=== PATIENT | male | born 1960 | race African-American/Black ===

== ENCOUNTER 2019-03-16 12:44 | Inpatient (IN) | payer MEDICAID ==
[~2019-03-16] VITALS: Ht 185.4 cm; Wt 58.5 kg
[2019-03-16 13:00] VITALS: BP 139/86
--- NOTE | 2019-03-16 13:00 | NUR ---
ED Nurse Note: pt brought in to ER by ambulance from street/homeless due to chest pain. pt aao x2-3 and tends to be aggressive towards nurse along the assessment. pt is ambulatory but staying at bed at this moment. restless and talkative. skin dry and ashen. pt is having SOB. 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
--- NOTE | 2019-03-16 13:10 | NUR ---
ED Nurse Note: pt is asking for hot food and warm blanket. per ERPA, pt needs to wait for the lab and CT results for the food.
[2019-03-16] MEDS ORDERED: Omnipaque 350 100ml vial INJ PRN (13:15)
--- NOTE | 2019-03-16 14:01 | Diagnostic Imaging Report ---
Indication: Dyspnea Comparison: None A single view chest radiograph was obtained. Findings: There is evidence of pulmonary vascular congestion with cardiomegaly. No pleural effusion appreciated. Bones are unremarkable. IMPRESSION: Suspected mild CHF
--- NOTE | 2019-03-16 14:08 | Emergency Room Report ---
History of Present Illness General Chief Complaint: Chest Pain Source: Patient Present Illness HPI 58-year-old male with history of CHF currently controlled here brought in by paramedics for CHF exacerbation. Patient reports that he was hospitalized at [facility] for 7 days and got discharged 1 week ago. Patient reports that he lost the medication that was given to him upon discharge. 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 Patient reports that he was on his way of getting a stent placement at [facility] were found seizures is closed. Denies abdominal pain nausea vomiting head injury. Reports that he had a fall with head injury or loss of consciousness few weeks ago he was already evaluated at [facility]. 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 Needs to wait CT to be done before he can consume solid food. Planes of chest pain, 10. Aspirin 325 and nitro were administered by paramedics as well as Lasix. Patient appears to be a poor historian. Also asking for placement to half-way. Vital signs are within normal limits. Complains of chest pain, denies chest pain radiation, denies headache and dizziness at this time. Complains of bilateral pedal edema however no calf tenderness noted. Allergies: Coded Allergies: No Known Allergies (Unverified , 03/16/19) Patient History Past Medical History: see triage record Past Surgical History: unable to obtain Pertinent Family History: none Immunizations: UTD Reviewed Nursing Documentation: PMH: Agreed; PSxH: Agreed Nursing Documentation-PM Past Medical History: No Stated History Hx Cardiac Problems: Yes - arthritis and seizure Review of Systems All Other Systems: negative except mentioned in HPI Physical Exam Vital Signs Date Time Temp Pulse Resp B/P (MAP) Pulse Ox O2 Delivery O2 Flow Rate FiO2 03/16/19 12:40 97.9 110 20 131/90 (104) 100 Room Air Sp02 EP Interpretation: reviewed, normal General Appearance: alert, non-toxic, mild distress Head: normocephalic, atraumatic Eyes: bilateral eye normal inspection, bilateral eye PERRL ENT: hearing grossly normal, normal pharynx, no angioedema, normal voice Neck: full range of motion, supple, thyroid normal, no meningismus, no bony tend, no carotid bruits, supple/symm/no masses Respiratory: chest non-tender, lungs clear, normal breath sounds, no rhonchi, no retraction, no wheezing, speaking full sentences Cardiovascular #1: regular rate, rhythm, no edema, no murmur, normal capillary refill Cardiovascular #2: 2+ carotid (R), 2+ carotid (L), 2+ radial (R), 2+ radial (L) Gastrointestinal: normal bowel sounds, non tender, soft, non-distended, no guarding, no rebound Genitourinary: no CVA tenderness Musculoskeletal: back normal, normal range of motion, no calf tenderness, gait/ station normal, non-tender, swelling - Bilateral feet Neurologic: alert, motor strength/tone normal, oriented x3, sensory intact, responsive, speech normal Psychiatric: judgement/insight normal, memory normal, mood/affect normal, no suicidal/homicidal ideation Skin: no rash Lymphatic: no adenopathy Medical Decision Making PA Attestation All my diagnosis and treatment plans were reviewed ad discussed with my supervising physician Dr. Martin Diagnostic Impression: Primary Impression: CHF exacerbation Additional Impression: Cocaine abuse ER Course 58-year-old male with history of CHF currently controlled here brought in by paramedics for CHF exacerbation. Patient reports that he was hospitalized at [facility] for 7 days and got discharged 1 week ago. Patient reports that he lost the medication that was given to him upon discharge. 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 Patient reports that he was on his way of getting a stent placement at [facility] were found seizures is closed. Denies abdominal pain nausea vomiting head injury. Reports that he had a fall with head injury or loss of consciousness few weeks ago he was already evaluated at [facility]. 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 Needs to wait CT to be done before he can consume solid food. Planes of chest pain, 10. Aspirin 325 and nitro were administered by paramedics as well as Lasix. Patient appears to be a poor historian. Also asking for placement to half-way. Vital signs are within normal limits. Complains of chest pain, denies chest pain radiation, denies headache and dizziness at this time. Complains of bilateral pedal edema however no calf tenderness noted. Ddx considered but are not limited to: [place], Angina, COPD, GERD, CHF exacerbation , PE Vital signs: are WNL, pt. is afebrile H&PE are most consistent with CHF exacerbation, cocaine abuse ORDERS: EKG, Chest XR, cardiac labs, CTA chest no contrast due to elevated BUN and creatinine ED INTERVENTIONS:tylenol, lasix 40mg IV Patient was admitted with diagnosis of CHF exacerbation cocaine abuse to Dr. Mcarthur under supervision of : Mario pt stable at time of admission EKG Diagnostic Results Rate: tachycardiac Rhythm: other - tachycardia ST Segments: no acute changes Other Impression no acute st changes Chest X-Ray Diagnostic Results Chest X-Ray Diagnostic Results : Chest X-Ray Ordered: Yes # of Views/Limited/Complete: 1 View Indication: Chest Pain EP Interpretation: Yes PA Xray: Interpretation reviewed, by supervising MD, and agrees with findings. Interpretation: other - Cardiomegaly, pulmonary edema Impression: Other - pulmonary edema Electronically Signed by: Errol Grande PA-C CT/MRI/US Diagnostic Results CT/MRI/US Diagnostic Results : Imaging Test Ordered: CTA Impression WNL Last Vital Signs Date Time Temp Pulse Resp B/P (MAP) Pulse Ox O2 Delivery O2 Flow Rate FiO2 03/16/19 12:40 97.9 110 20 131/90 (104) 100 Room Air Status: improved Disposition: ADMITTED INPATIENT Condition: Stable Referrals: NOT CHOSEN IPA/,REFERRING (PCP) Errol Tamayo Mar 16, 2019 14:08
--- NOTE | 2019-03-16 14:10 | NUR ---
ED Nurse Note: pt consistantly asking for hot meal. pt was reminded to wait for lab and CT results. pt is cursing and yelling for hot meal. ERPA made aware. received cardiac diet order for dinner. pt informed.
[2019-03-16 14:26] LABS: BASOPHILS % (AUTO) 1.4 % (0.0-2.0); EOSINOPHILS % (AUTO) 1.1 % (0.0-3.0); HEMATOCRIT 33.8 % (42.0-52.0); HEMOGLOBIN 10.2 G/DL (14.2-18.0); LYMPHOCYTES % (AUTO) 24.6 % (20.0-45.0); MEAN CORPUSCULAR VOLUME 89 FL (80-99); MONOCYTES % (AUTO) 12.8 % (1.0-10.0); NEUTROPHILS % (AUTO) 60.1 % (45.0-75.0); PLATELET COUNT 314 K/UL (150-450); RED BLOOD COUNT 3.82 M/UL (4.70-6.10); RED CELL DISTRIBUTION WIDTH 19.1 % (11.6-14.8); WHITE BLOOD COUNT 7.1 K/UL (4.8-10.8)
[2019-03-16 14:41] LABS: ANION GAP 13 mmol/L (5-15); BLOOD UREA NITROGEN 36 mg/dL (7-18); CALCIUM 9.6 MG/DL (8.5-10.1); CARBON DIOXIDE 21 MMOL/L (21-32); CHLORIDE 105 MMOL/L (98-107); CREATININE 1.7 MG/DL (0.55-1.30); POTASSIUM 4.9 MMOL/L (3.5-5.1); SODIUM 139 MMOL/L (136-145)
[2019-03-16 14:48] LABS: INR 1.4 (0.9-1.1)
[2019-03-16 14:56] LABS: ALANINE AMINOTRANSFERASE 37 U/L (12-78); ALBUMIN 3.4 G/DL (3.4-5.0); ALBUMIN/GLOBULIN RATIO 0.7 (1.0-2.7); ALKALINE PHOSPHATASE 112 U/L (46-116); ASPARTATE AMINO TRANSFERASE 30 U/L (15-37); BILIRUBIN,TOTAL 1.9 MG/DL (0.2-1.0)
[2019-03-16 15:00] VITALS: BP 136/77
[2019-03-16 15:02] LABS: BILIRUBIN,DIRECT 0.7 MG/DL (0.0-0.3)
--- NOTE | 2019-03-16 15:03 | NUR ---
ED Nurse Note: pt taken to CT scan in stable condition.
[2019-03-16 15:14] LABS: APPEARANCE,URINE CLEAR; BILIRUBIN, URINE NEGATIVE (NEGATIVE); GLUCOSE, URINE (UA) NEGATIVE (NEGATIVE); KETONES,URINE NEGATIVE (NEGATIVE); LEUKOCYTE ESTERASE ,URINE NEGATIVE (NEGATIVE); NITRITE,URINE NEGATIVE (NEGATIVE); PH,URINE 5 (4.5-8.0); PROTEIN,URINE 2+ (NEGATIVE); UROBILINOGEN,URINE 1 MG/DL (0.0-1.0)
[2019-03-16 15:16] LABS: COLOR,URINE YELLOW
--- NOTE | 2019-03-16 15:17 | NUR ---
ED Nurse Note: pt came back from CT scan in stable condition.
--- NOTE | 2019-03-16 15:58 | Diagnostic Imaging Report ---
Indication: Chest pain Technique: Continuous helical transaxial imaging of the chest was obtained from the thoracic inlet to the upper abdomen. No intravenous contrast was administered. Coronal 2-D reformats were also obtained. Total Dose length Product (DLP): 811.[address] Dose Index Volume (CTDIvol): 15.9 mGy Comparison: none Findings: The heart is enlarged. There is a small to moderate pericardial effusion. There is a small right and trace left pleural effusion. The pulmonary veins appear prominent bilaterally. Hazy perihilar groundglass opacities also demonstrated. No adenopathy seen. Trace mural calcium noted within the aorta. There is mild ascites within the visualized part of the upper abdomen. The gallbladder is contracted. IMPRESSION: Small to moderate pericardial effusion superimposed on cardiomegaly. Pulmonary venous congestion/CHF. Please correlate clinically. Small right pleural effusion. Trace left pleural effusion. Mild ascites The CT scanner at [facility] is accredited by the [employer] and the scans are performed using dose optimization techniques as appropriate to a performed exam including Automatic Exposure control.
--- NOTE | 2019-03-16 16:24 | NUR ---
ED Nurse Note: per ERPA pt is ok to eat.
--- NOTE | 2019-03-16 17:07 | NUR ---
ED Nurse Note: provided hot food with drink. pt is tolerating well with food.
[2019-03-16] MEDS ORDERED: Enalaprilat 2.5mg/2ml Inj IV PRN (19:00)
[2019-03-16] MEDS ORDERED: Nitroglycerin Subl 0.4mg tab SL PRN (19:00)
[2019-03-16] MEDS ORDERED: Albuterol/Ipratropium 3ml neb HHN PRN (19:00)
[2019-03-16] MEDS ORDERED: Miralax 17gm pkt ORAL PRN (19:00)
[2019-03-16] MEDS ORDERED: dilTIAZem HCl 25mg/5ml Inj IV PRN (19:00)
--- NOTE | 2019-03-16 19:16 | NUR ---
HAND-OFF: Report given to VIBHA Hughes. no orders to carry at this moment. waiting for the room to be assigned.
[2019-03-16] MEDS: Heparin 5000 units/ml inj SUBQ SCH (21:00)
--- NOTE | 2019-03-16 21:13 | NUR ---
ED Nurse Note: Report called into Arline DUNNE.
--- NOTE | 2019-03-16 21:30 | NUR ---
ED Nurse Note: Patient transported to floor without incident by RN.
--- NOTE | 2019-03-16 22:06 | NUR ---
NURSE NOTES: Pt is refusing skin check, vital signs, medication, and assessment. He is also being verbally abusive to staff and c/o TV and current hospital food. Will continue to monitor.
[2019-03-17 06:45] LABS: BASOPHILS % (AUTO) 1.2 % (0.0-2.0); EOSINOPHILS % (AUTO) 1.6 % (0.0-3.0); HEMATOCRIT 31.5 % (42.0-52.0); HEMOGLOBIN 9.9 G/DL (14.2-18.0); INR 1.4 (0.9-1.1); LYMPHOCYTES % (AUTO) 14.2 % (20.0-45.0); MEAN CORPUSCULAR VOLUME 87 FL (80-99); MONOCYTES % (AUTO) 9.7 % (1.0-10.0); NEUTROPHILS % (AUTO) 73.2 % (45.0-75.0); PLATELET COUNT 287 K/UL (150-450); RED BLOOD COUNT 3.64 M/UL (4.70-6.10); WHITE BLOOD COUNT 7.7 K/UL (4.8-10.8)
[2019-03-17 07:46] LABS: CHOLESTEROL 168 MG/DL (< 200); HDL CHOLESTEROL 61 MG/DL (40-60); TRIGLYCERIDES 48 MG/DL (30-150)
--- NOTE | 2019-03-17 07:50 | NUR ---
HAND-OFF: Report given to VIBHA Youssef. Pt stable.
[2019-03-17 08:00] VITALS: BP 104/95
--- NOTE | 2019-03-17 08:00 | NUR ---
NURSE NOTES: Patient stable with complaints of food. Kitchen called. No s/sx of distress. RR even and unlabored on RA. Side rails upx2, call light within reach, bed low and locked. Will continue to monitor.
--- NOTE | 2019-03-17 08:03 | NUR ---
NURSE NOTES: Troponin level reported to Dr. Vee. Orders for EKG and Echo received. EKG refused at this moment. Will atempt again
[2019-03-17] MEDS: Heparin 5000 units/ml inj SUBQ SCH (08:30)
[2019-03-17] MEDS ORDERED: Aspirin Baby 81mg ORAL SCH (09:00)
--- NOTE | 2019-03-17 11:33 | Consultation ---
History of Present Illness General Date patient seen: Mar 17, 2019 Chief Complaint: Chest Pain Present Illness HPI 58-year-old male with history of CHF, homelessness brought in by paramedics for complains of chest pain and shortness of breath, CHF exacerbation. Patient reports that he was hospitalized at [facility] for 7 days and got discharged 1 week ago. Patient reports that he lost the medication that was given to him upon discharge. Aspirin 325 and nitro were administered by paramedics as well as Lasix. Allergies: Uncoded Allergies: sandwhiches (cold) (Allergy, Unknown, 03/17/19) Patient History Healthcare decision maker Resuscitation status Full Code Advanced Directive on File Past Medical/Surgical History Past Medical/Surgical History: (1) Severe anemia (2) Renal insufficiency (3) Homelessness (4) Cardiac LV ejection fraction 10-20% Review of Systems All Other Systems: negative except mentioned in HPI Physical Exam General Appearance: cachetic, thin Lines, tubes and drains: peripheral HEENT: normocephalic, atraumatic Neck: non-tender, normal alignment Respiratory/Chest: chest wall non-tender, lungs clear Breasts: no masses Cardiovascular/Chest: normal peripheral pulses Abdomen: normal bowel sounds, non tender Genitourinary/Rectal: normal genital exam Extremities: normal range of motion Skin Exam: normal pigmentation Last 24 Hour Vital Signs Date Time Temp Pulse Resp B/P (MAP) Pulse Ox O2 Delivery O2 Flow Rate FiO2 03/17/19 09:00 Room Air 03/17/19 08:00 96.7 102 18 104/95 (98) 98 03/17/19 08:00 118 03/17/19 04:00 118 03/17/19 00:00 114 03/16/19 22:12 Room Air 03/16/19 21:25 98.1 90 16 136/77 100 Room Air 03/16/19 15:00 98.1 90 16 136/77 100 Room Air 03/16/19 14:45 97.9 03/16/19 13:00 100 20 Room Air 03/16/19 13:00 97.9 100 20 139/86 100 Room Air 03/16/19 12:40 97.9 110 20 131/90 (104) 100 Room Air Intake and Output 03/16/19 03/17/19 19:00 07:00 Intake Total 0 ml Balance 0 ml Intake Oral 0 ml # Voids 3 Laboratory Tests Test 03/16/19 13:55 03/16/19 15:00 03/16/19 15:30 03/17/19 05:50 White Blood Count 7.1 K/UL (4.8-10.8) 7.7 K/UL (4.8-10.8) Red Blood Count 3.82 M/UL (4.70-6.10) L 3.64 M/UL (4.70-6.10) L Hemoglobin 10.2 G/DL (14.2-18.0) L 9.9 G/DL (14.2-18.0) L Hematocrit 33.8 % (42.0-52.0) L 31.5 % (42.0-52.0) L Mean Corpuscular Volume 89 FL (80-99) 87 FL (80-99) Mean Corpuscular Hemoglobin 26.7 PG (27.0-31.0) L 27.3 PG (27.0-31.0) Mean Corpuscular Hemoglobin Concent 30.1 G/DL (32.0-36.0) L 31.5 G/DL (32.0-36.0) L Red Cell Distribution Width 19.1 % (11.6-14.8) H 19.0 % (11.6-14.8) H Platelet Count 314 K/UL (150-450) 287 K/UL (150-450) Mean Platelet Volume 7.5 FL (6.5-10.1) 7.4 FL (6.5-10.1) Neutrophils (%) (Auto) 60.1 % (45.0-75.0) 73.2 % (45.0-75.0) Lymphocytes (%) (Auto) 24.6 % (20.0-45.0) 14.2 % (20.0-45.0) L Monocytes (%) (Auto) 12.8 % (1.0-10.0) H 9.7 % (1.0-10.0) Eosinophils (%) (Auto) 1.1 % (0.0-3.0) 1.6 % (0.0-3.0) Basophils (%) (Auto) 1.4 % (0.0-2.0) 1.2 % (0.0-2.0) Prothrombin Time 15.0 SEC (9.30-11.50) H 15.0 SEC (9.30-11.50) H Prothromb Time International Ratio 1.4 (0.9-1.1) H 1.4 (0.9-1.1) H Activated Partial Thromboplast Time 34 SEC (23-33) H 36 SEC (23-33) H Sodium Level 139 MMOL/L (136-145) Potassium Level 4.9 MMOL/L (3.5-5.1) Chloride Level 105 MMOL/L (98-107) Carbon Dioxide Level 21 MMOL/L (21-32) Anion Gap 13 mmol/L (5-15) Blood Urea Nitrogen 36 mg/dL (7-18) H Creatinine 1.7 MG/DL (0.55-1.30) H Estimat Glomerular Filtration Rate 50.4 mL/min (>60) Glucose Level 89 MG/DL (74-106) Calcium Level 9.6 MG/DL (8.5-10.1) Total Bilirubin 1.9 MG/DL (0.2-1.0) H Direct Bilirubin 0.7 MG/DL (0.0-0.3) H Aspartate Amino Transf (AST/SGOT) 30 U/L (15-37) Alanine Aminotransferase (ALT/SGPT) 37 U/L (12-78) Alkaline Phosphatase 112 U/L (46-116) Troponin I 0.084 ng/mL (0.000-0.056) 0.087 ng/mL (0.000-0.056) 0.076 ng/mL (0.000-0.056) Pro-B-Type Natriuretic Peptide 7383 pg/mL (0-125) H Total Protein 8.2 G/DL (6.4-8.2) Albumin 3.4 G/DL (3.4-5.0) Globulin 4.8 g/dL Albumin/Globulin Ratio 0.7 (1.0-2.7) L Urine Color Yellow Urine Appearance Clear Urine pH 5 (4.5-8.0) Urine Specific [place] 1.020 (1.005-1.035) Urine Protein 2+ (NEGATIVE) H Urine Glucose (UA) Negative (NEGATIVE) Urine Ketones Negative (NEGATIVE) Urine Blood Negative (NEGATIVE) Urine Nitrite Negative (NEGATIVE) Urine Bilirubin Negative (NEGATIVE) Urine Urobilinogen 1 MG/DL (0.0-1.0) H Urine Leukocyte Esterase Negative (NEGATIVE) Urine RBC 0-2 /HPF (0 - 0) H Urine WBC 0-2 /HPF (0 - 0) Urine Squamous Epithelial Cells Occasional /LPF Urine Bacteria Moderate /HPF (NONE) H Urine Opiates Screen Negative (NEGATIVE) Urine Barbiturates Screen Negative (NEGATIVE) Phencyclidine (PCP) Screen Negative (NEGATIVE) Urine Amphetamines Screen Negative (NEGATIVE) Urine Benzodiazepines Screen Negative (NEGATIVE) Urine Cocaine Screen Positive (NEGATIVE) H Urine Marijuana (THC) Screen Positive (NEGATIVE) H C-Reactive Protein, Quantitative 1.9 mg/dL (0.00-0.90) H Triglycerides Level 48 MG/DL (30-150) Cholesterol Level 168 MG/DL (< 200) LDL Cholesterol 94 mg/dL (<100) HDL Cholesterol 61 MG/DL (40-60) H Cholesterol/HDL Ratio 2.8 (3.3-4.4) L Thyroid Stimulating Hormone (TSH) 3.546 uiU/mL (0.358-3.740) Microbiology Date/Time Source Procedure Growth Status 03/16/19 15:00 Urine,Clean Catch Urine Culture - Preliminary Resulted 03/16/19 21:22 Rectum Received Height (Feet): 6 Height (Inches): 1.00 Weight (Pounds): 129 Medications Current Medications Medications (Trade) Dose Ordered Sig/Ariel Route PRN Reason Start Time Stop Time Status Last Admin Dose Admin Acetaminophen (Tylenol) 650 mg Q4H PRN ORAL FEVER 03/16/19 19:00 04/15/19 18:59 Albuterol/ Ipratropium (Albuterol/ Ipratropium) 3 ml Q4H PRN HHN Shortness of Breath 03/16/19 19:00 03/21/19 18:59 Aspirin (ASA) 162 mg DAILY ORAL 03/17/19 09:00 04/16/19 08:59 03/17/19 08:24 Diltiazem HCl (Cardizem) 10 mg EVERY HOUR PRN IV heart rate more than 120, 03/16/19 19:00 04/15/19 18:59 Enalaprilat (Vasotec) 2.5 mg EVERY 6 HOURS PRN IV sbp more than 160 03/16/19 19:00 04/15/19 18:59 Heparin Sodium (Porcine) (Heparin 5000 units/ml) 5,000 units EVERY 12 HOURS SUBQ 03/16/19 21:00 04/15/19 20:59 03/17/19 08:30 Iohexol (Omnipaque) 100 mg NOW PRN INJ Radiology Procedure 03/16/19 13:15 03/18/19 13:08 Nitroglycerin (Ntg) 0.4 mg Q5M PRN SL Prn Chest Pain 03/16/19 19:00 04/15/19 18:59 Ondansetron HCl (Zofran) 4 mg Q6H PRN IVP Nausea & Vomiting 03/16/19 19:00 04/15/19 18:59 03/17/19 05:09 Polyethylene Glycol (Miralax) 17 gm DAILYPRN PRN ORAL Constipation 03/16/19 19:00 04/15/19 18:59 Temazepam (Restoril) 15 mg HSPRN PRN ORAL Insomnia 03/16/19 19:00 03/23/19 18:59 Assessment/Plan Problem List: (1) CHF exacerbation ICD Codes: I50.9 - Heart failure, unspecified SNOMED: 012743666, 39646511404431 (2) Renal insufficiency ICD Codes: N28.9 - Disorder of kidney and ureter, unspecified SNOMED: 478269454, 258002403 (3) Cardiac LV ejection fraction 10-20% ICD Codes: R09.89 - Other specified symptoms and signs involving the circulatory and respiratory systems SNOMED: 81295934, 879319568 (4) Severe anemia ICD Codes: D64.9 - Anemia, unspecified SNOMED: 820290080 (5) Homelessness ICD Codes: Z59.0 - Homelessness SNOMED: 01110159 (6) Cocaine abuse ICD Codes: F14.10 - Cocaine abuse, uncomplicated SNOMED: 35689325 Assessment/Plan: cardiac evaluation diuretics social service consult Robby Chavarria MD Mar 17, 2019 11:33
[2019-03-17 12:05] LABS: CREATINE KINASE 90 U/L (26-308)
[2019-03-17 14:01] LABS: APPEARANCE,URINE CLEAR; BILIRUBIN, URINE NEGATIVE (NEGATIVE); GLUCOSE, URINE (UA) NEGATIVE (NEGATIVE); KETONES,URINE NEGATIVE (NEGATIVE); LEUKOCYTE ESTERASE ,URINE 1+ (NEGATIVE); NITRITE,URINE NEGATIVE (NEGATIVE); PH,URINE 5 (4.5-8.0); PROTEIN,URINE 2+ (NEGATIVE); UROBILINOGEN,URINE 1 MG/DL (0.0-1.0)
[2019-03-17 14:13] LABS: COLOR,URINE YELLOW
--- NOTE | 2019-03-17 15:13 | NUR ---
CASE MANAGEMENT:REVIEW 58 YR OLD MALE BIBA FROM BUS STOP CC: CHEST PAIN. SOB SI: CHF. COCAINE ABUSE 97.9 110 20 131/90 100% ON RA BUN+36 CR+1.7 BNP+7383 TROPONIN(+) 0.084 URINE(+) COCAINE AND THC IS: NITRO SPRAY X2 RIPPLER ASA 325MG PO RIPPLER 1L NS BOLUS IV LASIX TYLENOL PO CT AND CTA CHEST URINE CX CHEST XRAY : TO TELEMETRY UNIT
--- NOTE | 2019-03-17 15:18 | History & Physical ---
History and Physical History & Physicial Jose Mcarthur MD Mar 17, 2019 15:18
--- NOTE | 2019-03-17 15:21 | NUR ---
HISTOLOGY SPECIALIST NOTE PT is identified as a homeless and scheduled to be discharged today. SW met w/ pt and assessed pt's needs. Pt presents as A&O 4x, labile, irritable and verbally aggressive. Pt has been homeless for 16 years, receives no income, and is currently unemployed. 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 Pt reports he usually stays at [facility]. Pt does not have physical/mailing address. Pt is ambulatory w/o DME. Pt has appropriate clothing. Pt requested a pant as his current pant is soiled. RUDS positive for Cocaine. PT denies current substance abuse. PT declined counseling/tx intervention/resource on substance abuse. PT did not provide emergency contact. SW encouraged pt to apply GR and food stamp but pt reports he does not need such income. SW offered a homeless usp list but pt refused and wanting to go back to his preferred location. SW attempted to discuss negative ramification of homelessness but pt refused to listen. Pt to be discharged his preferred location. Signed: 03/17/19 at 1527 by SHAQUILLE URIBE <Co-Signature Required>
--- NOTE | 2019-03-17 15:28 | NUR ---
COUNTER SUPPLY WORKER NOTE ADD: JOJO provided clean pants. Signed: 03/17/19 at 1529 by SHAQUILLE URIBE <Co-Signature Required>
--- NOTE | 2019-03-17 16:00 | NUR ---
NURSE NOTES: Safe discharge homeless paper work filled out by this nurse and placed in chart. Dr. Mcarthur signed document. Patient signed document. Patient provided tap card and escorted to bus stop. Noted.
--- NOTE | 2019-03-17 16:31 | NUR ---
NURSE NOTES: Patient discharged in stable condition. Tap card for bus given to patient. All belongings with patient. Patient refusing to sign paperwork.
--- NOTE | 2019-03-17 19:15 | History and Physical Report ---
DATE OF ADMISSION: 03/16/2019 ADDENDUM ALLERGIES: Allergic to "sandwich"? FAMILY HISTORY: Noncontributory. REVIEW OF SYSTEMS: Mostly as above. PHYSICAL EXAMINATION: VITAL SIGNS: On admission, temperature 97.9, pulse of 110, respirations 20, blood pressure 131/90. GENERAL: The patient is awake, responsive, no acute distress. Cachectic. HEAD AND NECK: Pupils are equal and reactive to light. Extraocular muscles intact. NECK: Supple. No JVD. LUNGS: Good air entry. No wheezing or rales. HEART: S1, S2. Distant heart sounds. No murmur or gallops. ABDOMEN: Soft, nondistended, nontender. Positive bowel sounds. EXTREMITIES: No cyanosis or clubbing. Trace edema. NEUROLOGIC: Cranial nerves II through XII grossly normal. Motor 5/5 in all extremities. Gait is intact. RECTAL/GENITOURINARY: Refused and deferred. PSYCHIATRIC: Mood and affect is anxious. LABORATORY DATA: On admission WBC of 7.1, hemoglobin 10.2, hematocrit 33, platelets 314. The patient's sodium 139, potassium 4.9, chloride 105, bicarb 21, BUN 36, creatinine 1.7, glucose 89. BNP of 7383. First troponin 0.084. Second troponin 0.087. CRP is 1.9. Uric acid is 1.75. PT of 50, INR 1.4, and PTT of 34. Urinalysis +2 protein, +1 leukocytes. Urine drug screen positive for cocaine and marijuana. The patient's chest x-ray suspected mild congestive heart failure. CT of the chest showed a [id number]-[id number] pericardial effusion superimposed on cardiomegaly. EKG is sinus tachycardia, ventricular rate of 111, and nonspecific T-wave abnormality. No ST-elevation was noted. The patient had a right bundle-branch block. ASSESSMENT: 1. Acute CHF exacerbation. 2. Chest pain. 3. Severe cardiomyopathy. 4. Heart failure with a reduced ejection fraction. 5. Noncompliance with medication. 6. Substance abuse, cocaine and marijuana. PLAN: Admit the patient to telemetry. We will follow up with Dr. Chavarria, Pulmonary Critical Care. Discussed with the patient with regard to be compliant with medication. He became very combative. We will follow up with the records at [facility]. Consider to discharge the patient home soon if the patient has not become compliant with the hospital medications. Jose Mcarthur M.D. DR: POLY JOB#: [id number] CC:
--- NOTE | 2019-03-18 00:30 | History and Physical Report ---
DATE OF ADMISSION: 03/16/2019 NOTE: INCOMPLETE DICTATION CHIEF COMPLAINT: Chest pain. HISTORY OF PRESENT ILLNESS: This is a 58-year-old gentleman with past medical history significant for CHF and homelessness, who presented to the emergency department via paramedics complaining of chest pain associated with shortness of breath. Shortly after initial evaluation, the patient was admitted to the hospital with chest pain, possible acute CHF exacerbation. The patient was recently hospitalized at [facility] for 7 days and got discharged a week ago, and he has lost his medication that was given to him upon discharge. Aspirin and nitro was administrated by paramedics. PAST MEDICAL HISTORY AND PAST SURGICAL HISTORY: CHF, noncompliance, anemia, chronic renal insufficiency, homelessness, severe cardiomyopathy, and history of substance abuse, cocaine. MEDICATIONS: Medications at home, unknown. ALLERGIES: To cold sandwich. Jose Mcarthur M.D. DR: MEKHI JOB#: [id number] CC:
--- NOTE | 2019-03-19 09:37 | Discharge Summary ---
Discharge Summary Discharge Summary _ DATE OF ADMISSION: 03/16/2019 DATE OF DISCHARGE: 03/17/2019 DISCHARGED BY: Dr. Jose Mcarthur CONSULTANTS: Dr. Robby Chavarria BRIEF HOSPITAL COURSE: Patient is a 58-year-old -[place] gentleman with past medical history significant for CHF and homelessness, who presented to the emergency department via paramedics due to chest pain associated with shortness of breath. He was recently hospitalized at [facility] for 7 days and was discharged a week ago. He lost his medications. Paramedics administered aspirin 325 mg and nitro. Upon evaluation at ED, blood work did not show any leukocytosis. Hemoglobin 10 , hematocrit 34. BUN was 36 and creatinine elevated to 1.7. proBNP was elevated to 7383. Troponin elevated to 0.084. Urine drug screen was positive for cocaine and marijuana. EKG showed sinus tachycardia with nonspecific T wave abnormality. No ST elevation noted. Chest x-ray showed evidence of pulmonary vascular congestion with cardiomegaly. CT of the chest showed pulmonary venous congestion. Small to moderate pericardial effusion. Small right and trace left pleural effusion. Perihilar groundglass opacities. He was admitted for CHF. He was admitted to monitored floor. He was continued on aspirin. He was given diuretics. Cardiac enzymes were monitored. Lipid panel was acceptable. Thyroid function normal. Echocardiogram done. He refused to have repeat EKG. He was not compliant with hospital medications. Cardiac enzymes were stable. Patient was cleared for discharge. He was seen by social services designee. Patient was verbally aggressive. He was offered a homeless long term list but patient refused. FINAL DIAGNOSES: Acute CHF exacerbation with reduced ejection fraction Severe cardiomyopathy Noncompliance with medications Substance abuse, cocaine and marijuana DISPOSITION: The treating physician has assessed that the patient is medically stable for discharge to an outstretched disposition. DISCHARGE INSTRUCTIONS: Follow-up with PCP in a week. I have been assigned to complete a discharge summary on this account, I was not involved with the patient's management.--LOGAN Lovett Jacqueline Robles NP Mar 19, 2019 09:37
--- NOTE | 2019-03-21 20:30 | Coder Physician Query ---
Clarification is required for compliance, coding accuracy, and to reflect severity of illness for this patient Dear Dr. Mcarthur Date: 03/21/19 Wireless Construction Manager/CDS Name: MARISOL Irving Acute CHF exacerbation with reduced ejection fraction Severe cardiomyopathy proBNP was elevated to 7383 Ejection fraction estimated to be less than 15% Please Clarify the Type of CHF: Type : [x] Systolic [] Diastolic [] Systolic & Diastolic (Combined) [] Other: HARITHA MCARTHUR M.D. Date Please also document in your Progress Notes and/or Discharge Summary and indicate if the condition was present on admission. THAO
== END 2019-03-17 16:25 | disposition home or self-care (01) | DRG 194 ==
LOC: EDBD 12:44 → EMR 14:00 → 2E 17:00 → EDBEDREQ 20:25 → 2E 23:14
DX: I50.23 Acute on chronic systolic (congestive) heart failure (principal); I31.3 Pericardial effusion (noninflammatory); I42.9 Cardiomyopathy, unspecified; Z59.0 Homelessness; Z91.14 Patient's other noncompliance with medication regimen; F14.10 Cocaine abuse, uncomplicated; F12.10 Cannabis abuse, uncomplicated; D64.9 Anemia, unspecified; N18.9 Chronic kidney disease, unspecified
CPT/HCPCS: 36415; 71045; 71250; 80053; 80061; 80307; 81001; 81003; 82248; 82550; 83880; 84133; 84300; 84443; 84484; 84550; 85025; 85610; 85730; 86140; 87081; 87086; 89050; 93005; 93306; 96374; 99285; J2405

== ENCOUNTER 2019-04-08 11:36 | Inpatient (IN) | payer MEDICAID ==
[~2019-04-08] VITALS: Ht 185.4 cm; Wt 70.8 kg
[2019-04-08 11:40] VITALS: BP 129/108
--- NOTE | 2019-04-08 11:40 | NUR ---
ED Nurse Note: Patient was BIBA from street due to CP x 20 min. Stated was admited for the same reason to [facility] couple days ago. Patient presented AAO x4, VSS at this time, has non-labored breathing, O2 sat 100% on RA.
--- NOTE | 2019-04-08 11:43 | Emergency Room Report ---
History of Present Illness General Chief Complaint: Chest Pain Source: Patient, EMS Present Illness HPI Paramedics were summoned to [facility] as this patient was having crushing substernal chest pain. He rated a 10/10 in the beginning. He has a history of congestive heart failure. Paramedics treated him with aspirin and 0.4 mg of nitroglycerin. The patient still is having chest pain at this time. He denies productive cough. The patient states he was recently admitted to [facility] for 6 days. Was recently discharged. Is complaining about leg edema. Patient has a history of seizures. He has uncertain what medications he takes. No fevers, chills, sore throat, palpitations, nausea, vomiting, diarrhea, dysuria, abdominal pain, rashes, depression, anxiety, visual changes, dizziness , headache. Patient was admitted earlier this month. D/C dx: Acute CHF exacerbation with reduced ejection fraction Severe cardiomyopathy Noncompliance with medications Substance abuse, cocaine and marijuana Allergies: Coded Allergies: NO KNOWN ALLERGIES (Verified Allergy, Unknown, 04/08/19) Patient History Past Medical History: see triage record, old chart reviewed Social History: Reports: smoking, drug use - prior cocaine; Denies: alcohol use Social History Narrative born [facility]. Lives with mother (last d/c from [facility] was "homeless") Reviewed Nursing Documentation: PMH: Agreed; PSxH: Agreed Nursing Documentation-PMH Hx Cardiac Problems: Yes Hx Seizures: Yes Hx Weakness: Yes Review of Systems All Other Systems: negative except mentioned in HPI Physical Exam Vital Signs Date Time Temp Pulse Resp B/P (MAP) Pulse Ox O2 Delivery O2 Flow Rate FiO2 04/08/19 11:25 98.2 93 18 129/108 (115) 95 Room Air Sp02 EP Interpretation: reviewed, abnormal - Interpreted as slightly low by me General Appearance: other - Slightly disheveled Head: normocephalic, atraumatic Eyes: bilateral eye PERRL, bilateral eye EOMI, bilateral eye Scleral Injection ENT: moist mucus membranes - Poor dentition Neck: full range of motion, supple Respiratory: normal breath sounds - Anteriorly, other - Chest wall tenderness Cardiovascular #1: regular rate, rhythm, JVD, edema - Trace bilaterally Cardiovascular #2: 2+ radial (L) Gastrointestinal: soft, other - Slightly distended Genitourinary: no CVA tenderness Musculoskeletal: calf tenderness - Left greater than right Neurologic: motor strength/tone normal, oriented, sensory intact, cerebellar normal, speech normal, grossly normal Psychiatric: mood/affect normal Skin: no rash, warm/dry, other - Venous disease lower extremities Procedures Critical Care Time Critical Care Time Total Critical Care Time: 30 min bedside evaluation and treatment excludes procedures (EKG). Reason for critical care: Congestive heart failure, NSTEMI, discussion with patient need for admission Possible complications: hypotension, hypertension, WI, shock, arrhythmias, metabolic acidosis, end organ damage, respiratory failure. Interventions: Lasix, nitro paste, metoprolol, discussion with patient need for admission Course: Patient presented with chest pain. Clinical evaluation positive for congestive heart failure. Review of records reveal 10 to 20% ejection fraction. Lasix and Nitropaste administered. Called for positive troponin. Aspirin had been administered in the field. Patient given metoprolol and Lovenox. Tolerated well with some diuresis. Patient with multiple discussions on treatment plan and need for admission. Discussion with admitting physicians. Consultations: nursing staff, EMS, admitting physicians, clinical lab Performed by: Dr. Mercer Tolerated well condition = critical Medical Decision Making Diagnostic Impression: Primary Impression: Chest pain Qualified Codes: R07.9 - Chest pain, unspecified Additional Impressions: NSTEMI (non-ST elevated myocardial infarction) CHF (congestive heart failure) Qualified Codes: I50.84 - End stage heart failure Renal insufficiency Cocaine abuse Tenderness of left calf ER Course Patient presents with chest pain. Differential includes acute myocardial infarction, chest wall tenderness, reflux esophagitis, exacerbation of congestive heart failure amongst others. Patient evaluated with EKG, chest x- ray and labs. Patient treated with Lasix. Previously received aspirin in the field and nitroglycerin. Nitropaste applied. EKG NSR, NSSTTW changes. CXR cardiomegally with CHF and bilat effusions (medium ). WBC normal. Anemia. Renal insufficiency. Called with + troponin. Aspirin had been given in field. Nitro paste given. Metoprolol given. Lovenox given. Patient improved and sleeping prior to Lovenox. Patient demanding and argumentative with staff. Patient denies chest pain at this time. Patient admitted stepdown unit. Discussed with patient the need for pacemaker and possibly implanted defibrillator. Urine tox returns positive for cocaine and THC. Laboratory Tests Test 04/08/19 11:48 04/08/19 14:37 White Blood Count 5.4 K/UL (4.8-10.8) Red Blood Count 3.95 M/UL (4.70-6.10) L Hemoglobin 10.6 G/DL (14.2-18.0) L Hematocrit 34.9 % (42.0-52.0) L Mean Corpuscular Volume 88 FL (80-99) Mean Corpuscular Hemoglobin 26.8 PG (27.0-31.0) L Mean Corpuscular Hemoglobin Concent 30.3 G/DL (32.0-36.0) L Red Cell Distribution Width 19.4 % (11.6-14.8) H Platelet Count 205 K/UL (150-450) Mean Platelet Volume 8.1 FL (6.5-10.1) Neutrophils (%) (Auto) 62.1 % (45.0-75.0) Lymphocytes (%) (Auto) 19.8 % (20.0-45.0) L Monocytes (%) (Auto) 14.8 % (1.0-10.0) H Eosinophils (%) (Auto) 2.1 % (0.0-3.0) Basophils (%) (Auto) 1.2 % (0.0-2.0) Prothrombin Time 13.5 SEC (9.30-11.50) H Prothrombin Time INR 1.3 (0.9-1.1) H Activated Partial Thromboplast Time 33 SEC (23-33) Sodium Level 141 MMOL/L (136-145) Potassium Level 4.2 MMOL/L (3.5-5.1) Chloride Level 105 MMOL/L (98-107) Carbon Dioxide Level 21 MMOL/L (21-32) Anion Gap 15 mmol/L (5-15) Blood Urea Nitrogen 44 mg/dL (7-18) H Creatinine 1.7 MG/DL (0.55-1.30) H Estimate Glomerular Filtration Rate 50.4 mL/min (>60) Glucose Level 135 MG/DL (74-106) H Calcium Level 8.8 MG/DL (8.5-10.1) Total Bilirubin 1.3 MG/DL (0.2-1.0) H Direct Bilirubin 0.7 MG/DL (0.0-0.3) H Aspartate Amino Transferase (AST) 46 U/L (15-37) H Alanine Aminotransferase (ALT) 62 U/L (12-78) Alkaline Phosphatase 146 U/L (46-116) H Total Creatine Kinase 80 U/L (26-308) Troponin I 0.134 ng/mL (0.000-0.056) Pro-B-Type Natriuretic Peptide 6194 pg/mL (0-125) H Total Protein 7.5 G/DL (6.4-8.2) Albumin 3.3 G/DL (3.4-5.0) L Globulin 4.2 g/dL Albumin/Globulin Ratio 0.8 (1.0-2.7) L Urine Color Pale yellow Urine Appearance Clear Urine pH 5 (4.5-8.0) Urine Specific [place] 1.015 (1.005-1.035) Urine Protein 1+ (NEGATIVE) H Urine Glucose (UA) Negative (NEGATIVE) Urine Ketones Negative (NEGATIVE) Urine Blood Negative (NEGATIVE) Urine Nitrite Negative (NEGATIVE) Urine Bilirubin Negative (NEGATIVE) Urine Urobilinogen Normal MG/DL (0.0-1.0) Urine Leukocyte Esterase Negative (NEGATIVE) Urine RBC 0-2 /HPF (0 - 0) H Urine WBC 0-2 /HPF (0 - 0) Urine Squamous Epithelial Cells None /LPF (NONE/OCC) Urine Bacteria Few /HPF (NONE) Urine Opiates Screen Negative (NEGATIVE) Urine Barbiturates Screen Negative (NEGATIVE) Phencyclidine (PCP) Screen Negative (NEGATIVE) Urine Amphetamines Screen Negative (NEGATIVE) Urine Benzodiazepines Screen Negative (NEGATIVE) Urine Cocaine Screen Positive (NEGATIVE) H Urine Marijuana (THC) Screen Positive (NEGATIVE) H EKG Diagnostic Results Rate: normal Rhythm: NSR ST Segments: no acute changes - NSSTTW changes ASA given to the pt in ED: No - Previously administered Rhythm Strip Diag. Results EP Interpretation: yes Rhythm: NSR, no PVC's, no ectopy Chest X-Ray Diagnostic Results Chest X-Ray Diagnostic Results : Chest X-Ray Ordered: Yes # of Views/Limited/Complete: 1 View Indication: Other EP Interpretation: Yes Interpretation: no pneumothorax, other - Cardiomegaly, congestive failure and bilateral effusions Impression: Other Electronically Signed by: Electronically signed by Daryl Mercer MD Last Vital Signs Date Time Temp Pulse Resp B/P (MAP) Pulse Ox O2 Delivery O2 Flow Rate FiO2 2/29/20 11:25 98.2 93 18 129/108 (115) 95 Room Air Status: improved Disposition: ADMITTED INPATIENT Condition: Critical Daryl Mercer MD Apr 08, 2019 11:43
[2019-04-08 12:05] LABS: BASOPHILS % (AUTO) 1.2 % (0.0-2.0); EOSINOPHILS % (AUTO) 2.1 % (0.0-3.0); HEMATOCRIT 34.9 % (42.0-52.0); HEMOGLOBIN 10.6 G/DL (14.2-18.0); LYMPHOCYTES % (AUTO) 19.8 % (20.0-45.0); MEAN CORPUSCULAR VOLUME 88 FL (80-99); MONOCYTES % (AUTO) 14.8 % (1.0-10.0); NEUTROPHILS % (AUTO) 62.1 % (45.0-75.0); PLATELET COUNT 205 K/UL (150-450); RED BLOOD COUNT 3.95 M/UL (4.70-6.10); RED CELL DISTRIBUTION WIDTH 19.4 % (11.6-14.8); WHITE BLOOD COUNT 5.4 K/UL (4.8-10.8)
[2019-04-08 12:13] LABS: INR 1.3 (0.9-1.1)
[2019-04-08 12:37] LABS: ANION GAP 15 mmol/L (5-15); BLOOD UREA NITROGEN 44 mg/dL (7-18); CALCIUM 8.8 MG/DL (8.5-10.1); CARBON DIOXIDE 21 MMOL/L (21-32); CHLORIDE 105 MMOL/L (98-107); CREATININE 1.7 MG/DL (0.55-1.30); POTASSIUM 4.2 MMOL/L (3.5-5.1); SODIUM 141 MMOL/L (136-145)
[2019-04-08 12:40] VITALS: BP 125/99
[2019-04-08] MEDS ORDERED: Enoxaparin 60mg Inj SUBQ STA (12:40)
[2019-04-08] MEDS ORDERED: Metoprolol Tartrate 5mg/5ml Inj IVP STA (12:40)
[2019-04-08 12:48] LABS: ALANINE AMINOTRANSFERASE 62 U/L (12-78); ALBUMIN 3.3 G/DL (3.4-5.0); ALBUMIN/GLOBULIN RATIO 0.8 (1.0-2.7); ALKALINE PHOSPHATASE 146 U/L (46-116); ASPARTATE AMINO TRANSFERASE 46 U/L (15-37); BILIRUBIN,DIRECT 0.7 MG/DL (0.0-0.3); BILIRUBIN,TOTAL 1.3 MG/DL (0.2-1.0); CREATINE KINASE 80 U/L (26-308)
--- NOTE | 2019-04-08 13:10 | NUR ---
ED Nurse Note: Patient was provided with lunch tray.
--- NOTE | 2019-04-08 13:45 | NUR ---
ED Nurse Note: Patient refused VRE, CRE swabs.
--- NOTE | 2019-04-08 14:48 | Diagnostic Imaging Report ---
EXAM: XR Chest, 1 View CLINICAL HISTORY: CP TECHNIQUE: Frontal view of the chest. COMPARISON: Chest radiograph on 03/16/2019. FINDINGS: Hardware: None. Lungs/pleura: Probable mild pulmonary vasculature congestion and edema, decreased compared to prior exam. No focal consolidation. No pleural effusion or pneumothorax. Heart/mediastinum: Stable severe enlargement of the cardiac silhouette. Soft tissues: Unremarkable. Bones: No acute fracture. Upper abdomen: Normal. IMPRESSION: 1. Probable mild pulmonary vasculature congestion and edema, decreased compared to prior exam. No focal consolidation. 2. Stable severe enlargement of the cardiac silhouette.
[2019-04-08 15:23] LABS: BILIRUBIN, URINE NEGATIVE (NEGATIVE); COLOR,URINE PALE YELLOW; GLUCOSE, URINE (UA) NEGATIVE (NEGATIVE); KETONES,URINE NEGATIVE (NEGATIVE); LEUKOCYTE ESTERASE ,URINE NEGATIVE (NEGATIVE); NITRITE,URINE NEGATIVE (NEGATIVE); PH,URINE 5 (4.5-8.0); PROTEIN,URINE 1+ (NEGATIVE); UROBILINOGEN,URINE NORMAL MG/DL (0.0-1.0)
[2019-04-08 15:24] LABS: APPEARANCE,URINE CLEAR
[2019-04-08 16:40] VITALS: BP 130/78
[2019-04-08] MEDS ORDERED: Albuterol/Ipratropium 3ml neb HHN PRN (17:00)
[2019-04-08] MEDS ORDERED: Miralax 17gm pkt ORAL PRN (17:00)
[2019-04-08 19:10] VITALS: BP 110/62
--- NOTE | 2019-04-08 19:10 | NUR ---
ED Nurse Note: report received from VIBHA Rodriguez. Pt resting in bed, VSS no s/s of distress noted.
--- NOTE | 2019-04-08 19:38 | NUR ---
NURSE NOTES: [facility]- RN called to give report on PT. awaiting pts arrival.
--- NOTE | 2019-04-08 19:50 | NUR ---
ER DISCHARGE NOTE: Patient is cleared to be discharged to SDU per ERMD, pt is aox4, on room air, with stable vital signs. pt was able to verbalize understanding. pt is able to ambulate with steady gait. pt took all belongings. Report given to VIBHA Robbins on SDU unit.
--- NOTE | 2019-04-08 19:55 | NUR ---
NURSE NOTES: Pt refused to have belongings list checked. threw all his belongings to the floor.
[2019-04-08 20:00] VITALS: BP 106/76
--- NOTE | 2019-04-08 20:00 | NUR ---
NURSE NOTES: Pt received from ER. pt appears alert and oriented times 3, however uncooperative to initial assessment. pt is on room air, able to sat at 99%, no apparent resp distress noted. pt is on teletypesetter monitor showing NSR. pt bed is low, locked, armed, call light within reach, bed rails up times 2. pt refused belongings examined. pt Refused IV LINE MD PONCE AWARE.
[2019-04-08] MEDS: Heparin 5000 units/ml inj SUBQ SCH ×2 (21:00→21:42)
--- NOTE | 2019-04-08 22:13 | NUR ---
NURSE NOTES: Pt refused IV site. pt refused IV LASIXS. pt refused HEPARIN SQ. charge nurse Rosendo garg. meds returned to [facility].
--- NOTE | 2019-04-08 22:28 | NUR ---
NURSE NOTES: Let doctor mily know pt is refusing IV lasix 40 Mg and HEP sub Q and IV access.
--- NOTE | 2019-04-08 22:58 | NUR ---
NURSE NOTES: doctor Chavarria messaged back asking if pt would take Meds by mouth. meds such as Lasix and Heparin. pt refused to take any meds by mouth. doctor Chavarria aware.
--- NOTE | 2019-04-09 00:28 | NUR ---
NURSE NOTES: Pt transfered to Med surg. pt remains stable. report given to TARYN RN. pt transfered with all belongings.
[2019-04-09 00:30] VITALS: BP 108/72
--- NOTE | 2019-04-09 00:30 | NUR ---
NURSE NOTES: Pt transferred from [facility] via hospital bed. Alert and orientation x4. No acute distress noted. VSS at this time. Pt says that it was cold pt's room downstair. Asking for food despite finishing cereal and milk. Did not want have sandwiches but peanut butter sandwiches. Pt made aware of food safety coordinator time. Given room orientation and call light within reach. Will continue to monitor.
--- NOTE | 2019-04-09 00:50 | NUR ---
NURSE NOTES: Pt came out of room and walked out the hallway. Staffs and RNs went to pt and escorted the room. Explain the situations but pt denies of his refusals from [facility]. Called a employment security officer for safety. Provide active listening to mediate the situation. Will continue to monitor.
--- NOTE | 2019-04-09 00:50 | NUR ---
NURSE NOTES: Asked to check belongings but pt says that it has been done and no need to do it. Explain for the policy to recheck but still does not want to.
[2019-04-09] MEDS ORDERED: Albuterol/Ipratropium 3ml neb HHN PRN ×2 (01:00→14:00)
--- NOTE | 2019-04-09 01:15 | NUR ---
NURSE NOTES: Pt requests for medication. Checked IV site but complaining for pain. No swelling or redness noted. Explain for getting new IV access. Pt agrees to remove it. Pt insults RN during removal IV site d/t pain. CN made aware and will try to get new access. Will continue to monitor.
--- NOTE | 2019-04-09 01:31 | NUR ---
NURSE NOTES: Patient refusing IV insertion at this time. Patient wants to be transferred back to previous floor to be monitored. Educated the patient regarding his transfer to the med surg floor, patient became agitated and insisting that he isn't refusing anything. patient disregards and kicked Relief charge nurse at the moment, and patient wants to speak to the Doctor and disputing his transfer to the floor.
--- NOTE | 2019-04-09 01:55 | NUR ---
NURSE NOTES: Cleared with previous RN about what pt remarked any denial of refusal treatment, which pt has refused and notified with Dr. Chavarria. Informed Dr. Chavarria about the situation and will continue to monitor.
--- NOTE | 2019-04-09 02:30 | NUR ---
NURSE NOTES: Pt is asleep without acute distress. Will continue to monitor.
[2019-04-09 04:00] VITALS: BP 112/81
--- NOTE | 2019-04-09 05:10 | NUR ---
NURSE NOTES: Pt states that he has chest pain. Offer to start IV access. Agree to get it. IV route establishes 22g H/L on rt FA.
--- NOTE | 2019-04-09 05:30 | NUR ---
NURSE NOTES: Pt refuses to get Lasix IV d/t too much urination. Provide medication information. A few minutes later Lasix 40mg IVS injected. Provide urinal close to hand but throws it. Will continue to monitor closely.
--- NOTE | 2019-04-09 06:25 | NUR ---
NURSE NOTES: Notify Dr. Chavarria for pt's chest pain, 10/10 on right upper chest area. Waiting for call back. Will continue to monitor.
[2019-04-09 07:24] LABS: BASOPHILS % (AUTO) 1.1 % (0.0-2.0); EOSINOPHILS % (AUTO) 4.5 % (0.0-3.0); HEMATOCRIT 33.7 % (42.0-52.0); HEMOGLOBIN 10.5 G/DL (14.2-18.0); LYMPHOCYTES % (AUTO) 23.9 % (20.0-45.0); MEAN CORPUSCULAR VOLUME 87 FL (80-99); MONOCYTES % (AUTO) 12.1 % (1.0-10.0); NEUTROPHILS % (AUTO) 58.4 % (45.0-75.0); PLATELET COUNT 232 K/UL (150-450); RED BLOOD COUNT 3.86 M/UL (4.70-6.10); RED CELL DISTRIBUTION WIDTH 19.3 % (11.6-14.8); WHITE BLOOD COUNT 5.7 K/UL (4.8-10.8)
--- NOTE | 2019-04-09 07:40 | NUR ---
HAND-OFF: Report given to NGUYỄN Khan. Round is done.
[2019-04-09 08:00] VITALS: BP 118/79
--- NOTE | 2019-04-09 08:00 | NUR ---
NURSE NOTES: PATIENT APPEARED TO BE AGGRESSIVE AND HOSTILE. PATIENT WAS VENTING REGARDING HIS EXPERIENCED DOWN IN SDU. HE KEPT ASKING TO BE ON A MONITOR. EXPLAINED THE INDICATION FOR HIM BEING UP ON MEDSURG. PATIENT C/O CHEST PAIN. PATIENT ALSO INSISTING TO HAVE ANOTHER BREAKFAST TRAY. PATIENT DOES NOT LISTEN TO WHAT NURSES SAY AND INSIST TO BE ON A MONITOR. ATTEMPTED TO CALM PATIENT DOWN AND HE CONTINUE TO VENT ABOUT THE NURSES DOWN IN SDU THAT THEY LIED TO HIM. ACCDG FROM HIM HE WAS COMPLAINING ABOUT THE AC BEING TOO COLD AND ALL OF A SUDDEN HE WAS BEING MOVE TO MEDSURG. PATIENT AMBULATES WITH A STEADY GAIT. NO SIGNS OF RESP DISTRESS NOTED. IV HEPLOCK PATENT AND INTACT. KEPT BED IN THE LOWEST POSITION. SIDERAILS ARE UP X2, CALL LIGHT WITHIN REACH. WILL CONT TO MONITOR.
[2019-04-09 08:07] LABS: ALBUMIN 3.2 G/DL (3.4-5.0); ANION GAP 11 mmol/L (5-15); BLOOD UREA NITROGEN 44 mg/dL (7-18); CALCIUM 8.8 MG/DL (8.5-10.1); CARBON DIOXIDE 24 MMOL/L (21-32); CHLORIDE 104 MMOL/L (98-107); CREATININE 1.4 MG/DL (0.55-1.30); PHOSPHORUS 3.9 MG/DL (2.5-4.9); POTASSIUM 4.4 MMOL/L (3.5-5.1); SODIUM 139 MMOL/L (136-145)
[2019-04-09] MEDS ORDERED: Heparin 5000 units/ml inj SUBQ SCH (09:00)
[2019-04-09] MEDS ORDERED: Nitroglycerin Subl 0.4mg tab SL PRN ×2 (09:30→14:00)
--- NOTE | 2019-04-09 09:50 | NUR ---
NURSE NOTES: CALLED DR TRISTAN FOR MD CONSULT COURTESY CALL. SBAR RENDERED. AWAITING FOR A CALL BACK.
--- NOTE | 2019-04-09 09:56 | NUR ---
NURSE NOTES: NTG 0.4 mg SL given for chest pain 10. patient is A/A/OX4. HOB ELEVATED. ABLE TO VERBALIZE NEEDS. WILL CONT TO MONITOR.
--- NOTE | 2019-04-09 10:07 | NUR ---
NURSE NOTES: PATIENT STATED THAT THE NTG RELIEVED THE CHEST PAIN. PATIENT VERBALLY RESPONSIVE. WILL CONT TO MONITOR.
[2019-04-09 12:00] VITALS: BP 131/76
--- NOTE | 2019-04-09 12:05 | Cardiac Electrophysiology PN ---
Subjective Subjective Cardiology consult dictated Cp/troponinleak likely due to CHF EF 25, Cocaine use and renal failure. Transfer to [facility] Stress test in [id number] Objective Last 24 Hour Vital Signs Date Time Temp Pulse Resp B/P (MAP) Pulse Ox O2 Delivery O2 Flow Rate FiO2 04/09/19 09:55 118/79 04/09/19 09:00 Room Air 04/09/19 08:00 98.0 94 20 118/79 (92) 98 04/09/19 04:00 Room Air 04/09/19 04:00 97.8 96 20 112/81 (91) 98 04/09/19 00:30 97.8 89 19 108/72 (84) 98 04/09/19 00:00 Room Air 04/08/19 20:12 Room Air 04/08/19 20:00 86 04/08/19 20:00 Room Air 04/08/19 20:00 84 19 106/76 (86) 99 04/08/19 19:50 98.2 71 16 110/62 99 Room Air 04/08/19 19:10 98.2 71 16 110/62 99 Room Air 04/08/19 16:40 98.2 78 18 130/78 99 Room Air 04/08/19 12:53 100 114/83 04/08/19 12:40 98.2 80 18 125/99 95 Room Air Intake and Output 04/08/19 04/09/19 19:00 07:00 Intake Total 520 ml Output Total 1350 ml Balance -830 ml Intake Oral 520 ml Output Urine Total 1350 ml # Voids 1 Laboratory Tests Test 04/08/19 14:37 04/09/19 06:45 Urine Color Pale yellow Urine Appearance Clear Urine pH 5 (4.5-8.0) Urine Specific [place] 1.015 (1.005-1.035) Urine Protein 1+ (NEGATIVE) H Urine Glucose (UA) Negative (NEGATIVE) Urine Ketones Negative (NEGATIVE) Urine Blood Negative (NEGATIVE) Urine Nitrite Negative (NEGATIVE) Urine Bilirubin Negative (NEGATIVE) Urine Urobilinogen Normal MG/DL (0.0-1.0) Urine Leukocyte Esterase Negative (NEGATIVE) Urine RBC 0-2 /HPF (0 - 0) H Urine WBC 0-2 /HPF (0 - 0) Urine Squamous Epithelial Cells None /LPF (NONE/OCC) Urine Bacteria Few /HPF (NONE) Urine Opiates Screen Negative (NEGATIVE) Urine Barbiturates Screen Negative (NEGATIVE) Phencyclidine (PCP) Screen Negative (NEGATIVE) Urine Amphetamines Screen Negative (NEGATIVE) Urine Benzodiazepines Screen Negative (NEGATIVE) Urine Cocaine Screen Positive (NEGATIVE) H Urine Marijuana (THC) Screen Positive (NEGATIVE) H White Blood Count 5.7 K/UL (4.8-10.8) Red Blood Count 3.86 M/UL (4.70-6.10) L Hemoglobin 10.5 G/DL (14.2-18.0) L Hematocrit 33.7 % (42.0-52.0) L Mean Corpuscular Volume 87 FL (80-99) Mean Corpuscular Hemoglobin 27.2 PG (27.0-31.0) Mean Corpuscular Hemoglobin Concent 31.2 G/DL (32.0-36.0) L Red Cell Distribution Width 19.3 % (11.6-14.8) H Platelet Count 232 K/UL (150-450) Mean Platelet Volume 7.7 FL (6.5-10.1) Neutrophils (%) (Auto) 58.4 % (45.0-75.0) Lymphocytes (%) (Auto) 23.9 % (20.0-45.0) Monocytes (%) (Auto) 12.1 % (1.0-10.0) H Eosinophils (%) (Auto) 4.5 % (0.0-3.0) H Basophils (%) (Auto) 1.1 % (0.0-2.0) Sodium Level 139 MMOL/L (136-145) Potassium Level 4.4 MMOL/L (3.5-5.1) Chloride Level 104 MMOL/L (98-107) Carbon Dioxide Level 24 MMOL/L (21-32) Anion Gap 11 mmol/L (5-15) Blood Urea Nitrogen 44 mg/dL (7-18) H Creatinine 1.4 MG/DL (0.55-1.30) H Estimat Glomerular Filtration Rate > 60 mL/min (>60) Glucose Level 85 MG/DL (74-106) Calcium Level 8.8 MG/DL (8.5-10.1) Phosphorus Level 3.9 MG/DL (2.5-4.9) Troponin I 0.130 ng/mL (0.000-0.056) Albumin 3.2 G/DL (3.4-5.0) Danie Piña MD Apr 09, 2019 12:05
--- NOTE | 2019-04-09 12:10 | NUR ---
NURSE NOTES: DR TRISTAN PRESENT AND SEEN PATIENT. PROCEED FOR PATIENT TO BE TRANSFERRED TO MONITOR BED. WILL CONT TO MONITOR.
--- NOTE | 2019-04-09 12:29 | NUR ---
NURSE NOTES: RECEIVED ROOM ASSIGNMENT TO 206-2 TELE. AWAITING FOR STAFF CALL BACK IF ROOM IS READY.
--- NOTE | 2019-04-09 13:36 | NUR ---
HAND-OFF: Report given to Dyllan.
--- NOTE | 2019-04-09 13:49 | NUR ---
NURSE NOTES: Received report from VIBHA Khan. Patient sitting in semi-Beltran's position, awake and alert, watching television, on room air, respirations at 16 breaths per minutes, bed in lowest position, call light within reach, no c/o pain, in no apparent distress.
--- NOTE | 2019-04-09 13:55 | History & Physical ---
History and Physical History & Physicial Dictated for Int med-DR Mcarthur no. [id number]. Lexa Taylor MD Apr 09, 2019 13:55
[2019-04-09] MEDS ORDERED: Miralax 17gm pkt ORAL PRN ×2 (14:00→17:00)
--- NOTE | 2019-04-09 14:50 | NUR ---
NURSE NOTES: Patient refused EKG.
[2019-04-09 16:00] VITALS: BP 125/87
--- NOTE | 2019-04-09 17:00 | History and Physical Report ---
DATE OF ADMISSION: 04/08/2019 CHIEF COMPLAINT: The patient is a 58-year-old male, who presents with a chief complaint of chest pain, shortness of breath, and leg swelling. HISTORY OF PRESENT ILLNESS: The patient has a history of congestive heart failure. The patient states he was admitted to [facility] approximately 3 weeks ago. The patient was discharged. The patient apparently is homeless. The patient states history of present illness began 1 day previously. The patient began to experience shortness of breath. The patient also had swelling of the bilateral legs. The patient states he then began to develop chest pain. Chest pain was 10/10 in intensity. Chest pain was substernal. There was no radiation to the jaw or to the shoulder. The patient presented to [facility] emergency room. The patient was found to have elevated troponin and elevated BNP. The patient was admitted with chest pain to rule out acute coronary syndrome versus acute exacerbation of chronic congestive heart failure. REVIEW OF SYSTEMS: CONSTITUTIONAL: The patient denies weight loss or weight gain. The patient denies fevers or chills. HEENT: The patient denies ear or throat pain. The patient denies headache. CARDIOVASCULAR: The patient complains of chest pain as above. The patient denies palpitations. ABDOMEN: The patient denies nausea, vomiting, diarrhea, or constipation. GENITOURINARY: The patient denies dysuria or increased frequency of urination. NEUROMUSCULAR: The patient complains of bilateral leg swelling as above. The patient denies generalized weakness. PAST MEDICAL HISTORY: Significant for: 1. Congestive heart failure. 2. Chronic renal insufficiency. 3. Chronic anemia. 4. Coronary disease. 5. Seizure disorder. 6. Polysubstance abuse. PAST SURGICAL HISTORY: The patient denies. CURRENT MEDICATIONS: The patient denies as he is homeless. ALLERGIES: No known drug allergies. SOCIAL HISTORY: The patient is single and is currently homeless. The patient states he lives on and off with his sister. The patient denies tobacco or alcohol use. The patient admits to marijuana and cocaine use. PHYSICAL EXAMINATION: VITAL SIGNS: Temperature 97.8, respirations 19, pulse 89, and blood pressure 108/72. GENERAL: The patient is a well-developed and well-nourished male, in no apparent distress. HEENT: Eyes, pupils are equal and responsive to light and accommodation. Extraocular movements intact. NECK: Supple without lymphadenopathy. CHEST: Lungs are clear to auscultation bilaterally without wheezes or rales. CARDIOVASCULAR: Regular rhythm and rate. S1, S2 are normal without murmurs, rubs, or gallops. ABDOMEN: Soft, nontender, and nondistended. Positive bowel sounds. No evidence of hepatosplenomegaly. Currently, no rebound or guarding noted. EXTREMITIES: Negative for clubbing, cyanosis, or edema. RECTAL/GENITAL: Not performed. EXTREMITIES: A 2+ pitting edema in bilateral ankles. Otherwise, without clubbing or cyanosis. NEUROMUSCULAR: Cranial nerves II through XII are grossly intact without focal deficits. Motor strength is 5/5 bilaterally. Return reflexes are 2+ plantar. LABORATORY STUDIES: WBC 5.4, hemoglobin 10.6, hematocrit 34.9, and platelets 205,000. Sodium 141, potassium 4.2, chloride 105, CO2 21, BUN 44, creatinine 1.7, and glucose 135. Total bilirubin elevated at 1.3. AST elevated at 46 and alkaline phosphatase elevated at 146. BNP elevated at 6194. Troponin elevated at 0.134. Chest x-ray was reported as pulmonary vascular congestion and edema consistent with congestive heart failure and severe enlargement of the cardiac silhouette. ASSESSMENT: This is a 58-year-old male. 1. Chest pain. 2. Elevated troponin. 3. Acute on chronic congestive heart failure. 4. Chronic renal insufficiency. 5. Substance abuse. 6. Severe cardiomyopathy. 7. History of seizure disorder. TREATMENT: 1. Chest pain/elevated troponin/congestive heart failure. A Cardiology consultation has been obtained with Dr. Danie Florez. We will follow recommendations of Cardiology. The patient may have acute coronary syndrome. We will follow recommendations of Cardiology concerning cardiac catheterization. 2. Chronic renal insufficiency. A Nephrology consultation has been obtained with Dr. Mesa. Chronic renal insufficiency may be secondary to dehydration. We will follow recommendations of Nephrology. 3. Polysubstance abuse. The patient's admission urinalysis was positive for cocaine. 4. Severe cardiomyopathy. An echocardiogram is pending. 5. Seizure disorder. The patient is currently off anti-seizure medications. Lexa Taylor M.D. DR: TRANG JOB#: [id number] CC:
--- NOTE | 2019-04-09 17:12 | NUR ---
NURSE NOTES: Tamra from the lab informed me the patient is refusing his lab draw for troponin.
[2019-04-09] MEDS: HydrALAZINE 10mg Tab ORAL SCH (17:58)
[2019-04-09] MEDS ORDERED: HydrALAZINE 10mg Tab ORAL SCH (18:00)
--- NOTE | 2019-04-09 19:10 | NUR ---
HAND-OFF: Report given to Trace Prasad RN. Patient sleeping in semi-Beltran's position, on room air, respirations at 15 breaths per minute, no c/o pain, in no apparent distress, urinal at bedside, bed in lowest position, call light within reach.
--- NOTE | 2019-04-09 19:30 | NUR ---
NURSE NOTES: Received patient from Dyllan RN. Patient asleep in bed, on room air, no signs of respiratory distress. Bed in low position, locked, call light within reach.
[2019-04-09 20:00] VITALS: BP 95/61
--- NOTE | 2019-04-09 20:00 | NUR ---
NURSE NOTES: Patient asked for peanut butter. Stated "don't bother coming back without it."
--- NOTE | 2019-04-09 20:30 | NUR ---
NURSE NOTES: Informed patient that there is no peanut butter, the kitchen is closed. Patient was upset and asked for peanut butter again, stated again "don't come back without it." Went to the 3rd floor, called supervisor major appliance assembly, notified charge nurse, still no peanut butter.
--- NOTE | 2019-04-09 20:45 | Consultation ---
DATE OF CONSULTATION: 04/09/2019 CARDIOLOGY CONSULTATION CONSULTING PHYSICIAN: Danie Florez M.D. REFERRING PHYSICIAN: Florin Mcarthur M.D. REASON FOR CONSULTATION: Chest pain, the patient with severe cardiomyopathy, EF of 25%. HISTORY OF PRESENT ILLNESS: The patient is a 58-year-old gentleman with history of hypertension and severe cardiomyopathy, EF of 15% based on last admission, 03/16/2019. The patient also is homeless and has history of substance use in the past. The patient was at [place] and developed sudden crushing severe chest pain, 11/17. The paramedics gave him aspirin and 0.4 mg of nitroglycerin. The patient was recently admitted to [facility] for six days and was recently discharged. The patient also has history of seizure disorder, but it is not clear what his medications are, but he takes seizure medication, aspirin. The patient was admitted and a Cardiology consultation was obtained for further evaluation. REVIEW OF SYSTEMS: Negative other than what was mentioned in history of present illness. PAST MEDICAL HISTORY: As mentioned above. FAMILY HISTORY: Noncontributory. SOCIAL HISTORY: He is homeless. He smokes and uses cocaine and marijuana. His urine toxicology screen of 03/16/2019 as well as 04/08/2019 was positive for cocaine. PHYSICAL EXAMINATION: VITAL SIGNS: Show blood pressure 118/79, pulse is 94, respirations 18, and he is afebrile. HEAD AND NECK: Shows no JVD. LUNGS: Clear. CARDIOVASCULAR: Shows regular S1 and S2 with no gallop or murmur. ABDOMEN: Soft. EXTREMITIES: 1+ pitting edema. LABORATORY DATA: Labs shows sodium 139, potassium 4.4, BUN of 44, creatinine 1.4, and glucose of 85. Troponin 0.134 and 0.130. His white count is 5.7, hematocrit 10.5, hematocrit 33.7, and platelet count is 232,000. INR is 1.3. ASSESSMENT AND PLAN: 1. Troponin elevation. The levels are flat. The patient on previous admission on 03/16/2019 also had elevated troponin, this could be due to the patient's renal failure as well. However, the patient has chest pain and lateral T-wave inversions. We will transfer the patient to telemetry floor. I did another set of cardiac enzymes, but this chest pain is because of his congestive heart failure and severe cardiomyopathy as well as cocaine use. The patient may need a nuclear stress test for further evaluation. 2. Severe cardiomyopathy with EF of only 20%. Avoid beta-shahram in view of active cocaine use. Continue Lasix 40 mg IV every 8 hours and add hydralazine and nitrate to his medical regimen. We will add Aldactone as well and BNP is also 6200. 3. Hypertension. Continue current medical regimen. 4. History of seizure disorder. 5. Polysubstance abuse with cocaine and marijuana based on urine toxicology screen. Thank you very much, Dr. Mcarthur, for allowing me to participate in the care of this patient. Please do not hesitate to contact me for any questions regarding my evaluation. Danie Florez M.D. DR: IRMA JOB#: [id number] CC:
[2019-04-09] MEDS: Heparin 5000 units/ml inj SUBQ SCH ×2 (21:00→23:23)
--- NOTE | 2019-04-09 21:48 | NUR ---
NURSE NOTES: Attempted to give patient 2100 medications, patient refused.
--- NOTE | 2019-04-09 23:37 | NUR ---
NURSE NOTES: Insulator Technician finally found some peanut butter. Patient agreed to take the lasix and heparin. BP 121/76.
[2019-04-10] VITALS: BP 121/76
[2019-04-10 04:00] VITALS: BP 100/65
[2019-04-10 06:36] LABS: EOSINOPHILS % (AUTO) 4.9 % (0.0-3.0); HEMATOCRIT 35.3 % (42.0-52.0); HEMOGLOBIN 10.9 G/DL (14.2-18.0); LYMPHOCYTES % (AUTO) 14.4 % (20.0-45.0); MEAN CORPUSCULAR VOLUME 88 FL (80-99); MONOCYTES % (AUTO) 17.2 % (1.0-10.0); NEUTROPHILS % (AUTO) 59.6 % (45.0-75.0); PLATELET COUNT 256 K/UL (150-450); RED BLOOD COUNT 4.03 M/UL (4.70-6.10); RED CELL DISTRIBUTION WIDTH 19.1 % (11.6-14.8); WHITE BLOOD COUNT 6.3 K/UL (4.8-10.8)
[2019-04-10 07:03] LABS: ANION GAP 15 mmol/L (5-15); CALCIUM 8.7 MG/DL (8.5-10.1); CARBON DIOXIDE 22 MMOL/L (21-32); CHLORIDE 102 MMOL/L (98-107); CREATININE 1.4 MG/DL (0.55-1.30); POTASSIUM 3.8 MMOL/L (3.5-5.1); SODIUM 139 MMOL/L (136-145)
[2019-04-10 07:27] LABS: BLOOD UREA NITROGEN 35 mg/dL (7-18)
[2019-04-10] MEDS ORDERED: Spironolactone 25mg tab ORAL SCH (09:00)
[2019-04-10] MEDS: Heparin 5000 units/ml inj SUBQ SCH ×2 (09:00→21:00)
[2019-04-10] MEDS: HydrALAZINE 10mg Tab ORAL SCH ×2 (09:00→18:00)
[2019-04-10] MEDS: Spironolactone 25mg tab ORAL SCH (09:00)
[2019-04-10 09:40] VITALS: BP 108/69
--- NOTE | 2019-04-10 09:56 | NUR ---
NURSE NOTES: Pt refused AM medication, aggressively says he will take medications at noon time.
--- NOTE | 2019-04-10 10:24 | CDS Physician Query ---
Clarification is required for compliance, coding accuracy, and to reflect severity of illness for this patient Dear Dr. Bridges Date: 04.10.19 CDS: Kirk Macias "Heart Failure / CHF" documented in consultation :I did another set of cardiac enzymes, but this chest pain is because of his congestive heart failure and severe cardiomyopathy as well as cocaine use. The patient may need a nuclear stress test for further evaluation Severe cardiomyopathy with EF of only 20%. Avoid beta-shahram in view of active cocaine use. Continue Lasix 40 mg IV every 8 hours and add hydralazine and nitrate to his medical regimen. We will add Aldactone as well and BNP is also 6200. Please Clarify: Acuity [ ] Acute [ ] Chronic [ ] Acute on Chronic Type [ ] Systolic [ ] Diastolic [ ] Systolic & Diastolic (Combined) [ ] Other: Present on Admission: [ ] Yes [ ] No [ ] Clinically Undetermined Physician signature Date Please also document in your Progress Notes and/or Discharge Summary and indicate if the condition was present on admission. MTDD
--- NOTE | 2019-04-10 10:31 | Consultation ---
Consult Note Consult Note I was asked to evaluate the patient for her renal failure failure. Patient was admitted 2 days ago through emergency room. Paramedics were summoned to [facility] as this patient was having crushing substernal chest pain. He rated a 10/10 in the beginning. He has a history of congestive heart failure. Paramedics treated him with aspirin and 0.4 mg of nitroglycerin. The patient still is having chest pain at this time. He denies productive cough. The patient states he was recently admitted to [facility] for 6 days. Was recently discharged. Is complaining about leg edema. Patient has a history of seizures. He has uncertain what medications he takes. No fevers, chills, sore throat, palpitations, nausea, vomiting, diarrhea, dysuria, abdominal pain, rashes, depression, anxiety, visual changes, dizziness , headache. Patient was admitted earlier this month. D/C dx: Acute CHF exacerbation with reduced ejection fraction Severe cardiomyopathy Noncompliance with medications Substance abuse, cocaine and marijuana NO KNOWN ALLERGIES (Verified Allergy, Unknown, 04/08/19) Hx Cardiac Problems: Yes Hx Seizures: Yes Hx Weakness: Yes Patient interviewed. Poor historian. Patient examined. Data reviewed. . Assessment/Plan Chronic renal failure. Serum creatinine previously was 1.7 on this admission it is 1.4. Polysubstance abuse. Urine indicative of cocaine and THC. Anemia. Evaded troponin I. Cardiomyopathy. Previous echocardiogram states an ejection fraction of 15% Acute on chronic congestive heart failure. Seizure disorder. Optimize cardiac status. Afterload reduction. Gentle diuresis. Keep the BP in check. Monitor renal parameters. Per orders. Lester Mesa MD Apr 10, 2019 10:31
[2019-04-10 11:07] LABS: ALANINE AMINOTRANSFERASE 41 U/L (12-78); ALBUMIN 2.7 G/DL (3.4-5.0); ALKALINE PHOSPHATASE 119 U/L (46-116); ASPARTATE AMINO TRANSFERASE 37 U/L (15-37); BILIRUBIN,DIRECT 0.3 MG/DL (0.0-0.3); PHOSPHORUS 3.6 MG/DL (2.5-4.9)
--- NOTE | 2019-04-10 11:41 | NUR ---
Social Work This Sw received a consult due to homelessness, substance abuse. This Sw met with patient who remains alert/oriented x4, making his own decisions, while also remaining independent with all ADLs,ambulation (does not require any DME) in and outside of his room this AM. Patient is known to this hospital (was here in March,). Patient denied any income, has been homeless for the past 16 years, living on [address]. This Sw addressed substance abuse with patient, strongly encouraging sobriety. Patient declined any substance and homeless resources, requesting to return to where he has been living on street. Patient also does not appear to be motivated to quit using substances (cocaine) at this time. Patient requesting clothing (this SW provided the following: pants, shirt, sweatshirt-with hoody and shoes). No other needs/concerns at this time. Patient will require assistance with transportation upon discharge (also explaining he does not have any income).
--- NOTE | 2019-04-10 11:45 | Pulmonology Progress Note ---
Assessment/Plan Problems: (1) NSTEMI (non-ST elevated myocardial infarction) (2) Severe anemia (3) Cardiac LV ejection fraction 10-20% (4) Homelessness (5) Cocaine abuse Assessment/Plan diuretics respiratory treatment anemia w/u in progress dc planning to an assisted living or intermediate. pt is too frail to live on the street. Subjective ROS Limited/Unobtainable: No Constitutional: Reports: no symptoms HEENT: Repors: no symptoms Respiratory: Reports: no symptoms Allergies: Coded Allergies: NO KNOWN ALLERGIES (Verified Allergy, Unknown, 04/08/19) Objective Last 24 Hour Vital Signs Date Time Temp Pulse Resp B/P (MAP) Pulse Ox O2 Delivery O2 Flow Rate FiO2 04/10/19 09:40 98.1 97 18 108/69 (82) 99 04/10/19 09:00 Room Air 04/10/19 07:44 96 04/10/19 04:00 91 04/10/19 04:00 97.2 88 18 100/65 (77) 95 04/10/19 00:00 97.9 101 20 121/76 (91) 99 04/10/19 00:00 101 04/09/19 21:00 Room Air 04/09/19 20:00 95 04/09/19 20:00 98.4 94 18 95/61 (72) 97 04/09/19 17:58 125/87 04/09/19 17:58 125/87 04/09/19 16:00 106 04/09/19 16:00 98.1 97 20 125/87 (100) 99 04/09/19 14:01 99 04/09/19 12:00 96.8 99 20 131/76 (94) 100 Intake and Output 04/09/19 04/10/19 19:00 07:00 Intake Total 820 ml 240 ml Output Total 1000 ml 1800 ml Balance -180 ml -1560 ml Intake Oral 820 ml 240 ml Output Urine Total 1000 ml 1800 ml # Voids 6 General Appearance: cachetic HEENT: normocephalic, atraumatic Respiratory/Chest: chest wall non-tender, normal breath sounds Cardiovascular: normal peripheral pulses, normal rate Abdomen: normal bowel sounds, soft, non tender Laboratory Tests 04/10/19 04:40: White Blood Count 6.3, Red Blood Count 4.03L, Hemoglobin 10.9L, Hematocrit 35.3L , Mean Corpuscular Volume 88, Mean Corpuscular Hemoglobin 27.0, Mean Corpuscular Hemoglobin Concent 30.8L, Red Cell Distribution Width 19.1H, Platelet Count 256, Mean Platelet Volume 7.2, Neutrophils (%) (Auto) 59.6, Lymphocytes (%) (Auto) 14.4L, Monocytes (%) (Auto) 17.2H, Eosinophils (%) (Auto ) 4.9H, Basophils (%) (Auto) 4.0H, Sodium Level 139, Potassium Level 3.8, Chloride Level 102, Carbon Dioxide Level 22, Anion Gap 15, Blood Urea Nitrogen 35H, Creatinine 1.4H, Estimat Glomerular Filtration Rate > 60, Glucose Level 107H, Calcium Level 8.7, Phosphorus Level 3.6, Magnesium Level 1.5L, Total Bilirubin 1.0, Direct Bilirubin 0.3, Aspartate Amino Transf (AST/SGOT) 37, Alanine Aminotransferase (ALT/SGPT) 41, Alkaline Phosphatase 119H, Troponin I 0.132H, Pro-B-Type Natriuretic Peptide 2963H, Total Protein 6.5, Albumin 2.7L Current Medications Medications (Trade) Dose Ordered Sig/Ariel Route PRN Reason Start Time Stop Time Status Last Admin Dose Admin Acetaminophen (Tylenol) 650 mg Q4H PRN ORAL Fever 04/09/19 14:00 05/08/19 13:59 Albuterol/ Ipratropium (Albuterol/ Ipratropium) 3 ml Q4H PRN HHN Shortness of Breath 04/09/19 14:00 04/13/19 13:59 Dextrose (Dextrose 50%) 25 ml Q30M PRN IV Hypoglycemia 04/09/19 14:00 05/08/19 16:59 Dextrose (Dextrose 50%) 50 ml Q30MIN PRN IV Hypoglycemia 04/09/19 14:00 05/08/19 16:59 Docusate Sodium (Colace) 100 mg THREE TIMES A DAY ORAL 04/10/19 13:00 05/10/19 12:59 Furosemide (Lasix) 40 mg EVERY 8 HOURS IV 04/09/19 14:00 05/08/19 21:59 04/09/19 23:16 Heparin Sodium (Porcine) (Heparin 5000 units/ml) 5,000 units EVERY 12 HOURS SUBQ 04/09/19 21:00 05/08/19 20:59 04/09/19 23:23 Hydralazine HCl (Apresoline) 10 mg BID ORAL 04/09/19 18:00 05/09/19 17:59 04/09/19 17:58 Isosorbide Dinitrate (Isordil) 10 mg BID ORAL 04/09/19 18:00 05/09/19 17:59 04/09/19 17:58 Nitroglycerin (Ntg) 0.4 mg Q5M PRN SL Prn Chest Pain 04/09/19 14:00 05/09/19 09:29 Ondansetron HCl (Zofran) 4 mg Q6H PRN IVP Nausea & Vomiting 04/09/19 14:00 05/08/19 13:59 Pantoprazole (Protonix) 40 mg EVERY 12 HOURS ORAL 04/10/19 11:00 05/10/19 10:59 Polyethylene Glycol (Miralax) 17 gm DAILYPRN PRN ORAL Constipation 04/09/19 14:00 05/08/19 13:59 04/09/19 15:02 Spironolactone (Aldactone) 25 mg DAILY ORAL 04/10/19 09:00 05/10/19 08:59 Temazepam (Restoril) 15 mg HSPRN PRN ORAL Insomnia 04/09/19 14:00 04/16/19 13:59 Robby Chavarria MD Apr 10, 2019 11:45
--- NOTE | 2019-04-10 11:58 | NUR ---
*-* INSURANCE *-* ALL CLINICALS HAVE BEEN FAXED TO: [facility]DRY[facility] MONT[facility] P: [phone] F: [phone] Addendum: 04/10/19 at 1627 by KILLIAN CHINCHILLA [facility] TRACKING #[id number] NCM:NONE- IT WILL BE FOLLOWED BY SPECIALIST ON DAILY BASIS. FAX CLINICALS TO
[2019-04-10 12:00] VITALS: BP 126/60
--- NOTE | 2019-04-10 12:34 | Diagnostic Imaging Report ---
Indication: Dyspnea Comparison: 04/08/2019 A single view chest radiograph was obtained. Findings: The lungs are clear. The heart is enlarged moderately. No pleural effusions. Bones are unremarkable. IMPRESSION: Cardiomegaly
[2019-04-10] MEDS: Docusate 100mg cap ORAL SCH ×2 (13:08→18:00)
--- NOTE | 2019-04-10 13:13 | NUR ---
NURSE NOTES: Pt refused half dose of Lasix. 2ml administered. Pt continues to talk aggressively.
--- NOTE | 2019-04-10 13:35 | NUR ---
CASE MANAGEMENT:REVIEW 58YR OLD MALE BIBA FROM STREET CC: CHEST PAIN SI: NSTEMI. CHF. MANOLO. 98.2 93 18 129/108 95% ON RA BUN+44 CR+1.7 TROPONIN(+) 0.134 BNP+6194 IS: PROTONIX PO Q12 ALDACTONE PO QD HEPARIN SQ Q12 HYDRALAZINE PO BID ISORDIL PO BID REFUSED ALL OF THE ABOVE ORAL MEDICATIONS IV LASIX Q8HRS : TELEMETRY STATUS DCP: ?
--- NOTE | 2019-04-10 14:04 | Cardiac Electrophysiology PN ---
Assessment/Plan Assessment/Plan 1. Troponin elevation. The levels are flat. The patient on previous admission on 03/16/2019 also had elevated troponin and likely due to the renal failure . However, the patient has chest pain and lateral T-wave inversions. The patient may need a nuclear stress test 2. Severe cardiomyopathy with EF of only 20%. Avoid beta-shahram in view of active cocaine use. Continue Lasix 40 mg IV every 8 hours, hydralazine and nitrate and Aldactone 3. Hypertension. Continue current medical regimen. 4. History of seizure disorder. 5. Polysubstance abuse with cocaine and marijuana based on urine toxicology screen. 6. Noncompliance DW RN Subjective Subjective Noncompliant with meds EF 25, Cocaine use and renal failure. Objective Last 24 Hour Vital Signs Date Time Temp Pulse Resp B/P (MAP) Pulse Ox O2 Delivery O2 Flow Rate FiO2 04/10/19 09:40 98.1 97 18 108/69 (82) 99 04/10/19 09:00 Room Air 04/10/19 07:44 96 04/10/19 04:00 91 04/10/19 04:00 97.2 88 18 100/65 (77) 95 04/10/19 00:00 97.9 101 20 121/76 (91) 99 04/10/19 00:00 101 04/09/19 21:00 Room Air 04/09/19 20:00 95 04/09/19 20:00 98.4 94 18 95/61 (72) 97 04/09/19 17:58 125/87 04/09/19 17:58 125/87 04/09/19 16:00 106 04/09/19 16:00 98.1 97 20 125/87 (100) 99 04/09/19 14:01 99 Intake and Output 04/09/19 04/10/19 19:00 07:00 Intake Total 820 ml 240 ml Output Total 1000 ml 1800 ml Balance -180 ml -1560 ml Intake Oral 820 ml 240 ml Output Urine Total 1000 ml 1800 ml # Voids 6 Laboratory Tests Test 04/10/19 04:40 White Blood Count 6.3 K/UL (4.8-10.8) Red Blood Count 4.03 M/UL (4.70-6.10) L Hemoglobin 10.9 G/DL (14.2-18.0) L Hematocrit 35.3 % (42.0-52.0) L Mean Corpuscular Volume 88 FL (80-99) Mean Corpuscular Hemoglobin 27.0 PG (27.0-31.0) Mean Corpuscular Hemoglobin Concent 30.8 G/DL (32.0-36.0) L Red Cell Distribution Width 19.1 % (11.6-14.8) H Platelet Count 256 K/UL (150-450) Mean Platelet Volume 7.2 FL (6.5-10.1) Neutrophils (%) (Auto) 59.6 % (45.0-75.0) Lymphocytes (%) (Auto) 14.4 % (20.0-45.0) L Monocytes (%) (Auto) 17.2 % (1.0-10.0) H Eosinophils (%) (Auto) 4.9 % (0.0-3.0) H Basophils (%) (Auto) 4.0 % (0.0-2.0) H Sodium Level 139 MMOL/L (136-145) Potassium Level 3.8 MMOL/L (3.5-5.1) Chloride Level 102 MMOL/L (98-107) Carbon Dioxide Level 22 MMOL/L (21-32) Anion Gap 15 mmol/L (5-15) Blood Urea Nitrogen 35 mg/dL (7-18) H Creatinine 1.4 MG/DL (0.55-1.30) H Estimat Glomerular Filtration Rate > 60 mL/min (>60) Glucose Level 107 MG/DL (74-106) H Calcium Level 8.7 MG/DL (8.5-10.1) Phosphorus Level 3.6 MG/DL (2.5-4.9) Magnesium Level 1.5 MG/DL (1.8-2.4) L Total Bilirubin 1.0 MG/DL (0.2-1.0) Direct Bilirubin 0.3 MG/DL (0.0-0.3) Aspartate Amino Transf (AST/SGOT) 37 U/L (15-37) Alanine Aminotransferase (ALT/SGPT) 41 U/L (12-78) Alkaline Phosphatase 119 U/L (46-116) H Troponin I 0.132 ng/mL (0.000-0.056) Pro-B-Type Natriuretic Peptide 2963 pg/mL (0-125) H Total Protein 6.5 G/DL (6.4-8.2) Albumin 2.7 G/DL (3.4-5.0) L Objective HEAD AND NECK: No JVD. LUNGS: Clear. CARDIOVASCULAR: Regular S1 and S2 with no gallop or murmur. ABDOMEN: Soft. EXTREMITIES: 1+ pitting edema. Danie Florez MD Apr 10, 2019 14:04
[2019-04-10] MEDS ORDERED: Lexiscan 0.4mg/5ml syringe IV PRN (14:15)
--- NOTE | 2019-04-10 15:31 | NUR ---
NURSE NOTES: Cardiology reported that the pt refused to sign the consent for stress test. RN informed Dr Florez.
[2019-04-10 16:00] VITALS: BP 132/83
--- NOTE | 2019-04-10 18:14 | NUR ---
NURSE NOTES: Pt is more verbally abusive, cursing, aggressively speaks while RN trying to hang Magnesium and administer medications. Explains the benefits of medications, still very uncooperative and resistive of care.
--- NOTE | 2019-04-10 18:57 | Internal Med Progress Note ---
Subjective Date of Service: Apr 10, 2019 Physician Name Lexa Taylor Attending Physician Jose Mcarthur MD Current Medications Medications (Trade) Dose Ordered Sig/Ariel Route PRN Reason Start Time Stop Time Status Last Admin Dose Admin Acetaminophen (Tylenol) 650 mg Q4H PRN ORAL Fever 04/09/19 14:00 05/08/19 13:59 Albuterol/ Ipratropium (Albuterol/ Ipratropium) 3 ml Q4H PRN HHN Shortness of Breath 04/09/19 14:00 04/13/19 13:59 Dextrose (Dextrose 50%) 25 ml Q30M PRN IV Hypoglycemia 04/09/19 14:00 05/08/19 16:59 Dextrose (Dextrose 50%) 50 ml Q30MIN PRN IV Hypoglycemia 04/09/19 14:00 05/08/19 16:59 Docusate Sodium (Colace) 100 mg THREE TIMES A DAY ORAL 04/10/19 13:00 05/10/19 12:59 04/10/19 13:08 Furosemide (Lasix) 40 mg EVERY 8 HOURS IV 04/09/19 14:00 05/08/19 21:59 04/10/19 13:09 Heparin Sodium (Porcine) (Heparin 5000 units/ml) 5,000 units EVERY 12 HOURS SUBQ 04/09/19 21:00 05/08/19 20:59 04/09/19 23:23 Hydralazine HCl (Apresoline) 10 mg BID ORAL 04/09/19 18:00 05/09/19 17:59 04/09/19 17:58 Isosorbide Dinitrate (Isordil) 10 mg BID ORAL 04/09/19 18:00 05/09/19 17:59 04/09/19 17:58 Magnesium Sulfate 100 ml @ 100 mls/hr Q1H IVPB 04/10/19 18:00 04/10/19 19:59 Nitroglycerin (Ntg) 0.4 mg Q5M PRN SL Prn Chest Pain 04/09/19 14:00 05/09/19 09:29 Ondansetron HCl (Zofran) 4 mg Q6H PRN IVP Nausea & Vomiting 04/09/19 14:00 05/08/19 13:59 Pantoprazole (Protonix) 40 mg EVERY 12 HOURS ORAL 04/10/19 11:00 05/10/19 10:59 Polyethylene Glycol (Miralax) 17 gm DAILYPRN PRN ORAL Constipation 04/09/19 14:00 05/08/19 13:59 04/09/19 15:02 Regadenoson (Lexiscan) 0.4 mg ONCE PRN IV STRESS TEST 04/10/19 14:15 04/12/19 14:14 Spironolactone (Aldactone) 25 mg DAILY ORAL 04/10/19 09:00 05/10/19 08:59 Temazepam (Restoril) 15 mg HSPRN PRN ORAL Insomnia 04/09/19 14:00 04/16/19 13:59 Allergies: Coded Allergies: NO KNOWN ALLERGIES (Verified Allergy, Unknown, 04/08/19) ROS Limited/Unobtainable: No Constitutional: Reports: no symptoms HEENT: Reports: no symptoms Cardiovascular: Reports: no symptoms Respiratory: Reports: no symptoms Gastrointestinal/Abdominal: Reports: no symptoms Genitourinary: Reports: no symptoms Neurologic/Psychiatric: Reports: no symptoms Subjective 58 YO M admitted with chest pain. Now elevated troponin and CHF. Cover for Int Med-DR Mcarthur. Refused cardiac stress test per report Objective Last Vital Signs Date Time Temp Pulse Resp B/P (MAP) Pulse Ox O2 Delivery O2 Flow Rate FiO2 04/10/19 16:00 96.7 80 19 132/83 (99) 98 04/10/19 09:00 Room Air Laboratory Tests Test 04/10/19 04:40 04/10/19 17:45 White Blood Count 6.3 K/UL (4.8-10.8) Red Blood Count 4.03 M/UL (4.70-6.10) L Hemoglobin 10.9 G/DL (14.2-18.0) L Hematocrit 35.3 % (42.0-52.0) L Mean Corpuscular Volume 88 FL (80-99) Mean Corpuscular Hemoglobin 27.0 PG (27.0-31.0) Mean Corpuscular Hemoglobin Concent 30.8 G/DL (32.0-36.0) L Red Cell Distribution Width 19.1 % (11.6-14.8) H Platelet Count 256 K/UL (150-450) Mean Platelet Volume 7.2 FL (6.5-10.1) Neutrophils (%) (Auto) 59.6 % (45.0-75.0) Lymphocytes (%) (Auto) 14.4 % (20.0-45.0) L Monocytes (%) (Auto) 17.2 % (1.0-10.0) H Eosinophils (%) (Auto) 4.9 % (0.0-3.0) H Basophils (%) (Auto) 4.0 % (0.0-2.0) H Sodium Level 139 MMOL/L (136-145) Potassium Level 3.8 MMOL/L (3.5-5.1) Chloride Level 102 MMOL/L (98-107) Carbon Dioxide Level 22 MMOL/L (21-32) Anion Gap 15 mmol/L (5-15) Blood Urea Nitrogen 35 mg/dL (7-18) H Creatinine 1.4 MG/DL (0.55-1.30) H Estimat Glomerular Filtration Rate > 60 mL/min (>60) Glucose Level 107 MG/DL (74-106) H Calcium Level 8.7 MG/DL (8.5-10.1) Phosphorus Level 3.6 MG/DL (2.5-4.9) Magnesium Level 1.5 MG/DL (1.8-2.4) L Total Bilirubin 1.0 MG/DL (0.2-1.0) Direct Bilirubin 0.3 MG/DL (0.0-0.3) Aspartate Amino Transf (AST/SGOT) 37 U/L (15-37) Alanine Aminotransferase (ALT/SGPT) 41 U/L (12-78) Alkaline Phosphatase 119 U/L (46-116) H Troponin I 0.132 ng/mL (0.000-0.056) 0.129 ng/mL (0.000-0.056) Pro-B-Type Natriuretic Peptide 2963 pg/mL (0-125) H Total Protein 6.5 G/DL (6.4-8.2) Albumin 2.7 G/DL (3.4-5.0) L Intake and Output 04/09/19 04/10/19 19:00 07:00 Intake Total 820 ml 240 ml Output Total 1000 ml 1800 ml Balance -180 ml -1560 ml Intake Oral 820 ml 240 ml Output Urine Total 1000 ml 1800 ml # Voids 6 Objective PHYSICAL EXAMINATION: GENERAL: The patient is a well-developed and well-nourished male, in no apparent distress. HEENT: Eyes, pupils are equal and responsive to light and accommodation. Extraocular movements intact. NECK: Supple without lymphadenopathy. CHEST: Lungs are clear to auscultation bilaterally without wheezes or rales. CARDIOVASCULAR: Regular rhythm and rate. S1, S2 are normal without murmurs, rubs, or gallops. ABDOMEN: Soft, nontender, and nondistended. Positive bowel sounds. No evidence of hepatosplenomegaly. Currently, no rebound or guarding noted. EXTREMITIES: Negative for clubbing, cyanosis, or edema. RECTAL/GENITAL: Not performed. EXTREMITIES: A 2+ pitting edema in bilateral ankles. Otherwise, without clubbing or cyanosis. NEUROMUSCULAR: Cranial nerves II through XII are grossly intact without focal deficits. Motor strength is 5/5 bilaterally. Return reflexes are 2+ plantar. Assessment/Plan Assessment/Plan ASSESSMENT: This is a 58-year-old male. 1. Chest pain. 2. Elevated troponin. 3. Acute on chronic congestive heart failure. 4. Chronic renal insufficiency. 5. Substance abuse. 6. Severe cardiomyopathy. 7. History of seizure disorder. TREATMENT: 1. Chest pain/elevated troponin/congestive heart failure. A Cardiology consultation has been obtained with Dr. Danie Florez. We will follow recommendations of Cardiology. The patient may have acute coronary syndrome. Patient refused cardiac stress test. 2. Chronic renal insufficiency. A Nephrology consultation has been obtained with Dr. Mesa. Chronic renal insufficiency may be secondary to dehydration. We will follow recommendations of Nephrology. 3. Polysubstance abuse. The patient's admission urinalysis was positive for cocaine. 4. Severe cardiomyopathy. An echocardiogram is pending. 5. Seizure disorder. The patient is currently off anti-seizure medications. Lexa Taylor MD Apr 10, 2019 18:57
--- NOTE | 2019-04-10 19:55 | NUR ---
HAND-OFF: Report given to VIBHA Carter. Endorsed plan of care. RN will try to give Mg.
--- NOTE | 2019-04-10 19:56 | NUR ---
NURSE NOTES: Got report from Nova DUNNE. Pt in stable condition. Denies any pain. No s/s of distress or discomfort noted. Pt resting in bed comfortably. Bed in low and locked position, call light within reach, bedside table within reach. Continue to monitor.
[2019-04-10 20:00] VITALS: BP 106/68
[2019-04-11 04:00] VITALS: BP 100/67
[2019-04-11 07:10] LABS: EOSINOPHILS % (AUTO) 4.6 % (0.0-3.0); HEMATOCRIT 36.1 % (42.0-52.0); LYMPHOCYTES % (AUTO) 28.3 % (20.0-45.0); MEAN CORPUSCULAR VOLUME 88 FL (80-99); MONOCYTES % (AUTO) 11.1 % (1.0-10.0); NEUTROPHILS % (AUTO) 55.1 % (45.0-75.0); PLATELET COUNT 277 K/UL (150-450); RED BLOOD COUNT 4.09 M/UL (4.70-6.10); RED CELL DISTRIBUTION WIDTH 19.2 % (11.6-14.8); WHITE BLOOD COUNT 6.7 K/UL (4.8-10.8)
[2019-04-11 08:00] VITALS: BP 105/58
--- NOTE | 2019-04-11 08:00 | NUR ---
HAND-OFF: Report given to Nicolette DUNNE.
[2019-04-11 08:13] LABS: ALANINE AMINOTRANSFERASE 36 U/L (12-78); ALBUMIN 2.5 G/DL (3.4-5.0); ALBUMIN/GLOBULIN RATIO 0.7 (1.0-2.7); ALKALINE PHOSPHATASE 102 U/L (46-116); ANION GAP 8 mmol/L (5-15); ASPARTATE AMINO TRANSFERASE 25 U/L (15-37); BILIRUBIN,TOTAL 0.8 MG/DL (0.2-1.0); BLOOD UREA NITROGEN 31 mg/dL (7-18); CALCIUM 8.4 MG/DL (8.5-10.1); CARBON DIOXIDE 25 MMOL/L (21-32); CHLORIDE 103 MMOL/L (98-107); CHOLESTEROL 148 MG/DL (< 200); CREATINE KINASE 24 U/L (26-308); CREATININE 1.2 MG/DL (0.55-1.30); FERRITIN 57 NG/ML (8-388); GAMMA GLUTAMYL TRANSPEPTIDASE 140 U/L (5-85); HDL CHOLESTEROL 56 MG/DL (40-60); PHOSPHORUS 3.2 MG/DL (2.5-4.9); SODIUM 136 MMOL/L (136-145); TRIGLYCERIDES 79 MG/DL (30-150)
--- NOTE | 2019-04-11 08:15 | NUR ---
NURSE NOTES: Received report from Raul DUNNE sitting in bed and having breakfast, denies any pain at this time. No s/s of acute or respiratory distress noted, IV is intact and patent. Bed on lowest position with bedside rails up x2, brakes locked for safety, call light within reach. Will continue with the plan of care.
[2019-04-11 08:17] LABS: % IRON SATURATION 15 % (15-50); IRON 40 ug/dL (50-175); TOTAL IRON BINDING CAPACITY 269 ug/dL (250-450)
[2019-04-11] MEDS: Spironolactone 25mg tab ORAL SCH (09:00)
[2019-04-11] MEDS: Docusate 100mg cap ORAL SCH ×4 (09:00→18:36)
[2019-04-11] MEDS: HydrALAZINE 10mg Tab ORAL SCH ×2 (09:00→18:37)
[2019-04-11] MEDS: Heparin 5000 units/ml inj SUBQ SCH ×2 (09:06→21:00)
--- NOTE | 2019-04-11 10:37 | Cardiac Electrophysiology PN ---
Assessment/Plan Assessment/Plan 1. Troponin elevation. The levels are flat. On 03/16/2019 also had elevated troponin and likely due to renal failure . However, the patient has chest pain and lateral T-wave inversions. Will schedule for nuclear stress test 2. Severe cardiomyopathy with EF of only 20%. Avoid beta-shahram in view of active cocaine use. Continue Lasix 40 mg IV every 8 hours, hydralazine and nitrate and Aldactone 3. Hypertension. Continue current medical regimen. 4. History of seizure disorder. 5. Polysubstance abuse with cocaine and marijuana based on urine toxicology screen. 6. Noncompliance DW RN Subjective Subjective Noncompliant with meds.No CP in SR EF 25, Cocaine use and renal failure. Objective Last 24 Hour Vital Signs Date Time Temp Pulse Resp B/P (MAP) Pulse Ox O2 Delivery O2 Flow Rate FiO2 04/11/19 09:01 105/58 04/11/19 09:00 Room Air 04/11/19 09:00 105/58 04/11/19 08:00 97.7 96 20 105/58 (74) 98 04/11/19 08:00 101 04/11/19 04:00 97.9 95 20 100/67 (78) 100 04/11/19 04:00 94 04/11/19 00:00 95 04/10/19 21:00 Room Air 04/10/19 20:01 98 20 97 Room Air 21 04/10/19 20:00 97.9 100 20 106/68 (81) 98 04/10/19 20:00 100 04/10/19 16:00 96.7 80 19 132/83 (99) 98 04/10/19 15:30 97 04/10/19 12:00 96.6 80 20 126/60 (82) 100 04/10/19 11:34 90 Intake and Output 04/10/19 04/11/19 19:00 07:00 Intake Total 140 ml 200 ml Output Total 1300 ml 450 ml Balance -1160 ml -250 ml Intake Oral 140 ml Other 200 ml Output Urine Total 1300 ml 450 ml # Voids 3 Laboratory Tests Test 04/10/19 17:45 04/11/19 05:37 Troponin I 0.129 ng/mL (0.000-0.056) White Blood Count 6.7 K/UL (4.8-10.8) Red Blood Count 4.09 M/UL (4.70-6.10) L Hemoglobin 11.0 G/DL (14.2-18.0) L Hematocrit 36.1 % (42.0-52.0) L Mean Corpuscular Volume 88 FL (80-99) Mean Corpuscular Hemoglobin 26.9 PG (27.0-31.0) L Mean Corpuscular Hemoglobin Concent 30.5 G/DL (32.0-36.0) L Red Cell Distribution Width 19.2 % (11.6-14.8) H Platelet Count 277 K/UL (150-450) Mean Platelet Volume 7.1 FL (6.5-10.1) Neutrophils (%) (Auto) 55.1 % (45.0-75.0) Lymphocytes (%) (Auto) 28.3 % (20.0-45.0) Monocytes (%) (Auto) 11.1 % (1.0-10.0) H Eosinophils (%) (Auto) 4.6 % (0.0-3.0) H Basophils (%) (Auto) 1.0 % (0.0-2.0) Sodium Level 136 MMOL/L (136-145) Potassium Level 4.0 MMOL/L (3.5-5.1) Chloride Level 103 MMOL/L (98-107) Carbon Dioxide Level 25 MMOL/L (21-32) Anion Gap 8 mmol/L (5-15) Blood Urea Nitrogen 31 mg/dL (7-18) H Creatinine 1.2 MG/DL (0.55-1.30) Estimat Glomerular Filtration Rate > 60 mL/min (>60) Glucose Level 75 MG/DL (74-106) Hemoglobin A1c 5.4 % (4.3-6.0) Uric Acid 7.2 MG/DL (2.6-7.2) Calcium Level 8.4 MG/DL (8.5-10.1) L Phosphorus Level 3.2 MG/DL (2.5-4.9) Magnesium Level 1.5 MG/DL (1.8-2.4) L Iron Level 40 ug/dL (50-175) L Total Iron Binding Capacity 269 ug/dL (250-450) Percent Iron Saturation 15 % (15-50) Unsaturated Iron Binding 229 ug/dL (112-346) Ferritin 57 NG/ML (8-388) Total Bilirubin 0.8 MG/DL (0.2-1.0) Gamma Glutamyl Transpeptidase 140 U/L (5-85) H Aspartate Amino Transf (AST/SGOT) 25 U/L (15-37) Alanine Aminotransferase (ALT/SGPT) 36 U/L (12-78) Alkaline Phosphatase 102 U/L (46-116) Total Creatine Kinase 24 U/L (26-308) L C-Reactive Protein, Quantitative 0.5 mg/dL (0.00-0.90) Pro-B-Type Natriuretic Peptide 1669 pg/mL (0-125) H Total Protein 6.3 G/DL (6.4-8.2) L Albumin 2.5 G/DL (3.4-5.0) L Globulin 3.8 g/dL Albumin/Globulin Ratio 0.7 (1.0-2.7) L Triglycerides Level 79 MG/DL (30-150) Cholesterol Level 148 MG/DL (< 200) LDL Cholesterol 76 mg/dL (<100) HDL Cholesterol 56 MG/DL (40-60) Cholesterol/HDL Ratio 2.6 (3.3-4.4) L Vitamin B12 Level 691 PG/ML (193-986) Folate 15.4 NG/ML (8.6-58.9) Thyroid Stimulating Hormone (TSH) 2.218 uiU/mL (0.358-3.740) Objective HEAD AND NECK: No JVD. LUNGS: Clear. CARDIOVASCULAR: Regular S1 and S2 with no gallop or murmur. ABDOMEN: Soft. EXTREMITIES: 1+ pitting edema. Danie Florez MD Apr 11, 2019 10:37
[2019-04-11] MEDS ORDERED: Lexiscan 0.4mg/5ml syringe IV ONE (10:45)
--- NOTE | 2019-04-11 11:47 | Pulmonology Progress Note ---
Assessment/Plan Problems: (1) NSTEMI (non-ST elevated myocardial infarction) (2) Severe anemia (3) Cardiac LV ejection fraction 10-20% (4) Homelessness (5) Cocaine abuse Assessment/Plan cxr btter diuretics respiratory treatment anemia w/u in progress dc planning to an assisted living or [facility]. pt is too frail to live on the street. pt doesn't have any shoes. He wants me to buy him/ get him shoes. Subjective ROS Limited/Unobtainable: No Constitutional: Reports: no symptoms HEENT: Repors: no symptoms Allergies: Coded Allergies: NO KNOWN ALLERGIES (Verified Allergy, Unknown, 04/08/19) Objective Last 24 Hour Vital Signs Date Time Temp Pulse Resp B/P (MAP) Pulse Ox O2 Delivery O2 Flow Rate FiO2 04/11/19 09:01 105/58 04/11/19 09:00 Room Air 04/11/19 09:00 105/58 04/11/19 08:00 97.7 96 20 105/58 (74) 98 04/11/19 08:00 101 04/11/19 04:00 97.9 95 20 100/67 (78) 100 04/11/19 04:00 94 04/11/19 00:00 95 04/10/19 21:00 Room Air 04/10/19 20:01 98 20 97 Room Air 21 04/10/19 20:00 97.9 100 20 106/68 (81) 98 04/10/19 20:00 100 04/10/19 16:00 96.7 80 19 132/83 (99) 98 04/10/19 15:30 97 04/10/19 12:00 96.6 80 20 126/60 (82) 100 Intake and Output 04/10/19 04/11/19 19:00 07:00 Intake Total 140 ml 200 ml Output Total 1300 ml 450 ml Balance -1160 ml -250 ml Intake Oral 140 ml Other 200 ml Output Urine Total 1300 ml 450 ml # Voids 3 General Appearance: WD/WN HEENT: normocephalic, atraumatic Respiratory/Chest: chest wall non-tender, lungs clear Cardiovascular: normal peripheral pulses, regular rhythm Genitourinary: normal external genitalia Extremities: no cyanosis 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 Lymphatic: no groin adenopathy Laboratory Tests 04/10/19 17:45: Troponin I 0.129H 04/11/19 05:37: White Blood Count 6.7, Red Blood Count 4.09L, Hemoglobin 11.0L, Hematocrit 36.1L , Mean Corpuscular Volume 88, Mean Corpuscular Hemoglobin 26.9L, Mean Corpuscular Hemoglobin Concent 30.5L, Red Cell Distribution Width 19.2H, Platelet Count 277, Mean Platelet Volume 7.1, Neutrophils (%) (Auto) 55.1, Lymphocytes (%) (Auto) 28.3, Monocytes (%) (Auto) 11.1H, Eosinophils (%) (Auto) 4.6H, Basophils (%) (Auto) 1.0, Sodium Level 136, Potassium Level 4.0, Chloride Level 103, Carbon Dioxide Level 25, Anion Gap 8, Blood Urea Nitrogen 31H, Creatinine 1.2, Estimat Glomerular Filtration Rate > 60, Glucose Level 75, Hemoglobin A1c 5.4, Uric Acid 7.2, Calcium Level 8.4L, Phosphorus Level 3.2, Magnesium Level 1.5L, Iron Level 40L, Total Iron Binding Capacity 269, Percent Iron Saturation 15, Unsaturated Iron Binding 229, Ferritin 57, Total Bilirubin 0.8, Gamma Glutamyl Transpeptidase 140H, Aspartate Amino Transf (AST/SGOT) 25, Alanine Aminotransferase (ALT/SGPT) 36, Alkaline Phosphatase 102, Total Creatine Kinase 24L, C-Reactive Protein, Quantitative 0.5, Pro-B-Type Natriuretic Peptide 1669H, Total Protein 6.3L, Albumin 2.5L, Globulin 3.8, Albumin/Globulin Ratio 0.7L, Triglycerides Level 79, Cholesterol Level 148, LDL Cholesterol 76, HDL Cholesterol 56, Cholesterol/HDL Ratio 2.6L, Vitamin B12 Level 691, Folate 15.4, Thyroid Stimulating Hormone (TSH) 2.218 Current Medications Medications (Trade) Dose Ordered Sig/Ariel Route PRN Reason Start Time Stop Time Status Last Admin Dose Admin Acetaminophen (Tylenol) 650 mg Q4H PRN ORAL Fever 04/09/19 14:00 05/08/19 13:59 Albuterol/ Ipratropium (Albuterol/ Ipratropium) 3 ml Q4H PRN HHN Shortness of Breath 04/09/19 14:00 04/13/19 13:59 Dextrose (Dextrose 50%) 25 ml Q30M PRN IV Hypoglycemia 04/09/19 14:00 05/08/19 16:59 Dextrose (Dextrose 50%) 50 ml Q30MIN PRN IV Hypoglycemia 04/09/19 14:00 05/08/19 16:59 Docusate Sodium (Colace) 100 mg THREE TIMES A DAY ORAL 04/10/19 13:00 05/10/19 12:59 04/11/19 09:00 Furosemide (Lasix) 40 mg EVERY 8 HOURS IV 04/09/19 14:00 05/08/19 21:59 04/10/19 13:09 Heparin Sodium (Porcine) (Heparin 5000 units/ml) 5,000 units EVERY 12 HOURS SUBQ 04/09/19 21:00 05/08/19 20:59 04/11/19 09:06 Hydralazine HCl (Apresoline) 10 mg BID ORAL 04/09/19 18:00 05/09/19 17:59 04/11/19 09:00 Isosorbide Dinitrate (Isordil) 10 mg BID ORAL 04/09/19 18:00 05/09/19 17:59 04/11/19 09:01 Magnesium Sulfate 100 ml @ 100 mls/hr Q1H IVPB 04/11/19 10:00 04/11/19 11:59 04/11/19 11:04 Nitroglycerin (Ntg) 0.4 mg Q5M PRN SL Prn Chest Pain 04/09/19 14:00 05/09/19 09:29 Ondansetron HCl (Zofran) 4 mg Q6H PRN IVP Nausea & Vomiting 04/09/19 14:00 05/08/19 13:59 Pantoprazole (Protonix) 40 mg EVERY 12 HOURS ORAL 04/10/19 11:00 05/10/19 10:59 04/11/19 09:01 Polyethylene Glycol (Miralax) 17 gm DAILYPRN PRN ORAL Constipation 04/09/19 14:00 05/08/19 13:59 04/09/19 15:02 Regadenoson (Lexiscan) 0.4 mg ONCE PRN IV STRESS TEST 04/10/19 14:15 04/12/19 14:14 Spironolactone (Aldactone) 25 mg DAILY ORAL 04/10/19 09:00 05/10/19 08:59 04/11/19 09:00 Temazepam (Restoril) 15 mg HSPRN PRN ORAL Insomnia 04/09/19 14:00 04/16/19 13:59 Robby Chavarria MD Apr 11, 2019 11:47
[2019-04-11 12:00] VITALS: BP 102/72
--- NOTE | 2019-04-11 12:48 | Diagnostic Imaging Report ---
Indication: Dyspnea Comparison: 04/09/2019 A single view chest radiograph was obtained. Findings: Interstitial edema and groundglass opacification noted diffusely throughout the lungs having developed over the last 2 days. The heart appears larger. There is a hazy opacity obscuring the diaphragm. IMPRESSION: Worsening CHF. Suspected small bilateral pleural
--- NOTE | 2019-04-11 13:05 | NUR ---
NURSE NOTES: pt O2 sat went down to 91 when he got up to use restroom. Put pt back on 2L O2, pt O2 sat 98.
--- NOTE | 2019-04-11 13:18 | NUR ---
NURSE NOTES: Transferred patient to VIBHA Tolbert. Endorsed plan of care. Patient is in stable condition.
--- NOTE | 2019-04-11 13:41 | NUR ---
NURSE NOTES: pt very aggressive with words very loud gets up in a very menacing way, to refuse medication (docusate and Lasix) " I cant pee right now I don't want medications right now".
--- NOTE | 2019-04-11 14:58 | Nephrology Progress Note ---
Assessment/Plan Problem List: (1) Cardiac LV ejection fraction 10-20% (2) Renal insufficiency Assessment: chronic (3) NSTEMI (non-ST elevated myocardial infarction) (4) Cocaine abuse (5) Anemia Assessment Chronic renal failure. Serum creatinine previously was 1.7 on this admission it is 1.4. Polysubstance abuse. Urine indicative of cocaine and THC. Anemia. Evaded troponin I. Cardiomyopathy. Previous echocardiogram states an ejection fraction of 15% Acute on chronic congestive heart failure. Seizure disorder. Plan Optimize cardiac status. Afterload reduction. Gentle diuresis. Keep the BP in check. Monitor renal parameters. Per orders. Subjective ROS Limited/Unobtainable: No Constitutional: Reports: weakness Objective Objective Last 24 Hour Vital Signs Date Time Temp Pulse Resp B/P (MAP) Pulse Ox O2 Delivery O2 Flow Rate FiO2 04/11/19 09:01 105/58 04/11/19 09:00 Room Air 04/11/19 09:00 105/58 04/11/19 08:00 97.7 96 20 105/58 (74) 98 04/11/19 08:00 101 04/11/19 04:00 97.9 95 20 100/67 (78) 100 04/11/19 04:00 94 04/11/19 00:00 95 04/10/19 21:00 Room Air 04/10/19 20:01 98 20 97 Room Air 21 04/10/19 20:00 97.9 100 20 106/68 (81) 98 04/10/19 20:00 100 04/10/19 16:00 96.7 80 19 132/83 (99) 98 04/10/19 15:30 97 Intake and Output 04/10/19 04/11/19 19:00 07:00 Intake Total 140 ml 200 ml Output Total 1300 ml 450 ml Balance -1160 ml -250 ml Intake Oral 140 ml Other 200 ml Output Urine Total 1300 ml 450 ml # Voids 3 Laboratory Tests 04/10/19 17:45: Troponin I 0.129H 04/11/19 05:37: White Blood Count 6.7, Red Blood Count 4.09L, Hemoglobin 11.0L, Hematocrit 36.1L , Mean Corpuscular Volume 88, Mean Corpuscular Hemoglobin 26.9L, Mean Corpuscular Hemoglobin Concent 30.5L, Red Cell Distribution Width 19.2H, Platelet Count 277, Mean Platelet Volume 7.1, Neutrophils (%) (Auto) 55.1, Lymphocytes (%) (Auto) 28.3, Monocytes (%) (Auto) 11.1H, Eosinophils (%) (Auto) 4.6H, Basophils (%) (Auto) 1.0, Sodium Level 136, Potassium Level 4.0, Chloride Level 103, Carbon Dioxide Level 25, Anion Gap 8, Blood Urea Nitrogen 31H, Creatinine 1.2, Estimat Glomerular Filtration Rate > 60, Glucose Level 75, Hemoglobin A1c 5.4, Uric Acid 7.2, Calcium Level 8.4L, Phosphorus Level 3.2, Magnesium Level 1.5L, Iron Level 40L, Total Iron Binding Capacity 269, Percent Iron Saturation 15, Unsaturated Iron Binding 229, Ferritin 57, Total Bilirubin 0.8, Gamma Glutamyl Transpeptidase 140H, Aspartate Amino Transf (AST/SGOT) 25, Alanine Aminotransferase (ALT/SGPT) 36, Alkaline Phosphatase 102, Total Creatine Kinase 24L, C-Reactive Protein, Quantitative 0.5, Pro-B-Type Natriuretic Peptide 1669H, Total Protein 6.3L, Albumin 2.5L, Globulin 3.8, Albumin/Globulin Ratio 0.7L, Triglycerides Level 79, Cholesterol Level 148, LDL Cholesterol 76, HDL Cholesterol 56, Cholesterol/HDL Ratio 2.6L, Vitamin B12 Level 691, Folate 15.4, Thyroid Stimulating Hormone (TSH) 2.218 Height (Feet): 6 Height (Inches): 1.00 Weight (Pounds): 157 General Appearance: no apparent distress Cardiovascular: tachycardia Respiratory/Chest: decreased breath sounds Abdomen: distended Objective no change Lester Mesa MD Apr 11, 2019 14:58
--- NOTE | 2019-04-11 15:35 | NUR ---
CASE MANAGEMENT:REVIEW 04/11/19 SI: NSTEMI. LVEF 10-20%. COCAINE ABUSE 97.3 101 20 102/72 99% ON RA H/H-11.0/36.1 BUN+31 MAG-1.5 BNP+1669 IS: IV LEXISCAN X1 IV MAG SULFATE Q1HRS X2 BAGS IV LASIX Q8HRS COLACE PO TID PROTONIX PO Q12 ALDACTONE PO QD HEPARIN SQ Q12 HYDRALAZINE PO BID ISORDIL PO BID : TELEMETRY STATUS DCP: HOMELESS PLAN: STRESS TEST
[2019-04-11 16:00] VITALS: BP 116/79
--- NOTE | 2019-04-11 16:28 | NUR ---
NURSE NOTES: Assessed pt O2 sat, pt is 98% at 1L. Pt was put on room air will reassess pt in 5 min.
--- NOTE | 2019-04-11 17:34 | Internal Med Progress Note ---
Subjective Date of Service: Apr 11, 2019 Physician Name ClaudiaLexa Attending Physician Jose Mcarthur MD Current Medications Medications (Trade) Dose Ordered Sig/Ariel Route PRN Reason Start Time Stop Time Status Last Admin Dose Admin Acetaminophen (Tylenol) 650 mg Q4H PRN ORAL Fever 04/09/19 14:00 05/08/19 13:59 Albuterol/ Ipratropium (Albuterol/ Ipratropium) 3 ml Q4H PRN HHN Shortness of Breath 04/09/19 14:00 04/13/19 13:59 Dextrose (Dextrose 50%) 25 ml Q30M PRN IV Hypoglycemia 04/09/19 14:00 05/08/19 16:59 Dextrose (Dextrose 50%) 50 ml Q30MIN PRN IV Hypoglycemia 04/09/19 14:00 05/08/19 16:59 Docusate Sodium (Colace) 100 mg THREE TIMES A DAY ORAL 04/10/19 13:00 05/10/19 12:59 04/11/19 14:50 Furosemide (Lasix) 40 mg EVERY 8 HOURS IV 04/09/19 14:00 05/08/19 21:59 04/11/19 14:50 Heparin Sodium (Porcine) (Heparin 5000 units/ml) 5,000 units EVERY 12 HOURS SUBQ 04/09/19 21:00 05/08/19 20:59 04/11/19 09:06 Hydralazine HCl (Apresoline) 10 mg BID ORAL 04/09/19 18:00 05/09/19 17:59 04/11/19 09:00 Isosorbide Dinitrate (Isordil) 10 mg BID ORAL 04/09/19 18:00 05/09/19 17:59 04/11/19 09:01 Nitroglycerin (Ntg) 0.4 mg Q5M PRN SL Prn Chest Pain 04/09/19 14:00 05/09/19 09:29 Ondansetron HCl (Zofran) 4 mg Q6H PRN IVP Nausea & Vomiting 04/09/19 14:00 05/08/19 13:59 Pantoprazole (Protonix) 40 mg EVERY 12 HOURS ORAL 04/10/19 11:00 05/10/19 10:59 04/11/19 09:01 Polyethylene Glycol (Miralax) 17 gm DAILYPRN PRN ORAL Constipation 04/09/19 14:00 05/08/19 13:59 04/09/19 15:02 Regadenoson (Lexiscan) 0.4 mg ONCE PRN IV STRESS TEST 04/10/19 14:15 04/12/19 14:14 Spironolactone (Aldactone) 25 mg DAILY ORAL 04/10/19 09:00 05/10/19 08:59 04/11/19 09:00 Temazepam (Restoril) 15 mg HSPRN PRN ORAL Insomnia 04/09/19 14:00 04/16/19 13:59 Allergies: Coded Allergies: NO KNOWN ALLERGIES (Verified Allergy, Unknown, 04/08/19) ROS Limited/Unobtainable: No Constitutional: Reports: no symptoms HEENT: Reports: no symptoms Cardiovascular: Reports: no symptoms Respiratory: Reports: no symptoms Gastrointestinal/Abdominal: Reports: no symptoms Genitourinary: Reports: no symptoms Neurologic/Psychiatric: Reports: no symptoms Subjective 58 YO M admitted with chest pain. Now elevated troponin and CHF. Cover for Int Med-DR Mcarthur. Refused cardiac stress test per report. Verbally abusive toward staff earlier Objective Last Vital Signs Date Time Temp Pulse Resp B/P (MAP) Pulse Ox O2 Delivery O2 Flow Rate FiO2 04/11/19 16:00 97.2 99 20 116/79 (91) 99 04/11/19 09:00 Room Air 04/10/19 20:01 21 Laboratory Tests Test 04/10/19 17:45 04/11/19 05:37 Troponin I 0.129 ng/mL (0.000-0.056) White Blood Count 6.7 K/UL (4.8-10.8) Red Blood Count 4.09 M/UL (4.70-6.10) L Hemoglobin 11.0 G/DL (14.2-18.0) L Hematocrit 36.1 % (42.0-52.0) L Mean Corpuscular Volume 88 FL (80-99) Mean Corpuscular Hemoglobin 26.9 PG (27.0-31.0) L Mean Corpuscular Hemoglobin Concent 30.5 G/DL (32.0-36.0) L Red Cell Distribution Width 19.2 % (11.6-14.8) H Platelet Count 277 K/UL (150-450) Mean Platelet Volume 7.1 FL (6.5-10.1) Neutrophils (%) (Auto) 55.1 % (45.0-75.0) Lymphocytes (%) (Auto) 28.3 % (20.0-45.0) Monocytes (%) (Auto) 11.1 % (1.0-10.0) H Eosinophils (%) (Auto) 4.6 % (0.0-3.0) H Basophils (%) (Auto) 1.0 % (0.0-2.0) Sodium Level 136 MMOL/L (136-145) Potassium Level 4.0 MMOL/L (3.5-5.1) Chloride Level 103 MMOL/L (98-107) Carbon Dioxide Level 25 MMOL/L (21-32) Anion Gap 8 mmol/L (5-15) Blood Urea Nitrogen 31 mg/dL (7-18) H Creatinine 1.2 MG/DL (0.55-1.30) Estimat Glomerular Filtration Rate > 60 mL/min (>60) Glucose Level 75 MG/DL (74-106) Hemoglobin A1c 5.4 % (4.3-6.0) Uric Acid 7.2 MG/DL (2.6-7.2) Calcium Level 8.4 MG/DL (8.5-10.1) L Phosphorus Level 3.2 MG/DL (2.5-4.9) Magnesium Level 1.5 MG/DL (1.8-2.4) L Iron Level 40 ug/dL (50-175) L Total Iron Binding Capacity 269 ug/dL (250-450) Percent Iron Saturation 15 % (15-50) Unsaturated Iron Binding 229 ug/dL (112-346) Ferritin 57 NG/ML (8-388) Total Bilirubin 0.8 MG/DL (0.2-1.0) Gamma Glutamyl Transpeptidase 140 U/L (5-85) H Aspartate Amino Transf (AST/SGOT) 25 U/L (15-37) Alanine Aminotransferase (ALT/SGPT) 36 U/L (12-78) Alkaline Phosphatase 102 U/L (46-116) Total Creatine Kinase 24 U/L (26-308) L C-Reactive Protein, Quantitative 0.5 mg/dL (0.00-0.90) Pro-B-Type Natriuretic Peptide 1669 pg/mL (0-125) H Total Protein 6.3 G/DL (6.4-8.2) L Albumin 2.5 G/DL (3.4-5.0) L Globulin 3.8 g/dL Albumin/Globulin Ratio 0.7 (1.0-2.7) L Triglycerides Level 79 MG/DL (30-150) Cholesterol Level 148 MG/DL (< 200) LDL Cholesterol 76 mg/dL (<100) HDL Cholesterol 56 MG/DL (40-60) Cholesterol/HDL Ratio 2.6 (3.3-4.4) L Vitamin B12 Level 691 PG/ML (193-986) Folate 15.4 NG/ML (8.6-58.9) Thyroid Stimulating Hormone (TSH) 2.218 uiU/mL (0.358-3.740) Intake and Output 04/10/19 04/11/19 19:00 07:00 Intake Total 140 ml 200 ml Output Total 1300 ml 450 ml Balance -1160 ml -250 ml Intake Oral 140 ml Other 200 ml Output Urine Total 1300 ml 450 ml # Voids 3 Objective PHYSICAL EXAMINATION: GENERAL: The patient is a well-developed and well-nourished male, in no apparent distress. HEENT: Eyes, pupils are equal and responsive to light and accommodation. Extraocular movements intact. NECK: Supple without lymphadenopathy. CHEST: Lungs are clear to auscultation bilaterally without wheezes or rales. CARDIOVASCULAR: Regular rhythm and rate. S1, S2 are normal without murmurs, rubs, or gallops. ABDOMEN: Soft, nontender, and nondistended. Positive bowel sounds. No evidence of hepatosplenomegaly. Currently, no rebound or guarding noted. EXTREMITIES: Negative for clubbing, cyanosis, or edema. RECTAL/GENITAL: Not performed. EXTREMITIES: A 2+ pitting edema in bilateral ankles. Otherwise, without clubbing or cyanosis. NEUROMUSCULAR: Cranial nerves II through XII are grossly intact without focal deficits. Motor strength is 5/5 bilaterally. Return reflexes are 2+ plantar. Assessment/Plan Assessment/Plan ASSESSMENT: This is a 58-year-old male. 1. Chest pain. 2. Elevated troponin. 3. Acute on chronic congestive heart failure. 4. Chronic renal insufficiency. 5. Substance abuse. 6. Severe cardiomyopathy. 7. History of seizure disorder. TREATMENT: 1. Chest pain/elevated troponin/congestive heart failure. A Cardiology consultation has been obtained with Dr. Danie Florez. We will follow recommendations of Cardiology. The patient may have acute coronary syndrome. Patient refused cardiac stress test; await nuclear stress test 2. Chronic renal insufficiency. A Nephrology consultation has been obtained with Dr. Mesa. Chronic renal insufficiency may be secondary to dehydration. We will follow recommendations of Nephrology. 3. Polysubstance abuse. The patient's admission urinalysis was positive for cocaine. 4. Severe cardiomyopathy. An echocardiogram is pending. 5. Seizure disorder. The patient is currently off anti-seizure medications. Lexa Taylor MD Apr 11, 2019 17:33
--- NOTE | 2019-04-11 19:41 | NUR ---
HAND-OFF: Report given to Arline/VIBHA, pt in stable condition. should be NPO, after midnight for stress test tomorrow
--- NOTE | 2019-04-11 19:44 | NUR ---
NURSE NOTES: Received patient from VIBHA Tolbert. Patient awake, alert and verbally abusive. Bed in lowest position. Call light within reach. Patient advised NPO after midnight and patient was upset. Will alert charge nurse and will continue to monitor.
[2019-04-11 20:00] VITALS: BP 129/72
[2019-04-12] VITALS: BP 101/67
[2019-04-12 04:00] VITALS: BP 101/65
[2019-04-12 06:28] LABS: BASOPHILS % (AUTO) 1.1 % (0.0-2.0); EOSINOPHILS % (AUTO) 6.2 % (0.0-3.0); HEMATOCRIT 33.8 % (42.0-52.0); HEMOGLOBIN 10.4 G/DL (14.2-18.0); LYMPHOCYTES % (AUTO) 28.4 % (20.0-45.0); MEAN CORPUSCULAR VOLUME 88 FL (80-99); MONOCYTES % (AUTO) 11.2 % (1.0-10.0); NEUTROPHILS % (AUTO) 53.1 % (45.0-75.0); PLATELET COUNT 284 K/UL (150-450); RED BLOOD COUNT 3.84 M/UL (4.70-6.10); WHITE BLOOD COUNT 5.9 K/UL (4.8-10.8)
[2019-04-12 06:38] LABS: ANION GAP 7 mmol/L (5-15); BLOOD UREA NITROGEN 28 mg/dL (7-18); CALCIUM 8.9 MG/DL (8.5-10.1); CARBON DIOXIDE 25 MMOL/L (21-32); CHLORIDE 103 MMOL/L (98-107); CREATININE 1.1 MG/DL (0.55-1.30); POTASSIUM 4.3 MMOL/L (3.5-5.1); SODIUM 135 MMOL/L (136-145)
--- NOTE | 2019-04-12 07:29 | NUR ---
NURSE NOTES: pt refused cardiac stress test. Pt angry about not receiving meal tray. Will continue to monitor.
[2019-04-12 08:00] VITALS: BP 117/74
--- NOTE | 2019-04-12 08:02 | NUR ---
HAND-OFF: Report given to VIBHA Pino. Pt stable.
--- NOTE | 2019-04-12 08:35 | NUR ---
Nursing Machine Tender and RN spoke with Patient in his room, Explained and discussed plan of care; Patient argumentative about his reported refusal to do Cardiac Stress test; Patient is eating breakfast. stated he did not refuse the test, he just wants to eat. Explained to the patient need for NPO ,no caffeine diet for the test. States he wants to eat. Machine Tender made patient aware if he does not follow instruction, his PMD will be notified and will plan to discharge.
--- NOTE | 2019-04-12 08:38 | NUR ---
CARDIOLOGY Pt has been trying to delay stress test since Wednesday. He refused to sign consent, was very verbally abusive, and gave an aggressive & hostile attitude to Cardiology staff.
[2019-04-12] MEDS: Heparin 5000 units/ml inj SUBQ SCH (09:00)
[2019-04-12] MEDS: Spironolactone 25mg tab ORAL SCH (09:00)
[2019-04-12] MEDS: HydrALAZINE 10mg Tab ORAL SCH (09:00)
[2019-04-12] MEDS: Docusate 100mg cap ORAL SCH (09:00)
--- NOTE | 2019-04-12 09:40 | NUR ---
NURSE NOTES: PLACED A TELEPHONE CALL TO DR GOETZ AND MADE AWAre and notified REGARDING PT REQUEST TO REMOVED HIS I.V AND PT STATING THAT IS GOING WITH HIS PCP.PT REFUSED TO SIGH AMA FORM .PT WALK OUT OF UNIT ALSO LEA DUNNE TABLE GAMES SHIFT MANAGER AWARE AND NOTIED.
--- NOTE | 2019-04-12 09:40 | NUR ---
Patient took shower, removed Telemetry box, requested for nourse to remove his IV/heplock; states he's leaving, and he's going to his own Doctor. Patient refused to sign AMA form. heplock removed, site without swelling or redness. walked out of unit , ambulating, alert oriented x4, steady gait.
--- NOTE | 2019-04-12 12:14 | Internal Med Progress Note ---
Subjective Date of Service: Apr 12, 2019 Physician Name ClaudiaLexa Attending Physician Jose Mcarthur MD Current Medications Medications (Trade) Dose Ordered Sig/Ariel Route PRN Reason Start Time Stop Time Status Last Admin Dose Admin Acetaminophen (Tylenol) 650 mg Q4H PRN ORAL Fever 04/09/19 14:00 05/08/19 13:59 Albuterol/ Ipratropium (Albuterol/ Ipratropium) 3 ml Q4H PRN HHN Shortness of Breath 04/09/19 14:00 04/13/19 13:59 Dextrose (Dextrose 50%) 25 ml Q30M PRN IV Hypoglycemia 04/09/19 14:00 05/08/19 16:59 Dextrose (Dextrose 50%) 50 ml Q30MIN PRN IV Hypoglycemia 04/09/19 14:00 05/08/19 16:59 Docusate Sodium (Colace) 100 mg THREE TIMES A DAY ORAL 04/10/19 13:00 05/10/19 12:59 04/11/19 18:36 Furosemide (Lasix) 40 mg EVERY 8 HOURS IV 04/09/19 14:00 05/08/19 21:59 04/12/19 06:39 Heparin Sodium (Porcine) (Heparin 5000 units/ml) 5,000 units EVERY 12 HOURS SUBQ 04/09/19 21:00 05/08/19 20:59 04/11/19 09:06 Hydralazine HCl (Apresoline) 10 mg BID ORAL 04/09/19 18:00 05/09/19 17:59 04/11/19 18:37 Isosorbide Dinitrate (Isordil) 10 mg BID ORAL 04/09/19 18:00 05/09/19 17:59 04/11/19 18:37 Nitroglycerin (Ntg) 0.4 mg Q5M PRN SL Prn Chest Pain 04/09/19 14:00 05/09/19 09:29 Ondansetron HCl (Zofran) 4 mg Q6H PRN IVP Nausea & Vomiting 04/09/19 14:00 05/08/19 13:59 Pantoprazole (Protonix) 40 mg EVERY 12 HOURS ORAL 04/10/19 11:00 05/10/19 10:59 04/11/19 09:01 Polyethylene Glycol (Miralax) 17 gm DAILYPRN PRN ORAL Constipation 04/09/19 14:00 05/08/19 13:59 04/09/19 15:02 Regadenoson (Lexiscan) 0.4 mg ONCE PRN IV STRESS TEST 04/10/19 14:15 04/12/19 14:14 Spironolactone (Aldactone) 25 mg DAILY ORAL 04/10/19 09:00 05/10/19 08:59 04/11/19 09:00 Temazepam (Restoril) 15 mg HSPRN PRN ORAL Insomnia 04/09/19 14:00 04/16/19 13:59 Allergies: Coded Allergies: NO KNOWN ALLERGIES (Verified Allergy, Unknown, 04/08/19) ROS Limited/Unobtainable: No Constitutional: Reports: no symptoms HEENT: Reports: no symptoms Cardiovascular: Reports: chest pain Respiratory: Reports: no symptoms Gastrointestinal/Abdominal: Reports: no symptoms Genitourinary: Reports: no symptoms Neurologic/Psychiatric: Reports: no symptoms Subjective 58 YO M admitted with chest pain. Now elevated troponin and CHF. Cover for Int Med-DR Mcarthur. Refused cardiac stress test per report. Verbally abusive toward staff earlier Objective Last Vital Signs Date Time Temp Pulse Resp B/P (MAP) Pulse Ox O2 Delivery O2 Flow Rate FiO2 04/12/19 09:00 Room Air 04/12/19 08:00 101 04/12/19 08:00 97.4 18 117/74 (88) 97 04/11/19 19:41 21 Laboratory Tests Test 04/12/19 05:20 White Blood Count 5.9 K/UL (4.8-10.8) Red Blood Count 3.84 M/UL (4.70-6.10) L Hemoglobin 10.4 G/DL (14.2-18.0) L Hematocrit 33.8 % (42.0-52.0) L Mean Corpuscular Volume 88 FL (80-99) Mean Corpuscular Hemoglobin 27.2 PG (27.0-31.0) Mean Corpuscular Hemoglobin Concent 30.9 G/DL (32.0-36.0) L Red Cell Distribution Width 19.0 % (11.6-14.8) H Platelet Count 284 K/UL (150-450) Mean Platelet Volume 7.0 FL (6.5-10.1) Neutrophils (%) (Auto) 53.1 % (45.0-75.0) Lymphocytes (%) (Auto) 28.4 % (20.0-45.0) Monocytes (%) (Auto) 11.2 % (1.0-10.0) H Eosinophils (%) (Auto) 6.2 % (0.0-3.0) H Basophils (%) (Auto) 1.1 % (0.0-2.0) Sodium Level 135 MMOL/L (136-145) L Potassium Level 4.3 MMOL/L (3.5-5.1) Chloride Level 103 MMOL/L (98-107) Carbon Dioxide Level 25 MMOL/L (21-32) Anion Gap 7 mmol/L (5-15) Blood Urea Nitrogen 28 mg/dL (7-18) H Creatinine 1.1 MG/DL (0.55-1.30) Estimat Glomerular Filtration Rate > 60 mL/min (>60) Glucose Level 84 MG/DL (74-106) Calcium Level 8.9 MG/DL (8.5-10.1) Intake and Output 04/11/19 04/12/19 19:00 07:00 Intake Total 1240 ml 300 ml Output Total 1000 ml 450 ml Balance 240 ml -150 ml Intake Oral 1240 ml Other 300 ml Output Urine Total 1000 ml 450 ml # Voids 1 Objective PHYSICAL EXAMINATION: GENERAL: The patient is a well-developed and well-nourished male, in no apparent distress. HEENT: Eyes, pupils are equal and responsive to light and accommodation. Extraocular movements intact. NECK: Supple without lymphadenopathy. CHEST: Lungs are clear to auscultation bilaterally without wheezes or rales. CARDIOVASCULAR: Regular rhythm and rate. S1, S2 are normal without murmurs, rubs, or gallops. ABDOMEN: Soft, nontender, and nondistended. Positive bowel sounds. No evidence of hepatosplenomegaly. Currently, no rebound or guarding noted. EXTREMITIES: Negative for clubbing, cyanosis, or edema. RECTAL/GENITAL: Not performed. EXTREMITIES: A 2+ pitting edema in bilateral ankles. Otherwise, without clubbing or cyanosis. NEUROMUSCULAR: Cranial nerves II through XII are grossly intact without focal deficits. Motor strength is 5/5 bilaterally. Return reflexes are 2+ plantar. Assessment/Plan Assessment/Plan ASSESSMENT: This is a 58-year-old male. 1. Chest pain. 2. Elevated troponin. 3. Acute on chronic congestive heart failure. 4. Chronic renal insufficiency. 5. Substance abuse. 6. Severe cardiomyopathy. 7. History of seizure disorder. TREATMENT: 1. Chest pain/elevated troponin/congestive heart failure. A Cardiology consultation has been obtained with Dr. Danie Florez. We will follow recommendations of Cardiology. The patient may have acute coronary syndrome. Patient refused cardiac stress test; await nuclear stress test 2. Chronic renal insufficiency. A Nephrology consultation has been obtained with Dr. Mesa. Chronic renal insufficiency may be secondary to dehydration. We will follow recommendations of Nephrology. 3. Polysubstance abuse. The patient's admission urinalysis was positive for cocaine. 4. Severe cardiomyopathy. An echocardiogram is pending. 5. Seizure disorder. The patient is currently off anti-seizure medications. Lexa Taylor MD Apr 12, 2019 12:14
--- NOTE | 2019-04-12 13:15 | Nephrology Progress Note ---
Assessment/Plan Problem List: (1) Cardiac LV ejection fraction 10-20% (2) Renal insufficiency Assessment: chronic (3) NSTEMI (non-ST elevated myocardial infarction) (4) Cocaine abuse (5) Anemia Assessment Chronic renal failure. Serum creatinine previously was 1.7 on this admission it is 1.4. Polysubstance abuse. Urine indicative of cocaine and THC. Anemia. Evaded troponin I. Cardiomyopathy. Previous echocardiogram states an ejection fraction of 15% Acute on chronic congestive heart failure. Seizure disorder. Plan LEFT AMA ! Optimize cardiac status. Afterload reduction. Gentle diuresis. Keep the BP in check. Monitor renal parameters. Per orders. Subjective ROS Limited/Unobtainable: No Objective Objective Last 24 Hour Vital Signs Date Time Temp Pulse Resp B/P (MAP) Pulse Ox O2 Delivery O2 Flow Rate FiO2 04/12/19 09:00 Room Air 04/12/19 08:05 89 20 96 Room Air 21 04/12/19 08:00 101 04/12/19 08:00 97.4 90 18 117/74 (88) 97 04/12/19 04:00 95.5 95 20 101/65 (77) 100 04/12/19 00:00 97.7 98 20 101/67 (78) 100 04/11/19 21:00 Room Air 04/11/19 20:00 97.3 101 16 129/72 (91) 98 04/11/19 19:41 103 18 98 Room Air 21 04/11/19 18:37 116/79 04/11/19 18:37 116/79 04/11/19 16:00 99 04/11/19 16:00 97.2 99 20 116/79 (91) 99 Intake and Output 04/11/19 04/12/19 19:00 07:00 Intake Total 1240 ml 300 ml Output Total 1000 ml 450 ml Balance 240 ml -150 ml Intake Oral 1240 ml Other 300 ml Output Urine Total 1000 ml 450 ml # Voids 1 Current Medications Medications (Trade) Dose Ordered Sig/Ariel Route PRN Reason Start Time Stop Time Status Last Admin Dose Admin Acetaminophen (Tylenol) 650 mg Q4H PRN ORAL Fever 04/09/19 14:00 05/08/19 13:59 Albuterol/ Ipratropium (Albuterol/ Ipratropium) 3 ml Q4H PRN HHN Shortness of Breath 04/09/19 14:00 04/13/19 13:59 Dextrose (Dextrose 50%) 25 ml Q30M PRN IV Hypoglycemia 04/09/19 14:00 05/08/19 16:59 Dextrose (Dextrose 50%) 50 ml Q30MIN PRN IV Hypoglycemia 04/09/19 14:00 05/08/19 16:59 Docusate Sodium (Colace) 100 mg THREE TIMES A DAY ORAL 04/10/19 13:00 05/10/19 12:59 04/11/19 18:36 Furosemide (Lasix) 40 mg EVERY 8 HOURS IV 04/09/19 14:00 05/08/19 21:59 04/12/19 06:39 Heparin Sodium (Porcine) (Heparin 5000 units/ml) 5,000 units EVERY 12 HOURS SUBQ 04/09/19 21:00 05/08/19 20:59 04/11/19 09:06 Hydralazine HCl (Apresoline) 10 mg BID ORAL 04/09/19 18:00 05/09/19 17:59 04/11/19 18:37 Isosorbide Dinitrate (Isordil) 10 mg BID ORAL 04/09/19 18:00 05/09/19 17:59 04/11/19 18:37 Nitroglycerin (Ntg) 0.4 mg Q5M PRN SL Prn Chest Pain 04/09/19 14:00 05/09/19 09:29 Ondansetron HCl (Zofran) 4 mg Q6H PRN IVP Nausea & Vomiting 04/09/19 14:00 05/08/19 13:59 Pantoprazole (Protonix) 40 mg EVERY 12 HOURS ORAL 04/10/19 11:00 05/10/19 10:59 04/11/19 09:01 Polyethylene Glycol (Miralax) 17 gm DAILYPRN PRN ORAL Constipation 04/09/19 14:00 05/08/19 13:59 04/09/19 15:02 Regadenoson (Lexiscan) 0.4 mg ONCE PRN IV STRESS TEST 04/10/19 14:15 04/12/19 14:14 Spironolactone (Aldactone) 25 mg DAILY ORAL 04/10/19 09:00 05/10/19 08:59 3/3/20 09:00 Temazepam (Restoril) 15 mg HSPRN PRN ORAL Insomnia 04/09/19 14:00 04/16/19 13:59 Laboratory Tests 04/12/19 05:20: White Blood Count 5.9, Red Blood Count 3.84L, Hemoglobin 10.4L, Hematocrit 33.8L , Mean Corpuscular Volume 88, Mean Corpuscular Hemoglobin 27.2, Mean Corpuscular Hemoglobin Concent 30.9L, Red Cell Distribution Width 19.0H, Platelet Count 284, Mean Platelet Volume 7.0, Neutrophils (%) (Auto) 53.1, Lymphocytes (%) (Auto) 28.4, Monocytes (%) (Auto) 11.2H, Eosinophils (%) (Auto) 6.2H, Basophils (%) (Auto) 1.1, Sodium Level 135L, Potassium Level 4.3, Chloride Level 103, Carbon Dioxide Level 25, Anion Gap 7, Blood Urea Nitrogen 28H, Creatinine 1.1, Estimat Glomerular Filtration Rate > 60, Glucose Level 84, Calcium Level 8.9 Height (Feet): 6 Height (Inches): 1.00 Weight (Pounds): 156 Objective no change Lester Mesa MD Apr 12, 2019 13:15
--- NOTE | 2019-04-12 13:59 | Cardiac Electrophysiology PN ---
Assessment/Plan Assessment/Plan 1. Troponin elevation. The levels are flat. On 03/16/2019 also had elevated troponin and likely due to renal failure . Refused nuclear stress test 2. Severe cardiomyopathy with EF of only 20%. Off beta-shahram for active cocaine use. On Lasix, hydralazine, nitrate and Aldactone but not taking meds 3. Hypertension. Continue current medical regimen. 4. History of seizure disorder. 5. Polysubstance abuse with cocaine and marijuana based on urine toxicology screen. 6. Noncompliance DW RN Signed out AMA Subjective Subjective Noncompliant with meds.Refused meds and signed out AMA Objective Last 24 Hour Vital Signs Date Time Temp Pulse Resp B/P (MAP) Pulse Ox O2 Delivery O2 Flow Rate FiO2 04/12/19 09:00 Room Air 04/12/19 08:05 89 20 96 Room Air 21 04/12/19 08:00 101 04/12/19 08:00 97.4 90 18 117/74 (88) 97 04/12/19 04:00 95.5 95 20 101/65 (77) 100 04/12/19 00:00 97.7 98 20 101/67 (78) 100 04/11/19 21:00 Room Air 04/11/19 20:00 97.3 101 16 129/72 (91) 98 04/11/19 19:41 103 18 98 Room Air 21 04/11/19 18:37 116/79 04/11/19 18:37 116/79 04/11/19 16:00 99 04/11/19 16:00 97.2 99 20 116/79 (91) 99 Intake and Output 04/11/19 04/12/19 19:00 07:00 Intake Total 1240 ml 300 ml Output Total 1000 ml 450 ml Balance 240 ml -150 ml Intake Oral 1240 ml Other 300 ml Output Urine Total 1000 ml 450 ml # Voids 1 Laboratory Tests Test 04/12/19 05:20 White Blood Count 5.9 K/UL (4.8-10.8) Red Blood Count 3.84 M/UL (4.70-6.10) L Hemoglobin 10.4 G/DL (14.2-18.0) L Hematocrit 33.8 % (42.0-52.0) L Mean Corpuscular Volume 88 FL (80-99) Mean Corpuscular Hemoglobin 27.2 PG (27.0-31.0) Mean Corpuscular Hemoglobin Concent 30.9 G/DL (32.0-36.0) L Red Cell Distribution Width 19.0 % (11.6-14.8) H Platelet Count 284 K/UL (150-450) Mean Platelet Volume 7.0 FL (6.5-10.1) Neutrophils (%) (Auto) 53.1 % (45.0-75.0) Lymphocytes (%) (Auto) 28.4 % (20.0-45.0) Monocytes (%) (Auto) 11.2 % (1.0-10.0) H Eosinophils (%) (Auto) 6.2 % (0.0-3.0) H Basophils (%) (Auto) 1.1 % (0.0-2.0) Sodium Level 135 MMOL/L (136-145) L Potassium Level 4.3 MMOL/L (3.5-5.1) Chloride Level 103 MMOL/L (98-107) Carbon Dioxide Level 25 MMOL/L (21-32) Anion Gap 7 mmol/L (5-15) Blood Urea Nitrogen 28 mg/dL (7-18) H Creatinine 1.1 MG/DL (0.55-1.30) Estimat Glomerular Filtration Rate > 60 mL/min (>60) Glucose Level 84 MG/DL (74-106) Calcium Level 8.9 MG/DL (8.5-10.1) Objective HEAD AND NECK: No JVD. LUNGS: Clear. CARDIOVASCULAR: Regular S1 and S2 with no gallop or murmur. ABDOMEN: Soft. EXTREMITIES: 1+ pitting edema. Danie Florez MD Apr 12, 2019 13:59
--- NOTE | 2019-04-13 10:32 | NUR ---
*-* INSURANCE *-* ALL CLINICALS HAVE BEEN FAXED TO: [facility] P: [phone] F: [phone]
--- NOTE | 2019-04-13 11:26 | Discharge Summary ---
Discharge Summary Discharge Summary _ DATE OF ADMISSION: 04/08/2019 DATE OF DISCHARGE: 04/12/2019 Patient left AGAINST MEDICAL ADVICE REASON FOR ADMISSION: [] 58 years old male with past medical history of cardiomyopathy substance abuse and noncompliance with medication was brought by paramedics due to crushing substernal chest pain rated 10 out of 10 in the beginning. In route to the hospital patient received aspirin and nitroglycerin. Upon arrival to ER patient still having chest pain. No cough . no fever or chills no shortness of breath. Vital signs were stable. Pulse oximetry was stable on room air. Urine toxicology screen was positive for cocaine and marijuana. Urinalysis revealed +1 protein, but no evidence of UTI. Laboratory work-up revealed elevated troponin - 0.134, pro BNP 6194. EKG revealed sinus rhythm with nonspecific ST-T wave changes. Stable electrolytes. BUN 44, creatinine 1.7. Glucose 135. AST 46 , ALT 62. No leukocytosis ,hemoglobin 10.6, hematocrit 34.9. Chest x-ray revealed cardiomegaly with CHF and bilateral medial pleural effusion. In ED patient received Nitro-paste, metoprolol and Lovenox. Patient already had aspirin in the field . Patient denied chest pain at that time . Patient subsequently admitted to stepdown unit for further management. CONSULTANTS: thermospray operator Dr. Ochoa pulmonary Dr. Chavarria corrections officer Dr. Mesa HOSPITAL COURSE: Patient admitted to stepdown unit. Troponin elevated , with flat levels. prior elevated troponin on 03/16 as well. Patient refused nuclear stress test. Echocardiogram demonstrated reduced ejection fraction 25 to 30% with severe global left ventricular hypokinesis. All 4 chambers were mildly dilated. Mild left ventricular hypertrophy. Grade 2 left ventricular diastolic dysfunction. Moderate mitral regurgitation and moderate to severe tricuspid regurgitation. Right ventricular systolic pressure of 46 consistent with a moderate pulmonary hypertension. Patient was on IV diuresis with close monitoring of volumes and cardiorenal parameters. Pro BNP trended down from 6194 to 1669. Patient was followed -up with chest x-ray . Patient was taken off beta-shahram due to active cocaine use. Guideline directed medical therapy provided with hydralazine ,nitrate ,Lasix, and Aldactone . Patient decided to decline his medications. Supplemental oxygen provided and titrated to keep oximetry above 92%. Nebulizing treatment with bronchodilators was on board as needed. Renal parameters and electrolytes were closely monitored , electrolytes corrected as needed Creatinine from 1.7 trended down to 1.1. Seizure precautions maintained. Patient was not on any anti-seizure medication. No evidence of seizure activity while in the hospital. Supportive care provided. Patient decided to leave AGAINST MEDICAL ADVICE. The risks and consequences of signing AGAINST MEDICAL ADVICE were discussed with patient in detail. Patient verbalized understanding, nevertheless signed AMA form and left. FINAL DIAGNOSES: Troponin elevation Chest pain Possible NSTEMI Severe cardiomyopathy with ejection fraction 20% Acute on chronic congestive heart failure , systolic and diastolic Polysubstance abuse/ cocaine and marijuana Acute on chronic renal failure Anemia Hypertension History of seizure disorder Homeless Noncompliance I have been assigned to dictate discharge summary for this account. I was not involved in the patient's management. Blaire Ortega NP Apr 13, 2019 11:26
--- NOTE | 2019-04-14 12:43 | NUR ---
*-* INSURANCE *-* ALL CLINICALS HAVE BEEN FAXED TO: [employer] P: [phone] F: [phone]
== END 2019-04-12 09:25 | disposition left against medical advice (07) | DRG 194 ==
LOC: EDBD 11:36 → EMR 12:13 → EDBEDREQ 12:56 → 2W 14:59 → EDBEDREQ 16:20 → 4E 04-09 00:20 → 2E 04-09 13:34
DX: I13.0 Hypertensive heart and chronic kidney disease with heart failure and stage 1 through stage 4 chronic kidney disease, or unspecified chronic kidney disease (principal); I21.4 Non-ST elevation (NSTEMI) myocardial infarction; I50.43 Acute on chronic combined systolic (congestive) and diastolic (congestive) heart failure; N18.9 Chronic kidney disease, unspecified; I42.9 Cardiomyopathy, unspecified; G40.909 Epilepsy, unspecified, not intractable, without status epilepticus; I25.10 Atherosclerotic heart disease of native coronary artery without angina pectoris; Z59.0 Homelessness; F14.10 Cocaine abuse, uncomplicated; F17.200 Nicotine dependence, unspecified, uncomplicated; Z91.14 Patient's other noncompliance with medication regimen
CPT/HCPCS: 36415; 71045; 80048; 80053; 80061; 80069; 80076; 80307; 81003; 82248; 82550; 82607; 82728; 82746; 82977; 83036; 83540; 83550; 83735; 83880; 84100; 84443; 84484; 84550; 85025; 85610; 85730; 86140; 93306; 94664; 96374; 96375; 99291

== ENCOUNTER 2019-04-24 11:31 | Inpatient (IN) | payer MEDICAID ==
[~2019-04-24] VITALS: Ht 185.4 cm; Wt 78.0 kg
[2019-04-24 16:00] VITALS: BP 109/74
[2019-04-24] MEDS ORDERED: Nitroglycerin Subl 0.4mg tab SL PRN (18:00)
[2019-04-24 20:00] VITALS: BP 115/97
[2019-04-24] MEDS: HydrALAZINE 10mg Tab ORAL SCH (20:50)
[2019-04-25 04:00] VITALS: BP 100/64
[2019-04-25 08:00] VITALS: BP 138/88
[2019-04-25 09:21] LABS: BASOPHILS % (AUTO) 0.9 % (0.0-2.0); EOSINOPHILS % (AUTO) 9.7 % (0.0-3.0); HEMATOCRIT 33.9 % (42.0-52.0); HEMOGLOBIN 10.6 G/DL (14.2-18.0); LYMPHOCYTES % (AUTO) 20.6 % (20.0-45.0); MEAN CORPUSCULAR VOLUME 87 FL (80-99); MONOCYTES % (AUTO) 14.6 % (1.0-10.0); NEUTROPHILS % (AUTO) 54.3 % (45.0-75.0); PLATELET COUNT 234 K/UL (150-450); WHITE BLOOD COUNT 6.1 K/UL (4.8-10.8)
[2019-04-25] MEDS: Aspirin Baby 81mg ORAL SCH (09:29)
[2019-04-25] MEDS: HydrALAZINE 10mg Tab ORAL SCH ×2 (09:29→18:00)
[2019-04-25] MEDS: Spironolactone 50mg tab ORAL SCH (09:29)
[2019-04-25 09:40] LABS: ALANINE AMINOTRANSFERASE 39 U/L (12-78); ALBUMIN 2.9 G/DL (3.4-5.0); ALBUMIN/GLOBULIN RATIO 0.8 (1.0-2.7); ALKALINE PHOSPHATASE 117 U/L (46-116); ANION GAP 9 mmol/L (5-15); ASPARTATE AMINO TRANSFERASE 34 U/L (15-37); BILIRUBIN,TOTAL 0.8 MG/DL (0.2-1.0); BLOOD UREA NITROGEN 32 mg/dL (7-18); CALCIUM 9.1 MG/DL (8.5-10.1); CARBON DIOXIDE 28 MMOL/L (21-32); CHLORIDE 108 MMOL/L (98-107); CREATININE 1.3 MG/DL (0.55-1.30); PHOSPHORUS 3.9 MG/DL (2.5-4.9); POTASSIUM 4.7 MMOL/L (3.5-5.1); SODIUM 145 MMOL/L (136-145)
[2019-04-25] MEDS: Heparin 5000 units/ml inj SUBQ SCH ×2 (11:00→21:00)
--- NOTE | 2019-04-25 14:24 | Consultation ---
History of Present Illness General Date patient seen: Apr 25, 2019 Present Illness HPI 58-year-old male with history of hypertension and severe cardiomyopathy, EF of15% homeless, substance abuse presented to [facility] with CC of dyspnea and cough and leg swelling for 2 days. The patient was recently admitted to [facility] and signed AMA. He is transferred to [facility] for further management. Allergies: Coded Allergies: NO KNOWN ALLERGIES (Verified Allergy, Unknown, 04/08/19) Patient History Healthcare decision maker Resuscitation status Full Code Advanced Directive on File Past Medical/Surgical History Past Medical/Surgical History: (1) Cardiac LV ejection fraction 10-20% (2) Homelessness Review of Systems Constitutional: Reports: no symptoms All Other Systems: negative except mentioned in HPI Physical Exam General Appearance: WD/WN, no apparent distress Lines, tubes and drains: peripheral, central line HEENT: normocephalic, atraumatic Neck: non-tender, normal alignment Respiratory/Chest: chest wall non-tender, lungs clear Cardiovascular/Chest: normal peripheral pulses Abdomen: normal bowel sounds Genitourinary/Rectal: normal genital exam Extremities: normal range of motion Skin Exam: normal pigmentation Last 24 Hour Vital Signs Date Time Temp Pulse Resp B/P (MAP) Pulse Ox O2 Delivery O2 Flow Rate FiO2 04/25/19 12:00 101 04/25/19 09:29 138/88 04/25/19 09:29 138/88 04/25/19 09:00 Room Air 04/25/19 08:00 103 04/25/19 08:00 96.3 107 20 138/88 (105) 96 04/25/19 04:00 97 04/25/19 04:00 102 20 100/64 (76) 96 04/25/19 00:00 100 04/24/19 21:00 Room Air 04/24/19 20:51 115/97 04/24/19 20:50 115/97 04/24/19 20:00 98.2 106 20 115/97 (103) 99 04/24/19 20:00 103 04/24/19 16:06 Room Air 04/24/19 16:00 98.2 96 16 109/74 (86) 98 Intake and Output 04/24/19 04/25/19 19:00 07:00 Intake Total 360 ml 840 ml Output Total 300 ml Balance 360 ml 540 ml Intake Oral 360 ml 840 ml Output Urine Total 300 ml # Voids 1 Laboratory Tests Test 04/25/19 09:05 White Blood Count 6.1 K/UL (4.8-10.8) Red Blood Count 3.90 M/UL (4.70-6.10) L Hemoglobin 10.6 G/DL (14.2-18.0) L Hematocrit 33.9 % (42.0-52.0) L Mean Corpuscular Volume 87 FL (80-99) Mean Corpuscular Hemoglobin 27.3 PG (27.0-31.0) Mean Corpuscular Hemoglobin Concent 31.4 G/DL (32.0-36.0) L Red Cell Distribution Width 19.0 % (11.6-14.8) H Platelet Count 234 K/UL (150-450) Mean Platelet Volume 7.1 FL (6.5-10.1) Neutrophils (%) (Auto) 54.3 % (45.0-75.0) Lymphocytes (%) (Auto) 20.6 % (20.0-45.0) Monocytes (%) (Auto) 14.6 % (1.0-10.0) H Eosinophils (%) (Auto) 9.7 % (0.0-3.0) H Basophils (%) (Auto) 0.9 % (0.0-2.0) Sodium Level 145 MMOL/L (136-145) Potassium Level 4.7 MMOL/L (3.5-5.1) Chloride Level 108 MMOL/L (98-107) H Carbon Dioxide Level 28 MMOL/L (21-32) Anion Gap 9 mmol/L (5-15) Blood Urea Nitrogen 32 mg/dL (7-18) H Creatinine 1.3 MG/DL (0.55-1.30) Estimat Glomerular Filtration Rate > 60 mL/min (>60) Glucose Level 99 MG/DL (74-106) Calcium Level 9.1 MG/DL (8.5-10.1) Phosphorus Level 3.9 MG/DL (2.5-4.9) Magnesium Level 1.8 MG/DL (1.8-2.4) Total Bilirubin 0.8 MG/DL (0.2-1.0) Aspartate Amino Transf (AST/SGOT) 34 U/L (15-37) Alanine Aminotransferase (ALT/SGPT) 39 U/L (12-78) Alkaline Phosphatase 117 U/L (46-116) H Troponin I 0.108 ng/mL (0.000-0.056) Total Protein 6.5 G/DL (6.4-8.2) Albumin 2.9 G/DL (3.4-5.0) L Globulin 3.6 g/dL Albumin/Globulin Ratio 0.8 (1.0-2.7) L Height (Feet): 6 Height (Inches): 1.00 Weight (Pounds): 165 Medications Current Medications Medications (Trade) Dose Ordered Sig/Ariel Route PRN Reason Start Time Stop Time Status Last Admin Dose Admin Acetaminophen (Tylenol) 650 mg Q4H PRN ORAL Mild Pain/Temp > 100.5 04/24/19 17:45 05/24/19 17:44 Aspirin (ASA) 81 mg DAILY ORAL 04/25/19 09:00 06/09/19 08:59 04/25/19 09:29 Furosemide (Lasix) 40 mg EVERY 12 HOURS IV 04/24/19 21:00 05/24/19 20:59 04/24/19 20:51 Heparin Sodium (Porcine) (Heparin 5000 units/ml) 5,000 units EVERY 12 HOURS SUBQ 04/25/19 11:00 06/09/19 10:59 Hydralazine HCl (Apresoline) 10 mg Q12HR ORAL 04/24/19 21:00 05/24/19 20:59 04/25/19 09:29 Isosorbide Dinitrate (Isordil) 10 mg EVERY 12 HOURS ORAL 04/24/19 21:00 05/24/19 20:59 04/25/19 09:29 Nitroglycerin (Ntg) 0.4 mg Q5MIN X 3 DOSES PRN SL Prn Chest Pain 04/24/19 18:00 05/24/19 17:59 Ondansetron HCl (Zofran) 4 mg Q6H PRN IVP Nausea & Vomiting 04/24/19 18:00 05/24/19 17:59 Spironolactone (Aldactone) 50 mg DAILY ORAL 04/25/19 09:00 05/25/19 08:59 04/25/19 09:29 Temazepam (Restoril) 15 mg HSPRN PRN ORAL Insomnia 04/24/19 21:00 05/01/19 20:59 Assessment/Plan Problem List: (1) Acute bronchitis ICD Codes: J20.9 - Acute bronchitis, unspecified SNOMED: 61528572 (2) Cardiac LV ejection fraction 10-20% ICD Codes: R09.89 - Other specified symptoms and signs involving the circulatory and respiratory systems SNOMED: 27678982, 009727761 (3) CHF (congestive heart failure) ICD Codes: I50.9 - Heart failure, unspecified SNOMED: 11270088 (4) Homelessness ICD Codes: Z59.0 - Homelessness SNOMED: 78174693 Assessment/Plan: respiratory treatment titrate fio2 to sat of 92% cardiology to see resume cardiac meds social service consult. Robby Chavarria MD Apr 25, 2019 14:24
--- NOTE | 2019-04-25 17:04 | Cardiology Progress Note ---
Assessment/Plan Assessment/Plan [id number] Objective Last 24 Hour Vital Signs Date Time Temp Pulse Resp B/P (MAP) Pulse Ox O2 Delivery O2 Flow Rate FiO2 04/25/19 12:00 101 04/25/19 09:29 138/88 04/25/19 09:29 138/88 04/25/19 09:00 Room Air 04/25/19 08:00 103 04/25/19 08:00 96.3 107 20 138/88 (105) 96 04/25/19 04:00 97 04/25/19 04:00 102 20 100/64 (76) 96 04/25/19 00:00 100 04/24/19 21:00 Room Air 04/24/19 20:51 115/97 04/24/19 20:50 115/97 04/24/19 20:00 98.2 106 20 115/97 (103) 99 04/24/19 20:00 103 Intake and Output 04/24/19 04/25/19 19:00 07:00 Intake Total 360 ml 840 ml Output Total 300 ml Balance 360 ml 540 ml Intake Oral 360 ml 840 ml Output Urine Total 300 ml # Voids 1 Laboratory Tests Test 04/25/19 09:05 White Blood Count 6.1 K/UL (4.8-10.8) Red Blood Count 3.90 M/UL (4.70-6.10) L Hemoglobin 10.6 G/DL (14.2-18.0) L Hematocrit 33.9 % (42.0-52.0) L Mean Corpuscular Volume 87 FL (80-99) Mean Corpuscular Hemoglobin 27.3 PG (27.0-31.0) Mean Corpuscular Hemoglobin Concent 31.4 G/DL (32.0-36.0) L Red Cell Distribution Width 19.0 % (11.6-14.8) H Platelet Count 234 K/UL (150-450) Mean Platelet Volume 7.1 FL (6.5-10.1) Neutrophils (%) (Auto) 54.3 % (45.0-75.0) Lymphocytes (%) (Auto) 20.6 % (20.0-45.0) Monocytes (%) (Auto) 14.6 % (1.0-10.0) H Eosinophils (%) (Auto) 9.7 % (0.0-3.0) H Basophils (%) (Auto) 0.9 % (0.0-2.0) Sodium Level 145 MMOL/L (136-145) Potassium Level 4.7 MMOL/L (3.5-5.1) Chloride Level 108 MMOL/L (98-107) H Carbon Dioxide Level 28 MMOL/L (21-32) Anion Gap 9 mmol/L (5-15) Blood Urea Nitrogen 32 mg/dL (7-18) H Creatinine 1.3 MG/DL (0.55-1.30) Estimat Glomerular Filtration Rate > 60 mL/min (>60) Glucose Level 99 MG/DL (74-106) Calcium Level 9.1 MG/DL (8.5-10.1) Phosphorus Level 3.9 MG/DL (2.5-4.9) Magnesium Level 1.8 MG/DL (1.8-2.4) Total Bilirubin 0.8 MG/DL (0.2-1.0) Aspartate Amino Transf (AST/SGOT) 34 U/L (15-37) Alanine Aminotransferase (ALT/SGPT) 39 U/L (12-78) Alkaline Phosphatase 117 U/L (46-116) H Troponin I 0.108 ng/mL (0.000-0.056) Total Protein 6.5 G/DL (6.4-8.2) Albumin 2.9 G/DL (3.4-5.0) L Globulin 3.6 g/dL Albumin/Globulin Ratio 0.8 (1.0-2.7) L Dajuan Vee MD Apr 25, 2019 17:04
--- NOTE | 2019-04-25 18:19 | History & Physical ---
History and Physical History & Physicial Dictated for Int Med-Dr Mcarthur no. [id number] Lexa Taylor MD Apr 25, 2019 18:19
--- NOTE | 2019-04-25 18:45 | History and Physical Report ---
DATE OF ADMISSION: 04/24/2019 CHIEF COMPLAINT: The patient is a 58-year-old male, who presents with a chief complaint of shortness of breath and cough. HISTORY OF PRESENT ILLNESS: Began two days previously with increasing shortness of breath. The patient also has a nonproductive cough. The patient states his legs have began to swell as well. The patient initially presented to [facility] emergency room. The patient is transferred to [facility] for insurance purposes. The patient is admitted with shortness of breath, cough, and bilateral leg swelling to rule out acute on chronic congestive heart failure. REVIEW OF SYSTEMS: CONSTITUTIONAL: The patient denies weight loss or weight gain. The patient denies fevers or chills. HEENT: The patient denies ear or throat pain. The patient denies headache. CARDIOVASCULAR: The patient denies palpitation or chest pain. CHEST: The patient complains of shortness of breath as above. The patient complains of nonproductive cough as above. The patient denies wheezes. ABDOMEN: The patient denies nausea, vomiting, diarrhea, or constipation. GENITOURINARY: The patient denies dysuria or increased frequency of urination. NEUROMUSCULAR: The patient denies seizures or generalized weakness. PAST MEDICAL HISTORY: Significant for: 1. Congestive heart failure. 2. Chronic renal insufficiency. 3. Chronic anemia. 4. Coronary artery disease. 5. Seizure disorder. 6. History of polysubstance abuse. PAST SURGICAL HISTORY: The patient denies. CURRENT MEDICATIONS: The patient denies. ALLERGIES: No known drug allergies. SOCIAL HISTORY: The patient is single and is currently homeless. The patient states he lives on and off with his sister. The patient denies tobacco or alcohol use. The patient admits to marijuana and cocaine use. DIAGNOSTIC DATA: An EKG demonstrated sinus tachycardia with no acute ST changes or Q-waves noted. Ventricular rate was approximately 120 beats per minute. LABORATORY STUDIES: WBC 5.9, hemoglobin 10.0, hematocrit 32.7, and platelets 243,000. Protime INR was 1.1. BNP elevated at 1782. Sodium 140, potassium 4.0, chloride 104, CO2 24, BUN 35, creatinine 1.37, and glucose 119. Troponin 0.02. ASSESSMENT: This is a 58-year-old male. 1. Dyspnea. 2. Acute on chronic congestive heart failure. 3. Chronic renal failure. 4. Chronic anemia. 5. History of coronary artery disease. 6. Seizure disorder. TREATMENT: 1. Congestive heart failure. Cardiology consultation has been obtained with Dr. Dajuan Vee. We will follow recommendations of Cardiology. The patient has been on intravenous Lasix twice daily. The patient has also been placed on Aldactone. We will follow recommendations of Cardiology. 2. Chronic renal failure. A Nephrology consultation has been obtained with Dr. Mesa. 3. Chronic anemia. 4. Coronary artery disease. As above, a Cardiology consultation has been obtained with Dr. Dajuan Vee. 5. Seizure disorder. Lexa Taylor M.D. DR: TRANG JOB#: [id number] CC:
[2019-04-25 20:00] VITALS: BP 129/78
[2019-04-26] MEDS: HydrALAZINE 10mg Tab ORAL SCH ×2 (06:00→21:49)
[2019-04-26 07:57] VITALS: BP 112/72
--- NOTE | 2019-04-26 09:00 | Consultation ---
DATE OF CONSULTATION: 04/25/2019 NOTE: POOR AUDIO CARDIOLOGY CONSULTATION CONSULTING PHYSICIAN: Dajuan Vee M.D. REFERRING PHYSICIAN: Robby Chavarria M.D. REASON FOR REFERRAL: Congestive heart failure. HISTORY OF PRESENT ILLNESS: This is a 58-year-old gentleman who was transferred from [facility] with fall. the patient was there because of shortness of breath, cough, leg swelling of two days duration. He basically fell and he states he injured his arm and he was taken to the emergency room at [facility]. From [facility], because of insurance reasons, he was transferred to us. He has a history of heart failure, ejection fraction of 30%, noncompliant with medications, hypertension. He was seen here back in March of 2019, cardiac enzymes are abnormal. The patient was evaluated by Dr. Pemberton who recommended a nuclear stress test and this was not performed, because the patient declined and the patient eventually left the hospital against medical advice. Beta-blockers have been avoided at that time because of active cocaine use although the patient cocaine one and a half year. He tells me he has been compliant with his medications, but I am not sure how compliant with all the medications he has. He apparently takes some Lasix and aspirin as well as seizure medications. PAST MEDICAL HISTORY: Otherwise positive, renal insufficiency, substance abuse and cocaine abuse. ALLERGIES: He is not allergic to any medications. SOCIAL HISTORY: He does not smoke. Does not use drugs. He states that he used one and a half years ago. He does not drink alcoholic beverages. REVIEW OF SYSTEMS: GASTROINTESTINAL: Did have some bouts of diarrhea and bloody stools when he was evaluated previously somewhere, not at the present time. GENITOURINARY: Discomfort on urination. PULMONARY: Some cough. CONSTITUTIONAL: Negative. PHYSICAL EXAMINATION: GENERAL: Shows to be a middle-aged gentleman, in no respiratory distress. NECK: Supple. Jugular venous distention is noted. LUNGS: Relatively clear. CARDIAC: Regular rate and rhythm. Summation gallop is noted. No heaves or thrills. ABDOMEN: Soft, nontender. Positive bowel sounds. EXTREMITIES: There is mild edema of the lower extremities. LABORATORY AND DIAGNOSTIC DATA: White count of 6.1, hemoglobin 10.6, platelet count 234. Sodium is 145, potassium 4.7, chloride 108, bicarb 28, BUN of 32, creatinine 1.3 and glucose of 99. Troponin has been elevated here since March, but the levels are relatively clear, the last time 0.129 and 0.108 on prior evaluation and this hospital evaluation. Chest x-ray that was performed was last performed on April 11, 2019, showed worsening congestive heart failure, suspected small pleural effusion, interstitial edema was noted at that time. A chest x-ray has not been repeated during this hospitalization. Tox screen previously on April 08, 2019 was positive for cocaine and marijuana as well. Laboratories were reviewed from [facility] creatinine 1.27. Troponin 0.02. Chest x-ray performed on April 14, 2019 showed moderate cardiomegaly, pulmonary vascularity and interstitial markings suggestive of congestive heart failure. ASSESSMENT AND PLAN: 1. Known history of cardiomyopathy, ejection fraction of less than 30%. 2. Congestive heart failure with reduced ejection fraction. 3. History of substance abuse. 4. Penile edema. 5. Systemic hypertension history. 6. History of ventricular tachycardia. The patient should be continued on guideline directed medical therapy as his renal function and blood pressure do allow. Blood pressure is elevated as high as 130/88 and as low as 100/64, temperature 96.2, heart rate of 101 to 102. He will be continued on diuretics, previously he was not on because of renal insufficiency but was on a combination of hydralazine and Isordil which will be continued again for congestive heart failure and renal insufficiency. Further recommendations as they become necessary. Dajuan Vee M.D. DR: Arley JOB#: [id number] CC:
[2019-04-26] MEDS: Spironolactone 50mg tab ORAL SCH (09:13)
[2019-04-26] MEDS: Aspirin Baby 81mg ORAL SCH (09:13)
[2019-04-26] MEDS: Heparin 5000 units/ml inj SUBQ SCH ×2 (09:19→21:00)
[2019-04-26 10:31] LABS: BASOPHILS % (AUTO) 1.9 % (0.0-2.0); EOSINOPHILS % (AUTO) 8.9 % (0.0-3.0); HEMATOCRIT 34.9 % (42.0-52.0); HEMOGLOBIN 10.9 G/DL (14.2-18.0); LYMPHOCYTES % (AUTO) 15.4 % (20.0-45.0); MEAN CORPUSCULAR VOLUME 88 FL (80-99); MONOCYTES % (AUTO) 11.6 % (1.0-10.0); NEUTROPHILS % (AUTO) 62.2 % (45.0-75.0); PLATELET COUNT 239 K/UL (150-450); RED BLOOD COUNT 3.98 M/UL (4.70-6.10); RED CELL DISTRIBUTION WIDTH 18.9 % (11.6-14.8); WHITE BLOOD COUNT 7.2 K/UL (4.8-10.8)
[2019-04-26 10:48] LABS: ALANINE AMINOTRANSFERASE 45 U/L (12-78); ALBUMIN 2.9 G/DL (3.4-5.0); ALBUMIN/GLOBULIN RATIO 0.7 (1.0-2.7); ALKALINE PHOSPHATASE 102 U/L (46-116); ANION GAP 5 mmol/L (5-15); ASPARTATE AMINO TRANSFERASE 32 U/L (15-37); BILIRUBIN,TOTAL 0.9 MG/DL (0.2-1.0); BLOOD UREA NITROGEN 32 mg/dL (7-18); CALCIUM 8.8 MG/DL (8.5-10.1); CARBON DIOXIDE 28 MMOL/L (21-32); CHLORIDE 103 MMOL/L (98-107); CREATININE 1.5 MG/DL (0.55-1.30); POTASSIUM 4.4 MMOL/L (3.5-5.1); SODIUM 136 MMOL/L (136-145)
[2019-04-26 12:00] VITALS: BP 124/83
--- NOTE | 2019-04-26 14:02 | Consultation ---
Consult Note Consult Note I was asked to evaluate the patient for renal failure Patient known to me from his recent admission here at [facility] Patient interviewed and examined Current data and old records reviewed The patient is a 58-year-old male, who presents with a chief complaint of shortness of breath and cough. . Assessment/Plan Chronic renal failure. Serum creatinine 1.5 Polysubstance abuse. Urine indicative of cocaine and THC in the past Anemia. Evaded troponin I. Cardiomyopathy. Previous echocardiogram states an ejection fraction of 15% Acute on chronic congestive heart failure. Seizure disorder. Optimize cardiac status. Afterload reduction. Gentle diuresis. Keep the BP in check. Monitor renal parameters. Per orders. Lester Mesa MD Apr 26, 2019 14:02
[2019-04-26] MEDS ORDERED: Carvedilol 6.25mg Tab ORAL SCH (14:15)
--- NOTE | 2019-04-26 15:28 | Diagnostic Imaging Report ---
Indication: Dyspnea Comparison: 04/11/2019 A single view chest radiograph was obtained. Findings: Groundglass and interstitial opacities demonstrated with cardiomegaly and prominent pulmonary vascularity. No pleural effusion seen. IMPRESSION: CHF
[2019-04-26 15:38] LABS: APPEARANCE,URINE CLEAR; BILIRUBIN, URINE NEGATIVE (NEGATIVE); COLOR,URINE PALE YELLOW; GLUCOSE, URINE (UA) NEGATIVE (NEGATIVE); KETONES,URINE NEGATIVE (NEGATIVE); LEUKOCYTE ESTERASE ,URINE NEGATIVE (NEGATIVE); NITRITE,URINE NEGATIVE (NEGATIVE); PH,URINE 7 (4.5-8.0); PROTEIN,URINE NEGATIVE (NEGATIVE); UROBILINOGEN,URINE NORMAL MG/DL (0.0-1.0)
[2019-04-26 16:00] VITALS: BP 111/71
--- NOTE | 2019-04-26 17:14 | Internal Med Progress Note ---
Subjective Date of Service: Apr 26, 2019 Physician Name Lexa Taylor Attending Physician Jose Mcarthur MD Current Medications Medications (Trade) Dose Ordered Sig/Ariel Route PRN Reason Start Time Stop Time Status Last Admin Dose Admin Acetaminophen (Tylenol) 650 mg Q4H PRN ORAL Mild Pain/Temp > 100.5 04/24/19 17:45 05/24/19 17:44 Aspirin (ASA) 81 mg DAILY ORAL 04/25/19 09:00 06/09/19 08:59 04/26/19 09:13 Carvedilol (Coreg) 6.25 mg EVERY 12 HOURS ORAL 04/26/19 21:00 05/26/19 20:59 Furosemide (Lasix) 40 mg DAILY IV 04/27/19 09:00 05/24/19 20:59 Heparin Sodium (Porcine) (Heparin 5000 units/ml) 5,000 units EVERY 12 HOURS SUBQ 04/25/19 11:00 06/09/19 10:59 04/26/19 09:19 Hydralazine HCl (Apresoline) 10 mg Q8HR ORAL 04/26/19 22:00 07/24/19 17:59 Isosorbide Dinitrate (Isordil) 10 mg EVERY 8 HOURS ORAL 04/26/19 22:00 05/24/19 20:59 Nitroglycerin (Ntg) 0.4 mg Q5MIN X 3 DOSES PRN SL Prn Chest Pain 04/24/19 18:00 05/24/19 17:59 Ondansetron HCl (Zofran) 4 mg Q6H PRN IVP Nausea & Vomiting 04/24/19 18:00 05/24/19 17:59 Spironolactone (Aldactone) 50 mg DAILY ORAL 04/25/19 09:00 05/25/19 08:59 04/26/19 09:13 Temazepam (Restoril) 15 mg HSPRN PRN ORAL Insomnia 04/24/19 21:00 05/01/19 20:59 Allergies: Coded Allergies: NO KNOWN ALLERGIES (Verified Allergy, Unknown, 04/08/19) ROS Limited/Unobtainable: No Constitutional: Reports: no symptoms HEENT: Reports: no symptoms Cardiovascular: Reports: no symptoms Respiratory: Reports: cough, shortness of breath Gastrointestinal/Abdominal: Reports: no symptoms Genitourinary: Reports: no symptoms Neurologic/Psychiatric: Reports: no symptoms Subjective 58 YO M admitted with shortness of breath and cough. Now congestive heart failure. Cover for Int Patrick-DR Mcarthur Objective Last Vital Signs Date Time Temp Pulse Resp B/P (MAP) Pulse Ox O2 Delivery O2 Flow Rate FiO2 04/26/19 16:00 106 04/26/19 16:00 98.2 18 111/71 (84) 99 04/26/19 09:00 Room Air General Appearance: WD/WN, alert, mild distress EENT: PERRL/EOMI, normal ENT inspection, TMs normal Neck: non-tender, normal alignment, supple, normal inspection Cardiovascular: normal peripheral pulses, normal rate, regular rhythm, no gallop/murmur, no JVD Respiratory/Chest: chest wall non-tender, respiratory distress, crackles/rales , rhonchi - bilaterally, expiratory wheezing Abdomen: normal bowel sounds, non tender, soft, no organomegaly, no mass, abnormal bowel sounds Extremities: normal range of motion Edema: trace edema 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 Skin: normal pigmentation Laboratory Tests Test 04/26/19 09:50 04/26/19 14:20 White Blood Count 7.2 K/UL (4.8-10.8) Red Blood Count 3.98 M/UL (4.70-6.10) L Hemoglobin 10.9 G/DL (14.2-18.0) L Hematocrit 34.9 % (42.0-52.0) L Mean Corpuscular Volume 88 FL (80-99) Mean Corpuscular Hemoglobin 27.4 PG (27.0-31.0) Mean Corpuscular Hemoglobin Concent 31.3 G/DL (32.0-36.0) L Red Cell Distribution Width 18.9 % (11.6-14.8) H Platelet Count 239 K/UL (150-450) Mean Platelet Volume 7.0 FL (6.5-10.1) Neutrophils (%) (Auto) 62.2 % (45.0-75.0) Lymphocytes (%) (Auto) 15.4 % (20.0-45.0) L Monocytes (%) (Auto) 11.6 % (1.0-10.0) H Eosinophils (%) (Auto) 8.9 % (0.0-3.0) H Basophils (%) (Auto) 1.9 % (0.0-2.0) Sodium Level 136 MMOL/L (136-145) Potassium Level 4.4 MMOL/L (3.5-5.1) Chloride Level 103 MMOL/L (98-107) Carbon Dioxide Level 28 MMOL/L (21-32) Anion Gap 5 mmol/L (5-15) Blood Urea Nitrogen 32 mg/dL (7-18) H Creatinine 1.5 MG/DL (0.55-1.30) H Estimat Glomerular Filtration Rate 58.3 mL/min (>60) Glucose Level 106 MG/DL (74-106) Calcium Level 8.8 MG/DL (8.5-10.1) Total Bilirubin 0.9 MG/DL (0.2-1.0) Aspartate Amino Transf (AST/SGOT) 32 U/L (15-37) Alanine Aminotransferase (ALT/SGPT) 45 U/L (12-78) Alkaline Phosphatase 102 U/L (46-116) Pro-B-Type Natriuretic Peptide 2327 pg/mL (0-125) H Total Protein 6.9 G/DL (6.4-8.2) Albumin 2.9 G/DL (3.4-5.0) L Globulin 4.0 g/dL Albumin/Globulin Ratio 0.7 (1.0-2.7) L Urine Color Pale yellow Urine Appearance Clear Urine pH 7 (4.5-8.0) Urine Specific [place] 1.005 (1.005-1.035) Urine Protein Negative (NEGATIVE) Urine Glucose (UA) Negative (NEGATIVE) Urine Ketones Negative (NEGATIVE) Urine Blood Negative (NEGATIVE) Urine Nitrite Negative (NEGATIVE) Urine Bilirubin Negative (NEGATIVE) Urine Urobilinogen Normal MG/DL (0.0-1.0) Urine Leukocyte Esterase Negative (NEGATIVE) Urine RBC 0 /HPF (0 - 0) Urine WBC 0 /HPF (0 - 0) Urine Squamous Epithelial Cells None /LPF (NONE/OCC) Urine Bacteria Occasional /HPF (NONE) Urine Opiates Screen Negative (NEGATIVE) Urine Barbiturates Screen Negative (NEGATIVE) Phencyclidine (PCP) Screen Negative (NEGATIVE) Urine Amphetamines Screen Negative (NEGATIVE) Urine Benzodiazepines Screen Negative (NEGATIVE) Urine Cocaine Screen Positive (NEGATIVE) H Urine Marijuana (THC) Screen Negative (NEGATIVE) Intake and Output 04/25/19 04/26/19 19:00 07:00 Intake Total 1200 ml 350 ml Output Total 300 ml Balance 900 ml 350 ml Intake Oral 1200 ml Other 350 ml Output Urine Total 300 ml # Voids 2 Assessment/Plan Assessment/Plan ASSESSMENT: This is a 58-year-old male. 1. Dyspnea. 2. Acute on chronic congestive heart failure. 3. Chronic renal failure. 4. Chronic anemia. 5. History of coronary artery disease. 6. Seizure disorder. TREATMENT: 1. Congestive heart failure. Cardiology consultation has been obtained with Dr. Dajuan Vee. We will follow recommendations of Cardiology. The patient has been on intravenous Lasix twice daily. The patient has also been placed on Aldactone. We will follow recommendations of Cardiology. 2. Chronic renal failure. A Nephrology consultation has been obtained with Dr. Mesa. 3. Chronic anemia. 4. Coronary artery disease. As above, a Cardiology consultation has been obtained with Dr. Dajuan Vee. 5. Seizure disorder. Lexa Taylor MD Apr 26, 2019 17:14
--- NOTE | 2019-04-26 19:48 | Cardiology Progress Note ---
Assessment/Plan Assessment/Plan 1. Known history of cardiomyopathy, ejection fraction of less than 30%. 2. Congestive heart failure with reduced ejection fraction. 3. History of substance abuse. 4. Penile edema. 5. Systemic hypertension history. 6. History of ventricular tachycardia. 7. renal insuf diureitc bu ddecrese cass off acei on hydralazine and isordil combo on coreg looks better tele noted in [place] will increase coreg walked in halls Subjective Cardiovascular: Denies: chest pain, lightheadedness Respiratory: Reports: shortness of breath Gastrointestinal/Abdominal: Denies: abdominal pain Genitourinary: Denies: burning Objective Last 24 Hour Vital Signs Date Time Temp Pulse Resp B/P (MAP) Pulse Ox O2 Delivery O2 Flow Rate FiO2 04/26/19 16:00 106 04/26/19 16:00 98.2 105 18 111/71 (84) 99 04/26/19 14:30 110 124/83 04/26/19 12:00 97.1 101 19 124/83 (97) 98 04/26/19 12:00 110 04/26/19 09:13 112/72 04/26/19 09:00 Room Air 04/26/19 08:00 108 04/26/19 07:57 97.5 103 21 112/72 (85) 98 04/26/19 06:00 129/78 04/26/19 04:00 103 04/26/19 00:00 106 04/25/19 21:07 129/78 04/25/19 21:00 Room Air 04/25/19 20:00 97.7 110 20 129/78 (95) 98 04/25/19 20:00 116 General Appearance: alert Neck: supple Cardiovascular: regular rhythm Respiratory/Chest: crackles/rales Abdomen: normal bowel sounds, non tender, soft Extremities: trace edema Intake and Output 04/25/19 04/26/19 19:00 07:00 Intake Total 1200 ml 350 ml Output Total 300 ml Balance 900 ml 350 ml Intake Oral 1200 ml Other 350 ml Output Urine Total 300 ml # Voids 2 Laboratory Tests Test 04/26/19 09:50 04/26/19 14:20 White Blood Count 7.2 K/UL (4.8-10.8) Red Blood Count 3.98 M/UL (4.70-6.10) L Hemoglobin 10.9 G/DL (14.2-18.0) L Hematocrit 34.9 % (42.0-52.0) L Mean Corpuscular Volume 88 FL (80-99) Mean Corpuscular Hemoglobin 27.4 PG (27.0-31.0) Mean Corpuscular Hemoglobin Concent 31.3 G/DL (32.0-36.0) L Red Cell Distribution Width 18.9 % (11.6-14.8) H Platelet Count 239 K/UL (150-450) Mean Platelet Volume 7.0 FL (6.5-10.1) Neutrophils (%) (Auto) 62.2 % (45.0-75.0) Lymphocytes (%) (Auto) 15.4 % (20.0-45.0) L Monocytes (%) (Auto) 11.6 % (1.0-10.0) H Eosinophils (%) (Auto) 8.9 % (0.0-3.0) H Basophils (%) (Auto) 1.9 % (0.0-2.0) Sodium Level 136 MMOL/L (136-145) Potassium Level 4.4 MMOL/L (3.5-5.1) Chloride Level 103 MMOL/L (98-107) Carbon Dioxide Level 28 MMOL/L (21-32) Anion Gap 5 mmol/L (5-15) Blood Urea Nitrogen 32 mg/dL (7-18) H Creatinine 1.5 MG/DL (0.55-1.30) H Estimat Glomerular Filtration Rate 58.3 mL/min (>60) Glucose Level 106 MG/DL (74-106) Calcium Level 8.8 MG/DL (8.5-10.1) Total Bilirubin 0.9 MG/DL (0.2-1.0) Aspartate Amino Transf (AST/SGOT) 32 U/L (15-37) Alanine Aminotransferase (ALT/SGPT) 45 U/L (12-78) Alkaline Phosphatase 102 U/L (46-116) Pro-B-Type Natriuretic Peptide 2327 pg/mL (0-125) H Total Protein 6.9 G/DL (6.4-8.2) Albumin 2.9 G/DL (3.4-5.0) L Globulin 4.0 g/dL Albumin/Globulin Ratio 0.7 (1.0-2.7) L Urine Color Pale yellow Urine Appearance Clear Urine pH 7 (4.5-8.0) Urine Specific [place] 1.005 (1.005-1.035) Urine Protein Negative (NEGATIVE) Urine Glucose (UA) Negative (NEGATIVE) Urine Ketones Negative (NEGATIVE) Urine Blood Negative (NEGATIVE) Urine Nitrite Negative (NEGATIVE) Urine Bilirubin Negative (NEGATIVE) Urine Urobilinogen Normal MG/DL (0.0-1.0) Urine Leukocyte Esterase Negative (NEGATIVE) Urine RBC 0 /HPF (0 - 0) Urine WBC 0 /HPF (0 - 0) Urine Squamous Epithelial Cells None /LPF (NONE/OCC) Urine Bacteria Occasional /HPF (NONE) Urine Opiates Screen Negative (NEGATIVE) Urine Barbiturates Screen Negative (NEGATIVE) Phencyclidine (PCP) Screen Negative (NEGATIVE) Urine Amphetamines Screen Negative (NEGATIVE) Urine Benzodiazepines Screen Negative (NEGATIVE) Urine Cocaine Screen Positive (NEGATIVE) H Urine Marijuana (THC) Screen Negative (NEGATIVE) Dajuan Vee MD Apr 26, 2019 19:48
[2019-04-26] MEDS: Carvedilol 6.25mg Tab ORAL SCH (21:49)
[2019-04-27] MEDS: HydrALAZINE 10mg Tab ORAL SCH ×3 (05:39→21:16)
[2019-04-27 08:18] LABS: BASOPHILS % (AUTO) 1.5 % (0.0-2.0); EOSINOPHILS % (AUTO) 8.6 % (0.0-3.0); HEMATOCRIT 37.5 % (42.0-52.0); HEMOGLOBIN 11.7 G/DL (14.2-18.0); LYMPHOCYTES % (AUTO) 27.5 % (20.0-45.0); MEAN CORPUSCULAR VOLUME 87 FL (80-99); MONOCYTES % (AUTO) 8.4 % (1.0-10.0); PLATELET COUNT 232 K/UL (150-450); RED BLOOD COUNT 4.32 M/UL (4.70-6.10); RED CELL DISTRIBUTION WIDTH 18.7 % (11.6-14.8); WHITE BLOOD COUNT 7.4 K/UL (4.8-10.8)
[2019-04-27 08:33] LABS: ALANINE AMINOTRANSFERASE 15 U/L (12-78); ALBUMIN 3.2 G/DL (3.4-5.0); ALBUMIN/GLOBULIN RATIO 0.8 (1.0-2.7); ALKALINE PHOSPHATASE 107 U/L (46-116); ANION GAP 9 mmol/L (5-15); ASPARTATE AMINO TRANSFERASE 28 U/L (15-37); BILIRUBIN,TOTAL 0.8 MG/DL (0.2-1.0); BLOOD UREA NITROGEN 33 mg/dL (7-18); CALCIUM 9.6 MG/DL (8.5-10.1); CARBON DIOXIDE 26 MMOL/L (21-32); CHLORIDE 102 MMOL/L (98-107); CHOLESTEROL 194 MG/DL (< 200); CREATINE KINASE 42 U/L (26-308); CREATININE 1.4 MG/DL (0.55-1.30); FERRITIN 61 NG/ML (8-388); GAMMA GLUTAMYL TRANSPEPTIDASE 144 U/L (5-85); HDL CHOLESTEROL 81 MG/DL (40-60); PHOSPHORUS 4.8 MG/DL (2.5-4.9); POTASSIUM 4.8 MMOL/L (3.5-5.1); SODIUM 137 MMOL/L (136-145); TRIGLYCERIDES 55 MG/DL (30-150)
[2019-04-27 08:48] LABS: % IRON SATURATION 17 % (15-50); IRON 50 ug/dL (50-175); TOTAL IRON BINDING CAPACITY 301 ug/dL (250-450)
[2019-04-27] MEDS: Carvedilol 6.25mg Tab ORAL SCH (08:57)
[2019-04-27] MEDS: Aspirin Baby 81mg ORAL SCH (08:57)
[2019-04-27] MEDS: Spironolactone 50mg tab ORAL SCH (08:57)
[2019-04-27] MEDS: Heparin 5000 units/ml inj SUBQ SCH ×2 (08:58→20:28)
[2019-04-27 12:00] VITALS: BP 112/82
--- NOTE | 2019-04-27 12:39 | Nephrology Progress Note ---
Assessment/Plan Problem List: (1) Renal insufficiency (2) Cardiac LV ejection fraction 10-20% (3) CHF (congestive heart failure) (4) Anemia (5) Elevated troponin Assessment Chronic renal failure. Serum creatinine 1.5 Polysubstance abuse. Urine indicative of cocaine and THC in the past Anemia. Evaded troponin I. Cardiomyopathy. Previous echocardiogram states an ejection fraction of 15% Acute on chronic congestive heart failure. Seizure disorder. Plan optimize cardiac status. Afterload reduction. Gentle diuresis. Keep the BP in check. Monitor renal parameters. Per orders. Subjective ROS Limited/Unobtainable: No Constitutional: Reports: malaise Objective Objective Last 24 Hour Vital Signs Date Time Temp Pulse Resp B/P (MAP) Pulse Ox O2 Delivery O2 Flow Rate FiO2 04/27/19 09:00 Room Air 04/27/19 08:57 85 111/71 04/27/19 04:00 85 04/27/19 00:00 87 04/26/19 21:49 111/71 04/26/19 21:49 111/71 04/26/19 21:49 106 111/71 04/26/19 21:00 Room Air 04/26/19 20:00 101 04/26/19 16:00 106 04/26/19 16:00 98.2 105 18 111/71 (84) 99 04/26/19 14:30 110 124/83 Intake and Output 04/26/19 04/27/19 19:00 07:00 Intake Total 500 ml 500 ml Output Total 800 ml 800 ml Balance -300 ml -300 ml Intake Oral 500 ml 500 ml Output Urine Total 800 ml 800 ml # Voids 5 5 Laboratory Tests 04/26/19 14:20: Urine Color Pale yellow, Urine Appearance Clear, Urine pH 7, Urine Specific [place] 1.005, Urine Protein Negative, Urine Glucose (UA) Negative, Urine Ketones Negative, Urine Blood Negative, Urine Nitrite Negative, Urine Bilirubin Negative, Urine Urobilinogen Normal, Urine Leukocyte Esterase Negative, Urine RBC 0, Urine WBC 0, Urine Squamous Epithelial Cells None, Urine Bacteria Occasional, Urine Opiates Screen Negative, Urine Barbiturates Screen Negative, Phencyclidine (PCP) Screen Negative, Urine Amphetamines Screen Negative, Urine Benzodiazepines Screen Negative, Urine Cocaine Screen PositiveH, Urine Marijuana (THC) Screen Negative 04/27/19 07:20: White Blood Count 7.4, Red Blood Count 4.32L, Hemoglobin 11.7L, Hematocrit 37.5L , Mean Corpuscular Volume 87, Mean Corpuscular Hemoglobin 27.0, Mean Corpuscular Hemoglobin Concent 31.1L, Red Cell Distribution Width 18.7H, Platelet Count 232, Mean Platelet Volume 7.4, Neutrophils (%) (Auto) 54.0, Lymphocytes (%) (Auto) 27.5, Monocytes (%) (Auto) 8.4, Eosinophils (%) (Auto) 8.6H, Basophils (%) (Auto) 1.5, Sodium Level 137, Potassium Level 4.8, Chloride Level 102, Carbon Dioxide Level 26, Anion Gap 9, Blood Urea Nitrogen 33H, Creatinine 1.4H, Estimat Glomerular Filtration Rate > 60, Glucose Level 94, Uric Acid 6.7, Calcium Level 9.6, Phosphorus Level 4.8, Magnesium Level 2.1, Iron Level 50, Total Iron Binding Capacity 301, Percent Iron Saturation 17, Unsaturated Iron Binding 251, Ferritin 61, Total Bilirubin 0.8, Gamma Glutamyl Transpeptidase 144H, Aspartate Amino Transf (AST/SGOT) 28, Alanine Aminotransferase (ALT/SGPT) 15, Alkaline Phosphatase 107, Total Creatine Kinase 42, Troponin I 0.120H, C-Reactive Protein, Quantitative < 0.4, Pro-B-Type Natriuretic Peptide 1580H, Total Protein 7.4, Albumin 3.2L, Globulin 4.2, Albumin/Globulin Ratio 0.8L, Triglycerides Level 55, Cholesterol Level 194, LDL Cholesterol 96, HDL Cholesterol 81H, Cholesterol/HDL Ratio 2.4L, Vitamin B12 Level 786, Folate 19.6, Thyroid Stimulating Hormone (TSH) 3.060 Height (Feet): 6 Height (Inches): 1.00 Weight (Pounds): 170 General Appearance: no apparent distress Cardiovascular: tachycardia Respiratory/Chest: decreased breath sounds Abdomen: soft Objective No change Lester Mesa MD Apr 27, 2019 12:39
--- NOTE | 2019-04-27 14:22 | Cardiology Progress Note ---
Assessment/Plan Assessment/Plan 1. Known history of cardiomyopathy, ejection fraction of less than 30%. 2. Congestive heart failure with reduced ejection fraction. 3. cocaine abuse.(pt lyign about cociane use quital) 4. Penile edema. 5. Systemic hypertension history. 6. History of ventricular tachycardia. 7. 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 Subjective Cardiovascular: Reports: chest pain - right upper chest wall is teneder ; Denies: lightheadedness, palpitations Respiratory: Reports: SOB with excertion Gastrointestinal/Abdominal: Denies: abdominal pain Genitourinary: Denies: no symptoms, burning Objective Last 24 Hour Vital Signs Date Time Temp Pulse Resp B/P (MAP) Pulse Ox O2 Delivery O2 Flow Rate FiO2 04/27/19 13:30 112/82 04/27/19 13:30 112/82 04/27/19 12:00 98.0 97 20 112/82 (92) 100 04/27/19 09:00 Room Air 04/27/19 08:57 85 111/71 04/27/19 04:00 85 04/27/19 00:00 87 04/26/19 21:49 111/71 04/26/19 21:49 111/71 04/26/19 21:49 106 111/71 04/26/19 21:00 Room Air 04/26/19 20:00 101 04/26/19 16:00 106 04/26/19 16:00 98.2 105 18 111/71 (84) 99 04/26/19 14:30 110 124/83 General Appearance: no apparent distress, alert, other - chest wall is tentder to palpation Cardiovascular: normal rate Respiratory/Chest: lungs clear Abdomen: normal bowel sounds, non tender, soft Extremities: non-tender, no swelling Intake and Output 04/26/19 04/27/19 19:00 07:00 Intake Total 500 ml 500 ml Output Total 800 ml 800 ml Balance -300 ml -300 ml Intake Oral 500 ml 500 ml Output Urine Total 800 ml 800 ml # Voids 5 5 Laboratory Tests Test 04/26/19 14:20 04/27/19 07:20 Urine Color Pale yellow Urine Appearance Clear Urine pH 7 (4.5-8.0) Urine Specific [place] 1.005 (1.005-1.035) Urine Protein Negative (NEGATIVE) Urine Glucose (UA) Negative (NEGATIVE) Urine Ketones Negative (NEGATIVE) Urine Blood Negative (NEGATIVE) Urine Nitrite Negative (NEGATIVE) Urine Bilirubin Negative (NEGATIVE) Urine Urobilinogen Normal MG/DL (0.0-1.0) Urine Leukocyte Esterase Negative (NEGATIVE) Urine RBC 0 /HPF (0 - 0) Urine WBC 0 /HPF (0 - 0) Urine Squamous Epithelial Cells None /LPF (NONE/OCC) Urine Bacteria Occasional /HPF (NONE) Urine Opiates Screen Negative (NEGATIVE) Urine Barbiturates Screen Negative (NEGATIVE) Phencyclidine (PCP) Screen Negative (NEGATIVE) Urine Amphetamines Screen Negative (NEGATIVE) Urine Benzodiazepines Screen Negative (NEGATIVE) Urine Cocaine Screen Positive (NEGATIVE) H Urine Marijuana (THC) Screen Negative (NEGATIVE) White Blood Count 7.4 K/UL (4.8-10.8) Red Blood Count 4.32 M/UL (4.70-6.10) L Hemoglobin 11.7 G/DL (14.2-18.0) L Hematocrit 37.5 % (42.0-52.0) L Mean Corpuscular Volume 87 FL (80-99) Mean Corpuscular Hemoglobin 27.0 PG (27.0-31.0) Mean Corpuscular Hemoglobin Concent 31.1 G/DL (32.0-36.0) L Red Cell Distribution Width 18.7 % (11.6-14.8) H Platelet Count 232 K/UL (150-450) Mean Platelet Volume 7.4 FL (6.5-10.1) Neutrophils (%) (Auto) 54.0 % (45.0-75.0) Lymphocytes (%) (Auto) 27.5 % (20.0-45.0) Monocytes (%) (Auto) 8.4 % (1.0-10.0) Eosinophils (%) (Auto) 8.6 % (0.0-3.0) H Basophils (%) (Auto) 1.5 % (0.0-2.0) Sodium Level 137 MMOL/L (136-145) Potassium Level 4.8 MMOL/L (3.5-5.1) Chloride Level 102 MMOL/L (98-107) Carbon Dioxide Level 26 MMOL/L (21-32) Anion Gap 9 mmol/L (5-15) Blood Urea Nitrogen 33 mg/dL (7-18) H Creatinine 1.4 MG/DL (0.55-1.30) H Estimat Glomerular Filtration Rate > 60 mL/min (>60) Glucose Level 94 MG/DL (74-106) Uric Acid 6.7 MG/DL (2.6-7.2) Calcium Level 9.6 MG/DL (8.5-10.1) Phosphorus Level 4.8 MG/DL (2.5-4.9) Magnesium Level 2.1 MG/DL (1.8-2.4) Iron Level 50 ug/dL (50-175) Total Iron Binding Capacity 301 ug/dL (250-450) Percent Iron Saturation 17 % (15-50) Unsaturated Iron Binding 251 ug/dL (112-346) Ferritin 61 NG/ML (8-388) Total Bilirubin 0.8 MG/DL (0.2-1.0) Gamma Glutamyl Transpeptidase 144 U/L (5-85) H Aspartate Amino Transf (AST/SGOT) 28 U/L (15-37) Alanine Aminotransferase (ALT/SGPT) 15 U/L (12-78) Alkaline Phosphatase 107 U/L (46-116) Total Creatine Kinase 42 U/L (26-308) Troponin I 0.120 ng/mL (0.000-0.056) C-Reactive Protein, Quantitative < 0.4 mg/dL (0.00-0.90) Pro-B-Type Natriuretic Peptide 1580 pg/mL (0-125) H Total Protein 7.4 G/DL (6.4-8.2) Albumin 3.2 G/DL (3.4-5.0) L Globulin 4.2 g/dL Albumin/Globulin Ratio 0.8 (1.0-2.7) L Triglycerides Level 55 MG/DL (30-150) Cholesterol Level 194 MG/DL (< 200) LDL Cholesterol 96 mg/dL (<100) HDL Cholesterol 81 MG/DL (40-60) H Cholesterol/HDL Ratio 2.4 (3.3-4.4) L Vitamin B12 Level 786 PG/ML (193-986) Folate 19.6 NG/ML (8.6-58.9) Thyroid Stimulating Hormone (TSH) 3.060 uiU/mL (0.358-3.740) Dajuan Vee MD Apr 27, 2019 14:22
[2019-04-27 16:00] VITALS: BP 111/67
--- NOTE | 2019-04-27 16:26 | Internal Med Progress Note ---
Subjective Date of Service: Apr 27, 2019 Physician Name Lexa Taylor Attending Physician Jose Mcarthur MD Current Medications Medications (Trade) Dose Ordered Sig/Ariel Route PRN Reason Start Time Stop Time Status Last Admin Dose Admin Acetaminophen (Tylenol) 650 mg Q4H PRN ORAL Mild Pain/Temp > 100.5 04/24/19 17:45 05/24/19 17:44 Aspirin (ASA) 81 mg DAILY ORAL 04/25/19 09:00 06/09/19 08:59 04/26/19 09:13 Furosemide (Lasix) 40 mg DAILY IV 04/27/19 09:00 05/24/19 20:59 Heparin Sodium (Porcine) (Heparin 5000 units/ml) 5,000 units EVERY 12 HOURS SUBQ 04/25/19 11:00 06/09/19 10:59 04/26/19 09:19 Hydralazine HCl (Apresoline) 10 mg Q8HR ORAL 04/26/19 22:00 07/24/19 17:59 04/27/19 13:30 Isosorbide Dinitrate (Isordil) 10 mg EVERY 8 HOURS ORAL 04/26/19 22:00 05/24/19 20:59 04/27/19 13:30 Nitroglycerin (Ntg) 0.4 mg Q5MIN X 3 DOSES PRN SL Prn Chest Pain 04/24/19 18:00 05/24/19 17:59 Ondansetron HCl (Zofran) 4 mg Q6H PRN IVP Nausea & Vomiting 04/24/19 18:00 05/24/19 17:59 Spironolactone (Aldactone) 50 mg DAILY ORAL 04/25/19 09:00 05/25/19 08:59 04/26/19 09:13 Temazepam (Restoril) 15 mg HSPRN PRN ORAL Insomnia 04/24/19 21:00 05/01/19 20:59 Allergies: Coded Allergies: NO KNOWN ALLERGIES (Verified Allergy, Unknown, 04/08/19) ROS Limited/Unobtainable: No Constitutional: Reports: no symptoms HEENT: Reports: no symptoms Cardiovascular: Reports: no symptoms Respiratory: Reports: shortness of breath Gastrointestinal/Abdominal: Reports: no symptoms Genitourinary: Reports: no symptoms Neurologic/Psychiatric: Reports: no symptoms Subjective 58 YO M admitted with shortness of breath and cough. Now congestive heart failure. Cover for Int Patrick-DR Mcarthur Objective Last Vital Signs Date Time Temp Pulse Resp B/P (MAP) Pulse Ox O2 Delivery O2 Flow Rate FiO2 04/27/19 16:00 98.1 93 20 111/67 (82) 99 04/27/19 09:00 Room Air Laboratory Tests Test 04/27/19 07:20 White Blood Count 7.4 K/UL (4.8-10.8) Red Blood Count 4.32 M/UL (4.70-6.10) L Hemoglobin 11.7 G/DL (14.2-18.0) L Hematocrit 37.5 % (42.0-52.0) L Mean Corpuscular Volume 87 FL (80-99) Mean Corpuscular Hemoglobin 27.0 PG (27.0-31.0) Mean Corpuscular Hemoglobin Concent 31.1 G/DL (32.0-36.0) L Red Cell Distribution Width 18.7 % (11.6-14.8) H Platelet Count 232 K/UL (150-450) Mean Platelet Volume 7.4 FL (6.5-10.1) Neutrophils (%) (Auto) 54.0 % (45.0-75.0) Lymphocytes (%) (Auto) 27.5 % (20.0-45.0) Monocytes (%) (Auto) 8.4 % (1.0-10.0) Eosinophils (%) (Auto) 8.6 % (0.0-3.0) H Basophils (%) (Auto) 1.5 % (0.0-2.0) Sodium Level 137 MMOL/L (136-145) Potassium Level 4.8 MMOL/L (3.5-5.1) Chloride Level 102 MMOL/L (98-107) Carbon Dioxide Level 26 MMOL/L (21-32) Anion Gap 9 mmol/L (5-15) Blood Urea Nitrogen 33 mg/dL (7-18) H Creatinine 1.4 MG/DL (0.55-1.30) H Estimat Glomerular Filtration Rate > 60 mL/min (>60) Glucose Level 94 MG/DL (74-106) Uric Acid 6.7 MG/DL (2.6-7.2) Calcium Level 9.6 MG/DL (8.5-10.1) Phosphorus Level 4.8 MG/DL (2.5-4.9) Magnesium Level 2.1 MG/DL (1.8-2.4) Iron Level 50 ug/dL (50-175) Total Iron Binding Capacity 301 ug/dL (250-450) Percent Iron Saturation 17 % (15-50) Unsaturated Iron Binding 251 ug/dL (112-346) Ferritin 61 NG/ML (8-388) Total Bilirubin 0.8 MG/DL (0.2-1.0) Gamma Glutamyl Transpeptidase 144 U/L (5-85) H Aspartate Amino Transf (AST/SGOT) 28 U/L (15-37) Alanine Aminotransferase (ALT/SGPT) 15 U/L (12-78) Alkaline Phosphatase 107 U/L (46-116) Total Creatine Kinase 42 U/L (26-308) Troponin I 0.120 ng/mL (0.000-0.056) C-Reactive Protein, Quantitative < 0.4 mg/dL (0.00-0.90) Pro-B-Type Natriuretic Peptide 1580 pg/mL (0-125) H Total Protein 7.4 G/DL (6.4-8.2) Albumin 3.2 G/DL (3.4-5.0) L Globulin 4.2 g/dL Albumin/Globulin Ratio 0.8 (1.0-2.7) L Triglycerides Level 55 MG/DL (30-150) Cholesterol Level 194 MG/DL (< 200) LDL Cholesterol 96 mg/dL (<100) HDL Cholesterol 81 MG/DL (40-60) H Cholesterol/HDL Ratio 2.4 (3.3-4.4) L Vitamin B12 Level 786 PG/ML (193-986) Folate 19.6 NG/ML (8.6-58.9) Thyroid Stimulating Hormone (TSH) 3.060 uiU/mL (0.358-3.740) Intake and Output 04/26/19 04/27/19 19:00 07:00 Intake Total 500 ml 500 ml Output Total 800 ml 800 ml Balance -300 ml -300 ml Intake Oral 500 ml 500 ml Output Urine Total 800 ml 800 ml # Voids 5 5 Objective General Appearance: WD/WN, alert, mild distress EENT: PERRL/EOMI, normal ENT inspection, TMs normal Neck: non-tender, normal alignment, supple, normal inspection Cardiovascular: normal peripheral pulses, normal rate, regular rhythm, no gallop/murmur, no JVD Respiratory/Chest: chest wall non-tender, respiratory distress, crackles/rales , rhonchi - bilaterally, expiratory wheezing Abdomen: normal bowel sounds, non tender, soft, no organomegaly, no mass, abnormal bowel sounds Extremities: normal range of motion Edema: trace edema 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 1. Dyspnea. 2. Acute on chronic congestive heart failure. 3. Chronic renal failure. 4. Chronic anemia. 5. History of coronary artery disease. 6. Seizure disorder. 7. Elevated troponin TREATMENT: 1. Congestive heart failure/elevated troponin. A Cardiology consultation has been obtained with Dr. Dajuan Vee. The patient has been on intravenous Lasix twice daily. The patient has also been placed on Aldactone. We will follow recommendations of Cardiology. 2. Chronic renal failure. A Nephrology consultation has been obtained with Dr. [place]. 3. Chronic anemia. 4. Coronary artery disease. As above, a Cardiology consultation has been obtained with Dr. Dajuan Vee. 5. Seizure disorder. Lexa Taylor MD Apr 27, 2019 16:26
[2019-04-27 20:00] VITALS: BP 108/75
[2019-04-28] VITALS: BP 115/72
[2019-04-28 04:00] VITALS: BP 127/70
[2019-04-28] MEDS: HydrALAZINE 10mg Tab ORAL SCH ×3 (06:23→21:18)
[2019-04-28 08:00] VITALS: BP_SYST 112; BP_SYST 132; BP_DIAS 69; BP_DIAS 75
[2019-04-28] MEDS: Spironolactone 50mg tab ORAL SCH ×3 (08:45→10:17)
[2019-04-28] MEDS: Aspirin Baby 81mg ORAL SCH ×3 (08:46→10:17)
[2019-04-28] MEDS: Heparin 5000 units/ml inj SUBQ SCH ×3 (08:47→21:20)
[2019-04-28 10:22] LABS: BASOPHILS % (AUTO) 2.4 % (0.0-2.0); EOSINOPHILS % (AUTO) 8.4 % (0.0-3.0); HEMOGLOBIN 10.9 G/DL (14.2-18.0); LYMPHOCYTES % (AUTO) 22.2 % (20.0-45.0); MEAN CORPUSCULAR VOLUME 89 FL (80-99); MONOCYTES % (AUTO) 10.5 % (1.0-10.0); NEUTROPHILS % (AUTO) 56.6 % (45.0-75.0); PLATELET COUNT 240 K/UL (150-450); RED BLOOD COUNT 3.96 M/UL (4.70-6.10); RED CELL DISTRIBUTION WIDTH 18.9 % (11.6-14.8); WHITE BLOOD COUNT 6.7 K/UL (4.8-10.8)
[2019-04-28 10:53] LABS: ANION GAP 11 mmol/L (5-15); BLOOD UREA NITROGEN 28 mg/dL (7-18); CALCIUM 8.9 MG/DL (8.5-10.1); CARBON DIOXIDE 23 MMOL/L (21-32); CHLORIDE 106 MMOL/L (98-107); CREATININE 1.2 MG/DL (0.55-1.30); POTASSIUM 4.6 MMOL/L (3.5-5.1); SODIUM 140 MMOL/L (136-145)
[2019-04-28 12:00] VITALS: BP 133/88
--- NOTE | 2019-04-28 12:06 | Nephrology Progress Note ---
Assessment/Plan Problem List: (1) Renal insufficiency (2) Cardiac LV ejection fraction 10-20% (3) CHF (congestive heart failure) (4) Anemia (5) Elevated troponin Assessment Chronic renal failure. Serum creatinine 1.5 Polysubstance abuse. Urine indicative of cocaine and THC in the past Anemia. Evaded troponin I. Cardiomyopathy. Previous echocardiogram states an ejection fraction of 15% Acute on chronic congestive heart failure. Seizure disorder. Plan Remains stable from a renal standpoint of view optimize cardiac status. Afterload reduction. Gentle diuresis. Keep the BP in check. Monitor renal parameters. Per orders. Subjective ROS Limited/Unobtainable: No Constitutional: Reports: weakness Objective Objective Last 24 Hour Vital Signs Date Time Temp Pulse Resp B/P (MAP) Pulse Ox O2 Delivery O2 Flow Rate FiO2 04/28/19 08:00 Room Air 04/28/19 08:00 95 04/28/19 08:00 97.8 94 20 112/69 (83) 100 04/28/19 06:23 115/75 04/28/19 06:23 115/75 04/28/19 04:00 90 04/28/19 04:00 98.2 92 18 127/70 (89) 96 04/28/19 00:00 84 04/28/19 00:00 98.0 92 18 115/72 (86) 97 04/28/19 00:00 93 04/28/19 00:00 93 04/27/19 21:16 105/76 04/27/19 21:16 105/76 04/27/19 21:00 Room Air 04/27/19 20:00 104 04/27/19 20:00 97.5 98 18 108/75 (86) 98 04/27/19 16:00 97 04/27/19 16:00 98.1 93 20 111/67 (82) 99 04/27/19 14:46 98 04/27/19 13:30 112/82 04/27/19 13:30 112/82 Intake and Output 04/27/19 04/28/19 19:00 07:00 Intake Total 874 ml 720 ml Output Total 800 ml 600 ml Balance 74 ml 120 ml Intake Oral 874 ml 720 ml Output Urine Total 800 ml 600 ml # Voids 1 Laboratory Tests 04/28/19 10:00: White Blood Count 6.7, Red Blood Count 3.96L, Hemoglobin 10.9L, Hematocrit 35.0L , Mean Corpuscular Volume 89, Mean Corpuscular Hemoglobin 27.6, Mean Corpuscular Hemoglobin Concent 31.2L, Red Cell Distribution Width 18.9H, Platelet Count 240, Mean Platelet Volume 6.9, Neutrophils (%) (Auto) 56.6, Lymphocytes (%) (Auto) 22.2, Monocytes (%) (Auto) 10.5H, Eosinophils (%) (Auto) 8.4H, Basophils (%) (Auto) 2.4H, Sodium Level 140, Potassium Level 4.6, Chloride Level 106, Carbon Dioxide Level 23, Anion Gap 11, Blood Urea Nitrogen 28H, Creatinine 1.2, Estimat Glomerular Filtration Rate > 60, Glucose Level 104 , Calcium Level 8.9, Troponin I 0.103H Height (Feet): 6 Height (Inches): 1.00 Weight (Pounds): 172 General Appearance: no apparent distress Objective No change Lester Mesa MD Apr 28, 2019 12:06
[2019-04-28] MEDS: Furosemide 40mg tab ORAL SCH (14:05)
[2019-04-28 16:00] VITALS: BP 107/66
--- NOTE | 2019-04-28 18:04 | Cardiology Progress Note ---
Assessment/Plan Assessment/Plan 1. Known history of cardiomyopathy, ejection fraction of less than 30%. 2. Congestive heart failure with reduced ejection fraction. 3. cocaine abuse.(pt lyign about cociane use quital) 4. Penile edema. 5. Systemic hypertension history. 6. History of ventricular tachycardia. 7. 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 sat 100% dc planning Subjective Cardiovascular: Denies: chest pain Respiratory: Reports: SOB with excertion Gastrointestinal/Abdominal: Denies: abdominal pain Genitourinary: Denies: burning Objective Last 24 Hour Vital Signs Date Time Temp Pulse Resp B/P (MAP) Pulse Ox O2 Delivery O2 Flow Rate FiO2 04/28/19 16:00 98.1 96 20 107/66 (80) 100 04/28/19 14:05 133/88 04/28/19 14:05 133/88 04/28/19 12:00 99 04/28/19 12:00 98.0 102 20 133/88 (103) 100 04/28/19 08:00 Room Air 04/28/19 08:00 95 04/28/19 08:00 97.8 94 20 112/69 (83) 100 04/28/19 06:23 115/75 04/28/19 06:23 115/75 04/28/19 04:00 90 04/28/19 04:00 98.2 92 18 127/70 (89) 96 04/28/19 00:00 84 04/28/19 00:00 98.0 92 18 115/72 (86) 97 04/28/19 00:00 93 04/28/19 00:00 93 04/27/19 21:16 105/76 04/27/19 21:16 105/76 04/27/19 21:00 Room Air 04/27/19 20:00 104 04/27/19 20:00 97.5 98 18 108/75 (86) 98 General Appearance: no apparent distress, alert Neck: supple Cardiovascular: normal rate Respiratory/Chest: lungs clear Abdomen: normal bowel sounds, non tender, soft Extremities: no swelling Intake and Output 04/27/19 04/28/19 19:00 07:00 Intake Total 874 ml 720 ml Output Total 800 ml 600 ml Balance 74 ml 120 ml Intake Oral 874 ml 720 ml Output Urine Total 800 ml 600 ml # Voids 1 Laboratory Tests Test 04/28/19 10:00 White Blood Count 6.7 K/UL (4.8-10.8) Red Blood Count 3.96 M/UL (4.70-6.10) L Hemoglobin 10.9 G/DL (14.2-18.0) L Hematocrit 35.0 % (42.0-52.0) L Mean Corpuscular Volume 89 FL (80-99) Mean Corpuscular Hemoglobin 27.6 PG (27.0-31.0) Mean Corpuscular Hemoglobin Concent 31.2 G/DL (32.0-36.0) L Red Cell Distribution Width 18.9 % (11.6-14.8) H Platelet Count 240 K/UL (150-450) Mean Platelet Volume 6.9 FL (6.5-10.1) Neutrophils (%) (Auto) 56.6 % (45.0-75.0) Lymphocytes (%) (Auto) 22.2 % (20.0-45.0) Monocytes (%) (Auto) 10.5 % (1.0-10.0) H Eosinophils (%) (Auto) 8.4 % (0.0-3.0) H Basophils (%) (Auto) 2.4 % (0.0-2.0) H Sodium Level 140 MMOL/L (136-145) Potassium Level 4.6 MMOL/L (3.5-5.1) Chloride Level 106 MMOL/L (98-107) Carbon Dioxide Level 23 MMOL/L (21-32) Anion Gap 11 mmol/L (5-15) Blood Urea Nitrogen 28 mg/dL (7-18) H Creatinine 1.2 MG/DL (0.55-1.30) Estimat Glomerular Filtration Rate > 60 mL/min (>60) Glucose Level 104 MG/DL (74-106) Calcium Level 8.9 MG/DL (8.5-10.1) Troponin I 0.103 ng/mL (0.000-0.056) Dajuan Vee MD Apr 28, 2019 18:04
[2019-04-28 20:00] VITALS: BP 113/74
--- NOTE | 2019-04-28 22:34 | Internal Med Progress Note ---
Subjective Physician Name Jose Mcarthur Attending Physician Jose Mcarthur MD Current Medications Medications (Trade) Dose Ordered Sig/Ariel Route PRN Reason Start Time Stop Time Status Last Admin Dose Admin Acetaminophen (Tylenol) 650 mg Q4H PRN ORAL Mild Pain/Temp > 100.5 04/24/19 17:45 05/24/19 17:44 Aspirin (ASA) 81 mg DAILY ORAL 04/25/19 09:00 06/09/19 08:59 04/28/19 10:17 Furosemide (Lasix) 40 mg DAILY ORAL 04/28/19 14:00 05/28/19 13:59 04/28/19 14:05 Heparin Sodium (Porcine) (Heparin 5000 units/ml) 5,000 units EVERY 12 HOURS SUBQ 04/25/19 11:00 06/09/19 10:59 04/28/19 21:20 Hydralazine HCl (Apresoline) 10 mg Q8HR ORAL 04/26/19 22:00 07/24/19 17:59 04/28/19 21:18 Isosorbide Dinitrate (Isordil) 10 mg EVERY 8 HOURS ORAL 04/26/19 22:00 05/24/19 20:59 04/28/19 21:19 Nitroglycerin (Ntg) 0.4 mg Q5MIN X 3 DOSES PRN SL Prn Chest Pain 04/24/19 18:00 05/24/19 17:59 04/28/19 18:18 Ondansetron HCl (Zofran) 4 mg Q6H PRN IVP Nausea & Vomiting 04/24/19 18:00 05/24/19 17:59 Spironolactone (Aldactone) 50 mg DAILY ORAL 04/25/19 09:00 05/25/19 08:59 04/28/19 10:17 Temazepam (Restoril) 15 mg HSPRN PRN ORAL Insomnia 04/24/19 21:00 05/01/19 20:59 Allergies: Coded Allergies: NO KNOWN ALLERGIES (Verified Allergy, Unknown, 04/08/19) Subjective awake, alert, responsive, No CP, C/O SOB Objective Last Vital Signs Date Time Temp Pulse Resp B/P (MAP) Pulse Ox O2 Delivery O2 Flow Rate FiO2 04/28/19 21:19 123/71 04/28/19 20:00 97 04/28/19 20:00 97.9 20 99 04/28/19 08:00 Room Air Laboratory Tests Test 04/28/19 10:00 04/28/19 20:13 White Blood Count 6.7 K/UL (4.8-10.8) Red Blood Count 3.96 M/UL (4.70-6.10) L Hemoglobin 10.9 G/DL (14.2-18.0) L Hematocrit 35.0 % (42.0-52.0) L Mean Corpuscular Volume 89 FL (80-99) Mean Corpuscular Hemoglobin 27.6 PG (27.0-31.0) Mean Corpuscular Hemoglobin Concent 31.2 G/DL (32.0-36.0) L Red Cell Distribution Width 18.9 % (11.6-14.8) H Platelet Count 240 K/UL (150-450) Mean Platelet Volume 6.9 FL (6.5-10.1) Neutrophils (%) (Auto) 56.6 % (45.0-75.0) Lymphocytes (%) (Auto) 22.2 % (20.0-45.0) Monocytes (%) (Auto) 10.5 % (1.0-10.0) H Eosinophils (%) (Auto) 8.4 % (0.0-3.0) H Basophils (%) (Auto) 2.4 % (0.0-2.0) H Sodium Level 140 MMOL/L (136-145) Potassium Level 4.6 MMOL/L (3.5-5.1) Chloride Level 106 MMOL/L (98-107) Carbon Dioxide Level 23 MMOL/L (21-32) Anion Gap 11 mmol/L (5-15) Blood Urea Nitrogen 28 mg/dL (7-18) H Creatinine 1.2 MG/DL (0.55-1.30) Estimat Glomerular Filtration Rate > 60 mL/min (>60) Glucose Level 104 MG/DL (74-106) Calcium Level 8.9 MG/DL (8.5-10.1) Troponin I 0.103 ng/mL (0.000-0.056) 0.103 ng/mL (0.000-0.056) Intake and Output 04/27/19 04/28/19 19:00 07:00 Intake Total 874 ml 720 ml Output Total 800 ml 600 ml Balance 74 ml 120 ml Intake Oral 874 ml 720 ml Output Urine Total 800 ml 600 ml # Voids 1 Objective General: No acute distress, awake and alert HEENT: NCAT, sclera anicteric, PERRL, EOMI. Neck: Supple, no significant jugular venous distention, Lungs: Good inspiratory effort,, no Wheeze or Rales. Heart: Regular rate and rhythm, normal S1/S2, no murmur. Abdomen: soft, nontender, nondistended. Normoactive bowel sounds. / Rectal: Refused and deferred. Extremities: No Cyanosis , clubbing or edema. Neuro: A&O x 3, Able to move all extremities Skin: warm, no rashes or lesions Psych: Normal mood and affect Assessment/Plan Assessment/Plan ASSESSMENT: This is a 58-year-old male. 1. Dyspnea. 2. Acute on chronic congestive heart failure. 3. MANOLO on Chronic renal failure. 4. Chronic anemia. 5. History of coronary artery disease. 6. Seizure disorder. 7. Elevated troponin 8. Cardiomyopathy. 9. History of coccaine abuse. 10, Anemia. 11. Hypertension. TREATMENT: 1. Congestive heart failure/elevated troponin. A Cardiology consultation has been obtained with Dr. Dajuan Vee. The patient has been on intravenous Lasix twice daily. The patient has also been placed on Aldactone. We will follow recommendations of Cardiology. 2. Chronic renal failure. A Nephrology consultation has been obtained with Dr. Mesa. 3. Chronic anemia. 4. Coronary artery disease. As above, a Cardiology consultation has been obtained with Dr. Dajuan Vee. 5. Seizure disorder. Lasix 40mg daily Full code Heparin SQ DC planning. Jose Mcarthur MD Apr 28, 2019 22:34
[2019-04-29] VITALS: BP 109/68
[2019-04-29 04:00] VITALS: BP 121/76
[2019-04-29] MEDS: HydrALAZINE 10mg Tab ORAL SCH (06:31)
[2019-04-29 07:56] VITALS: BP 118/81
[2019-04-29] MEDS: Aspirin Baby 81mg ORAL SCH (09:00)
[2019-04-29] MEDS: Spironolactone 50mg tab ORAL SCH (09:00)
[2019-04-29] MEDS: Furosemide 40mg tab ORAL SCH (09:01)
[2019-04-29] MEDS: Heparin 5000 units/ml inj SUBQ SCH (09:08)
--- NOTE | 2019-04-29 10:53 | Nephrology Progress Note ---
Assessment/Plan Problem List: (1) Renal insufficiency (2) Cardiac LV ejection fraction 10-20% (3) CHF (congestive heart failure) (4) Anemia (5) Elevated troponin Assessment Chronic renal failure. Serum creatinine 1.5 Polysubstance abuse. Urine indicative of cocaine and THC in the past Anemia. Evaded troponin I. Cardiomyopathy. Previous echocardiogram states an ejection fraction of 15% Acute on chronic congestive heart failure. Seizure disorder. Plan Increase Isordil add Coreg Remains stable from a renal standpoint of view optimize cardiac status. Afterload reduction. Gentle diuresis. Keep the BP in check. Monitor renal parameters. Per orders. Subjective ROS Limited/Unobtainable: No Constitutional: Reports: malaise, other - Complains of chest pain periodically Objective Objective Last 24 Hour Vital Signs Date Time Temp Pulse Resp B/P (MAP) Pulse Ox O2 Delivery O2 Flow Rate FiO2 04/29/19 09:04 93 04/29/19 08:59 Room Air 04/29/19 07:56 97.5 97 18 118/81 (93) 100 04/29/19 06:31 143/78 04/29/19 06:31 143/78 04/29/19 04:00 97.7 96 20 121/76 (91) 100 04/29/19 04:00 97 04/29/19 00:00 97.3 92 18 109/68 (82) 99 04/29/19 00:00 97 04/28/19 21:19 123/71 04/28/19 21:18 123/71 04/28/19 21:00 Room Air 04/28/19 20:00 97 04/28/19 20:00 97.9 100 20 113/74 (87) 99 04/28/19 18:18 124/59 04/28/19 16:00 98.1 96 20 107/66 (80) 100 04/28/19 16:00 97 04/28/19 14:05 133/88 04/28/19 14:05 133/88 04/28/19 12:00 99 04/28/19 12:00 98.0 102 20 133/88 (103) 100 Intake and Output 04/28/19 04/29/19 19:00 07:00 Intake Total 800 ml 680 ml Output Total 600 ml Balance 200 ml 680 ml Intake Oral 800 ml 680 ml Output Urine Total 600 ml # Voids 4 3 Current Medications Medications (Trade) Dose Ordered Sig/Ariel Route PRN Reason Start Time Stop Time Status Last Admin Dose Admin Acetaminophen (Tylenol) 650 mg Q4H PRN ORAL Mild Pain/Temp > 100.5 04/24/19 17:45 05/24/19 17:44 Aspirin (ASA) 81 mg DAILY ORAL 04/25/19 09:00 06/09/19 08:59 04/29/19 09:00 Furosemide (Lasix) 40 mg DAILY ORAL 04/28/19 14:00 05/28/19 13:59 04/29/19 09:01 Heparin Sodium (Porcine) (Heparin 5000 units/ml) 5,000 units EVERY 12 HOURS SUBQ 04/25/19 11:00 06/09/19 10:59 04/29/19 09:08 Hydralazine HCl (Apresoline) 10 mg Q8HR ORAL 04/26/19 22:00 07/24/19 17:59 04/29/19 06:31 Isosorbide Dinitrate (Isordil) 10 mg EVERY 8 HOURS ORAL 04/26/19 22:00 05/24/19 20:59 04/29/19 06:31 Nitroglycerin (Ntg) 0.4 mg Q5MIN X 3 DOSES PRN SL Prn Chest Pain 04/24/19 18:00 05/24/19 17:59 04/28/19 18:18 Ondansetron HCl (Zofran) 4 mg Q6H PRN IVP Nausea & Vomiting 04/24/19 18:00 05/24/19 17:59 Spironolactone (Aldactone) 50 mg DAILY ORAL 04/25/19 09:00 05/25/19 08:59 04/29/19 09:00 Temazepam (Restoril) 15 mg HSPRN PRN ORAL Insomnia 04/24/19 21:00 05/01/19 20:59 Laboratory Tests 04/28/19 20:13: Troponin I 0.103H Height (Feet): 6 Height (Inches): 1.00 Weight (Pounds): 172 Objective No change Lester Mesa MD Apr 29, 2019 10:53
[2019-04-29 12:29] VITALS: BP 125/76
[2019-04-29 12:30] VITALS: BP 125/76
--- NOTE | 2019-04-29 14:28 | Internal Med Progress Note ---
Subjective Date of Service: Apr 29, 2019 Physician Name ClaudiaLexa Attending Physician Jose Mcarthur MD Current Medications Medications (Trade) Dose Ordered Sig/Ariel Route PRN Reason Start Time Stop Time Status Last Admin Dose Admin Acetaminophen (Tylenol) 650 mg Q4H PRN ORAL Mild Pain/Temp > 100.5 04/24/19 17:45 05/24/19 17:44 Aspirin (ASA) 81 mg DAILY ORAL 04/25/19 09:00 06/09/19 08:59 04/29/19 09:00 Carvedilol (Coreg) 3.125 mg EVERY 12 HOURS ORAL 04/29/19 21:00 05/29/19 20:59 Furosemide (Lasix) 40 mg DAILY ORAL 04/28/19 14:00 05/28/19 13:59 04/29/19 09:01 Heparin Sodium (Porcine) (Heparin 5000 units/ml) 5,000 units EVERY 12 HOURS SUBQ 04/25/19 11:00 06/09/19 10:59 04/29/19 09:08 Hydralazine HCl (Apresoline) 10 mg Q8HR ORAL 04/26/19 22:00 07/24/19 17:59 04/29/19 06:31 Isosorbide Dinitrate (Isordil) 20 mg EVERY 8 HOURS ORAL 04/29/19 14:00 05/24/19 20:59 Nitroglycerin (Ntg) 0.4 mg Q5MIN X 3 DOSES PRN SL Prn Chest Pain 04/24/19 18:00 05/24/19 17:59 04/28/19 18:18 Ondansetron HCl (Zofran) 4 mg Q6H PRN IVP Nausea & Vomiting 04/24/19 18:00 05/24/19 17:59 Spironolactone (Aldactone) 50 mg DAILY ORAL 04/25/19 09:00 05/25/19 08:59 04/29/19 09:00 Temazepam (Restoril) 15 mg HSPRN PRN ORAL Insomnia 04/24/19 21:00 05/01/19 20:59 Allergies: Coded Allergies: NO KNOWN ALLERGIES (Verified Allergy, Unknown, 04/08/19) ROS Limited/Unobtainable: No Constitutional: Reports: no symptoms HEENT: Reports: no symptoms Cardiovascular: Reports: no symptoms Respiratory: Reports: no symptoms Gastrointestinal/Abdominal: Reports: no symptoms Genitourinary: Reports: no symptoms Neurologic/Psychiatric: Reports: no symptoms Subjective 58 YO M admitted with shortness of breath and cough. Now congestive heart failure. Cover for Int Med-DR Mcarthur Objective Last Vital Signs Date Time Temp Pulse Resp B/P (MAP) Pulse Ox O2 Delivery O2 Flow Rate FiO2 04/29/19 13:00 94 04/29/19 12:30 125/76 04/29/19 12:29 97.2 21 99 04/29/19 08:59 Room Air Laboratory Tests Test 04/28/19 20:13 Troponin I 0.103 ng/mL (0.000-0.056) Intake and Output 04/28/19 04/29/19 19:00 07:00 Intake Total 800 ml 680 ml Output Total 600 ml Balance 200 ml 680 ml Intake Oral 800 ml 680 ml Output Urine Total 600 ml # Voids 4 3 Objective General Appearance: WD/WN, alert, mild distress EENT: PERRL/EOMI, normal ENT inspection, TMs normal Neck: non-tender, normal alignment, supple, normal inspection Cardiovascular: normal peripheral pulses, normal rate, regular rhythm, no gallop/murmur, no JVD Respiratory/Chest: chest wall non-tender, respiratory distress, crackles/rales , rhonchi - bilaterally, expiratory wheezing Abdomen: normal bowel sounds, non tender, soft, no organomegaly, no mass, abnormal bowel sounds Extremities: normal range of motion Edema: trace edema Neurologic: medical laboratory manager II-XII grossly normal Skin: normal pigmentation Assessment/Plan Assessment/Plan ASSESSMENT: This is a 58-year-old male. 1. Dyspnea. 2. Acute on chronic congestive heart failure. 3. Chronic renal failure. 4. Chronic anemia. 5. History of coronary artery disease. 6. Seizure disorder. 7. Elevated troponin TREATMENT: 1. Congestive heart failure/elevated troponin. A Cardiology consultation has been obtained with Dr. Dajuan Vee. The patient has been on intravenous Lasix twice daily. The patient has also been placed on Aldactone. We will follow recommendations of Cardiology. 2. Chronic renal failure. A Nephrology consultation has been obtained with Dr. Mesa. 3. Chronic anemia. 4. Coronary artery disease. As above, a Cardiology consultation has been obtained with Dr. Dajuan Vee. 5. Seizure disorder. 6. PATIENT LEFT AGAINST MEDICAL ADVISE Lexa Taylor MD Apr 29, 2019 14:28
--- NOTE | 2019-04-30 12:28 | Discharge Summary ---
Discharge Summary Discharge Summary _ DATE OF ADMISSION: 04/24/2019 DATE OF DISCHARGE: 04/29/2019 Patient left AGAINST MEDICAL ADVICE REASON FOR ADMISSION: 58 years old male with past medical history of hypertension, coronary artery disease, congestive heart failure, severe cardiomyopathy, chronic renal insufficiency, chronic anemia, seizure disorder, homeless, history of substance abuse, initially presented to [facility] with chief complaint of dyspnea , cough ,and leg swelling for 2 days. Patient recently was admitted to [facility] but left AMA. After short evaluation patient was transferred from [place] to [place] for further management., CONSULTANTS: gas fitter Dr. Vee pulmonary Dr. Chavarria gyro mechanic Dr. Mesa [facility] COURSE: Patient admitted to telemetry floor. Weatherization Field Technician followed. Serial troponin with minimal elevation, likely due to renal failure. Troponin pattern was not suggestive for acute coronary syndrome. Telemetry showed sinus rhythm, no acute ischemic changes. Patient started on diuresis with close monitoring of volumes and cardiorenal parameters. Patient was off beta-shahram due to active use of cocaine . Patient was also off PINEDA inhibitor due to renal failure . Patient received combination of hydralazine and Isordil. Antiplatelet therapy with aspirin continued. Nitroglycerin was on board as needed. Lipid panel remained stable. DVT prophylaxis provided. Supplemental oxygen provided and titrated to keep oximetry above 92% . Pulmonary toilet with bronchodilator provided as needed. Patient saturated 99 -100% on room air. Renal parameters and electrolytes were closely monitored. Nephrotoxins were avoided. Creatinine down to 1.2 prior to patient signing AGAINST MEDICAL ADVICE. Hemoglobin and hematocrit were closely monitored with goal to keep hemoglobin above 7. Anemia work-up was consistent with anemia of chronic disease . Hemoglobin and hematocrit remained at baseline, prior to signing AMA hemoglobin 10.9, hematocrit 35. Urine toxicology screen was positive for cocaine. On 04/28 patient decided to leave AGAINST MEDICAL ADVICE. The risks and consequences of signing AGAINST MEDICAL ADVICE were discussed with patient in detail. Patient verbalized understanding, nevertheless signed AMA form and left. FINAL DIAGNOSES: Acute on chronic congestive heart failure Cardiomyopathy with ejection fraction less than 30% Acute bronchitis Chronic renal failure Chronic anemia Coronary artery disease Systemic hypertension Seizure disorder Cocaine abuse Elevated troponin I have been assigned to dictate discharge summary for this account. I was not involved in the patient's management. Blaire Ortega NP Apr 30, 2019 12:28
== END 2019-04-29 14:54 | disposition left against medical advice (07) | DRG 194 ==
LOC: 2E 15:41
DX: I13.0 Hypertensive heart and chronic kidney disease with heart failure and stage 1 through stage 4 chronic kidney disease, or unspecified chronic kidney disease (principal); J20.9 Acute bronchitis, unspecified; Z59.0 Homelessness; I50.23 Acute on chronic systolic (congestive) heart failure; N18.9 Chronic kidney disease, unspecified; I25.10 Atherosclerotic heart disease of native coronary artery without angina pectoris; I42.9 Cardiomyopathy, unspecified; F19.10 Other psychoactive substance abuse, uncomplicated; D64.9 Anemia, unspecified; G40.909 Epilepsy, unspecified, not intractable, without status epilepticus; Z91.14 Patient's other noncompliance with medication regimen
CPT/HCPCS: 36415; 71045; 80048; 80053; 80061; 80307; 81001; 82550; 82607; 82728; 82746; 82977; 83540; 83550; 83735; 83880; 84100; 84443; 84484; 84550; 85025; 86140; 93005

== ENCOUNTER 2019-05-06 02:40 | Inpatient (IN) | payer MEDICAID ==
[~2019-05-06] VITALS: Ht 182.9 cm; Wt 81.6 kg
[2019-05-06] MEDS ORDERED: Nitroglycerin 2% oint pkt TOPIC ONE (02:45)
[2019-05-06 03:05] VITALS: BP 136/78
[2019-05-06 03:15] LABS: BASOPHILS % (AUTO) 2.5 % (0.0-2.0); EOSINOPHILS % (AUTO) 2.8 % (0.0-3.0); HEMATOCRIT 37.8 % (42.0-52.0); HEMOGLOBIN 11.5 G/DL (14.2-18.0); LYMPHOCYTES % (AUTO) 14.5 % (20.0-45.0); MEAN CORPUSCULAR VOLUME 88 FL (80-99); MONOCYTES % (AUTO) 9.1 % (1.0-10.0); NEUTROPHILS % (AUTO) 71.2 % (45.0-75.0); PLATELET COUNT 217 K/UL (150-450); RED BLOOD COUNT 4.29 M/UL (4.70-6.10); RED CELL DISTRIBUTION WIDTH 18.4 % (11.6-14.8)
[2019-05-06 03:26] LABS: INR 1.1 (0.9-1.1)
[2019-05-06 03:28] LABS: ANION GAP 9 mmol/L (5-15); BLOOD UREA NITROGEN 31 mg/dL (7-18); CALCIUM 9.5 MG/DL (8.5-10.1); CARBON DIOXIDE 26 MMOL/L (21-32); CHLORIDE 103 MMOL/L (98-107); CREATININE 1.3 MG/DL (0.55-1.30); POTASSIUM 4.4 MMOL/L (3.5-5.1); SODIUM 138 MMOL/L (136-145)
[2019-05-06 03:38] LABS: ALANINE AMINOTRANSFERASE 40 U/L (12-78); ALBUMIN 3.9 G/DL (3.4-5.0); ALBUMIN/GLOBULIN RATIO 0.9 (1.0-2.7); ALKALINE PHOSPHATASE 113 U/L (46-116); ASPARTATE AMINO TRANSFERASE 41 U/L (15-37); BILIRUBIN,TOTAL 1.4 MG/DL (0.2-1.0)
[2019-05-06 03:46] LABS: BILIRUBIN,DIRECT 0.4 MG/DL (0.0-0.3)
[2019-05-06 04:28] VITALS: BP 102/76
[2019-05-06 04:30] VITALS: BP 122/81
--- NOTE | 2019-05-06 04:31 | Emergency Room Report ---
History of Present Illness General Chief Complaint: Chest Pain Source: Medical Record, EMS Present Illness HPI Patient is a 58-year-old male who presents after increased chest discomfort. He had prior history of congestive heart failure. He reports having recent hospitalization at [facility]. States that he has been compliant with his medications. Had been given aspirin and nitroglycerin by paramedics. Patient had onset of symptoms after discharge earlier today. Denies any diarrhea or vomiting. Denies any current substance use.Previous history of cocaine abuse Allergies: Coded Allergies: NO KNOWN ALLERGIES (Verified Allergy, Unknown, 04/08/19) COVID-19 Screening Contact w/high risk pt: No Recent Travel to affected area: No Experienced COVID-19 symptoms?: No Patient History Past Medical History: see triage record Reviewed Nursing Documentation: PMH: Agreed; PSxH: Agreed Nursing Documentation-PMH Past Medical History: No History, Except For Hx Cardiac Problems: Yes - LVF 10 -20% Hx Hypertension: Yes Hx Cancer: No Hx Gastrointestinal Problems: No Hx Neurological Problems: No Hx Seizures: Yes Hx Weakness: Yes Review of Systems All Other Systems: negative except mentioned in HPI Physical Exam Vital Signs Date Time Temp Pulse Resp B/P (MAP) Pulse Ox O2 Delivery O2 Flow Rate FiO2 05/06/19 02:42 97.9 86 17 132/80 (97) 100 Room Air Sp02 EP Interpretation: reviewed, normal General Appearance: normal inspection, well appearing, no apparent distress, alert, GCS 15, Chronically Ill Head: atraumatic ENT: normal ENT inspection, hearing grossly normal, normal voice Neck: normal inspection, full range of motion, supple, no bony tend Respiratory: normal inspection, normal breath sounds, no respiratory distress, no retraction, no wheezing Cardiovascular #1: regular rate, rhythm, no edema, JVD, edema Gastrointestinal: normal inspection, normal bowel sounds, non tender, soft, no guarding, no hernia Genitourinary: no CVA tenderness Musculoskeletal: normal inspection, back normal, normal range of motion Neurologic: alert, responsive, speech normal, normal inspection Psychiatric: normal inspection, judgement/insight normal, mood/affect normal Medical Decision Making Diagnostic Impression: Primary Impression: CHF (congestive heart failure) Additional Impression: Elevated troponin ER Course Patient presented for chest pain. Differential diagnosis included but was not limited to acute coronary syndrome, pulmonary embolism, pneumonia, aortic dissection, shingles, pneumothorax, aortic dissection, esophageal rupture, pericarditis. EKG showed changes sinus tachycardia with a rate of [address] changes. There was some T wave flattening noted CXR showed cardiomegaly Patient appears to have chest pain likely related to CHF and possible non-ST elevation myocardial injury. Patient was given IV Lasix. Dr. Jose Mcarthur was contacted for inpatient management due to recent admission. Labs Test 05/06/19 02:55 White Blood Count 8.0 K/UL (4.8-10.8) Red Blood Count 4.29 M/UL (4.70-6.10) Hemoglobin 11.5 G/DL (14.2-18.0) Hematocrit 37.8 % (42.0-52.0) Mean Corpuscular Volume 88 FL (80-99) Mean Corpuscular Hemoglobin 26.9 PG (27.0-31.0) Mean Corpuscular Hemoglobin Concent 30.5 G/DL (32.0-36.0) Red Cell Distribution Width 18.4 % (11.6-14.8) Platelet Count 217 K/UL (150-450) Mean Platelet Volume 7.1 FL (6.5-10.1) Neutrophils (%) (Auto) 71.2 % (45.0-75.0) Lymphocytes (%) (Auto) 14.5 % (20.0-45.0) Monocytes (%) (Auto) 9.1 % (1.0-10.0) Eosinophils (%) (Auto) 2.8 % (0.0-3.0) Basophils (%) (Auto) 2.5 % (0.0-2.0) Prothrombin Time 11.7 SEC (9.30-11.50) Prothromb Time International Ratio 1.1 (0.9-1.1) Activated Partial Thromboplast Time 33 SEC (23-33) Sodium Level 138 MMOL/L (136-145) Potassium Level 4.4 MMOL/L (3.5-5.1) Chloride Level 103 MMOL/L (98-107) Carbon Dioxide Level 26 MMOL/L (21-32) Anion Gap 9 mmol/L (5-15) Blood Urea Nitrogen 31 mg/dL (7-18) Creatinine 1.3 MG/DL (0.55-1.30) Estimat Glomerular Filtration Rate > 60 mL/min (>60) Glucose Level 122 MG/DL (74-106) Calcium Level 9.5 MG/DL (8.5-10.1) Total Bilirubin 1.4 MG/DL (0.2-1.0) Direct Bilirubin 0.4 MG/DL (0.0-0.3) Aspartate Amino Transf (AST/SGOT) 41 U/L (15-37) Alanine Aminotransferase (ALT/SGPT) 40 U/L (12-78) Alkaline Phosphatase 113 U/L (46-116) Troponin I 0.232 ng/mL (0.000-0.056) Pro-B-Type Natriuretic Peptide 7923 pg/mL (0-125) Total Protein 8.4 G/DL (6.4-8.2) Albumin 3.9 G/DL (3.4-5.0) Globulin 4.5 g/dL Albumin/Globulin Ratio 0.9 (1.0-2.7) Lipase 299 U/L (73-393) EKG Diagnostic Results Rate: tachycardiac Rhythm: NSR ST Segments: no acute changes Last Vital Signs Date Time Temp Pulse Resp B/P (MAP) Pulse Ox O2 Delivery O2 Flow Rate FiO2 05/06/19 03:05 86 17 Room Air 05/06/19 03:05 97.9 136/78 100 Status: unchanged Disposition: ADMITTED INPATIENT Condition: Stable Scripts No Active Prescriptions or Reported Meds Referrals: [facility],REFERRING (PCP) Kerwin Martin MD May 06, 2019 04:31
[2019-05-06 04:50] LABS: APPEARANCE,URINE CLEAR; BILIRUBIN, URINE NEGATIVE (NEGATIVE); COLOR,URINE PALE YELLOW; GLUCOSE, URINE (UA) NEGATIVE (NEGATIVE); KETONES,URINE NEGATIVE (NEGATIVE); LEUKOCYTE ESTERASE ,URINE NEGATIVE (NEGATIVE); NITRITE,URINE NEGATIVE (NEGATIVE); PH,URINE 7 (4.5-8.0); PROTEIN,URINE NEGATIVE (NEGATIVE); UROBILINOGEN,URINE NORMAL MG/DL (0.0-1.0)
--- NOTE | 2019-05-06 05:45 | Diagnostic Imaging Report ---
EXAM: XR Chest, 1 View CLINICAL HISTORY: SOB TECHNIQUE: Frontal view of the chest. COMPARISON: Chest x-ray dated 04/08/19 FINDINGS: Lungs: Mild pulmonary vascular congestion. Similar appearance of interstitial lung markings which may reflect a degree of pulmonary edema. Pleural space: Unremarkable. No pneumothorax. Heart: Stable cardiomegaly. Mediastinum: Unremarkable. Bones/joints: Unremarkable. IMPRESSION: 1. Stable cardiomegaly. 2. Mild pulmonary vascular congestion. Similar appearance of interstitial lung markings which may reflect a degree of pulmonary edema.
[2019-05-06] MEDS ORDERED: Nitroglycerin Subl 0.4mg tab SL PRN (07:45)
[2019-05-06] MEDS: Heparin 5000 units/ml inj SUBQ SCH ×3 (08:00→21:33)
[2019-05-06] MEDS: Aspirin Baby 81mg ORAL SCH (09:00)
--- NOTE | 2019-05-06 10:53 | Consultation ---
Consult Note Consult Note I was asked to evaluate the patient at the request of Dr. Mcarthur for fluid and electrolyte management. Patient is very well-known to me from his previous admissions. Patient has left AGAINST MEDICAL ADVICE in previous 2 admissions and returned with chest pain. Patient is a cocaine abuser and has continuous urine positive for cocaine. He also has severe cardiomyopathy. He is very noncompliant. Emergency room note: Patient is a 58-year-old male who presents after increased chest discomfort. He had prior history of congestive heart failure. He reports having recent hospitalization at [facility]. States that he has been compliant with his medications. Had been given aspirin and nitroglycerin by paramedics. Patient had onset of symptoms after discharge earlier today. Denies any diarrhea or vomiting. Denies any current substance use.Previous history of cocaine abuse NO KNOWN ALLERGIES (Verified Allergy, Unknown, 04/08/19) COVID-19 Screening Contact w/high risk pt: No Recent Travel to affected area: No Experienced COVID-19 symptoms?: No Past Medical History: No History, Except For Hx Cardiac Problems: Yes - LVF 10 -20% Hx Hypertension: Yes Hx Seizures: Yes Hx Weakness: Yes Patient seen in room 202 Interviewed poor historian- Examined . Assessment/Plan (1) Renal insufficiency with diureses (2) Cardiac LV ejection fraction 10-20% (3) CHF (congestive heart failure) (4) Anemia (5) Elevated troponin (6) polysubstance abuse (7) history of seizure disorder Plan Isordil add Coreg optimize cardiac status. Afterload reduction. Gentle diuresis. Keep the BP in check. Monitor renal parameters. Per orders. Lester Mesa MD May 06, 2019 10:53
[2019-05-06] MEDS: Carvedilol 6.25mg Tab ORAL SCH ×2 (11:00→21:33)
[2019-05-06] MEDS: Docusate 100mg cap ORAL SCH ×2 (13:00→18:00)
--- NOTE | 2019-05-06 14:35 | History & Physical ---
History and Physical History & Physicial Dictated for Int Med - Dr Mcarthur no. [id number] Lexa Taylor MD May 06, 2019 14:35
[2019-05-06 16:00] VITALS: BP 125/83
[2019-05-06 20:00] VITALS: BP 128/78
--- NOTE | 2019-05-06 20:15 | History and Physical Report ---
DATE OF ADMISSION: 05/06/2019 CHIEF COMPLAINT: The patient is a 58-year-old male, who presents with a chief complaint of chest pain. HISTORY OF PRESENT ILLNESS: The patient was admitted to [facility] from April 23 to April 29, 2019. The patient was admitted with bilateral lower extremity edema and acute on chronic congestive heart failure. The patient was also found to have elevated troponin. The patient left against medical advice on April. The patient then was apparently admitted to [facility]. The patient was discharged earlier today on 05/05/2019. The patient then began to experience chest discomfort. The patient states chest pain is substernal. There is no radiation to the jaw or to the shoulder. The patient called EMS. The patient received aspirin and nitroglycerin in the field. The patient presented to [place] emergency room complaining of chest pain to rule out acute coronary syndrome. REVIEW OF SYSTEMS: CONSTITUTIONAL: The patient denies weight loss or weight gain. The patient denies fevers or chills. HEENT: The patient denies ear or throat pain. The patient denies headache. CARDIOVASCULAR: The patient complains of chest pain as above. The patient denies palpitations. CHEST: The patient denies wheeze or shortness of breath. ABDOMEN: The patient denies nausea, vomiting, diarrhea, or constipation. GENITOURINARY: The patient denies dysuria or increased frequency of urination. NEUROMUSCULAR: The patient denies seizures or generalized weakness. PAST MEDICAL HISTORY: Significant for: 1. Congestive heart failure. 2. Cardiomyopathy with an ejection fracture less than 30%. 3. Chronic renal failure. 4. Chronic anemia. 5. Coronary artery disease. 6. Seizure disorder. 7. History of cocaine abuse. PAST SURGICAL HISTORY: The patient denies. CURRENT MEDICATIONS: 1. Lasix 20 mg p.o. daily. 2. Metoprolol 25 mg p.o. twice daily. 3. Nitroglycerin sublingual p.r.n. ALLERGIES: No known drug allergies. SOCIAL HISTORY: The patient is single and lives with a friend. The patient states he lives on and off with his sister. The patient denies tobacco or alcohol use. The patient admits to occasional cocaine and marijuana use. PHYSICAL EXAMINATION: VITAL SIGNS: Temperature 97.9, respirations 17, pulse 86, and blood pressure 132/80. GENERAL: The patient is a well-developed and well-nourished male, in no apparent distress. HEENT: Eyes, pupils are equal and responsive to light and accommodation. Extraocular movements are intact. NECK: Supple without lymphadenopathy. CHEST: Lungs are clear to auscultation bilaterally without wheezes or rales. CARDIOVASCULAR: Regular rate, S1 and S2 are normal without murmurs, rubs, or gallops. ABDOMEN: Soft, nontender, and nondistended. Positive bowel sounds. No evidence of hepatosplenomegaly. Currently, no rebound or guarding noted. EXTREMITIES: Negative for clubbing, cyanosis, or edema. RECTAL/GENITAL: Not performed. NEUROLOGIC: Cranial nerves II through XII are grossly intact without focal deficits. Motor strength is 5/5 bilaterally. Deep tendon reflexes are 2+ plantar. DIAGNOSTIC DATA: An EKG demonstrated sinus tachycardia at approximately 107 beats per minute. There were nonspecific T-wave changes, otherwise normal EKG. LABORATORY STUDIES: WBC 8.0, hemoglobin 11.5, hematocrit 37.8, and platelets 217,000. Sodium 138, potassium 4.4, chloride 103, CO2 26, BUN 31, and creatinine 1.3. Glucose 122. Troponin elevated at 0.232. BNP elevated at 7923. Urine toxicology screen was positive for cocaine. Urinalysis was within normal limits. ASSESSMENT: This is a 58-year-old male with: 1. Chest pain. 2. Acute on chronic congestive heart failure. 3. Cardiomyopathy with ejection fraction less than 30%. 4. Chronic renal insufficiency. 5. Chronic anemia. 6. Coronary artery disease. 7. Seizure disorder. 8. Cocaine abuse. TREATMENT: 1. Congestive heart failure/cardiomyopathy. A Cardiology consultation has been obtained with Dr. Dajuan Vee. We will follow recommendations of Cardiology. The patient has elevated troponin level. We will follow recommendation of Cardiology. 2. Chronic renal insufficiency. A Nephrology consultation has been obtained with Dr. Mesa. We will follow recommendations of Nephrology. 3. Chronic anemia. 4. Coronary artery disease. 5. Seizure disorder. 6. Cocaine abuse. Lexa Taylor M.D. DR: SALOMON JOB#: [id number] CC:
[2019-05-07] VITALS: BP 112/70
[2019-05-07 04:00] VITALS: BP 134/96
[2019-05-07] MEDS: Heparin 5000 units/ml inj SUBQ SCH ×3 (06:00→21:09)
[2019-05-07 08:00] VITALS: BP 118/79
[2019-05-07] MEDS: Docusate 100mg cap ORAL SCH ×3 (08:37→17:59)
[2019-05-07] MEDS: Aspirin Baby 81mg ORAL SCH (08:37)
[2019-05-07] MEDS: Carvedilol 6.25mg Tab ORAL SCH ×2 (08:37→21:09)
--- NOTE | 2019-05-07 10:52 | Nephrology Progress Note ---
Assessment/Plan Problem List: (1) Cardiac LV ejection fraction 10-20% (2) Renal insufficiency (3) Elevated troponin Assessment: Elevated troponin I Assessment (1) Renal insufficiency with diureses (2) Cardiac LV ejection fraction 10-20% (3) CHF (congestive heart failure) (4) Anemia (5) Elevated troponin (6) polysubstance abuse (7) history of seizure disorder Plan Patient refused blood draw today Isordil add Coreg optimize cardiac status. Afterload reduction. Gentle diuresis. Keep the BP in check. Monitor renal parameters. Per orders. Subjective ROS Limited/Unobtainable: No Constitutional: Reports: malaise Objective Objective Last 24 Hour Vital Signs Date Time Temp Pulse Resp B/P (MAP) Pulse Ox O2 Delivery O2 Flow Rate FiO2 05/07/19 08:37 93 118/79 05/07/19 08:00 98.0 93 20 118/79 (92) 98 05/07/19 08:00 95 05/07/19 06:00 134/96 05/07/19 04:00 89 05/07/19 04:00 98.1 92 18 134/96 (109) 100 05/07/19 00:00 97.7 93 18 112/70 (84) 99 05/07/19 00:00 112/70 05/07/19 00:00 93 05/06/19 21:33 93 128/78 05/06/19 21:00 Room Air 05/06/19 20:00 114 05/06/19 20:00 97.5 93 16 128/78 (95) 99 05/06/19 18:18 125/83 05/06/19 16:00 97 05/06/19 16:00 97.9 99 20 125/83 (97) 100 05/06/19 12:00 102 05/06/19 11:00 97 102/76 Intake and Output 05/06/19 05/07/19 19:00 07:00 Intake Total 1822 ml Balance 1822 ml Intake Oral 1822 ml # Voids 6 3 Height (Feet): 6 Height (Inches): 0.00 Weight (Pounds): 180 General Appearance: no apparent distress Objective No change Lester Mesa MD May 07, 2019 10:52
[2019-05-07 12:00] VITALS: BP 136/71
--- NOTE | 2019-05-07 12:39 | Internal Med Progress Note ---
Subjective Date of Service: May 07, 2019 Physician Name Lexa Taylor Attending Physician Jose Mcarthur MD Current Medications Medications (Trade) Dose Ordered Sig/Ariel Route PRN Reason Start Time Stop Time Status Last Admin Dose Admin Acetaminophen (Tylenol) 650 mg Q6H PRN ORAL Mild Pain/Temp > 100.5 05/06/19 07:45 06/05/19 07:44 Aspirin (ASA) 81 mg DAILY ORAL 05/06/19 09:00 06/20/19 08:59 05/07/19 08:37 Carvedilol (Coreg) 6.25 mg EVERY 12 HOURS ORAL 05/06/19 11:00 06/05/19 10:59 05/07/19 08:37 Docusate Sodium (Colace) 100 mg THREE TIMES A DAY ORAL 05/06/19 13:00 06/05/19 12:59 05/07/19 08:37 Heparin Sodium (Porcine) (Heparin 5000 units/ml) 5,000 units EVERY 8 HOURS SUBQ 05/06/19 08:00 06/20/19 07:59 Isosorbide Dinitrate (Isordil) 10 mg Q6HR ORAL 05/06/19 12:00 06/05/19 11:59 05/06/19 18:18 Nitroglycerin (Ntg) 0.4 mg Q5M PRN SL Prn Chest Pain 05/06/19 07:45 06/05/19 07:44 Ondansetron HCl (Zofran) 4 mg Q6H PRN IVP Nausea & Vomiting 05/06/19 07:45 06/05/19 07:44 Pantoprazole (Protonix) 40 mg EVERY 12 HOURS ORAL 05/06/19 21:00 06/05/19 20:59 05/07/19 08:37 Allergies: Coded Allergies: NO KNOWN ALLERGIES (Verified Allergy, Unknown, 04/08/19) ROS Limited/Unobtainable: No Constitutional: Reports: no symptoms HEENT: Reports: no symptoms Cardiovascular: Reports: no symptoms Respiratory: Reports: no symptoms Gastrointestinal/Abdominal: Reports: no symptoms Genitourinary: Reports: no symptoms Neurologic/Psychiatric: Reports: no symptoms Subjective 58 YO M admitted with chest pain. Now elevated troponin. Cover for Int Patrick-Dr Mcarthur Objective Last Vital Signs Date Time Temp Pulse Resp B/P (MAP) Pulse Ox O2 Delivery O2 Flow Rate FiO2 3/29/20 09:00 Room Air 05/07/19 08:37 93 118/79 05/07/19 08:00 98.0 20 98 Intake and Output 05/06/19 05/07/19 19:00 07:00 Intake Total 1822 ml Balance 1822 ml Intake Oral 1822 ml # Voids 6 3 Objective PHYSICAL EXAMINATION: GENERAL: The patient is a well-developed and well-nourished male, in no apparent distress. HEENT: Eyes, pupils are equal and responsive to light and accommodation. Extraocular movements are intact. NECK: Supple without lymphadenopathy. CHEST: Lungs are clear to auscultation bilaterally without wheezes or rales. CARDIOVASCULAR: Regular rate, S1 and S2 are normal without murmurs, rubs, or gallops. ABDOMEN: Soft, nontender, and nondistended. Positive bowel sounds. No evidence of hepatosplenomegaly. Currently, no rebound or guarding noted. EXTREMITIES: Negative for clubbing, cyanosis, or edema. RECTAL/GENITAL: Not performed. NEUROLOGIC: Cranial nerves II through XII are grossly intact without focal deficits. Motor strength is 5/5 bilaterally. Deep tendon reflexes are 2+ plantar. Assessment/Plan Assessment/Plan ASSESSMENT: This is a 58-year-old male with: 1. Chest pain. 2. Acute on chronic congestive heart failure. 3. Cardiomyopathy with ejection fraction less than 30%. 4. Chronic renal insufficiency. 5. Chronic anemia. 6. Coronary artery disease. 7. Seizure disorder. 8. Cocaine abuse. 9. elevated troponin TREATMENT: 1. Congestive heart failure/cardiomyopathy/chest pain/elevated troponin Await Cardiology consultation= Dr. Dajuan Vee. We will follow recommendations of Cardiology. 2. Chronic renal insufficiency. A Nephrology consultation has been obtained with Dr. Mesa. We will follow recommendations of Nephrology. 3. Chronic anemia. 4. Coronary artery disease. 5. Seizure disorder. 6. Cocaine abuse. Lexa Taylor MD May 07, 2019 12:39
[2019-05-07 16:00] VITALS: BP 124/68
--- NOTE | 2019-05-07 16:07 | Consultation ---
History of Present Illness General Date patient seen: May 06, 2019 Chief Complaint: Chest Pain Present Illness HPI Patient is a 58-year-old male with hx of endstage heart disease, EF of 10%, cocaine abuse presented to ER with CC of chest discomfort. Had been given aspirin and nitroglycerin by paramedics. Patient had onset of symptoms after discharge earlier today. Denies any diarrhea or vomiting. Denies any current substance use. Allergies: Coded Allergies: NO KNOWN ALLERGIES (Verified Allergy, Unknown, 04/08/19) Medication History No Active Prescriptions or Reported Meds Patient History Healthcare decision maker Resuscitation status Advanced Directive on File Past Medical/Surgical History Past Medical/Surgical History: (1) Cardiac LV ejection fraction 10-20% (2) Homelessness Review of Systems All Other Systems: negative except mentioned in HPI Physical Exam General Appearance: WD/WN, thin Lines, tubes and drains: peripheral HEENT: normocephalic Neck: non-tender, normal alignment Respiratory/Chest: chest wall non-tender, lungs clear Breasts: no masses Cardiovascular/Chest: normal peripheral pulses Abdomen: normal bowel sounds, non tender Genitourinary/Rectal: normal genital exam Extremities: normal range of motion Last 24 Hour Vital Signs Date Time Temp Pulse Resp B/P (MAP) Pulse Ox O2 Delivery O2 Flow Rate FiO2 05/07/19 13:09 136/71 05/07/19 12:00 101 05/07/19 12:00 98.0 100 20 136/71 (92) 100 05/07/19 09:00 Room Air 05/07/19 08:37 93 118/79 05/07/19 08:00 98.0 93 20 118/79 (92) 98 05/07/19 08:00 95 05/07/19 06:00 134/96 05/07/19 04:00 89 05/07/19 04:00 98.1 92 18 134/96 (109) 100 05/07/19 00:00 97.7 93 18 112/70 (84) 99 05/07/19 00:00 112/70 05/07/19 00:00 93 05/06/19 21:33 93 128/78 05/06/19 21:00 Room Air 05/06/19 20:00 114 05/06/19 20:00 97.5 93 16 128/78 (95) 99 05/06/19 18:18 125/83 Intake and Output 05/06/19 05/07/19 19:00 07:00 Intake Total 1822 ml Balance 1822 ml Intake Oral 1822 ml # Voids 6 3 Height (Feet): 6 Height (Inches): 0.00 Weight (Pounds): 180 Medications Current Medications Medications (Trade) Dose Ordered Sig/Ariel Route PRN Reason Start Time Stop Time Status Last Admin Dose Admin Acetaminophen (Tylenol) 650 mg Q6H PRN ORAL Mild Pain/Temp > 100.5 05/06/19 07:45 06/05/19 07:44 Aspirin (ASA) 81 mg DAILY ORAL 05/06/19 09:00 06/20/19 08:59 05/07/19 08:37 Carvedilol (Coreg) 6.25 mg EVERY 12 HOURS ORAL 05/06/19 11:00 06/05/19 10:59 05/07/19 08:37 Docusate Sodium (Colace) 100 mg THREE TIMES A DAY ORAL 05/06/19 13:00 06/05/19 12:59 05/07/19 13:08 Heparin Sodium (Porcine) (Heparin 5000 units/ml) 5,000 units EVERY 8 HOURS SUBQ 05/06/19 08:00 06/20/19 07:59 05/07/19 13:10 Isosorbide Dinitrate (Isordil) 10 mg Q6HR ORAL 05/06/19 12:00 06/05/19 11:59 05/07/19 13:09 Nitroglycerin (Ntg) 0.4 mg Q5M PRN SL Prn Chest Pain 05/06/19 07:45 06/05/19 07:44 Ondansetron HCl (Zofran) 4 mg Q6H PRN IVP Nausea & Vomiting 05/06/19 07:45 06/05/19 07:44 Pantoprazole (Protonix) 40 mg EVERY 12 HOURS ORAL 05/06/19 21:00 06/05/19 20:59 05/07/19 08:37 Assessment/Plan Problem List: (1) Chest pain ICD Codes: R07.9 - Chest pain, unspecified SNOMED: 12157317 (2) Cardiac LV ejection fraction 10-20% ICD Codes: R09.89 - Other specified symptoms and signs involving the circulatory and respiratory systems SNOMED: 35419152, 162190264 Diagnosis [place] I: serial ekg, troponin, echo cardiac evaluation symptomatic treatment social service Robby Chavarria MD May 07, 2019 16:07
--- NOTE | 2019-05-07 16:08 | Pulmonology Progress Note ---
Assessment/Plan Problems: (1) Chest pain (2) Cardiac LV ejection fraction 10-20% Assessment/Plan no new complains doing better serial ekg, troponin, echo cardiac evaluation symptomatic treatment social service Subjective ROS Limited/Unobtainable: No Constitutional: Reports: no symptoms HEENT: Repors: no symptoms Respiratory: Reports: no symptoms Allergies: Coded Allergies: NO KNOWN ALLERGIES (Verified Allergy, Unknown, 04/08/19) Objective Last 24 Hour Vital Signs Date Time Temp Pulse Resp B/P (MAP) Pulse Ox O2 Delivery O2 Flow Rate FiO2 05/07/19 13:09 136/71 05/07/19 12:00 101 05/07/19 12:00 98.0 100 20 136/71 (92) 100 05/07/19 09:00 Room Air 05/07/19 08:37 93 118/79 05/07/19 08:00 98.0 93 20 118/79 (92) 98 05/07/19 08:00 95 05/07/19 06:00 134/96 05/07/19 04:00 89 05/07/19 04:00 98.1 92 18 134/96 (109) 100 05/07/19 00:00 97.7 93 18 112/70 (84) 99 05/07/19 00:00 112/70 05/07/19 00:00 93 05/06/19 21:33 93 128/78 05/06/19 21:00 Room Air 05/06/19 20:00 114 05/06/19 20:00 97.5 93 16 128/78 (95) 99 05/06/19 18:18 125/83 Intake and Output 05/06/19 05/07/19 19:00 07:00 Intake Total 1822 ml Balance 1822 ml Intake Oral 1822 ml # Voids 6 3 General Appearance: cachetic HEENT: normocephalic, atraumatic Respiratory/Chest: chest wall non-tender, lungs clear Cardiovascular: normal peripheral pulses, normal rate Abdomen: normal bowel sounds, soft, non tender Genitourinary: normal external genitalia Skin: no rash Neurologic/Psychiatric: dragger out II-XII grossly normal Current Medications Medications (Trade) Dose Ordered Sig/Ariel Route PRN Reason Start Time Stop Time Status Last Admin Dose Admin Acetaminophen (Tylenol) 650 mg Q6H PRN ORAL Mild Pain/Temp > 100.5 05/06/19 07:45 06/05/19 07:44 Aspirin (ASA) 81 mg DAILY ORAL 05/06/19 09:00 06/20/19 08:59 05/07/19 08:37 Carvedilol (Coreg) 6.25 mg EVERY 12 HOURS ORAL 05/06/19 11:00 06/05/19 10:59 05/07/19 08:37 Docusate Sodium (Colace) 100 mg THREE TIMES A DAY ORAL 05/06/19 13:00 06/05/19 12:59 05/07/19 13:08 Heparin Sodium (Porcine) (Heparin 5000 units/ml) 5,000 units EVERY 8 HOURS SUBQ 05/06/19 08:00 06/20/19 07:59 05/07/19 13:10 Isosorbide Dinitrate (Isordil) 10 mg Q6HR ORAL 05/06/19 12:00 06/05/19 11:59 05/07/19 13:09 Nitroglycerin (Ntg) 0.4 mg Q5M PRN SL Prn Chest Pain 05/06/19 07:45 06/05/19 07:44 Ondansetron HCl (Zofran) 4 mg Q6H PRN IVP Nausea & Vomiting 05/06/19 07:45 06/05/19 07:44 Pantoprazole (Protonix) 40 mg EVERY 12 HOURS ORAL 05/06/19 21:00 06/05/19 20:59 05/07/19 08:37 Robby Chavarria MD May 07, 2019 16:08
[2019-05-07 20:00] VITALS: BP 119/73
[2019-05-08] VITALS: BP 121/70
[2019-05-08] MEDS: Heparin 5000 units/ml inj SUBQ SCH ×3 (06:45→22:00)
[2019-05-08 08:00] VITALS: BP 112/70
[2019-05-08] MEDS: Docusate 100mg cap ORAL SCH ×3 (08:59→18:28)
[2019-05-08] MEDS: Carvedilol 6.25mg Tab ORAL SCH ×2 (08:59→21:09)
[2019-05-08] MEDS: Aspirin Baby 81mg ORAL SCH (08:59)
--- NOTE | 2019-05-08 10:24 | Pulmonology Progress Note ---
Assessment/Plan Problems: (1) Chest pain (2) Cardiac LV ejection fraction 10-20% Assessment/Plan awaiting cardio consult repeat troponin in am no new complains doing better serial ekg, troponin, echo cardiac evaluation symptomatic treatment social service Subjective ROS Limited/Unobtainable: No Interval Events: doing better, likes the cloth i got him from [employer] Allergies: Coded Allergies: NO KNOWN ALLERGIES (Verified Allergy, Unknown, 04/08/19) Objective Last 24 Hour Vital Signs Date Time Temp Pulse Resp B/P (MAP) Pulse Ox O2 Delivery O2 Flow Rate FiO2 05/08/19 09:00 Room Air 05/08/19 08:59 87 112/70 05/08/19 08:00 89 05/08/19 08:00 87 21 112/70 (84) 99 05/08/19 06:44 120/80 05/08/19 04:00 94 05/08/19 00:45 121/72 05/08/19 00:00 97.9 102 15 121/70 (87) 97 05/08/19 00:00 93 05/07/19 21:09 99 119/73 05/07/19 21:00 Room Air 05/07/19 20:00 97.7 99 17 119/73 (88) 97 05/07/19 20:00 96 05/07/19 17:59 124/68 05/07/19 16:00 98.0 101 18 124/68 (86) 98 05/07/19 16:00 94 05/07/19 13:09 136/71 05/07/19 12:00 101 05/07/19 12:00 98.0 100 20 136/71 (92) 100 Intake and Output 05/07/19 05/08/19 19:00 07:00 Intake Total 360 ml Balance 360 ml Intake Oral 360 ml # Voids 4 2 General Appearance: WD/WN HEENT: normocephalic, atraumatic Respiratory/Chest: chest wall non-tender, lungs clear Cardiovascular: normal peripheral pulses, normal rate Abdomen: normal bowel sounds, soft, non tender Genitourinary: normal external genitalia Extremities: no clubbing Neurologic/Psychiatric: 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 grossly normal Current Medications Medications (Trade) Dose Ordered Sig/Ariel Route PRN Reason Start Time Stop Time Status Last Admin Dose Admin Acetaminophen (Tylenol) 650 mg Q6H PRN ORAL Mild Pain/Temp > 100.5 05/06/19 07:45 06/05/19 07:44 Aspirin (ASA) 81 mg DAILY ORAL 05/06/19 09:00 06/20/19 08:59 05/08/19 08:59 Carvedilol (Coreg) 6.25 mg EVERY 12 HOURS ORAL 05/06/19 11:00 06/05/19 10:59 05/08/19 08:59 Docusate Sodium (Colace) 100 mg THREE TIMES A DAY ORAL 05/06/19 13:00 06/05/19 12:59 05/08/19 08:59 Heparin Sodium (Porcine) (Heparin 5000 units/ml) 5,000 units EVERY 8 HOURS SUBQ 05/06/19 08:00 06/20/19 07:59 05/08/19 06:45 Isosorbide Dinitrate (Isordil) 10 mg Q6HR ORAL 05/06/19 12:00 06/05/19 11:59 05/08/19 06:44 Nitroglycerin (Ntg) 0.4 mg Q5M PRN SL Prn Chest Pain 05/06/19 07:45 06/05/19 07:44 Ondansetron HCl (Zofran) 4 mg Q6H PRN IVP Nausea & Vomiting 05/06/19 07:45 06/05/19 07:44 Pantoprazole (Protonix) 40 mg EVERY 12 HOURS ORAL 05/06/19 21:00 06/05/19 20:59 05/08/19 08:59 Robby Chavarria MD May 08, 2019 10:24
--- NOTE | 2019-05-08 11:09 | Nephrology Progress Note ---
Assessment/Plan Problem List: (1) Cardiac LV ejection fraction 10-20% (2) Renal insufficiency (3) Elevated troponin Assessment: Elevated troponin I Assessment (1) Renal insufficiency with diureses (2) Cardiac LV ejection fraction 10-20% (3) CHF (congestive heart failure) (4) Anemia (5) Elevated troponin (6) polysubstance abuse (7) history of seizure disorder Plan Patient refused blood draw today again Previously: Isordil add Coreg optimize cardiac status. Afterload reduction. Gentle diuresis. Keep the BP in check. Monitor renal parameters. Per orders. Subjective ROS Limited/Unobtainable: No Constitutional: Reports: malaise, weakness Objective Objective Last 24 Hour Vital Signs Date Time Temp Pulse Resp B/P (MAP) Pulse Ox O2 Delivery O2 Flow Rate FiO2 05/08/19 09:00 Room Air 05/08/19 08:59 87 112/70 05/08/19 08:00 89 05/08/19 08:00 87 21 112/70 (84) 99 05/08/19 06:44 120/80 05/08/19 04:00 94 05/08/19 00:45 121/72 05/08/19 00:00 97.9 102 15 121/70 (87) 97 05/08/19 00:00 93 05/07/19 21:09 99 119/73 05/07/19 21:00 Room Air 05/07/19 20:00 97.7 99 17 119/73 (88) 97 05/07/19 20:00 96 05/07/19 17:59 124/68 05/07/19 16:00 98.0 101 18 124/68 (86) 98 05/07/19 16:00 94 05/07/19 13:09 136/71 05/07/19 12:00 101 05/07/19 12:00 98.0 100 20 136/71 (92) 100 Intake and Output 05/07/19 05/08/19 19:00 07:00 Intake Total 360 ml Balance 360 ml Intake Oral 360 ml # Voids 4 2 Been refusing blood draw Height (Feet): 6 Height (Inches): 0.00 Weight (Pounds): 180 General Appearance: no apparent distress Objective No change Lester Mesa MD May 08, 2019 11:09
[2019-05-08 12:00] VITALS: BP 108/73
--- NOTE | 2019-05-08 15:24 | CDS Physician Query ---
Clarification is required for compliance, coding accuracy, and to reflect severity of illness for this patient Dear Dr. Taylor Date: 05.08.19 CDS: Kirk Chavez "Heart Failure / CHF" documented in progress note "Acute on chronic congestive heart failure. 3. Cardiomyopathy with ejection fraction less than 30%". Please Clarify: Type [ X] Systolic [ ] Diastolic [ ] Systolic & Diastolic (Combined) [ ] Other: Present on Admission: [ X] Yes [ ] No [ ] Clinically Undetermined Physician signature Date Please also document in your Progress Notes and/or Discharge Summary and indicate if the condition was present on admission. FRANCISCO JD
--- NOTE | 2019-05-08 18:12 | Internal Med Progress Note ---
Subjective Date of Service: May 08, 2019 Physician Name Lexa Taylor Attending Physician Jose Mcarthur MD Current Medications Medications (Trade) Dose Ordered Sig/Ariel Route PRN Reason Start Time Stop Time Status Last Admin Dose Admin Acetaminophen (Tylenol) 650 mg Q6H PRN ORAL Mild Pain/Temp > 100.5 05/06/19 07:45 06/05/19 07:44 Aspirin (ASA) 81 mg DAILY ORAL 05/06/19 09:00 06/20/19 08:59 05/08/19 08:59 Carvedilol (Coreg) 6.25 mg EVERY 12 HOURS ORAL 05/06/19 11:00 06/05/19 10:59 05/08/19 08:59 Docusate Sodium (Colace) 100 mg THREE TIMES A DAY ORAL 05/06/19 13:00 06/05/19 12:59 05/08/19 13:11 Heparin Sodium (Porcine) (Heparin 5000 units/ml) 5,000 units EVERY 8 HOURS SUBQ 05/06/19 08:00 06/20/19 07:59 05/08/19 13:17 Isosorbide Dinitrate (Isordil) 10 mg Q6HR ORAL 05/06/19 12:00 06/05/19 11:59 05/08/19 13:11 Nitroglycerin (Ntg) 0.4 mg Q5M PRN SL Prn Chest Pain 05/06/19 07:45 06/05/19 07:44 Ondansetron HCl (Zofran) 4 mg Q6H PRN IVP Nausea & Vomiting 05/06/19 07:45 06/05/19 07:44 Pantoprazole (Protonix) 40 mg EVERY 12 HOURS ORAL 05/06/19 21:00 06/05/19 20:59 05/08/19 08:59 Allergies: Coded Allergies: NO KNOWN ALLERGIES (Verified Allergy, Unknown, 04/08/19) ROS Limited/Unobtainable: No Constitutional: Reports: no symptoms HEENT: Reports: no symptoms Cardiovascular: Reports: no symptoms Respiratory: Reports: no symptoms Gastrointestinal/Abdominal: Reports: no symptoms Genitourinary: Reports: no symptoms Neurologic/Psychiatric: Reports: no symptoms Subjective 58 YO M admitted with chest pain. Now elevated troponin. Cover for Int Patrick-Dr Mcarthur Objective Last Vital Signs Date Time Temp Pulse Resp B/P (MAP) Pulse Ox O2 Delivery O2 Flow Rate FiO2 05/08/19 16:00 90 05/08/19 13:11 108/73 05/08/19 12:00 98.0 20 98 05/08/19 09:00 Room Air Intake and Output 05/07/19 05/08/19 19:00 07:00 Intake Total 360 ml Balance 360 ml Intake Oral 360 ml # Voids 4 2 Objective PHYSICAL EXAMINATION: GENERAL: The patient is a well-developed and well-nourished male, in no apparent distress. HEENT: Eyes, pupils are equal and responsive to light and accommodation. Extraocular movements are intact. NECK: Supple without lymphadenopathy. CHEST: Lungs are clear to auscultation bilaterally without wheezes or rales. CARDIOVASCULAR: Regular rate, S1 and S2 are normal without murmurs, rubs, or gallops. ABDOMEN: Soft, nontender, and nondistended. Positive bowel sounds. No evidence of hepatosplenomegaly. Currently, no rebound or guarding noted. EXTREMITIES: Negative for clubbing, cyanosis, or edema. RECTAL/GENITAL: Not performed. NEUROLOGIC: Cranial nerves II through XII are grossly intact without focal deficits. Motor strength is 5/5 bilaterally. Deep tendon reflexes are 2+ plantar. Assessment/Plan Assessment/Plan ASSESSMENT: This is a 58-year-old male with: 1. Chest pain. 2. Acute on chronic congestive heart failure. 3. Cardiomyopathy with ejection fraction less than 30%. 4. Chronic renal insufficiency. 5. Chronic anemia. 6. Coronary artery disease. 7. Seizure disorder. 8. Cocaine abuse. 9. elevated troponin TREATMENT: 1. Congestive heart failure/cardiomyopathy/chest pain/elevated troponin Await Cardiology consultation= Dr. Dajuan Vee. We will follow recommendations of Cardiology. 2. Chronic renal insufficiency. A Nephrology consultation has been obtained with Dr. Mesa. We will follow recommendations of Nephrology. 3. Chronic anemia. 4. Coronary artery disease. 5. Seizure disorder. 6. Cocaine abuse. Lexa Taylor MD May 08, 2019 18:12
--- NOTE | 2019-05-08 18:31 | Cardiology Progress Note ---
Assessment/Plan Assessment/Plan full note dicated just dcd form a few day agto covid 19 rulled out at [facility] a few day ago pt going form one hospital to another 2 admission here and a leat 2 admission at [facility] inthe 2-3 weeks !!! keep on diureitic acei may need to stop coreg Objective Last 24 Hour Vital Signs Date Time Temp Pulse Resp B/P (MAP) Pulse Ox O2 Delivery O2 Flow Rate FiO2 05/08/19 16:00 90 05/08/19 13:11 108/73 05/08/19 12:00 98.0 78 20 108/73 (85) 98 05/08/19 12:00 91 05/08/19 09:00 Room Air 05/08/19 08:59 87 112/70 05/08/19 08:00 89 05/08/19 08:00 87 21 112/70 (84) 99 05/08/19 06:44 120/80 05/08/19 04:00 94 05/08/19 00:45 121/72 05/08/19 00:00 97.9 102 15 121/70 (87) 97 05/08/19 00:00 93 05/07/19 21:09 99 119/73 05/07/19 21:00 Room Air 05/07/19 20:00 97.7 99 17 119/73 (88) 97 05/07/19 20:00 96 Intake and Output 05/07/19 05/08/19 19:00 07:00 Intake Total 360 ml Balance 360 ml Intake Oral 360 ml # Voids 4 2 Dajuan Vee MD May 08, 2019 18:31
--- NOTE | 2019-05-08 19:59 | Consultation ---
DATE OF CONSULTATION: 05/08/2019 CARDIAC CONSULTATION CONSULTING PHYSICIAN: Dajuan Vee M.D. REFERRING PHYSICIANS: Jose Mcarthur M.D., and Robby Chavarria M.D. REASON FOR REFERRAL: Congestive heart failure. HISTORY OF PRESENT ILLNESS: The patient is a 58-year-old man with history of multiple hospitalization for congestive heart failure secondary to what was felt to be nonischemic cardiomyopathy likely secondary to cocaine abuse. The patient was hospitalized here and left on 04/28/2019, apparently against medical advice and apparently went to [facility]. He was at [facility], 04/28/2019 to 04/30/2019, and had been at [facility] a week before that and here a few days before that. Basically, he comes in with increasing shortness of breath. Basically, he is homeless and has shortness of breath on exertion and shortness of breath at rest. He uses 1 pillow. Denies lightheadedness on standing, heart pounding, or palpitations. PAST MEDICAL HISTORY: History of congestive heart failure with reduced ejection fraction, nonischemic cardiomyopathy, renal insufficiency, substance abuse of cocaine in particular and methamphetamine abuse, cocaine dependence, chronic systolic and diastolic heart failure, chest pain, syncope, seizures, anemia of chronic disease, bloody diarrhea, polysubstance abuse, and hypertension. ALLERGIES: Not allergic to any medications. SOCIAL HISTORY: He does not smoke. He denied drug use obviously, but his urine drug screen here and [facility] had been positive. REVIEW OF SYSTEMS: GASTROINTESTINAL: Positive for bloody stools. GENITOURINARY: Negative except for edema of the penile shaft. PULMONARY: He has had some coughing previously. The patient recently had COVID-19 ruled out at [facility]. PHYSICAL EXAMINATION: GENERAL: Shows to be a middle-aged gentleman, in no respiratory distress, unkempt. NECK: Supple. No jugular venous distention. LUNGS: Clear to auscultation and percussion. CARDIAC: Regular rate and rhythm. No heaves or thrills. ABDOMEN: Soft, nontender. Positive bowel sounds. EXTREMITIES: Edema is noted. LABORATORY VALUES: Sodium 138, potassium 4.4, chloride 103, bicarb 26, BUN of 31, creatinine 1.3, glucose of 122, and calcium is 9.5. Troponin 0.23. His proBNP is 7900. Albumin 3.9. The lipase of 299. Coags, INR 1.1, PTT of 33. Urine drug screen, positive for cocaine and urinalysis is fairly unremarkable. IMAGING: on 05/06/2019, read as pulmonary vascular congestion, stable cardiomegaly, mild pulmonary vasculature interstitial pattern, maybe a degree of pulmonary edema. EKG is sinus rhythm, no ST or T-wave abnormalities of significant degree, and there is sinus tachycardia of 107. ASSESSMENT AND PLAN: 1. Recurrent congestive heart failure secondary to systolic and diastolic dysfunction. 2. Cardiomyopathy, thought to be nonischemic, related to cocaine use. 3. Homelessness. 4. Substance abuse. 5. Hospital hopper. This patient has been in the hospital at least for the past month between here and [facility] on multiple occasions, gets diuresed, sent home, and readmitted to another hospital. He is now here with recurrent admission. Not sure how compliant he is with his medications. Nevertheless, he needs to be continued on his medication. He probably should be at a convalescent facility, but he leaves the hospital apparently at times against medical advice and at times, he may just be discharged. He was ruled out for COVID-19 during this past hospitalization a few days ago at [facility] and his cardiac enzymes are mildly abnormal secondary to probably cocaine use. Continue on diuretics and PINEDA inhibitors as blood pressure allows. Beta-blockers will be on hold in light of positive urine drug screen. Dajuan Vee M.D. : Angus JOB#: [id number] CC:
[2019-05-08 20:00] VITALS: BP 116/67
[2019-05-09] MEDS: Heparin 5000 units/ml inj SUBQ SCH (06:00)
[2019-05-09 08:00] VITALS: BP 121/69
[2019-05-09 09:56] VITALS: BP 121/69
[2019-05-09] MEDS: Carvedilol 6.25mg Tab ORAL SCH (09:56)
[2019-05-09] MEDS: Aspirin Baby 81mg ORAL SCH (09:56)
[2019-05-09] MEDS: Docusate 100mg cap ORAL SCH (09:56)
--- NOTE | 2019-05-09 11:17 | Pulmonology Progress Note ---
Assessment/Plan Problems: (1) Chest pain (2) Cardiac LV ejection fraction 10-20% (3) Frequent hospital admissions (4) Hospital hopper syndrome Assessment/Plan cardio consult appreciated, RENÉ Nielson was just ruled out at [facility] pt claims he has blood in the stool now, GI called serial ekg, troponin, echo symptomatic treatment social service Subjective ROS Limited/Unobtainable: No Constitutional: Reports: no symptoms HEENT: Repors: no symptoms Respiratory: Reports: no symptoms Allergies: Coded Allergies: NO KNOWN ALLERGIES (Verified Allergy, Unknown, 04/08/19) Objective Last 24 Hour Vital Signs Date Time Temp Pulse Resp B/P (MAP) Pulse Ox O2 Delivery O2 Flow Rate FiO2 05/09/19 09:56 93 121/69 05/09/19 08:27 Room Air 05/09/19 08:00 99.2 93 20 121/69 (86) 100 05/09/19 07:41 91 05/09/19 06:27 112/81 05/09/19 04:00 91 05/09/19 00:00 98 05/08/19 21:09 93 116/67 05/08/19 21:00 Room Air 05/08/19 20:00 93 05/08/19 20:00 96.7 95 22 116/67 (83) 95 05/08/19 18:28 108/73 05/08/19 16:00 90 05/08/19 13:11 108/73 05/08/19 12:00 98.0 78 20 108/73 (85) 98 05/08/19 12:00 91 Intake and Output 05/08/19 05/09/19 19:00 07:00 Intake Total 1200 ml Balance 1200 ml Intake Oral 1200 ml # Voids 5 2 General Appearance: WD/WN HEENT: normocephalic, atraumatic Respiratory/Chest: chest wall non-tender, lungs clear Cardiovascular: normal peripheral pulses, normal rate Abdomen: normal bowel sounds, soft, non tender Genitourinary: normal external genitalia Extremities: no clubbing Skin: no rash Neurologic/Psychiatric: 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 II-XII grossly normal Lymphatic: no neck adenopathy Current Medications Medications (Trade) Dose Ordered Sig/Ariel Route PRN Reason Start Time Stop Time Status Last Admin Dose Admin Acetaminophen (Tylenol) 650 mg Q6H PRN ORAL Mild Pain/Temp > 100.5 05/06/19 07:45 06/05/19 07:44 Aspirin (ASA) 81 mg DAILY ORAL 05/06/19 09:00 06/20/19 08:59 05/09/19 09:56 Carvedilol (Coreg) 6.25 mg EVERY 12 HOURS ORAL 05/06/19 11:00 06/05/19 10:59 05/09/19 09:56 Docusate Sodium (Colace) 100 mg THREE TIMES A DAY ORAL 05/06/19 13:00 06/05/19 12:59 05/09/19 09:56 Furosemide (Lasix) 20 mg EVERY 12 HOURS IV 05/08/19 21:00 06/07/19 20:59 05/09/19 09:56 Heparin Sodium (Porcine) (Heparin 5000 units/ml) 5,000 units EVERY 8 HOURS SUBQ 05/06/19 08:00 06/20/19 07:59 05/08/19 13:17 Isosorbide Dinitrate (Isordil) 10 mg Q6HR ORAL 05/06/19 12:00 06/05/19 11:59 05/09/19 06:27 Nitroglycerin (Ntg) 0.4 mg Q5M PRN SL Prn Chest Pain 05/06/19 07:45 06/05/19 07:44 Ondansetron HCl (Zofran) 4 mg Q6H PRN IVP Nausea & Vomiting 05/06/19 07:45 06/05/19 07:44 Pantoprazole (Protonix) 40 mg EVERY 12 HOURS ORAL 05/06/19 21:00 06/05/19 20:59 05/09/19 09:56 Robby Chavarria MD May 09, 2019 11:17
--- NOTE | 2019-05-09 11:35 | Nephrology Progress Note ---
Assessment/Plan Problem List: (1) Cardiac LV ejection fraction 10-20% (2) Renal insufficiency (3) Elevated troponin Assessment: Elevated troponin I Assessment (1) Renal insufficiency with diureses (2) Cardiac LV ejection fraction 10-20% (3) CHF (congestive heart failure) (4) Anemia (5) Elevated troponin (6) polysubstance abuse (7) history of seizure disorder Plan Patient refused blood draw today again Previously: Isordil add Coreg optimize cardiac status. Afterload reduction. Gentle diuresis. Keep the BP in check. Monitor renal parameters. Per orders. Subjective ROS Limited/Unobtainable: No Constitutional: Reports: weakness Objective Objective Last 24 Hour Vital Signs Date Time Temp Pulse Resp B/P (MAP) Pulse Ox O2 Delivery O2 Flow Rate FiO2 05/09/19 09:56 93 121/69 05/09/19 08:27 Room Air 05/09/19 08:00 99.2 93 20 121/69 (86) 100 05/09/19 07:41 91 05/09/19 06:27 112/81 05/09/19 04:00 91 05/09/19 00:00 98 05/08/19 21:09 93 116/67 05/08/19 21:00 Room Air 05/08/19 20:00 93 05/08/19 20:00 96.7 95 22 116/67 (83) 95 05/08/19 18:28 108/73 05/08/19 16:00 90 05/08/19 13:11 108/73 05/08/19 12:00 98.0 78 20 108/73 (85) 98 05/08/19 12:00 91 Intake and Output 05/08/19 05/09/19 19:00 07:00 Intake Total 1200 ml Balance 1200 ml Intake Oral 1200 ml # Voids 5 2 Height (Feet): 6 Height (Inches): 0.00 Weight (Pounds): 180 General Appearance: no apparent distress Objective No change Lester Mesa MD May 09, 2019 11:35
[2019-05-09] MEDS ORDERED: FUROSEMIDE40 MG ORAL (11:52)
[2019-05-09] MEDS ORDERED: ISOSORBIDE DINI10 MG ORAL (11:52)
--- NOTE | 2019-05-10 15:55 | Discharge Summary ---
Discharge Summary Discharge Summary _ DATE OF ADMISSION: 04/28/2019 DATE OF DISCHARGE: 05/09/2019 DISCHARGED BY: Dr. English REASON FOR ADMISSION: 58 years old male with past medical history of end-stage heart disease, cocaine abuse, presented to emergency department with chief complaint of chest discomfort. Patient received aspirin and nitroglycerin by beam house inspector. Laboratory work-up revealed no leukocytosis ,hemoglobin 11.5 ,hematocrit 37.8. Platelet count 217. Stable electrolytes. BUN 31, creatinine 1.3. Glucose 122. Troponin 0.232, pro BNP 7923. EKG revealed sinus tachycardia with heart rate 107 , no acute ischemic changes . Chest x-ray demonstrated stable cardiomegaly with mild pulmonary vascular congestion. Urine toxicology screen was positive for cocaine In emergency department patient received IV Lasix and subsequently admitted to telemetry floor for further management. CONSULTANTS: claims vice president Dr. Vee pulmonary Dr. Chavarria abseiling instructor Dr. Mesa HOSPITAL COURSE: Patient admitted to medical surgical floor Solar Fabrication Technician followed. Patient had prior hospitalization at this facility, left on 04/27 AGAINST MEDICAL ADVICE and went to [facility], where he was hospitalized for 3 days from 04/27 till 04/29. Patient appeared to be hospital hopper , noncompliant with medication regimen and still with active cocaine use. Echocardiogram was done on prior admission and revealed ejection fraction 10 to 15 % with severe global left ventricular hypokinesis. All four chambers were mildly dilated. Grade 2 left ventricular diastolic dysfunction. Moderate mitral regurgitation and moderate to severe tricuspid regurgitation. Right ventricular systolic pressure of 46 , consistent with moderate pulmonary hypertension. Diuresis provided with close monitoring of volumes and cardiorenal parameters. Guideline directed medical therapy provided as per claims vice president recommendation. DVT prophylaxis provided. Antiplatelet therapy with aspirin continued continued. GI prophylaxis provided. Supplemental oxygen provided and titrated to keep pulse oximetry above 92%. Pulse oximetry was stable on room air. Renal parameters and electrolytes were closely monitored , electrolytes corrected as needed, and nephrotoxic's were avoided. Creatinine from 1.7 down to 1.3 Hemoglobin and hematocrit were closely monitored with goal to keep hemoglobin above 7, remained stable , and prior to discharge hemoglobin 11.5, hematocrit 37.8. unit control worker met with the patient . Patient stated that he will go back to his sister house . Patient clinically stabilized and was ready for discharge. Patient was encouraged compliance with medication regimen and treatment. Patient was counseled on abstinence from illicit street drugs. FINAL DIAGNOSES: Acute on chronic systolic congestive heart failure Recurrent congestive heart failure secondary to systolic and diastolic dysfunction Cardiomyopathy, nonischemic related to cocaine use Homelessness Substance abuse/cocaine Chest pain Elevated troponin Acute on chronic renal insufficiency Chronic anemia Seizure disorder Frequent hospital admission/hospital hopper syndrome DISCHARGE MEDICATIONS: See Medication Reconciliation list. DISCHARGE INSTRUCTIONS: Patient was discharged outpatient disposition. Follow-up with a primary care provider in 1 week. I have been assigned to dictate discharge summary for this account. I was not involved in the patient's management. Blaire Ortega NP May 10, 2019 15:55
== END 2019-05-09 13:00 | disposition home or self-care (01) | DRG 194 ==
LOC: EDBD 02:40 → EMR 02:52 → 2E 03:50 → INTOOBSV 03:50 → OBSVTOIN 03:50 → EDBEDREQ 04:21
DX: I13.0 Hypertensive heart and chronic kidney disease with heart failure and stage 1 through stage 4 chronic kidney disease, or unspecified chronic kidney disease (principal); N18.9 Chronic kidney disease, unspecified; G40.909 Epilepsy, unspecified, not intractable, without status epilepticus; I50.23 Acute on chronic systolic (congestive) heart failure; F14.10 Cocaine abuse, uncomplicated; Z91.14 Patient's other noncompliance with medication regimen; I34.0 Nonrheumatic mitral (valve) insufficiency; I36.1 Nonrheumatic tricuspid (valve) insufficiency; I27.20 Pulmonary hypertension, unspecified; I42.8 Other cardiomyopathies; Z59.0 Homelessness; R07.9 Chest pain, unspecified; R79.89 Other specified abnormal findings of blood chemistry; D64.9 Anemia, unspecified; F19.10 Other psychoactive substance abuse, uncomplicated; Z91.19 Patient's noncompliance with other medical treatment and regimen
CPT/HCPCS: 36415; 71045; 80053; 80307; 81003; 82248; 83690; 83880; 84484; 85025; 85610; 85730; 93005; 99285

== ENCOUNTER 2019-05-18 08:26 | Emergency (ER) | payer MEDICAID ==
[~2019-05-18] VITALS: Ht 182.9 cm; Wt 72.6 kg
[~2019-05-18 08:26] MED LIST: FUROSEMIDE40 MG ORAL; ISOSORBIDE DINI10 MG ORAL
--- NOTE | 2019-05-18 08:36 | NUR ---
ED Nurse Note: Pt was [facility] from [facility] d/t flu-like symptoms with productive cough and diarrhea that started since last night. Pt is AOx3, verbally resposive, ambulatory, afebrile on triage; cooperative. Per EMS pt has hx of CHF. Placed on bed, initiated droplet isolation precautions. Safety assured; kept door closed at all times.
--- NOTE | 2019-05-18 08:40 | NUR ---
ED Nurse Note: Pt was offered warm blankets as requested. Latest temp 97.7F oral.
[2019-05-18] MEDS ORDERED: Acetaminophen 500mg (ES) tab ORAL ONE (08:45)
--- NOTE | 2019-05-18 09:30 | NUR ---
social services technician at bedside evaluating the patient
--- NOTE | 2019-05-18 09:36 | Emergency Room Report ---
History of Present Illness General Chief Complaint: Flu Like Symptoms Source: Patient Present Illness HPI Patient presents with complaints of runny nose and chest pain Reports that pain is 10 out of 10 Denies any shortness of breath or cough denies any fevers denies any vomiting He had reported to the paramedics that he started having diarrhea yesterday However does not mention that during his history Denies any recent travel patient has had multiple hospitalizations Denies any pleurisy denies any neck pain or photophobia Allergies: Coded Allergies: NO KNOWN ALLERGIES (Verified Allergy, Unknown, 04/08/19) COVID-19 Screening Contact w/high risk pt: No Recent Travel to affected area: No Experienced COVID-19 symptoms?: Yes COVID-19 symptoms experienced: Cough, Runny Nose, Flu-Like Symptoms Patient History Past Medical History: see triage record Reviewed Nursing Documentation: PMH: Agreed; PSxH: Agreed Nursing Documentation-PMH Hx Cardiac Problems: Yes - LVF 10 -20% Hx Hypertension: Yes Hx Cancer: No Hx Gastrointestinal Problems: No Hx Neurological Problems: Yes Hx Seizures: Yes Hx Weakness: Yes Review of Systems All Other Systems: negative except mentioned in HPI Physical Exam Vital Signs Date Time Temp Pulse Resp B/P (MAP) Pulse Ox O2 Delivery O2 Flow Rate FiO2 05/18/19 08:22 98.1 106 16 131/75 (93) 96 Room Air Sp02 EP Interpretation: reviewed, normal General Appearance: well appearing, no apparent distress Head: normocephalic, atraumatic Eyes: bilateral eye PERRL, bilateral eye EOMI ENT: hearing grossly normal, EOM grossly intact Neck: supple Respiratory: lungs clear, no respiratory distress, no retraction Cardiovascular #1: regular rate, rhythm Gastrointestinal: non tender, soft Musculoskeletal: normal inspection Neurologic: alert, right of way manager III-XII nml as tested, oriented x3 Psychiatric: normal inspection Skin: no rash Lymphatic: no adenopathy Medical Decision Making Diagnostic Impression: Primary Impression: CHF (congestive heart failure) ER Course Patient is a fairly complex patient with multiple differential to consideration including but not limited to cardiac cardiopulmonary and vascular emergencies Given the current state covid-19 also considered patient has had Multiple hospitalizations there is also documentation of a negative Covid-19 test at [facility] last week therefore this was not repeated Patient does not appear septic or toxic saturating well oxygenation is appropriate There is some evidence of CHF and patient is provided with diuretics At this time reports that he lives with his sister and is dispositioned for close outpatient follow-up Social work was also contacted and assisted with the disposition Labs Test 05/18/19 09:20 White Blood Count 6.0 K/UL (4.8-10.8) Red Blood Count 3.79 M/UL (4.70-6.10) Hemoglobin 10.3 G/DL (14.2-18.0) Hematocrit 33.0 % (42.0-52.0) Mean Corpuscular Volume 87 FL (80-99) Mean Corpuscular Hemoglobin 27.3 PG (27.0-31.0) Mean Corpuscular Hemoglobin Concent 31.3 G/DL (32.0-36.0) Red Cell Distribution Width 17.8 % (11.6-14.8) Platelet Count 190 K/UL (150-450) Mean Platelet Volume 7.9 FL (6.5-10.1) Neutrophils (%) (Auto) 72.6 % (45.0-75.0) Lymphocytes (%) (Auto) 13.1 % (20.0-45.0) Monocytes (%) (Auto) 10.1 % (1.0-10.0) Eosinophils (%) (Auto) 2.5 % (0.0-3.0) Basophils (%) (Auto) 1.6 % (0.0-2.0) Sodium Level 136 MMOL/L (136-145) Potassium Level 4.4 MMOL/L (3.5-5.1) Chloride Level 102 MMOL/L (98-107) Carbon Dioxide Level 23 MMOL/L (21-32) Anion Gap 11 mmol/L (5-15) Blood Urea Nitrogen 26 mg/dL (7-18) Creatinine 1.2 MG/DL (0.55-1.30) Estimat Glomerular Filtration Rate > 60 mL/min (>60) Glucose Level 139 MG/DL (74-106) Calcium Level 9.0 MG/DL (8.5-10.1) Total Bilirubin 1.3 MG/DL (0.2-1.0) Direct Bilirubin 0.4 MG/DL (0.0-0.3) Aspartate Amino Transf (AST/SGOT) 36 U/L (15-37) Alanine Aminotransferase (ALT/SGPT) 44 U/L (12-78) Alkaline Phosphatase 109 U/L (46-116) Troponin I 0.158 ng/mL (0.000-0.056) Pro-B-Type Natriuretic Peptide 5638 pg/mL (0-125) Total Protein 7.3 G/DL (6.4-8.2) Albumin 3.3 G/DL (3.4-5.0) Globulin 4.0 g/dL Albumin/Globulin Ratio 0.8 (1.0-2.7) EKG Diagnostic Results Rate: tachycardiac Rhythm: NSR ST Segments: other - Nonspecific ST changes Rhythm Strip Diag. Results EP Interpretation: yes Rate: 90 Rhythm: NSR, no PVC's, no ectopy Chest X-Ray Diagnostic Results Chest X-Ray Diagnostic Results : Chest X-Ray Ordered: Yes # of Views/Limited/Complete: 1 View Indication: Chest Pain EP Interpretation: Yes Interpretation: no pneumothorax, other Impression: Other - CHF Electronically Signed by: Kye Caldwell DO Last Vital Signs Date Time Temp Pulse Resp B/P (MAP) Pulse Ox O2 Delivery O2 Flow Rate FiO2 05/18/19 08:22 98.1 106 16 131/75 (93) 96 Room Air Status: improved Disposition: HOME, SELF-CARE Condition: Improved Referrals: [facility],REFERRING (PCP) Additional Instructions: Patient is provided with the discharge instructions notified to follow up with primary doctor in the next 2-3 days otherwise return to the er with any worsening symptoms. Please note that this report is being documented using [employer] technology. This can lead to erroneous entry secondary to incorrect interpretation by the dictating instrument. Kye Caldwell DO May 18, 2019 09:36
--- NOTE | 2019-05-18 09:45 | NUR ---
WIND TURBINE ERECTOR NOTE SW met w/ pt to assess his needs. Pt was well know to [facility]. Pt was hospitalized from 05/06/19-05/09/19 w/ hx of AMA. Pt reports he is residing w/ his sister at [facility]. Pt does not recall the exact address and contact information. SW is unable to verify his residence at this time. Per MD, pt was r/o COVID-19 at [facility] last week. Thus, pt will not be tested for COVID-19. Pt plans to return his sister's home upon DC. Pt is requesting a taxi ride. SW explained taxi voucher will require the verification of full address. SW offered a bus pass but pt was reluctant. Pt does not share any concern/needs. Pt will be discharged to his preferred location.
[2019-05-18 10:02] LABS: BASOPHILS % (AUTO) 1.6 % (0.0-2.0); EOSINOPHILS % (AUTO) 2.5 % (0.0-3.0); HEMOGLOBIN 10.3 G/DL (14.2-18.0); LYMPHOCYTES % (AUTO) 13.1 % (20.0-45.0); MEAN CORPUSCULAR VOLUME 87 FL (80-99); MONOCYTES % (AUTO) 10.1 % (1.0-10.0); NEUTROPHILS % (AUTO) 72.6 % (45.0-75.0); PLATELET COUNT 190 K/UL (150-450); RED BLOOD COUNT 3.79 M/UL (4.70-6.10); RED CELL DISTRIBUTION WIDTH 17.8 % (11.6-14.8)
--- NOTE | 2019-05-18 10:50 | NUR ---
ED Nurse Note: Offered sandwich and juice to pt.
[2019-05-18 11:05] LABS: ALANINE AMINOTRANSFERASE 44 U/L (12-78); ALBUMIN 3.3 G/DL (3.4-5.0); ALBUMIN/GLOBULIN RATIO 0.8 (1.0-2.7); ALKALINE PHOSPHATASE 109 U/L (46-116); ASPARTATE AMINO TRANSFERASE 36 U/L (15-37); BILIRUBIN,TOTAL 1.3 MG/DL (0.2-1.0); BLOOD UREA NITROGEN 26 mg/dL (7-18); CREATININE 1.2 MG/DL (0.55-1.30)
[2019-05-18 11:19] LABS: BILIRUBIN,DIRECT 0.4 MG/DL (0.0-0.3)
--- NOTE | 2019-05-18 11:25 | Diagnostic Imaging Report ---
Indication: Shortness of breath Technique: One view of the chest Comparison: 05/06/2019 Findings: Heart is enlarged. There is bilateral mild diffuse interstitial congestion. There is hazy airspace disease throughout the mid and lower lung. The pleural spaces are grossly clear. Parenchymal disease is increased as compared to the previous study. Impression: Cardiomegaly Bilateral interstitial congestion and hazy airspace opacity. Most likely due to congestive heart failure given the above, but infectious/inflammatory process also possible
[2019-05-18 11:41] LABS: SODIUM 136 MMOL/L (136-145)
[2019-05-18 11:42] LABS: CHLORIDE 102 MMOL/L (98-107); POTASSIUM 4.4 MMOL/L (3.5-5.1)
[2019-05-18 11:49] LABS: ANION GAP 11 mmol/L (5-15); CARBON DIOXIDE 23 MMOL/L (21-32)
[2019-05-18 12:18] VITALS: BP 138/89
--- NOTE | 2019-05-18 12:18 | NUR ---
ER DISCHARGE NOTE: Patient is cleared to be discharged per ERMD, pt is aox3, on room air, with stable vital signs. pt was given dc and prescription instructions, pt was able to verbalize understanding, pt id band and iv site removed without complications. pt is able to ambulate with steady gait. pt took all belongings.
== END 2019-05-18 12:18 | disposition home or self-care (01) ==
LOC: EDBD 08:26 → EMR 08:42
DX: I11.0 Hypertensive heart disease with heart failure (principal); I50.9 Heart failure, unspecified; G40.909 Epilepsy, unspecified, not intractable, without status epilepticus; R05 Cough; R00.0 Tachycardia, unspecified
CPT/HCPCS: 36415; 71045; 80053; 82248; 83880; 84484; 85025; 93005; 96374; J1940; Z7502; 99284

== ENCOUNTER 2019-08-02 09:44 | Inpatient (IN) | payer MEDICAID ==
[~2019-08-02] VITALS: Ht 185.4 cm; Wt 72.6 kg
--- NOTE | 2019-08-02 09:52 | NUR ---
ED Nurse Note: Pt brought in by ambulance from the [facility] d/t cough, SOB, and bilateral leg swelling. Per pt, he has had these problems "his whole life" but it became worse today. Respirations even and unlabored, with 100% O2 saturation on room air. Vitals stable as documented.
[2019-08-02 10:05] VITALS: BP 118/82
--- NOTE | 2019-08-02 10:05 | Emergency Room Report ---
History of Present Illness General Chief Complaint: Dyspnea/Respdistress Source: Patient Present Illness HPI Disclaimer: Please note that this report is being documented using [employer] technology. This can lead to erroneous entry secondary to incorrect interpretation by the dictating instrument. HPI: 59-year-old male history of CHF presents for evaluation of shortness of breath. Reports progressive swelling of the lower extremities over the past 2 days as well as progressive shortness of breath. Denies significant chest pain. Reports a constant cough which she has had for some time as well as nasal congestion. Also had some loose stools which he has had in the past. He has been without his Lasix for 2 days. Patient is homeless and his medication is kept at his sister's house where he typically goes for meals and medications but has not been there in 2 days. Last cardiac echo all available in our system was performed 04/09/19 shows severe global left ventricular hypokinesis with an ejection fraction 25 to 30% as well as moderate mitral regurgitation and moderate to severe tricuspid regurgitation. Denies smoking, drug use, alcohol use, fever, chills. No recent travel. Denies recent hospitalizations. Does not know about recent exposure to COVID-19. PMH: CHF, hypertension PSH: Reviewed Allergies: Denies Social Hx: Denies drug, alcohol or tobacco use Allergies: Coded Allergies: NO KNOWN ALLERGIES (Verified Allergy, Unknown, 04/08/19) COVID-19 Screening Contact w/high risk pt: No Recent Travel to affected area: No Experienced COVID-19 symptoms?: Yes COVID-19 symptoms experienced: Shortness of Breath, Cough, Runny Nose, Flu- Like Symptoms COVID-19 Testing performed GREEN BUILDING DESIGN SPECIALIST: No Nursing Documentation-PMH Past Medical History: No History, Except For Hx Cardiac Problems: Yes - LVF 10 -20%, CHF Hx Hypertension: Yes Hx Cancer: No Hx Gastrointestinal Problems: No Hx Neurological Problems: Yes Hx Seizures: Yes Hx Weakness: Yes Review of Systems All Other Systems: negative except mentioned in HPI Physical Exam Vital Signs Date Time Temp Pulse Resp B/P (MAP) Pulse Ox O2 Delivery O2 Flow Rate FiO2 08/02/19 09:37 97.3 95 17 114/80 (91) 97 Room Air General: Awake and alert, no acute distress HEENT: NC/AT. EOMI. Cardiovascular: RRR. S1 and S2 normal. Slight systolic ejection murmur at the left sternal border. Resp: Normal work of breathing. No cough, wheezing or crackles appreciated Abdomen: Abdomen is soft, nondistended. Nontender Skin: Intact. No abrasions, laceration or rash over the exposed skin MSK: Normal tone and bulk. Moving all extremities. No obvious deformity. 3+ bilateral pitting edema at the ankles. Neuro: Awake and alert. Mentating appropriately. Procedures Critical Care Time Critical Care Time Total critical care time: Approximately 31 minutes Due to a high probability of clinically significant, life threatening deterioration, the patient required the highest level of preparedness to intervene emergently and I personally spent this critical care time directly and personally managing the patient. This critical care time included obtaining a history, examining the patient, pulse oximetry, ordering and reviewing studies , ordering treatments, evaluating response to treatment and updating management plan as needed, frequent reassessment and discussion with other providers as well as arranging for ultimate disposition. This critical to care time was performed to assess and manage the high probability of life-threatening deterioration that could result in multiorgan failure. This critical care time is separate from the separately billable procedures and treating other patients. Medical Decision Making Diagnostic Impression: Primary Impression: CHF exacerbation Additional Impressions: Hyperkalemia MANOLO (acute kidney injury) Elevated troponin Cocaine substance abuse ER Course Is a 59-year-old male presenting for evaluation of shortness of breath. Differential includes was not limited to CHF exacerbation, COPD, asthma, ACS, arrhythmia, dehydration, anemia, URI, COVID-19, pneumonia, pneumothorax to name a few. Most consistent with a CHF exacerbation. Will draw broad labs and obtain chest x-ray to rule out other cause of his shortness of breath. Will give a small dose of Lasix. Patient placed on monitor, IV line established, small Lasix dose given. Does not require supplemental oxygen at this time is in no distress. 1100: Chest x-ray shows significant cardiomegaly and mild pulmonary congestion but no obvious infiltrate. EKG sinus rhythm without evidence of acute ischemia. Labs have returned showing a elevated potassium of 5.6, acute kidney injury with an elevated BUN and creatinine, elevated peptide consistent with CHF exacerbation and slightly elevated troponin. Aspirin given. Patient treated with IV calcium , insulin and dextrose to correct potassium levels. He will require admission for CHF exacerbation, acute kidney injury, hyperkalemia. Patient admitted to panel physician, Dr Hoang. Laboratory Tests Test 08/02/19 10:10 White Blood Count 5.9 K/UL (4.8-10.8) Red Blood Count 4.03 M/UL (4.70-6.10) L Hemoglobin 11.2 G/DL (14.2-18.0) L Hematocrit 38.4 % (42.0-52.0) L Mean Corpuscular Volume 95 FL (80-99) Mean Corpuscular Hemoglobin 27.9 PG (27.0-31.0) Mean Corpuscular Hemoglobin Concent 29.2 G/DL (32.0-36.0) L Red Cell Distribution Width 16.4 % (11.6-14.8) H Platelet Count 264 K/UL (150-450) Mean Platelet Volume 8.7 FL (6.5-10.1) Neutrophils (%) (Auto) 65.5 % (45.0-75.0) Lymphocytes (%) (Auto) 19.8 % (20.0-45.0) L Monocytes (%) (Auto) 11.2 % (1.0-10.0) H Eosinophils (%) (Auto) 1.7 % (0.0-3.0) Basophils (%) (Auto) 1.8 % (0.0-2.0) Sodium Level 134 MMOL/L (136-145) L Potassium Level 5.6 MMOL/L (3.5-5.1) H Chloride Level 102 MMOL/L (98-107) Carbon Dioxide Level 20 MMOL/L (21-32) L Anion Gap 12 mmol/L (5-15) Blood Urea Nitrogen 48 mg/dL (7-18) H Creatinine 2.4 MG/DL (0.55-1.30) H Estimated Glomerular Filtration Rate 33.7 mL/min (>60) Glucose Level 103 MG/DL (74-106) Calcium Level 8.6 MG/DL (8.5-10.1) Total Bilirubin 2.6 MG/DL (0.2-1.0) H Direct Bilirubin 1.1 MG/DL (0.0-0.3) H Aspartate Amino Transferase (AST) 45 U/L (15-37) H Alanine Aminotransferase (ALT) 28 U/L (12-78) Alkaline Phosphatase 113 U/L (46-116) Troponin I 0.116 ng/mL (0.000-0.056) Pro-B-Type Natriuretic Peptide 3014 pg/mL (0-125) H Total Protein 7.5 G/DL (6.4-8.2) Albumin 3.3 G/DL (3.4-5.0) L Globulin 4.2 g/dL Albumin/Globulin Ratio 0.8 (1.0-2.7) L EKG Diagnostic Results EKG Time: 10:02 Rate: normal Rhythm: NSR ST Segments: no acute changes Other Impression Sinus rhythm, normal axis, normal intervals, T wave flattening, nonspecific changes Rhythm Strip Diag. Results Rhythm Strip Time: 10:02 EP Interpretation: yes Rate: 90s Rhythm: NSR, no PVC's, no ectopy Chest X-Ray Diagnostic Results Chest X-Ray Diagnostic Results : Chest X-Ray Ordered: Yes # of Views/Limited/Complete: 1 View Indication: Shortness of Breath EP Interpretation: Yes Interpretation: other - Cardiomegaly, bilateral pulmonary congestion but no evidence of effusion or infiltrate. Impression: Other - Cardiomegaly with pulmonary congestion Electronically Signed by: Electronically signed by Dr. Tuan Bach Last Vital Signs Date Time Temp Pulse Resp B/P (MAP) Pulse Ox O2 Delivery O2 Flow Rate FiO2 08/02/19 09:46 97.3 95 17 114/80 (91) 97 Room Air Disposition: ADMITTED INPATIENT Condition: Serious Tuan Bach MD Aug 02, 2019 10:05
[2019-08-02 10:33] LABS: BASOPHILS % (AUTO) 1.8 % (0.0-2.0); EOSINOPHILS % (AUTO) 1.7 % (0.0-3.0); HEMATOCRIT 38.4 % (42.0-52.0); HEMOGLOBIN 11.2 G/DL (14.2-18.0); LYMPHOCYTES % (AUTO) 19.8 % (20.0-45.0); MEAN CORPUSCULAR VOLUME 95 FL (80-99); MONOCYTES % (AUTO) 11.2 % (1.0-10.0); NEUTROPHILS % (AUTO) 65.5 % (45.0-75.0); PLATELET COUNT 264 K/UL (150-450); RED BLOOD COUNT 4.03 M/UL (4.70-6.10); RED CELL DISTRIBUTION WIDTH 16.4 % (11.6-14.8); WHITE BLOOD COUNT 5.9 K/UL (4.8-10.8)
[2019-08-02 10:40] LABS: ANION GAP 12 mmol/L (5-15); BLOOD UREA NITROGEN 48 mg/dL (7-18); CALCIUM 8.6 MG/DL (8.5-10.1); CARBON DIOXIDE 20 MMOL/L (21-32); CHLORIDE 102 MMOL/L (98-107); CREATININE 2.4 MG/DL (0.55-1.30); POTASSIUM 5.6 MMOL/L (3.5-5.1); SODIUM 134 MMOL/L (136-145)
[2019-08-02] MEDS ORDERED: Insulin Human Regular 100units/ml 3ml IV ONE (10:45)
[2019-08-02] MEDS ORDERED: Calcium Gluconate 1gm/10ml vial IVP ONE (10:45)
[2019-08-02] MEDS ORDERED: Nitroglycerin 2% oint pkt TOPIC ONE (10:45)
[2019-08-02 10:57] LABS: ALANINE AMINOTRANSFERASE 28 U/L (12-78); ALBUMIN 3.3 G/DL (3.4-5.0); ALBUMIN/GLOBULIN RATIO 0.8 (1.0-2.7); ALKALINE PHOSPHATASE 113 U/L (46-116); ASPARTATE AMINO TRANSFERASE 45 U/L (15-37); BILIRUBIN,TOTAL 2.6 MG/DL (0.2-1.0)
[2019-08-02 11:00] LABS: BILIRUBIN,DIRECT 1.1 MG/DL (0.0-0.3)
--- NOTE | 2019-08-02 11:33 | Diagnostic Imaging Report ---
Procedure: XRAY Chest 1v Reason for study: Reason For Exam: SOB Comparison films: 05/18/2019. FINDINGS: A single one view chest is obtained. Vascularity is normal. Minimal residual linear atelectasis left upper lobe. No acute alveolar process. Cardiomegaly unchanged. CP angles are sharp. The bony thorax appear unremarkable. IMPRESSION: NO ACUTE CARDIOPULMONARY DISEASE.
[2019-08-02 12:00] VITALS: BP 128/71
[2019-08-02 12:07] LABS: APPEARANCE,URINE CLEAR; BILIRUBIN, URINE NEGATIVE (NEGATIVE); GLUCOSE, URINE (UA) NEGATIVE (NEGATIVE); KETONES,URINE NEGATIVE (NEGATIVE); LEUKOCYTE ESTERASE ,URINE NEGATIVE (NEGATIVE); NITRITE,URINE NEGATIVE (NEGATIVE); PH,URINE 5 (4.5-8.0); PROTEIN,URINE 1+ (NEGATIVE); UROBILINOGEN,URINE NORMAL MG/DL (0.0-1.0)
[2019-08-02 12:10] LABS: COLOR,URINE YELLOW
[2019-08-02] MEDS ORDERED: Aspirin Baby 81mg ORAL ONE (12:30)
--- NOTE | 2019-08-02 12:35 | Cardiac Electrophysiology PN ---
Assessment/Plan Assessment/Plan 1. Chronic troponin elevation.Even in prior hospitalization in March, April and May of 2019 The levels are flat. Likely due to renal failure . Refused nuclear stress test previous admissions 2. Severe cardiomyopathy with EF of only 20%. Off beta-shahram for active cocaine use. Resume Lasix, hydralazine, nitrate and Aldactone 3. Hypertension. Continue current medical regimen. 4. History of seizure disorder. 5. Polysubstance abuse with cocaine and marijuana . 6. Noncompliance. Signed out AMA prior admission in 04/[address] [place] Objective Last 24 Hour Vital Signs Date Time Temp Pulse Resp B/P (MAP) Pulse Ox O2 Delivery O2 Flow Rate FiO2 08/02/19 10:54 131/78 08/02/19 09:46 97.3 95 17 114/80 (91) 97 Room Air 08/02/19 09:37 97.3 95 17 114/80 (91) 97 Room Air Laboratory Tests Test 08/02/19 10:10 08/02/19 11:50 White Blood Count 5.9 K/UL (4.8-10.8) Red Blood Count 4.03 M/UL (4.70-6.10) L Hemoglobin 11.2 G/DL (14.2-18.0) L Hematocrit 38.4 % (42.0-52.0) L Mean Corpuscular Volume 95 FL (80-99) Mean Corpuscular Hemoglobin 27.9 PG (27.0-31.0) Mean Corpuscular Hemoglobin Concent 29.2 G/DL (32.0-36.0) L Red Cell Distribution Width 16.4 % (11.6-14.8) H Platelet Count 264 K/UL (150-450) Mean Platelet Volume 8.7 FL (6.5-10.1) Neutrophils (%) (Auto) 65.5 % (45.0-75.0) Lymphocytes (%) (Auto) 19.8 % (20.0-45.0) L Monocytes (%) (Auto) 11.2 % (1.0-10.0) H Eosinophils (%) (Auto) 1.7 % (0.0-3.0) Basophils (%) (Auto) 1.8 % (0.0-2.0) Sodium Level 134 MMOL/L (136-145) L Potassium Level 5.6 MMOL/L (3.5-5.1) H Chloride Level 102 MMOL/L (98-107) Carbon Dioxide Level 20 MMOL/L (21-32) L Anion Gap 12 mmol/L (5-15) Blood Urea Nitrogen 48 mg/dL (7-18) H Creatinine 2.4 MG/DL (0.55-1.30) H Estimat Glomerular Filtration Rate 33.7 mL/min (>60) Glucose Level 103 MG/DL (74-106) Calcium Level 8.6 MG/DL (8.5-10.1) Total Bilirubin 2.6 MG/DL (0.2-1.0) H Direct Bilirubin 1.1 MG/DL (0.0-0.3) H Aspartate Amino Transf (AST/SGOT) 45 U/L (15-37) H Alanine Aminotransferase (ALT/SGPT) 28 U/L (12-78) Alkaline Phosphatase 113 U/L (46-116) Troponin I 0.116 ng/mL (0.000-0.056) Pro-B-Type Natriuretic Peptide 3014 pg/mL (0-125) H Total Protein 7.5 G/DL (6.4-8.2) Albumin 3.3 G/DL (3.4-5.0) L Globulin 4.2 g/dL Albumin/Globulin Ratio 0.8 (1.0-2.7) L Urine Color Yellow Urine Appearance Clear Urine pH 5 (4.5-8.0) Urine Specific [place] 1.015 (1.005-1.035) Urine Protein 1+ (NEGATIVE) H Urine Glucose (UA) Negative (NEGATIVE) Urine Ketones Negative (NEGATIVE) Urine Blood Negative (NEGATIVE) Urine Nitrite Negative (NEGATIVE) Urine Bilirubin Negative (NEGATIVE) Urine Urobilinogen Normal MG/DL (0.0-1.0) Urine Leukocyte Esterase Negative (NEGATIVE) Urine RBC 0 /HPF (0 - 0) Urine WBC 0 /HPF (0 - 0) Urine Squamous Epithelial Cells Occasional /LPF Urine Bacteria Occasional /HPF (NONE) Urine Opiates Screen Negative (NEGATIVE) Urine Barbiturates Screen Negative (NEGATIVE) Phencyclidine (PCP) Screen Negative (NEGATIVE) Urine Amphetamines Screen Negative (NEGATIVE) Urine Benzodiazepines Screen Negative (NEGATIVE) Urine Cocaine Screen Positive (NEGATIVE) H Urine Marijuana (THC) Screen Positive (NEGATIVE) H Danie Florez MD Aug 02, 2019 12:35
--- NOTE | 2019-08-02 12:41 | NUR ---
ED Nurse Note: Dr. Florez @ bedside
--- NOTE | 2019-08-02 12:48 | Consultation ---
Consult Note Consult Note Asked to evaluate the patient at the request of Dr. Nilay Hoang for renal failure Patient known to me from his previous admission Chief Complaint: Dyspnea/Respdistress HPI: 59-year-old male history of CHF presents for evaluation of shortness of breath. Reports progressive swelling of the lower extremities over the past 2 days as well as progressive shortness of breath. Denies significant chest pain. Reports a constant cough which she has had for some time as well as nasal congestion. Also had some loose stools which he has had in the past. He has been without his Lasix for 2 days. Patient is homeless and his medication is kept at his sister's house where he typically goes for meals and medications but has not been there in 2 days. Last cardiac echo all available in our system was performed 04/09/19 shows severe global left ventricular hypokinesis with an ejection fraction 25 to 30% as well as moderate mitral regurgitation and moderate to severe tricuspid regurgitation. Denies smoking, drug use, alcohol use, fever, chills. No recent travel. Denies recent hospitalizations. Does not know about recent exposure to COVID-19. PMH: CHF, hypertension PSH: Reviewed Allergies: Denies Social Hx: Denies drug, alcohol or tobacco use NO KNOWN ALLERGIES (Verified Allergy, Unknown, 04/08/19) COVID-19 Screening Contact w/high risk pt: No that she is coming yet1. They do not go up fast1. Recent Travel to affected area: No Experienced COVID-19 symptoms?: Yes COVID-19 symptoms experienced: Shortness of Breath, Cough, Runny Nose, Flu- Like Symptoms COVID-19 Testing performed AIRLINE MANAGER: No Past Medical History: No History, Except For Hx Cardiac Problems: Yes - LVF 10 -20%, CHF Hx Hypertension: Yes Hx Cancer: No Hx Gastrointestinal Problems: No Hx Neurological Problems: Yes Hx Seizures: Yes Hx Weakness: Yes Assessment/Plan (1) Cardiac LV ejection fraction 10-20% (2) Renal insufficiency (3) CHF (4) Anemia (5) Elevated troponin (6) polysubstance abuse (7) history of seizure disorder Plan Isordil , Coreg optimize cardiac status. Afterload reduction. Gentle diuresis. As needed Keep the BP in check. Monitor renal parameters. Per orders. Patient has multiple admissions and emergency room visit here at [facility], I spent an additional 36 minutes on review of medical records including prior hospital records,consult notes, progress notes, procedures , imaging labs, hemodynamics, and other clinical documentation. Over 35 min Lester Mesa MD Aug 02, 2019 12:48
[2019-08-02] MEDS ORDERED: Sodium Polystyrene Sulfonate 15gm Powder ORAL SCH (13:00)
--- NOTE | 2019-08-02 14:06 | NUR ---
ED Nurse Note: 2decho being performed bedside
--- NOTE | 2019-08-02 14:12 | NUR ---
ED Nurse Note: Pt using expletives with cardiology techs. Pt upset because the test is taking too long. Asked patient to lower his voice and made him aware that the orthotic and prosthetic technician ordered the echo and it is important for his heart. Pt stated that the tech "didn't know how to read his name right."
--- NOTE | 2019-08-02 14:35 | NUR ---
ED Nurse Note: MRSA swab collected. Pt refused VRE/CRE swab. Pt refused to drink kayexelate.
--- NOTE | 2019-08-02 14:43 | NUR ---
ED Nurse Note: Report given to VIBHA Conley on 2E
--- NOTE | 2019-08-02 15:15 | NUR ---
ED Nurse Note: Pt transferred safely to with all belonings. Pt refused to have belongings checked for valuables. Pt upset in his room because he does not have a private room. Pt refusing to move from rney to bed. Pt advised that there were no other open rooms for him. Pt raising voice at staff and using expletives. Nursing superviser and Security called. Pt finally moved to hospital bed.
--- NOTE | 2019-08-02 15:16 | NUR ---
NURSE NOTES: Patient transferred from ED via gurney and received report from Jaja/VIBHA. Pt refused to have belongings checked for valuables. Pt upset because he does not have a private room. Refused to have vital sign taken. library monitor initiated. Refused to check skin for pressure injury. Patient sitting in bed, bed in low position and locked, call light within reach, Encouraged to use call light when needed. Will contact MD for admission order.
--- NOTE | 2019-08-02 17:15 | Consultation ---
DATE OF CONSULTATION: 08/02/2019 CARDIOLOGY CONSULTATION CONSULTING PHYSICIAN: Danie Florez MD. REFERRING PHYSICIAN: Nilay Hoang DO. REASON FOR CONSULTATION: Management of severe cardiomyopathy and congestive heart failure. HISTORY OF PRESENT ILLNESS: Patient is a 59-year-old gentleman who I am quite familiar from multiple previous hospitalizations. Patient has history of severe cardiomyopathy, EF of about 20% as well as history of cocaine use as well as chronic troponin elevation who came to the hospital for increasing shortness of breath, lower extremity edema as well as scrotal swelling for the last 3 days. Patient was noted in the ER and was found to be in congestive heart failure. His echocardiogram in April of 2019 showed EF of only 20% as well as moderate mitral regurgitation and severe tricuspid regurgitation. Patient continues to use cocaine and a Cardiology consultation was obtained for further evaluation. REVIEW OF SYSTEMS: Negative other than what was mentioned in the history of present illness. PAST MEDICAL HISTORY: As mentioned above. FAMILY HISTORY: Noncontributory. SOCIAL HISTORY: Continues to actively use cocaine. PHYSICAL EXAMINATION: VITAL SIGNS: Show blood pressure of 122/71, pulse 88, respirations 18. HEAD AND NECK: Shows positive JVD to angle of the jaw. LUNGS: Decreased breath sounds. Basilar rales. CARDIOVASCULAR: Shows regular S1 and S2 with gallop. ABDOMEN: Soft. EXTREMITIES: 3+ pitting edema as well as scrotal and penile edema. LABORATORY AND DIAGNOSTIC DATA: His labs show white count of 5.9, hemoglobin 11.2, hematocrit 38.4, and platelet count 264. Sodium 134, potassium 5.6, BUN of 48, creatinine 2.4, and glucose of 103. Troponin is 0.116 and BNP is . ASSESSMENT AND PLAN: 1. Exacerbation of congestive heart failure in a patient with EF of 15 to 20%. Resume patient's heart failure therapy. Avoid Coreg in view of active cocaine use. Continue Lasix as well as nitrate. Avoid PINEDA inhibitor, angiotensin-receptor blockers, Aldactone. 2. Chronic troponin elevation same as March, April, and May. Levels are flat, likely due to renal failure. 3. Hypertension. Continue maximizing his heart failure therapy. 4. Polysubstance abuse with cocaine. 5. Seizure disorder. 6. History of noncompliance. Patient signed out AMA on previous admission in April of 2019. Thank you very much for allowing me to participate in the care of this patient. Please do not hesitate to contact me for any questions regarding my evaluation. The case was discussed with the emergency room physician as well as Dr. Mesa. Danie Florez M.D. DR: RAMON JOB#: [id number] CC:
[2019-08-02] MEDS: HydrALAZINE 25mg tab ORAL SCH (18:06)
[2019-08-02] MEDS: Docusate 100mg cap ORAL SCH (18:06)
--- NOTE | 2019-08-02 19:20 | NUR ---
HAND-OFF: Report given to Amie/VIBHA, Patient is in stable condition. Endorsed plan of care.
--- NOTE | 2019-08-02 19:25 | NUR ---
NURSE NOTES: Received report from Yael Strickland RN. Pt in bed, denies pain, in stable condition. Will continue monitoring and plan of care.
[2019-08-02 20:00] VITALS: BP 115/76
[2019-08-02] MEDS: Tamsulosin 0.4mg cap ORAL SCH ×2 (21:00→21:40)
--- NOTE | 2019-08-02 21:00 | NUR ---
NURSE NOTES: Pt refused lasix 80mg and flomax 0.4mg at 2100. When nurse attempted to educate pt on necessity of medications, pt became very agitated and told nurse "get out" of the room. Meds wasted per protocol, will continue to monitor closely.
[2019-08-03] VITALS: BP 119/81
[2019-08-03 04:00] VITALS: BP 111/79
--- NOTE | 2019-08-03 07:22 | NUR ---
HAND-OFF: Report given to Tejas Strickland RN. Pt is in stable condition, plan of care endorsed.
--- NOTE | 2019-08-03 07:22 | NUR ---
NURSE NOTES: Report received from Amie DUNNE. Patient is awake and alert x 4. Patient noted to be on room air. Patient denies chest pain and shortness of breath at this time. Patient noted to have right hand 22 corina IV access saline lock. Endorsed that patient refused to be tested for covid 19, patient currently on standard precaution. Patient noted to have bilateral lower extremities edema. Endorsed to Tejas DUNNE that patient refused nursing care over night. Endorsed to Tejas DUNNE that patient refused to take medication overnight. Patient currently upset that he did not get pancakes and oatmeal for breakfast. Tejas DUNNE called down to kitchen. Patient has no other complaints at this time. Bed locked, in lowest position, call light in reach. Will continue to follow plan of care.
--- NOTE | 2019-08-03 07:25 | NUR ---
NURSE NOTES: Endorsed to Tejas DUNNE that patient refused laboratory blood draw this morning. Informed overnight nurse that he would do it later.
[2019-08-03 08:00] VITALS: BP 137/83
[2019-08-03 08:40] LABS: BASOPHILS % (AUTO) 1.3 % (0.0-2.0); EOSINOPHILS % (AUTO) 4.5 % (0.0-3.0); HEMATOCRIT 35.3 % (42.0-52.0); HEMOGLOBIN 10.2 G/DL (14.2-18.0); LYMPHOCYTES % (AUTO) 24.4 % (20.0-45.0); MEAN CORPUSCULAR VOLUME 94 FL (80-99); MONOCYTES % (AUTO) 14.7 % (1.0-10.0); NEUTROPHILS % (AUTO) 55.2 % (45.0-75.0); PLATELET COUNT 231 K/UL (150-450); RED BLOOD COUNT 3.73 M/UL (4.70-6.10); RED CELL DISTRIBUTION WIDTH 15.9 % (11.6-14.8); WHITE BLOOD COUNT 4.9 K/UL (4.8-10.8)
[2019-08-03 09:27] LABS: ALANINE AMINOTRANSFERASE 24 U/L (12-78); ALBUMIN 2.8 G/DL (3.4-5.0); ALBUMIN/GLOBULIN RATIO 0.7 (1.0-2.7); ALKALINE PHOSPHATASE 99 U/L (46-116); ANION GAP 10 mmol/L (5-15); ASPARTATE AMINO TRANSFERASE 26 U/L (15-37); BILIRUBIN,TOTAL 1.5 MG/DL (0.2-1.0); BLOOD UREA NITROGEN 44 mg/dL (7-18); CALCIUM 8.2 MG/DL (8.5-10.1); CARBON DIOXIDE 22 MMOL/L (21-32); CHLORIDE 102 MMOL/L (98-107); CHOLESTEROL 129 MG/DL (< 200); CREATINE KINASE 159 U/L (26-308); CREATININE 2.2 MG/DL (0.55-1.30); FERRITIN 54 NG/ML (8-388); GAMMA GLUTAMYL TRANSPEPTIDASE 84 U/L (5-85); HDL CHOLESTEROL 45 MG/DL (40-60); LACTATE DEHYDROGENASE 223 U/L (81-234); PHOSPHORUS 3.2 MG/DL (2.5-4.9); POTASSIUM 3.9 MMOL/L (3.5-5.1); SODIUM 134 MMOL/L (136-145); TRIGLYCERIDES 52 MG/DL (30-150)
[2019-08-03 09:29] LABS: BILIRUBIN,DIRECT 0.9 MG/DL (0.0-0.3)
--- NOTE | 2019-08-03 09:41 | Nephrology Progress Note ---
Assessment/Plan Problem List: (1) MANOLO (acute kidney injury) (2) Anemia (3) CHF (congestive heart failure) (4) Cocaine substance abuse (5) Hyperkalemia (6) Elevated troponin Assessment (1) Cardiac LV ejection fraction 10-20% (2) Renal insufficiency (3) CHF (4) Anemia (5) Elevated troponin (6) polysubstance abuse (7) history of seizure disorder Plan Plan Isordil , hydralazine optimize cardiac status. Afterload reduction. Gentle diuresis. As needed Keep the BP in check. Monitor renal parameters. Per orders. Subjective ROS Limited/Unobtainable: No Constitutional: Reports: malaise, weakness Objective Objective Last 24 Hour Vital Signs Date Time Temp Pulse Resp B/P (MAP) Pulse Ox O2 Delivery O2 Flow Rate FiO2 08/03/19 08:00 98.2 102 21 137/83 (101) 99 08/03/19 04:00 98.0 102 19 111/79 (90) 97 08/03/19 04:00 92 08/03/19 00:00 97 08/03/19 00:00 97.4 102 18 119/81 (94) 97 08/02/19 21:00 Room Air 08/02/19 20:00 107 08/02/19 20:00 98.0 104 20 115/76 (89) 97 08/02/19 18:06 122/79 08/02/19 18:05 122/79 08/02/19 16:00 101 08/02/19 15:43 Room Air 08/02/19 15:15 97.5 94 20 122/79 98 Room Air 08/02/19 12:00 88 17 128/71 99 Room Air 08/02/19 10:54 131/78 08/02/19 10:05 91 19 Room Air 08/02/19 10:05 97.3 91 17 118/82 99 Room Air 08/02/19 09:46 97.3 95 17 114/80 (91) 97 Room Air Intake and Output 08/02/19 08/03/19 19:00 07:00 Intake Total 340 ml 500 ml Output Total 1200 ml Balance -860 ml 500 ml Intake Oral 340 ml 500 ml Output Urine Total 1200 ml # Voids 6 3 Laboratory Tests 08/02/19 10:10: White Blood Count 5.9, Red Blood Count 4.03L, Hemoglobin 11.2L, Hematocrit 38.4L , Mean Corpuscular Volume 95, Mean Corpuscular Hemoglobin 27.9, Mean Corpuscular Hemoglobin Concent 29.2L, Red Cell Distribution Width 16.4H, Platelet Count 264, Mean Platelet Volume 8.7, Neutrophils (%) (Auto) 65.5, Lymphocytes (%) (Auto) 19.8L, Monocytes (%) (Auto) 11.2H, Eosinophils (%) (Auto ) 1.7, Basophils (%) (Auto) 1.8, Sodium Level 134L, Potassium Level 5.6H, Chloride Level 102, Carbon Dioxide Level 20L, Anion Gap 12, Blood Urea Nitrogen 48H, Creatinine 2.4H, Estimat Glomerular Filtration Rate 33.7, Glucose Level 103 , Calcium Level 8.6, Total Bilirubin 2.6H, Direct Bilirubin 1.1H, Aspartate Amino Transf (AST/SGOT) 45H, Alanine Aminotransferase (ALT/SGPT) 28, Alkaline Phosphatase 113, Troponin I 0.116H, Pro-B-Type Natriuretic Peptide 3014H, Total Protein 7.5, Albumin 3.3L, Globulin 4.2, Albumin/Globulin Ratio 0.8L 08/02/19 11:50: Urine Color Yellow, Urine Appearance Clear, Urine pH 5, Urine Specific Allen 1.015, Urine Protein 1+H, Urine Glucose (UA) Negative, Urine Ketones Negative, Urine Blood Negative, Urine Nitrite Negative, Urine Bilirubin Negative, Urine Urobilinogen Normal, Urine Leukocyte Esterase Negative, Urine RBC 0, Urine WBC 0 , Urine Squamous Epithelial Cells Occasional, Urine Bacteria Occasional, Urine Opiates Screen Negative, Urine Barbiturates Screen Negative, Phencyclidine (PCP ) Screen Negative, Urine Amphetamines Screen Negative, Urine Benzodiazepines Screen Negative, Urine Cocaine Screen PositiveH, Urine Marijuana (THC) Screen PositiveH 08/03/19 08:10: White Blood Count 4.9, Red Blood Count 3.73L, Hemoglobin 10.2L, Hematocrit 35.3L , Mean Corpuscular Volume 94, Mean Corpuscular Hemoglobin 27.4, Mean Corpuscular Hemoglobin Concent 29.0L, Red Cell Distribution Width 15.9H, Platelet Count 231, Mean Platelet Volume 8.1, Neutrophils (%) (Auto) 55.2, Lymphocytes (%) (Auto) 24.4, Monocytes (%) (Auto) 14.7H, Eosinophils (%) (Auto) 4.5H, Basophils (%) (Auto) 1.3, Sodium Level 134L, Potassium Level 3.9, Chloride Level 102, Carbon Dioxide Level 22, Anion Gap 10, Blood Urea Nitrogen 44H, Creatinine 2.2H, Estimat Glomerular Filtration Rate 37.3, Glucose Level 114H, Calcium Level 8.2L, Total Bilirubin 1.5H, Direct Bilirubin 0.9H, Aspartate Amino Transf (AST/SGOT) 26, Alanine Aminotransferase (ALT/SGPT) 24, Alkaline Phosphatase 99, Troponin I 0.122H, Pro-B-Type Natriuretic Peptide 1923H , Total Protein 6.6, Albumin 2.8L, Globulin 3.8, Albumin/Globulin Ratio 0.7L, Hemoglobin A1c 5.3, Lactic Acid Level 1.00, Uric Acid 8.8H, Phosphorus Level 3.2 , Magnesium Level 1.9, Ferritin 54, Gamma Glutamyl Transpeptidase 84, Lactate Dehydrogenase 223, Total Creatine Kinase 159, Triglycerides Level 52, Cholesterol Level 129, LDL Cholesterol 76, HDL Cholesterol 45, Cholesterol/HDL Ratio 2.9L, Thyroid Stimulating Hormone (TSH) 3.126 Height (Feet): 6 Height (Inches): 1.00 Weight (Pounds): 160 General Appearance: no apparent distress, lethargic Cardiovascular: tachycardia Respiratory/Chest: decreased breath sounds Abdomen: distended Extremities: moderate edema Lester Mesa MD Aug 03, 2019 09:41
[2019-08-03] MEDS: HydrALAZINE 25mg tab ORAL SCH ×2 (09:53→18:00)
[2019-08-03] MEDS: Docusate 100mg cap ORAL SCH ×2 (09:54→18:12)
--- NOTE | 2019-08-03 10:18 | Cardiac Electrophysiology PN ---
Assessment/Plan Assessment/Plan 1. Chronic troponin elevation. Even in prior hospitalization in March, April and May of 2019 The levels are flat. Likely due to renal failure . Refused nuclear stress test previous admissions 2. Severe cardiomyopathy with EF of only 20%. Off beta-shahram for active cocaine use. On Lasix 80 iv bid, hydralazine, nitrate 3. Hypertension. Continue current medical regimen. 4. History of seizure disorder. 5. Polysubstance abuse with cocaine and marijuana . 6. Noncompliance. Signed out AMA prior admission in 04/[address] Mesa Subjective Subjective Feeling better with diuresis Objective Last 24 Hour Vital Signs Date Time Temp Pulse Resp B/P (MAP) Pulse Ox O2 Delivery O2 Flow Rate FiO2 08/03/19 09:54 137/83 08/03/19 09:53 137/83 08/03/19 08:00 98.2 102 21 137/83 (101) 99 08/03/19 04:00 98.0 102 19 111/79 (90) 97 08/03/19 04:00 92 08/03/19 00:00 97 08/03/19 00:00 97.4 102 18 119/81 (94) 97 08/02/19 21:00 Room Air 08/02/19 20:00 107 08/02/19 20:00 98.0 104 20 115/76 (89) 97 08/02/19 18:06 122/79 08/02/19 18:05 122/79 08/02/19 16:00 101 08/02/19 15:43 Room Air 08/02/19 15:15 97.5 94 20 122/79 98 Room Air 08/02/19 12:00 88 17 128/71 99 Room Air 08/02/19 10:54 131/78 Intake and Output 08/02/19 08/03/19 19:00 07:00 Intake Total 340 ml 500 ml Output Total 1200 ml Balance -860 ml 500 ml Intake Oral 340 ml 500 ml Output Urine Total 1200 ml # Voids 6 3 Laboratory Tests Test 08/02/19 11:50 08/03/19 08:10 Urine Color Yellow Urine Appearance Clear Urine pH 5 (4.5-8.0) Urine Specific Cornelia 1.015 (1.005-1.035) Urine Protein 1+ (NEGATIVE) H Urine Glucose (UA) Negative (NEGATIVE) Urine Ketones Negative (NEGATIVE) Urine Blood Negative (NEGATIVE) Urine Nitrite Negative (NEGATIVE) Urine Bilirubin Negative (NEGATIVE) Urine Urobilinogen Normal MG/DL (0.0-1.0) Urine Leukocyte Esterase Negative (NEGATIVE) Urine RBC 0 /HPF (0 - 0) Urine WBC 0 /HPF (0 - 0) Urine Squamous Epithelial Cells Occasional /LPF Urine Bacteria Occasional /HPF (NONE) Urine Opiates Screen Negative (NEGATIVE) Urine Barbiturates Screen Negative (NEGATIVE) Phencyclidine (PCP) Screen Negative (NEGATIVE) Urine Amphetamines Screen Negative (NEGATIVE) Urine Benzodiazepines Screen Negative (NEGATIVE) Urine Cocaine Screen Positive (NEGATIVE) H Urine Marijuana (THC) Screen Positive (NEGATIVE) H White Blood Count 4.9 K/UL (4.8-10.8) Red Blood Count 3.73 M/UL (4.70-6.10) L Hemoglobin 10.2 G/DL (14.2-18.0) L Hematocrit 35.3 % (42.0-52.0) L Mean Corpuscular Volume 94 FL (80-99) Mean Corpuscular Hemoglobin 27.4 PG (27.0-31.0) Mean Corpuscular Hemoglobin Concent 29.0 G/DL (32.0-36.0) L Red Cell Distribution Width 15.9 % (11.6-14.8) H Platelet Count 231 K/UL (150-450) Mean Platelet Volume 8.1 FL (6.5-10.1) Neutrophils (%) (Auto) 55.2 % (45.0-75.0) Lymphocytes (%) (Auto) 24.4 % (20.0-45.0) Monocytes (%) (Auto) 14.7 % (1.0-10.0) H Eosinophils (%) (Auto) 4.5 % (0.0-3.0) H Basophils (%) (Auto) 1.3 % (0.0-2.0) Sodium Level 134 MMOL/L (136-145) L Potassium Level 3.9 MMOL/L (3.5-5.1) Chloride Level 102 MMOL/L (98-107) Carbon Dioxide Level 22 MMOL/L (21-32) Anion Gap 10 mmol/L (5-15) Blood Urea Nitrogen 44 mg/dL (7-18) H Creatinine 2.2 MG/DL (0.55-1.30) H Estimat Glomerular Filtration Rate 37.3 mL/min (>60) Glucose Level 114 MG/DL (74-106) H Hemoglobin A1c 5.3 % (4.3-6.0) Lactic Acid Level 1.00 mmol/L (0.4-2.0) Uric Acid 8.8 MG/DL (2.6-7.2) H Calcium Level 8.2 MG/DL (8.5-10.1) L Phosphorus Level 3.2 MG/DL (2.5-4.9) Magnesium Level 1.9 MG/DL (1.8-2.4) Ferritin 54 NG/ML (8-388) Total Bilirubin 1.5 MG/DL (0.2-1.0) H Direct Bilirubin 0.9 MG/DL (0.0-0.3) H Gamma Glutamyl Transpeptidase 84 U/L (5-85) Aspartate Amino Transf (AST/SGOT) 26 U/L (15-37) Alanine Aminotransferase (ALT/SGPT) 24 U/L (12-78) Alkaline Phosphatase 99 U/L (46-116) Lactate Dehydrogenase 223 U/L (81-234) Total Creatine Kinase 159 U/L (26-308) Troponin I 0.122 ng/mL (0.000-0.056) Pro-B-Type Natriuretic Peptide 1923 pg/mL (0-125) H Total Protein 6.6 G/DL (6.4-8.2) Albumin 2.8 G/DL (3.4-5.0) L Globulin 3.8 g/dL Albumin/Globulin Ratio 0.7 (1.0-2.7) L Triglycerides Level 52 MG/DL (30-150) Cholesterol Level 129 MG/DL (< 200) LDL Cholesterol 76 mg/dL (<100) HDL Cholesterol 45 MG/DL (40-60) Cholesterol/HDL Ratio 2.9 (3.3-4.4) L Thyroid Stimulating Hormone (TSH) 3.126 uiU/mL (0.358-3.740) Objective HEAD AND NECK: Shows positive JVD to angle of the jaw. LUNGS: Decreased breath sounds. Basilar rales. CARDIOVASCULAR: Shows regular S1 and S2 with S3 gallop. ABDOMEN: Soft. EXTREMITIES: 3+ pitting edema as well as scrotal and penile edema. aDnie Florez MD Aug 03, 2019 10:18
--- NOTE | 2019-08-03 10:55 | NUR ---
*-* INSURANCE *-* ALL AVAILABLE CLINICALS HAVE BEEN FAXED TO: [facility] #[phone] FAX#[phone] REVIEWS/CLINICALS Addendum: 08/03/19 at 1623 by KILLIAN CHINCHILLA CM [facility] Auth# [id number] Fax Clinicals: [phone] [facility] IPA [phone] Fax Clinicals: [phone] (They're still processing faxes, no pending auth issued yet) Addendum: 08/04/19 at 0925 by KILLIAN CHINCHILLA CM [facility]:MARI Schaeffer: [phone] REF# [id number]
--- NOTE | 2019-08-03 10:55 | NUR ---
*-* NO DISCHARGE INFORMATION IN THE BAR UNABLE TO SEND CLINICALS OR REVIEWS TO INS [facility] *-*
[2019-08-03 12:00] VITALS: BP 114/68
--- NOTE | 2019-08-03 12:17 | NUR ---
CASE MANAGEMENT:REVIEW 59 YR OLD MALE BIBA FROM STREET CC: COUGH AND SOB THAT HAS WORSENED SI: CHF. HYPERKALEMIA. ELEVATED TROPONIN MANOLO. COCAINE ABUSE 97.3 95 17 114/80 97% ON RA K+5.6 BUN+48 CR+2.4 TROPONIN(+) 0.116 URINE(+) THC AND COCAINE IS: IV LASIX NITRO 1" IV CA GLUCONATE IV INSULIN IV D50W ASA PO CHEST XRAY : TO TELEMETRY PLAN: CONTINUOUS CARDIAC MONITORING
--- NOTE | 2019-08-03 14:12 | Consultation ---
Consult Note Consult Note CONSULTING PHYSICIAN: Ghulam Mensah MD. REFERRING PHYSICIAN: Nilay Hoang DO. REASON FOR CONSULTATION: Pulmonary edema HISTORY OF PRESENT ILLNESS: Patient is a 59-year-old gentleman with a history of severe cardiomyopathy, EF of about 20%. There is also a history of cocaine use as well He came to the hospital for increasing shortness of breath, lower extremity edema as well as scrotal swelling for the last 3 days. Patient was noted in the ER and was found to be in congestive heart failure. His echocardiogram in April of 2019 showed EF of only 20% as well as moderate mitral regurgitation and severe tricuspid regurgitation. Patient continues to use cocaine His CXR has shown pulmonary edema Currently he is on nasal o2 REVIEW OF SYSTEMS: As discussed above PAST MEDICAL HISTORY: As mentioned above. FAMILY HISTORY: Noncontributory. SOCIAL HISTORY: Continues to actively use cocaine. PHYSICAL EXAMINATION: VITAL SIGNS: Show blood pressure of 122/71, pulse 88, respirations 18. HEAD AND NECK: Shows positive JVD to angle of the jaw. LUNGS: Decreased breath sounds. Basilar rales. CARDIOVASCULAR: Shows regular S1 and S2 ABDOMEN: Soft. EXTREMITIES: 3+ pitting edema as well as scrotal and penile edema. LABORATORY AND DIAGNOSTIC DATA: His labs show white count of 5.9, hemoglobin 11.2, hematocrit 38.4, and platelet count 264. Sodium 134, potassium 5.6, BUN of 48, creatinine 2.4, and glucose of 103. Troponin is 0.116 ASSESSMENT AND PLAN: 1. Exacerbation of congestive heart failure in a patient with EF of 15 to 20%. Resume patient's heart failure therapy. Continue Lasix as well as nitrate. Avoid PINEDA inhibitor, angiotensin-receptor blockers, Aldactone. 2. Chronic troponin elevation same as March, April, and May. likely due to renal failure. 3. Hypertension. Continue maximizing his heart failure therapy. 4. Polysubstance abuse with cocaine. 5. Seizure disorder. 6. History of noncompliance. Patient signed out AMA on previous admission in April of 2019. 7. Ordered Oxygen and pulmonary hygiene Ghulam Mensah M.D. Ghulam Mensah MD Aug 03, 2019 14:12
--- NOTE | 2019-08-03 14:18 | NUR ---
FOOD PROCESSING CHEMIST NOTE Pt is well known to [facility]. Pt was last admitted 05/06/2019-05/09/2019. Pt presents as aggressive, labile, and uncooperative. PT is homeless in [facility]. RUDS positive for Cocaine and THC. PT denies current substance abuse and declined to discuss further. Pt is requesting clothing, stating " I can't wear the same clothes all time. I need a new one. Give me the clothing". Pt also stated "I am not going anywhere now. I am not leaving" Pt declined to discuss DC planning. Pt also declined to explore the placement options. Pt was previously declined the placement assistance and self-directed to his preferred location. SW to F/U on DC date.
--- NOTE | 2019-08-03 15:14 | NUR ---
NURSE NOTES: Patient had ten beats of v-tach. Tejas DUNNE evaluated patient. Patient informed Tejas DUNNE that he had just stood up to use urinal. Patient now back in bed. Complains of slight chest pain but states it is tolerable and does not want any medication at this time. Note that patient has nitroglycerin patch on right upper chest that was placed yesterday. Patients blood pressure: 115/74 Oxygen: 100 % on room air Heart rate: 101 BPM per portable machine Charge nurse Odette made aware. Tejas DUNNE paged Doctor Gautam regarding episode. Patient currently in stable condition.
--- NOTE | 2019-08-03 15:31 | NUR ---
NURSE NOTES: Doctor Gautam aware of v-tach episode. no new orders.
[2019-08-03 16:00] VITALS: BP 112/80
--- NOTE | 2019-08-03 17:00 | NUR ---
NURSE NOTES: Patient received from dinner tray from kitchen. Patient became agitated and angry. Patient began to raise voice to nursing unit coordinator and was found by Tejas DUNNE in hallway. Tejas DUNNE deescalated the patient and assisted him safely back to bed. Tejas DUNNE explained it was an honest mistake and that a new dinner try was already called for. Patient was not understanding and began to use profanity towards Tejas DUNNE. Tejas DUNNE communicated that his new try would be up soon and left patient safely in bed in stable condition. Tejas DUNNE made Charge Nurse Odette aware of the situation.
--- NOTE | 2019-08-03 19:27 | NUR ---
HAND-OFF: Report given to Tammy DUNNE. Patient is currently in stable condition.
--- NOTE | 2019-08-03 19:29 | NUR ---
NURSE NOTES: Received patient in bed, awake, alert, oriented, able to make his needs known, IV site is clean dry and intact. Patient can ambulate with steady gate, able to make his needs known, call light is within reach, bed is lowered, locked, alarm is on, will continue to monitor for comfort and safety.
[2019-08-03] MEDS: Tamsulosin 0.4mg cap ORAL SCH (20:24)
--- NOTE | 2019-08-03 20:42 | NUR ---
NURSE NOTES: Patient stated that he doesn't want to take his Lasix pill at 2100, pharmacy was notified, patient stated he might take iot at later time.
--- NOTE | 2019-08-03 21:30 | History and Physical Report ---
DATE OF ADMISSION: 08/02/2019 DATE AND TIME SEEN: 08/03/2019 at 1 p.m. CONSULTANTS: 1. Ghulam Mensah MD. 2. Lester Mesa MD. 3. Danie Florez MD. 4. Salome Conner MD. CHIEF COMPLAINT: CHF, shortness of breath, edema. BRIEF HISTORY: This is a 59-year-old homeless man, who presents to [facility] last night because of increased shortness of breath for 2 days, diagnosed with hypokalemia, CHF exacerbation, edema, admitted to telemetry for further care. Currently, slightly confused in bed, slight short of breath. No complaint otherwise. REVIEW OF SYSTEMS: No chest pain. Slight short of breath. No nausea, vomiting, or diarrhea. PAST MEDICAL HISTORY: CHF, edema, MANOLO, drug abuse. PAST SURGICAL HISTORY: None. MEDICATIONS: Include allopurinol, tamsulosin, furosemide, pantoprazole, hydralazine, isosorbide. ALLERGIES: Denies. SOCIAL HISTORY: No smoking. No alcohol. No intravenous drug abuse. FAMILY HISTORY: Noncontributory. PHYSICAL EXAMINATION: GENERAL: Slightly anxious in bed, oriented x2, in no acute distress. VITAL SIGNS: Temperature 98, pulse 95, respirations 19, blood pressure 114/68. CARDIOVASCULAR: S1, S2. No murmur. LUNGS: Poor air exchange. ABDOMEN: Bowel sounds distant. EXTREMITIES: Show 1+ edema bilateral. NEUROLOGIC: Patient moves all extremities, slightly weak. LABORATORY DATA: Labs at this time show hemoglobin and hematocrit 10/35, otherwise CBC is normal. BMP shows sodium 134, BUN/creatinine 44/2.2, glucose 114. Troponin is 0.116 and 0.122. BNP is 1923. Albumin 2.8. Urinalysis is 1+ protein. Urine tox positive for cocaine and marijuana. ASSESSMENT: 1. CHF exacerbation. 2. Shortness of breath. 3. Edema. 4. Anemia. 5. MANOLO. 6. Elevated troponin. 7. Malnutrition. 8. Drug abuse. PLAN: 1. Blood pressure, pain control. 2. Detox. 3. O2, pulmonary treatment. 4. We will add Dr. Conner, psych eval. Nilay Hoang D.O. DR: HANSEL JOB#: [id number] CC:
[2019-08-04] VITALS: BP 110/65
[2019-08-04 04:00] VITALS: BP 116/77
--- NOTE | 2019-08-04 05:29 | Pulmonology Progress Note ---
Subjective ROS Limited/Unobtainable: No Interval Events: Feeling better Constitutional: Reports: no symptoms HEENT: Repors: no symptoms Respiratory: Reports: no symptoms Cardiovascular: Reports: no symptoms Gastrointestinal/Abdominal: Reports: no symptoms Genitourinary: Reports: no symptoms Allergies: Coded Allergies: NO KNOWN ALLERGIES (Verified Allergy, Unknown, 04/08/19) Objective Last 24 Hour Vital Signs Date Time Temp Pulse Resp B/P (MAP) Pulse Ox O2 Delivery O2 Flow Rate FiO2 08/04/19 04:00 97.7 100 20 116/77 (90) 99 08/04/19 04:00 93 08/04/19 00:00 97.1 93 20 110/65 (80) 98 08/04/19 00:00 102 08/03/19 21:02 Room Air 08/03/19 20:00 102 08/03/19 18:12 112/80 08/03/19 18:00 112/80 08/03/19 16:00 98.6 105 20 112/80 (91) 99 08/03/19 12:00 98.6 95 19 114/68 (83) 98 08/03/19 12:00 97 08/03/19 09:54 137/83 08/03/19 09:53 137/83 08/03/19 09:00 Room Air 08/03/19 08:00 102 08/03/19 08:00 98.2 102 21 137/83 (101) 99 Intake and Output 08/03/19 08/04/19 19:00 07:00 Intake Total 1200 ml Output Total 100 ml Balance 1200 ml -100 ml Intake Oral 1200 ml Output Urine Total 100 ml General Appearance: no acute distress HEENT: normocephalic Respiratory: chest wall non-tender, decreased breath sounds Cardiovascular: normal peripheral pulses Abdomen: normal bowel sounds Microbiology Date/Time Source Procedure Growth Status 08/02/19 14:50 Nasal Nares MRSA Culture - Final NO METHICILLIN RESISTANT STAPH AUREUS... Complete Laboratory Tests 08/03/19 08:10: White Blood Count 4.9, Red Blood Count 3.73L, Hemoglobin 10.2L, Hematocrit 35.3L , Mean Corpuscular Volume 94, Mean Corpuscular Hemoglobin 27.4, Mean Corpuscular Hemoglobin Concent 29.0L, Red Cell Distribution Width 15.9H, Platelet Count 231, Mean Platelet Volume 8.1, Neutrophils (%) (Auto) 55.2, Lymphocytes (%) (Auto) 24.4, Monocytes (%) (Auto) 14.7H, Eosinophils (%) (Auto) 4.5H, Basophils (%) (Auto) 1.3, Sodium Level 134L, Potassium Level 3.9, Chloride Level 102, Carbon Dioxide Level 22, Anion Gap 10, Blood Urea Nitrogen 44H, Creatinine 2.2H, Estimat Glomerular Filtration Rate 37.3, Glucose Level 114H, Hemoglobin A1c 5.3, Lactic Acid Level 1.00, Uric Acid 8.8H, Calcium Level 8.2L, Phosphorus Level 3.2, Magnesium Level 1.9, Ferritin 54, Total Bilirubin 1.5H, Direct Bilirubin 0.9H, Gamma Glutamyl Transpeptidase 84, Aspartate Amino Transf (AST/SGOT) 26, Alanine Aminotransferase (ALT/SGPT) 24, Alkaline Phosphatase 99, Lactate Dehydrogenase 223, Total Creatine Kinase 159, Troponin I 0.122H, Pro-B-Type Natriuretic Peptide 1923H, Total Protein 6.6, Albumin 2.8L , Globulin 3.8, Albumin/Globulin Ratio 0.7L, Triglycerides Level 52, Cholesterol Level 129, LDL Cholesterol 76, HDL Cholesterol 45, Cholesterol/HDL Ratio 2.9L, Thyroid Stimulating Hormone (TSH) 3.126 Current Medications Medications (Trade) Dose Ordered Sig/Ariel Route PRN Reason Start Time Stop Time Status Last Admin Dose Admin Allopurinol (allopurinoL) 300 mg DAILY ORAL 08/03/19 09:45 09/02/19 09:44 08/03/19 09:54 Docusate Sodium (Colace) 100 mg TWICE A DAY ORAL 08/02/19 18:00 09/01/19 17:59 08/03/19 18:12 Furosemide (Lasix) 80 mg EVERY 12 HOURS IV 08/02/19 21:00 09/01/19 20:59 08/03/19 09:53 Hydralazine HCl (Apresoline) 25 mg BID ORAL 08/02/19 18:00 10/31/19 17:59 08/03/19 09:53 Isosorbide Dinitrate (Isordil) 10 mg BID ORAL 08/02/19 18:00 09/01/19 17:59 08/03/19 18:12 Pantoprazole (Protonix) 40 mg BID ORAL 08/02/19 18:00 09/01/19 17:59 08/03/19 18:12 Tamsulosin HCl (Flomax) 0.4 mg BEDTIME ORAL 08/03/19 21:00 09/02/19 20:59 08/03/19 20:24 Assessment/Plan Assessment/Plan ASSESSMENT AND PLAN: 1. Exacerbation of congestive heart failure in a patient with EF of 15 to 20%. Resume patient's heart failure therapy. Continue Lasix as well as nitrate. Avoid PINEDA inhibitor, angiotensin-receptor blockers, Aldactone. 2. Chronic troponin elevation same as March, April, and May. likely due to renal failure. 3. Hypertension. Continue maximizing his heart failure therapy. 4. Polysubstance abuse with cocaine. 5. Seizure disorder. 6. History of noncompliance. Patient signed out AMA on previous admission in April of 2019. 7. Ordered Oxygen and pulmonary hygiene; currently on room air Ghulam Mensah M.D. Ghulam Mensah MD Aug 04, 2019 05:29
[2019-08-04 08:05] VITALS: BP 117/86
[2019-08-04] MEDS: Docusate 100mg cap ORAL SCH ×2 (08:52→18:14)
[2019-08-04] MEDS: HydrALAZINE 25mg tab ORAL SCH ×2 (08:52→18:14)
--- NOTE | 2019-08-04 09:15 | NUR ---
CASE MANAGEMENT:REVIEW 08/04/19 SI: CHF EXACERBATION W/EF 20-25% POLYSUBSTANCE ABUSE ~ COCAINE AND THC 96.8 102 18 117/86 100% ON RA IS: FLOMAX PO QHS ALLOPURINOL PO QD IV LASIX Q12 PROTONIX PO BID HYDRALAZINE PO BID ISORDIL PO BID : TELEMETRY STATUS DCP: FROM HOME PLAN: PT KAYCEE PENDING
[2019-08-04 09:44] LABS: BASOPHILS % (AUTO) 1.2 % (0.0-2.0); EOSINOPHILS % (AUTO) 3.8 % (0.0-3.0); HEMOGLOBIN 10.6 G/DL (14.2-18.0); LYMPHOCYTES % (AUTO) 19.8 % (20.0-45.0); MEAN CORPUSCULAR VOLUME 95 FL (80-99); MONOCYTES % (AUTO) 13.4 % (1.0-10.0); NEUTROPHILS % (AUTO) 61.9 % (45.0-75.0); PLATELET COUNT 248 K/UL (150-450); RED BLOOD COUNT 3.91 M/UL (4.70-6.10); RED CELL DISTRIBUTION WIDTH 16.3 % (11.6-14.8); WHITE BLOOD COUNT 5.1 K/UL (4.8-10.8)
[2019-08-04 10:02] LABS: ALANINE AMINOTRANSFERASE 28 U/L (12-78); ALBUMIN 2.6 G/DL (3.4-5.0); ALBUMIN/GLOBULIN RATIO 0.7 (1.0-2.7); ALKALINE PHOSPHATASE 92 U/L (46-116); ANION GAP 11 mmol/L (5-15); ASPARTATE AMINO TRANSFERASE 32 U/L (15-37); BILIRUBIN,TOTAL 1.7 MG/DL (0.2-1.0); BLOOD UREA NITROGEN 30 mg/dL (7-18); CALCIUM 8.2 MG/DL (8.5-10.1); CARBON DIOXIDE 23 MMOL/L (21-32); CHLORIDE 103 MMOL/L (98-107); CREATININE 1.8 MG/DL (0.55-1.30); GAMMA GLUTAMYL TRANSPEPTIDASE 71 U/L (5-85); PHOSPHORUS 3.1 MG/DL (2.5-4.9); POTASSIUM 4.1 MMOL/L (3.5-5.1); SODIUM 137 MMOL/L (136-145)
[2019-08-04 10:07] LABS: BILIRUBIN,DIRECT 0.8 MG/DL (0.0-0.3)
--- NOTE | 2019-08-04 10:40 | NUR ---
PT NOTE Received MD order for PT evaluation. Attempted to see patient for PT evaluation. Patient declining to participate with PT evaluation at this time, c/o dizziness and SOB with ambulation. Evens RN notified, will re-attempt later as schedule permits.
--- NOTE | 2019-08-04 10:55 | NUR ---
*-* INSURANCE *-* ALL AVAILABLE CLINICALS HAVE BEEN FAXED TO: [facility] Auth# [id number] Fax Clinicals: [phone] & FOR[facility]LY [facility], [facility] [place]:MARI Schaeffer: [phone] F: [phone] Addendum: 08/04/19 at 1620 by KILLIAN CHINCHILLA [facility] Auth# [id number] Fax Clinicals: [phone] [facility] Pending Auth# [id number] CM CM: Marylin -[phone] Fax Clinicals: [phone]
--- NOTE | 2019-08-04 11:04 | General Progress Note ---
Assessment/Plan Problem List: (1) SOB (shortness of breath) ICD Codes: R06.02 - Shortness of breath SNOMED: 002672828 (2) Malnutrition ICD Codes: E46 - Unspecified protein-calorie malnutrition SNOMED: 36727206 (3) Anemia ICD Codes: D64.9 - Anemia, unspecified SNOMED: 556679282 (4) CHF exacerbation ICD Codes: I50.9 - Heart failure, unspecified SNOMED: 517299926, 35586067392203 (5) MANOLO (acute kidney injury) ICD Codes: N17.9 - Acute kidney failure, unspecified SNOMED: 87094993, 7050524 (6) Hyperkalemia ICD Codes: E87.5 - Hyperkalemia SNOMED: 30924801, 6774342 Status: unchanged Assessment/Plan: pt diet bp pain control cbc bmp in am Subjective Constitutional: Reports: weakness Allergies: Coded Allergies: NO KNOWN ALLERGIES (Verified Allergy, Unknown, 04/08/19) All Systems: reviewed and negative except above Subjective calm in bed Objective Last 24 Hour Vital Signs Date Time Temp Pulse Resp B/P (MAP) Pulse Ox O2 Delivery O2 Flow Rate FiO2 08/04/19 08:52 117/86 08/04/19 08:52 117/86 08/04/19 08:07 Room Air 08/04/19 08:05 96.8 102 18 117/86 (96) 100 08/04/19 08:00 96 08/04/19 04:00 97.7 100 20 116/77 (90) 99 08/04/19 04:00 93 08/04/19 00:00 97.1 93 20 110/65 (80) 98 08/04/19 00:00 102 08/03/19 21:02 Room Air 08/03/19 20:00 102 08/03/19 18:12 112/80 08/03/19 18:00 112/80 08/03/19 16:00 98.6 105 20 112/80 (91) 99 08/03/19 12:00 98.6 95 19 114/68 (83) 98 08/03/19 12:00 97 Intake and Output 08/03/19 08/04/19 19:00 07:00 Intake Total 1200 ml Output Total 100 ml Balance 1200 ml -100 ml Intake Oral 1200 ml Output Urine Total 100 ml Laboratory Tests 08/04/19 09:20: White Blood Count 5.1, Red Blood Count 3.91L, Hemoglobin 10.6L, Hematocrit 37.0L , Mean Corpuscular Volume 95, Mean Corpuscular Hemoglobin 27.1, Mean Corpuscular Hemoglobin Concent 28.7L, Red Cell Distribution Width 16.3H, Platelet Count 248, Mean Platelet Volume 7.8, Neutrophils (%) (Auto) 61.9, Lymphocytes (%) (Auto) 19.8L, Monocytes (%) (Auto) 13.4H, Eosinophils (%) (Auto ) 3.8H, Basophils (%) (Auto) 1.2, Sodium Level 137, Potassium Level 4.1, Chloride Level 103, Carbon Dioxide Level 23, Anion Gap 11, Blood Urea Nitrogen 30H, Creatinine 1.8H, Estimat Glomerular Filtration Rate 47.0, Glucose Level 91 , Uric Acid 8.0H, Calcium Level 8.2L, Phosphorus Level 3.1, Magnesium Level 1.6L , Total Bilirubin 1.7H, Direct Bilirubin 0.8H, Gamma Glutamyl Transpeptidase 71 , Aspartate Amino Transf (AST/SGOT) 32, Alanine Aminotransferase (ALT/SGPT) 28, Alkaline Phosphatase 92, C-Reactive Protein, Quantitative 1.0H, Pro-B-Type Natriuretic Peptide 1184H, Total Protein 6.4, Albumin 2.6L, Globulin 3.8, Albumin/Globulin Ratio 0.7L Height (Feet): 6 Height (Inches): 1.00 Weight (Pounds): 160 General Appearance: lethargic EENT: normal ENT inspection Neck: normal alignment Cardiovascular: normal peripheral pulses, normal rate, regular rhythm Respiratory/Chest: chest wall non-tender, lungs clear, normal breath sounds Abdomen: normal bowel sounds, non tender, soft Extremities: normal inspection Edema: 1+ Arm (L), 1+ Arm (R), 1+ Leg (L), 1+ Leg (R), 1+ Pedal (L), 1+ Pedal ( R), 1+ Generalized Edema: trace edema Neurologic: motor weakness Skin: normal pigmentation, warm/dry Nilay Hoang DO Aug 04, 2019 11:04
[2019-08-04 11:46] VITALS: BP 117/81
--- NOTE | 2019-08-04 12:15 | Progress Note ---
DATE: 08/03/2019 PSYCHOTHERAPY CONSULTATION PROGRESS NOTE TREATING ATTENDING: Nilay Hoang DO HISTORY OF PRESENT ILLNESS: Patient is a 59-year-old male. This patient came to the hospital for congestive heart failure. Patient has been agitated and anxious and for these reasons, he was referred for psychotherapeutic services. Patient is very loud at this time. He states that he has been feeling very frustrated because he . He states that he feels overstimulated and . He denies suicidal or homicidal thoughts of ideation. Denies any auditory or visual hallucinations. He states that he is currently homeless at this time. He remains slightly confused and disorganized. Mood is redirectable. PAST MEDICAL HISTORY: Includes a history of CHF, edema, MANOLO. ALLERGIES: Patient has no known drug allergies. SUBSTANCE USE HISTORY: Patient has a history of alcohol use. Denies history of illicit substance use, prior history of smoking cigarettes. PSYCHIATRIC HISTORY: Patient states that he denies a history of any mental illness at this time, however, he remains . MENTAL STATUS EXAMINATION: He is alert and oriented to person, place, time. Mood is anxious. Affect is congruent. Thought process is disorganized. He has poor attention and concentration. Poor insight, judgment, impulse control. SOCIAL HISTORY: He is a 59-year-old single male patient. He is currently homeless. I ASSESSED THIS PATIENT AND PROVIDED THE PATIENT WITH: 1. Reality orientation focused on improving cognitive level of function as the patient is very confused and disorganized. Patient is oriented to person, place, time, and situation. 2. Provided the patient with supportive psychotherapy. 3. Encouraged patient to communicate and articulate thoughts utilizing positive communication skills. PLAN: Plan is to maintain medication compliance with positive coping skills and . This clinician has reviewed the patient's chart and discussed treatment with treatment team. Maximilian Bradford PsyD. DR: SHAYLA JOB#: [id number] CC:
--- NOTE | 2019-08-04 12:36 | Cardiac Electrophysiology PN ---
Assessment/Plan Assessment/Plan 1. Chronic troponin elevation. Even in prior hospitalization in March, April and May of 2019 The levels are flat. Likely due to renal failure . Refused nuclear stress test previous admissions 2. Severe cardiomyopathy with EF of only 20%. Off beta-shahram for active cocaine use. On Lasix 80 iv bid, hydralazine, nitrate 3. Hypertension. Continue current medical regimen. 4. Acute renal failure. Better on iv Lasix. FU Dr Mesa 4. History of seizure disorder. 5. Polysubstance abuse with cocaine and marijuana . 6. Noncompliance. Signed out AMA prior admission in 04/[address] Mesa Subjective Subjective Feeling better with diuresis. Had 8 beats of VT Objective Last 24 Hour Vital Signs Date Time Temp Pulse Resp B/P (MAP) Pulse Ox O2 Delivery O2 Flow Rate FiO2 08/04/19 11:46 98.1 101 18 117/81 (93) 96 08/04/19 08:52 117/86 08/04/19 08:52 117/86 08/04/19 08:07 Room Air 08/04/19 08:05 96.8 102 18 117/86 (96) 100 08/04/19 08:00 96 08/04/19 04:00 97.7 100 20 116/77 (90) 99 08/04/19 04:00 93 08/04/19 00:00 97.1 93 20 110/65 (80) 98 08/04/19 00:00 102 08/03/19 21:02 Room Air 08/03/19 20:00 102 08/03/19 18:12 112/80 08/03/19 18:00 112/80 08/03/19 16:00 98.6 105 20 112/80 (91) 99 Intake and Output 08/03/19 08/04/19 19:00 07:00 Intake Total 1200 ml Output Total 100 ml Balance 1200 ml -100 ml Intake Oral 1200 ml Output Urine Total 100 ml Laboratory Tests Test 08/04/19 09:20 White Blood Count 5.1 K/UL (4.8-10.8) Red Blood Count 3.91 M/UL (4.70-6.10) L Hemoglobin 10.6 G/DL (14.2-18.0) L Hematocrit 37.0 % (42.0-52.0) L Mean Corpuscular Volume 95 FL (80-99) Mean Corpuscular Hemoglobin 27.1 PG (27.0-31.0) Mean Corpuscular Hemoglobin Concent 28.7 G/DL (32.0-36.0) L Red Cell Distribution Width 16.3 % (11.6-14.8) H Platelet Count 248 K/UL (150-450) Mean Platelet Volume 7.8 FL (6.5-10.1) Neutrophils (%) (Auto) 61.9 % (45.0-75.0) Lymphocytes (%) (Auto) 19.8 % (20.0-45.0) L Monocytes (%) (Auto) 13.4 % (1.0-10.0) H Eosinophils (%) (Auto) 3.8 % (0.0-3.0) H Basophils (%) (Auto) 1.2 % (0.0-2.0) Sodium Level 137 MMOL/L (136-145) Potassium Level 4.1 MMOL/L (3.5-5.1) Chloride Level 103 MMOL/L (98-107) Carbon Dioxide Level 23 MMOL/L (21-32) Anion Gap 11 mmol/L (5-15) Blood Urea Nitrogen 30 mg/dL (7-18) H Creatinine 1.8 MG/DL (0.55-1.30) H Estimat Glomerular Filtration Rate 47.0 mL/min (>60) Glucose Level 91 MG/DL (74-106) Uric Acid 8.0 MG/DL (2.6-7.2) H Calcium Level 8.2 MG/DL (8.5-10.1) L Phosphorus Level 3.1 MG/DL (2.5-4.9) Magnesium Level 1.6 MG/DL (1.8-2.4) L Total Bilirubin 1.7 MG/DL (0.2-1.0) H Direct Bilirubin 0.8 MG/DL (0.0-0.3) H Gamma Glutamyl Transpeptidase 71 U/L (5-85) Aspartate Amino Transf (AST/SGOT) 32 U/L (15-37) Alanine Aminotransferase (ALT/SGPT) 28 U/L (12-78) Alkaline Phosphatase 92 U/L (46-116) C-Reactive Protein, Quantitative 1.0 mg/dL (0.00-0.90) H Pro-B-Type Natriuretic Peptide 1184 pg/mL (0-125) H Total Protein 6.4 G/DL (6.4-8.2) Albumin 2.6 G/DL (3.4-5.0) L Globulin 3.8 g/dL Albumin/Globulin Ratio 0.7 (1.0-2.7) L Microbiology Date/Time Source Procedure Growth Status 08/02/19 14:50 Nasal Nares MRSA Culture - Final NO METHICILLIN RESISTANT STAPH AUREUS... Complete Objective HEAD AND NECK: Shows positive JVD to angle of the jaw. LUNGS: Decreased breath sounds. Basilar rales. CARDIOVASCULAR: Shows regular S1 and S2 with S3 gallop. ABDOMEN: Soft. EXTREMITIES: 3+ pitting edema as well as scrotal and penile edema. Danie Florez MD Aug 04, 2019 12:36
--- NOTE | 2019-08-04 12:54 | Nephrology Progress Note ---
Assessment/Plan Problem List: (1) MANOLO (acute kidney injury) (2) Anemia (3) CHF (congestive heart failure) (4) Cocaine substance abuse (5) Hyperkalemia (6) Elevated troponin Assessment (1) Cardiac LV ejection fraction 10-20% (2) Renal insufficiency (3) CHF (4) Anemia (5) Elevated troponin (6) polysubstance abuse (7) history of seizure disorder Plan Serum creatinine lowering. 1 dose oral digoxin Isordil , hydralazine optimize cardiac status. Afterload reduction. Gentle diuresis. As needed Keep the BP in check. Monitor renal parameters. Per orders. Subjective ROS Limited/Unobtainable: No Constitutional: Reports: malaise, weakness Objective Objective Last 24 Hour Vital Signs Date Time Temp Pulse Resp B/P (MAP) Pulse Ox O2 Delivery O2 Flow Rate FiO2 08/04/19 11:46 98.1 101 18 117/81 (93) 96 08/04/19 08:52 117/86 08/04/19 08:52 117/86 08/04/19 08:07 Room Air 08/04/19 08:05 96.8 102 18 117/86 (96) 100 08/04/19 08:00 96 08/04/19 04:00 97.7 100 20 116/77 (90) 99 08/04/19 04:00 93 08/04/19 00:00 97.1 93 20 110/65 (80) 98 08/04/19 00:00 102 08/03/19 21:02 Room Air 08/03/19 20:00 102 08/03/19 18:12 112/80 08/03/19 18:00 112/80 08/03/19 16:00 98.6 105 20 112/80 (91) 99 Intake and Output 08/03/19 08/04/19 19:00 07:00 Intake Total 1200 ml Output Total 100 ml Balance 1200 ml -100 ml Intake Oral 1200 ml Output Urine Total 100 ml Current Medications Medications (Trade) Dose Ordered Sig/Ariel Route PRN Reason Start Time Stop Time Status Last Admin Dose Admin Allopurinol (allopurinoL) 300 mg DAILY ORAL 08/03/19 09:45 09/02/19 09:44 08/04/19 08:52 Docusate Sodium (Colace) 100 mg TWICE A DAY ORAL 08/02/19 18:00 09/01/19 17:59 08/04/19 08:52 Furosemide (Lasix) 80 mg EVERY 12 HOURS IV 08/02/19 21:00 09/01/19 20:59 08/04/19 08:52 Hydralazine HCl (Apresoline) 25 mg BID ORAL 08/02/19 18:00 10/31/19 17:59 08/04/19 08:52 Isosorbide Dinitrate (Isordil) 10 mg BID ORAL 08/02/19 18:00 09/01/19 17:59 08/04/19 08:52 Pantoprazole (Protonix) 40 mg BID ORAL 08/02/19 18:00 09/01/19 17:59 08/04/19 08:52 Tamsulosin HCl (Flomax) 0.4 mg BEDTIME ORAL 08/03/19 21:00 09/02/19 20:59 08/03/19 20:24 Laboratory Tests 08/04/19 09:20: White Blood Count 5.1, Red Blood Count 3.91L, Hemoglobin 10.6L, Hematocrit 37.0L , Mean Corpuscular Volume 95, Mean Corpuscular Hemoglobin 27.1, Mean Corpuscular Hemoglobin Concent 28.7L, Red Cell Distribution Width 16.3H, Platelet Count 248, Mean Platelet Volume 7.8, Neutrophils (%) (Auto) 61.9, Lymphocytes (%) (Auto) 19.8L, Monocytes (%) (Auto) 13.4H, Eosinophils (%) (Auto ) 3.8H, Basophils (%) (Auto) 1.2, Sodium Level 137, Potassium Level 4.1, Chloride Level 103, Carbon Dioxide Level 23, Anion Gap 11, Blood Urea Nitrogen 30H, Creatinine 1.8H, Estimat Glomerular Filtration Rate 47.0, Glucose Level 91 , Uric Acid 8.0H, Calcium Level 8.2L, Phosphorus Level 3.1, Magnesium Level 1.6L , Total Bilirubin 1.7H, Direct Bilirubin 0.8H, Gamma Glutamyl Transpeptidase 71 , Aspartate Amino Transf (AST/SGOT) 32, Alanine Aminotransferase (ALT/SGPT) 28, Alkaline Phosphatase 92, C-Reactive Protein, Quantitative 1.0H, Pro-B-Type Natriuretic Peptide 1184H, Total Protein 6.4, Albumin 2.6L, Globulin 3.8, Albumin/Globulin Ratio 0.7L Height (Feet): 6 Height (Inches): 1.00 Weight (Pounds): 160 General Appearance: no apparent distress Cardiovascular: tachycardia Respiratory/Chest: decreased breath sounds Abdomen: distended Lester Mesa MD Aug 04, 2019 12:54
--- NOTE | 2019-08-04 13:28 | NUR ---
PT NOTE Second attempt to see patient for PT evaluation. Patient continues to decline to participate with PT evaluation or bed therapeutic exercises. Evens DUNNE aware, will follow up tomorrow.
[2019-08-04 16:00] VITALS: BP 122/83
--- NOTE | 2019-08-04 19:30 | NUR ---
NURSE NOTES: Received report from VIHBA Horner. Patient is awake, alert and oriented x 3-4. On cardiac diet, instructed and amenable. environmental monitoring technician is in placed, shows Sinus rhythm. Patient is on seizure precaution. Patient is on room air, saturating 95%, with no SOB reported. Safety measures are in placed, bed in lowest and locked position, side rails up x 2. Call light button and bedside table within reach, instructed to call for any assistance needed. Will continue plan of care.
[2019-08-04 20:00] VITALS: BP 119/78
[2019-08-04] MEDS: Tamsulosin 0.4mg cap ORAL SCH (20:42)
[2019-08-05] VITALS: BP 114/69
[2019-08-05 04:00] VITALS: BP 121/62
--- NOTE | 2019-08-05 07:30 | NUR ---
NURSE NOTES:Handoff received from VIBHA Roman. Patient received awake and alert eating breakfast in bed, patient stated he wanted sausages and an extra milk with breakfast, called and ordered for patient. No acute signs of distress noted. Patient is on room air, bed in the low and locked position with call light within reach, will continue to monitor patient.
--- NOTE | 2019-08-05 07:42 | NUR ---
HAND-OFF: Report given to VIBHA Hernandez. Patient is awake, sitting on bed, on stable condition. Plan of care endorsed.
[2019-08-05 08:00] VITALS: BP 158/83
[2019-08-05] MEDS: Docusate 100mg cap ORAL SCH ×2 (09:40→17:17)
[2019-08-05] MEDS: HydrALAZINE 25mg tab ORAL SCH ×2 (09:41→17:17)
--- NOTE | 2019-08-05 09:54 | NUR ---
NURSE NOTES:Patient refusing Lasix, raising his voice and statins " you can give me the Lasix after breakfast" patient already ate breakfast but is requesting 2 more sausages, 2 hardboiled eggs and some milk. called kitchen to place order and informed patient I will be back to administer his Lasix after his food arrives. patient also refused to allow assessment of orientation stating" that's not important right now, I want my food"
--- NOTE | 2019-08-05 10:08 | NUR ---
CASE MANAGEMENT:REVIEW 08/05/19 SI: CHF EXACERBATION W/EF 20-25% VS: T 96.8 HR 107 RR 18 B/P 158/83 SATS 100% ON RA LABS: NONE TODAY IS: FLOMAX PO QHS ALLOPURINOL PO QD IV LASIX Q12 PROTONIX PO BID HYDRALAZINE PO BID ISORDIL PO BID : TELEMETRY STATUS DCP: FROM HOME PLAN: HEP PANEL PENDING
--- NOTE | 2019-08-05 10:11 | Pulmonology Progress Note ---
Subjective ROS Limited/Unobtainable: No Interval Events: Feeling better Constitutional: Reports: no symptoms HEENT: Repors: no symptoms Respiratory: Reports: no symptoms Cardiovascular: Reports: no symptoms Gastrointestinal/Abdominal: Reports: no symptoms Genitourinary: Reports: no symptoms Allergies: Coded Allergies: NO KNOWN ALLERGIES (Verified Allergy, Unknown, 04/08/19) All Systems: reviewed and negative except above Objective Last 24 Hour Vital Signs Date Time Temp Pulse Resp B/P (MAP) Pulse Ox O2 Delivery O2 Flow Rate FiO2 08/05/19 09:41 158/83 08/05/19 09:40 158/83 08/05/19 09:00 Room Air 08/05/19 08:00 98 08/05/19 08:00 96.8 107 18 158/83 (108) 100 08/05/19 04:00 97.8 95 18 121/62 (81) 98 08/05/19 04:00 106 08/05/19 00:00 97.5 80 19 114/69 (84) 99 08/05/19 00:00 113 08/04/19 21:00 Room Air 08/04/19 20:00 97.7 86 19 119/78 (92) 100 08/04/19 20:00 102 08/04/19 18:14 122/83 08/04/19 18:14 122/83 08/04/19 16:00 92 08/04/19 16:00 96.3 96 16 122/83 (96) 96 08/04/19 13:07 106 08/04/19 12:00 102 08/04/19 11:46 98.1 101 18 117/81 (93) 96 Intake and Output 08/04/19 08/05/19 19:00 07:00 Intake Total 480 ml Balance 480 ml Intake Oral 480 ml # Voids 3 General Appearance: no acute distress HEENT: normocephalic Respiratory: chest wall non-tender, decreased breath sounds Cardiovascular: normal peripheral pulses, normal rate, regular rhythm, gallop/ S3 Abdomen: normal bowel sounds, soft, non tender Extremities: no cyanosis, no clubbing, no edema Microbiology Date/Time Source Procedure Growth Status 08/02/19 14:50 Nasal Nares MRSA Culture - Final NO METHICILLIN RESISTANT STAPH AUREUS... Complete Current Medications Medications (Trade) Dose Ordered Sig/Ariel Route PRN Reason Start Time Stop Time Status Last Admin Dose Admin Allopurinol (allopurinoL) 300 mg DAILY ORAL 08/03/19 09:45 09/02/19 09:44 08/05/19 09:40 Docusate Sodium (Colace) 100 mg TWICE A DAY ORAL 08/02/19 18:00 09/01/19 17:59 08/05/19 09:40 Furosemide (Lasix) 80 mg EVERY 12 HOURS IV 08/02/19 21:00 09/01/19 20:59 08/04/19 20:42 Hydralazine HCl (Apresoline) 25 mg BID ORAL 08/02/19 18:00 10/31/19 17:59 08/05/19 09:41 Isosorbide Dinitrate (Isordil) 10 mg BID ORAL 08/02/19 18:00 09/01/19 17:59 08/05/19 09:40 Pantoprazole (Protonix) 40 mg BID ORAL 08/02/19 18:00 09/01/19 17:59 08/05/19 09:40 Tamsulosin HCl (Flomax) 0.4 mg BEDTIME ORAL 08/03/19 21:00 09/02/19 20:59 08/04/19 20:42 Assessment/Plan Assessment/Plan CHF reduced EF hypoxemia, improved HTN seizure PLAN care noted cardiac management and clearance o2 as needed DVT prophylaxis impression, plan, and exam edited and reviewed in detail care discussed with Christian Richardson MD Aug 05, 2019 10:11
[2019-08-05 11:07] LABS: BASOPHILS % (AUTO) 1.6 % (0.0-2.0); EOSINOPHILS % (AUTO) 4.3 % (0.0-3.0); HEMATOCRIT 39.1 % (42.0-52.0); HEMOGLOBIN 11.2 G/DL (14.2-18.0); LYMPHOCYTES % (AUTO) 18.6 % (20.0-45.0); MEAN CORPUSCULAR VOLUME 95 FL (80-99); MONOCYTES % (AUTO) 14.5 % (1.0-10.0); NEUTROPHILS % (AUTO) 61.1 % (45.0-75.0); PLATELET COUNT 273 K/UL (150-450); RED BLOOD COUNT 4.11 M/UL (4.70-6.10); RED CELL DISTRIBUTION WIDTH 16.1 % (11.6-14.8); WHITE BLOOD COUNT 5.8 K/UL (4.8-10.8)
--- NOTE | 2019-08-05 11:18 | Diagnostic Imaging Report ---
EXAM: US Duplex Bilateral Lower Extremities Veins CLINICAL HISTORY: DVT TECHNIQUE: Real-time duplex ultrasound scan of the bilateral lower extremity veins integrating B-mode two-dimensional vascular structure, Doppler spectral analysis, color flow Doppler imaging and compression. COMPARISON: None FINDINGS: Right deep veins: Unremarkable. No DVT in the right common femoral, femoral, proximal deep femoral or popliteal veins. The veins demonstrate normal color flow, are normally compressible, with normal phasic flow and/or augmentation response. Right superficial veins: Unremarkable. No thrombus in the visualized right great saphenous vein. Left deep veins: Unremarkable. No DVT in the left common femoral, femoral, proximal deep femoral or popliteal veins. The veins demonstrate normal color flow, are normally compressible, with normal phasic flow and/or augmentation response. Left superficial veins: Unremarkable. No thrombus in the visualized left great saphenous vein. Soft tissues: No acute findings. No popliteal cyst. IMPRESSION: No deep venous thrombosis identified in either lower extremity.
[2019-08-05 11:22] LABS: ALANINE AMINOTRANSFERASE 31 U/L (12-78); ALBUMIN 2.7 G/DL (3.4-5.0); ALKALINE PHOSPHATASE 98 U/L (46-116); ASPARTATE AMINO TRANSFERASE 29 U/L (15-37); BILIRUBIN,DIRECT 0.6 MG/DL (0.0-0.3); BILIRUBIN,TOTAL 1.9 MG/DL (0.2-1.0); PHOSPHORUS 2.7 MG/DL (2.5-4.9)
--- NOTE | 2019-08-05 11:25 | General Progress Note ---
Assessment/Plan Problem List: (1) Renal insufficiency ICD Codes: N28.9 - Disorder of kidney and ureter, unspecified SNOMED: 502531369, 834355323 (2) Cardiac LV ejection fraction 10-20% ICD Codes: R09.89 - Other specified symptoms and signs involving the circulatory and respiratory systems SNOMED: 28615702, 907658535 (3) Chest pain ICD Codes: R07.9 - Chest pain, unspecified SNOMED: 91027403 (4) Cocaine substance abuse ICD Codes: F14.10 - Cocaine abuse, uncomplicated SNOMED: 99589916 (5) Hyperkalemia ICD Codes: E87.5 - Hyperkalemia SNOMED: 34638457, 5894617 (6) Elevated troponin ICD Codes: R79.89 - Other specified abnormal findings of blood chemistry SNOMED: 116283420, 984050122, 240895268 (7) Anemia ICD Codes: D64.9 - Anemia, unspecified SNOMED: 287481796 (8) CHF (congestive heart failure) ICD Codes: I50.9 - Heart failure, unspecified SNOMED: 26914833 (9) SOB (shortness of breath) ICD Codes: R06.02 - Shortness of breath SNOMED: 607644490 (10) Malnutrition ICD Codes: E46 - Unspecified protein-calorie malnutrition SNOMED: 51785632 (11) CHF exacerbation ICD Codes: I50.9 - Heart failure, unspecified SNOMED: 737102650, 03982065811757 Status: progressing, unchanged Assessment/Plan: sob chf exacerbation check lytes afebrile drug history malnutrtion supportive therapy Subjective ROS Limited/Unobtainable: Yes Allergies: Coded Allergies: NO KNOWN ALLERGIES (Verified Allergy, Unknown, 04/08/19) Objective Last 24 Hour Vital Signs Date Time Temp Pulse Resp B/P (MAP) Pulse Ox O2 Delivery O2 Flow Rate FiO2 08/05/19 09:41 158/83 08/05/19 09:40 158/83 08/05/19 09:00 Room Air 08/05/19 08:00 98 08/05/19 08:00 96.8 107 18 158/83 (108) 100 08/05/19 04:00 97.8 95 18 121/62 (81) 98 08/05/19 04:00 106 08/05/19 00:00 97.5 80 19 114/69 (84) 99 08/05/19 00:00 113 08/04/19 21:00 Room Air 08/04/19 20:00 97.7 86 19 119/78 (92) 100 08/04/19 20:00 102 08/04/19 18:14 122/83 08/04/19 18:14 122/83 08/04/19 16:00 92 08/04/19 16:00 96.3 96 16 122/83 (96) 96 08/04/19 13:07 106 08/04/19 12:00 102 08/04/19 11:46 98.1 101 18 117/81 (93) 96 Intake and Output 08/04/19 08/05/19 19:00 07:00 Intake Total 480 ml Balance 480 ml Intake Oral 480 ml # Voids 3 Laboratory Tests 08/05/19 10:55: White Blood Count 5.8, Red Blood Count 4.11L, Hemoglobin 11.2L, Hematocrit 39.1L , Mean Corpuscular Volume 95, Mean Corpuscular Hemoglobin 27.4, Mean Corpuscular Hemoglobin Concent 28.8L, Red Cell Distribution Width 16.1H, Platelet Count 273, Mean Platelet Volume 7.8, Neutrophils (%) (Auto) 61.1, Lymphocytes (%) (Auto) 18.6L, Monocytes (%) (Auto) 14.5H, Eosinophils (%) (Auto ) 4.3H, Basophils (%) (Auto) 1.6, Sodium Level [Pending], Potassium Level [ Pending], Chloride Level [Pending], Carbon Dioxide Level [Pending], Blood Urea Nitrogen [Pending], Creatinine [Pending], Estimat Glomerular Filtration Rate [ Pending], Glucose Level [Pending], Calcium Level [Pending], Phosphorus Level [ Pending], Magnesium Level [Pending], Total Bilirubin [Pending], Direct Bilirubin [Pending], Aspartate Amino Transf (AST/SGOT) [Pending], Alanine Aminotransferase (ALT/SGPT) [Pending], Alkaline Phosphatase [Pending], Total Protein [Pending], Albumin [Pending], Digoxin Level [Pending] Height (Feet): 6 Height (Inches): 1.00 Weight (Pounds): 160 Kye Henriquez MD 27, 2020 11:25
[2019-08-05 11:56] LABS: ANION GAP 6 mmol/L (5-15); BLOOD UREA NITROGEN 32 mg/dL (7-18); CALCIUM 8.4 MG/DL (8.5-10.1); CARBON DIOXIDE 31 MMOL/L (21-32); CHLORIDE 99 MMOL/L (98-107); CREATININE 1.8 MG/DL (0.55-1.30); POTASSIUM 3.9 MMOL/L (3.5-5.1); SODIUM 136 MMOL/L (136-145)
[2019-08-05 12:00] VITALS: BP 150/61
--- NOTE | 2019-08-05 14:00 | NUR ---
PT Note PT gen completed. Patient is independent in all mobility and gait without any AD. No f/u PT services needed at this time. DC physical therapy. Addendum: 08/05/19 at 1401 by ZAFAR MCCAIN PT Amended: Links added.
--- NOTE | 2019-08-05 14:02 | Cardiac Electrophysiology PN ---
Assessment/Plan Assessment/Plan 1. Chronic troponin elevation. Even in prior hospitalization in March, April and May of 2019 The levels are flat. Likely due to renal failure . Refused nuclear stress test 2. Severe cardiomyopathy with EF of only 20%. Off beta-shahram for active cocaine use. On Lasix 80 iv bid, hydralazine, nitrate 3. Hypertension. Continue current medical regimen. 4. Acute renal failure. On iv Lasix. FU Dr Mesa 4. History of seizure disorder. 5. Polysubstance abuse with cocaine and marijuana . 6. Noncompliance. Signed out AMA prior admission in 04/2019 7. High bilirubin DW Dr. Mesa and RN Subjective Subjective Noncompliant with Lasix and PT. Walking in the hallway. Had 8 beats of VT Objective Last 24 Hour Vital Signs Date Time Temp Pulse Resp B/P (MAP) Pulse Ox O2 Delivery O2 Flow Rate FiO2 08/05/19 12:00 101 08/05/19 12:00 98.7 101 20 150/61 (90) 97 08/05/19 09:41 158/83 08/05/19 09:40 158/83 08/05/19 09:00 Room Air 08/05/19 08:00 98 08/05/19 08:00 96.8 107 18 158/83 (108) 100 08/05/19 04:00 97.8 95 18 121/62 (81) 98 08/05/19 04:00 106 08/05/19 00:00 97.5 80 19 114/69 (84) 99 08/05/19 00:00 113 08/04/19 21:00 Room Air 08/04/19 20:00 97.7 86 19 119/78 (92) 100 08/04/19 20:00 102 08/04/19 18:14 122/83 08/04/19 18:14 122/83 08/04/19 16:00 92 08/04/19 16:00 96.3 96 16 122/83 (96) 96 Intake and Output 08/04/19 08/05/19 19:00 07:00 Intake Total 480 ml Balance 480 ml Intake Oral 480 ml # Voids 3 Laboratory Tests Test 08/05/19 10:55 White Blood Count 5.8 K/UL (4.8-10.8) Red Blood Count 4.11 M/UL (4.70-6.10) L Hemoglobin 11.2 G/DL (14.2-18.0) L Hematocrit 39.1 % (42.0-52.0) L Mean Corpuscular Volume 95 FL (80-99) Mean Corpuscular Hemoglobin 27.4 PG (27.0-31.0) Mean Corpuscular Hemoglobin Concent 28.8 G/DL (32.0-36.0) L Red Cell Distribution Width 16.1 % (11.6-14.8) H Platelet Count 273 K/UL (150-450) Mean Platelet Volume 7.8 FL (6.5-10.1) Neutrophils (%) (Auto) 61.1 % (45.0-75.0) Lymphocytes (%) (Auto) 18.6 % (20.0-45.0) L Monocytes (%) (Auto) 14.5 % (1.0-10.0) H Eosinophils (%) (Auto) 4.3 % (0.0-3.0) H Basophils (%) (Auto) 1.6 % (0.0-2.0) Sodium Level 136 MMOL/L (136-145) Potassium Level 3.9 MMOL/L (3.5-5.1) Chloride Level 99 MMOL/L (98-107) Carbon Dioxide Level 31 MMOL/L (21-32) Anion Gap 6 mmol/L (5-15) Blood Urea Nitrogen 32 mg/dL (7-18) H Creatinine 1.8 MG/DL (0.55-1.30) H Estimat Glomerular Filtration Rate 47.0 mL/min (>60) Glucose Level 95 MG/DL (74-106) Calcium Level 8.4 MG/DL (8.5-10.1) L Phosphorus Level 2.7 MG/DL (2.5-4.9) Magnesium Level 1.7 MG/DL (1.8-2.4) L Total Bilirubin 1.9 MG/DL (0.2-1.0) H Direct Bilirubin 0.6 MG/DL (0.0-0.3) H Aspartate Amino Transf (AST/SGOT) 29 U/L (15-37) Alanine Aminotransferase (ALT/SGPT) 31 U/L (12-78) Alkaline Phosphatase 98 U/L (46-116) Total Protein 6.8 G/DL (6.4-8.2) Albumin 2.7 G/DL (3.4-5.0) L Digoxin Level 0.3 NG/ML (0.5-2.0) L Microbiology Date/Time Source Procedure Growth Status 08/02/19 14:50 Nasal Nares MRSA Culture - Final NO METHICILLIN RESISTANT STAPH AUREUS... Complete Objective HEAD AND NECK: Shows positive JVD to angle of the jaw. LUNGS: Decreased breath sounds. Basilar rales. CARDIOVASCULAR: Shows regular S1 and S2 with S3 gallop. ABDOMEN: Soft. EXTREMITIES: 3+ pitting edema as well as scrotal and penile edema. Danie Florez MD Aug 05, 2019 14:02
--- NOTE | 2019-08-05 14:26 | Nephrology Progress Note ---
Assessment/Plan Problem List: (1) MANOLO (acute kidney injury) (2) Anemia (3) CHF (congestive heart failure) (4) Cocaine substance abuse (5) Hyperkalemia (6) Elevated troponin Assessment (1) Cardiac LV ejection fraction 10-20% (2) Renal insufficiency (3) CHF (4) Anemia (5) Elevated troponin (6) polysubstance abuse (7) history of seizure disorder Plan Magnesium supplement orally Serum creatinine lowering. Been stable at 1.8 1 more dose oral digoxin Isordil , hydralazine optimize cardiac status. Afterload reduction. Gentle diuresis. As needed Keep the BP in check. Monitor renal parameters. Per orders. Subjective ROS Limited/Unobtainable: No Constitutional: Reports: malaise Objective Objective Last 24 Hour Vital Signs Date Time Temp Pulse Resp B/P (MAP) Pulse Ox O2 Delivery O2 Flow Rate FiO2 08/05/19 12:00 101 08/05/19 12:00 98.7 101 20 150/61 (90) 97 08/05/19 09:41 158/83 08/05/19 09:40 158/83 08/05/19 09:00 Room Air 08/05/19 08:00 98 08/05/19 08:00 96.8 107 18 158/83 (108) 100 08/05/19 04:00 97.8 95 18 121/62 (81) 98 08/05/19 04:00 106 08/05/19 00:00 97.5 80 19 114/69 (84) 99 08/05/19 00:00 113 08/04/19 21:00 Room Air 08/04/19 20:00 97.7 86 19 119/78 (92) 100 08/04/19 20:00 102 08/04/19 18:14 122/83 08/04/19 18:14 122/83 08/04/19 16:00 92 08/04/19 16:00 96.3 96 16 122/83 (96) 96 Intake and Output 08/04/19 08/05/19 19:00 07:00 Intake Total 480 ml Balance 480 ml Intake Oral 480 ml # Voids 3 Laboratory Tests 08/05/19 10:55: White Blood Count 5.8, Red Blood Count 4.11L, Hemoglobin 11.2L, Hematocrit 39.1L , Mean Corpuscular Volume 95, Mean Corpuscular Hemoglobin 27.4, Mean Corpuscular Hemoglobin Concent 28.8L, Red Cell Distribution Width 16.1H, Platelet Count 273, Mean Platelet Volume 7.8, Neutrophils (%) (Auto) 61.1, Lymphocytes (%) (Auto) 18.6L, Monocytes (%) (Auto) 14.5H, Eosinophils (%) (Auto ) 4.3H, Basophils (%) (Auto) 1.6, Sodium Level 136, Potassium Level 3.9, Chloride Level 99, Carbon Dioxide Level 31, Anion Gap 6, Blood Urea Nitrogen 32H , Creatinine 1.8H, Estimat Glomerular Filtration Rate 47.0, Glucose Level 95, Calcium Level 8.4L, Phosphorus Level 2.7, Magnesium Level 1.7L, Total Bilirubin 1.9H, Direct Bilirubin 0.6H, Aspartate Amino Transf (AST/SGOT) 29, Alanine Aminotransferase (ALT/SGPT) 31, Alkaline Phosphatase 98, Total Protein 6.8, Albumin 2.7L, Digoxin Level 0.3L Height (Feet): 6 Height (Inches): 1.00 Weight (Pounds): 160 General Appearance: no apparent distress Cardiovascular: tachycardia Respiratory/Chest: decreased breath sounds Abdomen: distended Lester Mesa MD Aug 05, 2019 14:26
[2019-08-05 16:00] VITALS: BP 125/83
[2019-08-05] MEDS: Magnesium Oxide 400mg tab ORAL SCH (17:18)
--- NOTE | 2019-08-05 19:09 | NUR ---
NURSE NOTES: Received report from VIBHA Hernandez. Patient is awake, on bed alert and oriented x 3. On cardiac diet, instructed and amenable. IV site is on right hand G-22 saline lock that is patent and asymptomatic. Patient is continent and using urinals. Safety measures are in placed, bed in lowest and locked position, side rails up x 2. Call light button and bedside table within reach, instructed to call for assistance. Will continue plan of care.
[2019-08-05 20:00] VITALS: BP 118/79
[2019-08-05] MEDS: Tamsulosin 0.4mg cap ORAL SCH (20:12)
[2019-08-06] VITALS: BP 105/61
--- NOTE | 2019-08-06 07:27 | NUR ---
HAND-OFF: Report given to VIBHA Mclaughlin. Patient is awake on bed, on stable condition, no desaturations and chest pain noted at this time. Plan of care endorsed.
--- NOTE | 2019-08-06 07:41 | NUR ---
NURSE NOTES: Received report from VIBHA Roman. Pt A/O x3. No s/s of acute respiratory and cardiac distress. Currently on room air. SL on right hand 22G patent and intact. Bed in low position, side rails up x2 and call light within reach. Will continue to monitor.
[2019-08-06 08:00] VITALS: BP 120/86
--- NOTE | 2019-08-06 08:15 | Nephrology Progress Note ---
Assessment/Plan Problem List: (1) MANOLO (acute kidney injury) (2) Anemia (3) CHF (congestive heart failure) (4) Cocaine substance abuse (5) Hyperkalemia (6) Elevated troponin Assessment (1) Cardiac LV ejection fraction 10-20% (2) Renal insufficiency (3) CHF (4) Anemia (5) Elevated troponin (6) polysubstance abuse (7) history of seizure disorder Plan August 05: Status quo. No blood drawn today. Medication reviewed. 1 dose of digoxin given. Will check lab tomorrow. Continue per consultants. Magnesium supplement orally Serum creatinine lowering. Been stable at 1.8 1 more dose oral digoxin Isordil , hydralazine optimize cardiac status. Afterload reduction. Gentle diuresis. As needed Keep the BP in check. Monitor renal parameters. Per orders. Subjective ROS Limited/Unobtainable: No Constitutional: Reports: malaise Objective Objective Last 24 Hour Vital Signs Date Time Temp Pulse Resp B/P (MAP) Pulse Ox O2 Delivery O2 Flow Rate FiO2 08/06/19 04:00 102 08/06/19 00:00 108 08/06/19 00:00 97.9 113 21 105/61 (76) 99 08/05/19 21:00 Room Air 08/05/19 20:00 97 08/05/19 20:00 96.8 107 26 118/79 (92) 100 08/05/19 17:17 125/83 08/05/19 17:17 125/83 08/05/19 16:00 97.7 89 20 125/83 (97) 100 08/05/19 16:00 96 08/05/19 15:59 101 08/05/19 12:00 101 08/05/19 12:00 98.7 101 20 150/61 (90) 97 08/05/19 09:41 158/83 08/05/19 09:40 158/83 08/05/19 09:00 Room Air Intake and Output 08/05/19 08/06/19 19:00 07:00 Intake Total 720 ml 900 ml Output Total 1400 ml Balance 720 ml -500 ml Intake Oral 720 ml 900 ml Output Urine Total 1400 ml # Voids 3 4 Current Medications Medications (Trade) Dose Ordered Sig/Ariel Route PRN Reason Start Time Stop Time Status Last Admin Dose Admin Allopurinol (allopurinoL) 300 mg DAILY ORAL 08/03/19 09:45 09/02/19 09:44 08/05/19 09:40 Docusate Sodium (Colace) 100 mg TWICE A DAY ORAL 08/02/19 18:00 09/01/19 17:59 08/05/19 17:17 Furosemide (Lasix) 80 mg EVERY 12 HOURS IV 08/02/19 21:00 09/01/19 20:59 08/05/19 20:13 Hydralazine HCl (Apresoline) 25 mg BID ORAL 08/02/19 18:00 10/31/19 17:59 08/05/19 17:17 Isosorbide Dinitrate (Isordil) 10 mg BID ORAL 08/02/19 18:00 09/01/19 17:59 08/05/19 17:17 Magnesium Oxide (Mag-Ox 400mg) 400 mg THREE TIMES A DAY ORAL 08/05/19 18:00 09/04/19 17:59 08/05/19 17:18 Pantoprazole (Protonix) 40 mg BID ORAL 08/02/19 18:00 09/01/19 17:59 08/05/19 17:17 Tamsulosin HCl (Flomax) 0.4 mg BEDTIME ORAL 08/03/19 21:00 09/02/19 20:59 08/05/19 20:12 Laboratory Tests 08/05/19 10:55: White Blood Count 5.8, Red Blood Count 4.11L, Hemoglobin 11.2L, Hematocrit 39.1L , Mean Corpuscular Volume 95, Mean Corpuscular Hemoglobin 27.4, Mean Corpuscular Hemoglobin Concent 28.8L, Red Cell Distribution Width 16.1H, Platelet Count 273, Mean Platelet Volume 7.8, Neutrophils (%) (Auto) 61.1, Lymphocytes (%) (Auto) 18.6L, Monocytes (%) (Auto) 14.5H, Eosinophils (%) (Auto ) 4.3H, Basophils (%) (Auto) 1.6, Sodium Level 136, Potassium Level 3.9, Chloride Level 99, Carbon Dioxide Level 31, Anion Gap 6, Blood Urea Nitrogen 32H , Creatinine 1.8H, Estimat Glomerular Filtration Rate 47.0, Glucose Level 95, Calcium Level 8.4L, Phosphorus Level 2.7, Magnesium Level 1.7L, Total Bilirubin 1.9H, Direct Bilirubin 0.6H, Aspartate Amino Transf (AST/SGOT) 29, Alanine Aminotransferase (ALT/SGPT) 31, Alkaline Phosphatase 98, Total Protein 6.8, Albumin 2.7L, Digoxin Level 0.3L No labs drawn today August 05 Height (Feet): 6 Height (Inches): 1.00 Weight (Pounds): 160 General Appearance: no apparent distress Cardiovascular: tachycardia Respiratory/Chest: decreased breath sounds Abdomen: distended Lester Mesa MD Aug 06, 2019 08:15
[2019-08-06] MEDS: Magnesium Oxide 400mg tab ORAL SCH ×3 (08:41→17:41)
[2019-08-06] MEDS: HydrALAZINE 25mg tab ORAL SCH ×2 (08:42→17:42)
[2019-08-06] MEDS: Docusate 100mg cap ORAL SCH ×2 (08:42→17:41)
--- NOTE | 2019-08-06 09:30 | NUR ---
NURSE NOTES: Pt refused Lasix IVP to be given. Wasted on pyxis.
--- NOTE | 2019-08-06 09:44 | NUR ---
NURSE NOTES: Pt is now asking for lasix IVP to be given. Called pharmacy on how to take it out on pyxis due to pop up showing it was already taken out. Spoke with Wally from pharmacy and she states to just do a one time order.
--- NOTE | 2019-08-06 09:47 | NUR ---
CASE MANAGEMENT:REVIEW 08/06/19 SI: CHF EXACERBATION W/EF 20-25% POLYSUBSTANCE ABUSE ~ COCAINE AND THC 97.5 113 20 120/86 100% ON RA IS: DIGOXIN PO X1 MAG OXIDE PO TID FLOMAX PO QHS ALLOPURINOL PO QD IV LASIX Q12 PROTONIX PO BID HYDRALAZINE PO BID ISORDIL PO BID : TELEMETRY STATUS DCP: FROM HOME PLAN: PT EVAL ~ AMBULATING 100FT
[2019-08-06 12:00] VITALS: BP 127/78
[2019-08-06 16:00] VITALS: BP 128/67
--- NOTE | 2019-08-06 16:04 | NUR ---
INSURANCE REVIEWS AND CLINICALS FAXED TO [employer] F: [phone] AUTH # [id number] AND [facility] F: [phone] AND [phone] PENDING AUTH# [id number]
--- NOTE | 2019-08-06 17:52 | NUR ---
NURSE NOTES: Spoke with Dr. Henriquez and he ordered transfer pt to med/surg floor if cleared with Dr. Florez. Left a message with Dr. Florez. Awaiting response.
--- NOTE | 2019-08-06 19:22 | NUR ---
HAND-OFF: Report given to VIBHA Roman.Endorsed pending transfer to [facility].
--- NOTE | 2019-08-06 19:33 | NUR ---
NURSE NOTES: Received report from VIBHA Mclaughlin. Patient is awake, alert and oriented x 3. On Cardiac diet, instructed and amenable. On room air with no desaturation reported, saturating 95%. comprehensive advisor is in placed, shows Sinus tachycardia with no chest pain reported. IV site is on right hand G-22 saline lock that is patent and intact. Safety measures are in placed, bed in lowest and locked position, side rails up x 2. Call light button and bedside table within reach, instructed to call for any assistance needed. Will continue plan of care.
[2019-08-06 20:00] VITALS: BP 107/68
[2019-08-06] MEDS: Tamsulosin 0.4mg cap ORAL SCH (20:14)
--- NOTE | 2019-08-06 21:01 | General Progress Note ---
Assessment/Plan Problem List: (1) Renal insufficiency ICD Codes: N28.9 - Disorder of kidney and ureter, unspecified SNOMED: 577347421, 843364066 (2) Cardiac LV ejection fraction 10-20% ICD Codes: R09.89 - Other specified symptoms and signs involving the circulatory and respiratory systems SNOMED: 30037404, 516360242 (3) Chest pain ICD Codes: R07.9 - Chest pain, unspecified SNOMED: 83468912 (4) Cocaine substance abuse ICD Codes: F14.10 - Cocaine abuse, uncomplicated SNOMED: 00322043 (5) Hyperkalemia ICD Codes: E87.5 - Hyperkalemia SNOMED: 24428628, 1053772 (6) Elevated troponin ICD Codes: R79.89 - Other specified abnormal findings of blood chemistry SNOMED: 343928851, 153452671, 237748577 (7) Anemia ICD Codes: D64.9 - Anemia, unspecified SNOMED: 404914461 (8) CHF (congestive heart failure) ICD Codes: I50.9 - Heart failure, unspecified SNOMED: 72595607 (9) SOB (shortness of breath) ICD Codes: R06.02 - Shortness of breath SNOMED: 299595734 (10) Malnutrition ICD Codes: E46 - Unspecified protein-calorie malnutrition SNOMED: 68424786 (11) CHF exacerbation ICD Codes: I50.9 - Heart failure, unspecified SNOMED: 508032552, 95992343330047 Status: progressing, unchanged Assessment/Plan: not hypoxic no acute events no fever chf exacerbation drug history malnutrtion supportive therapy Subjective ROS Limited/Unobtainable: Yes Allergies: Coded Allergies: NO KNOWN ALLERGIES (Verified Allergy, Unknown, 04/08/19) Objective Last 24 Hour Vital Signs Date Time Temp Pulse Resp B/P (MAP) Pulse Ox O2 Delivery O2 Flow Rate FiO2 08/06/19 17:42 128/67 08/06/19 17:41 128/67 08/06/19 16:00 98.1 61 18 128/67 (87) 97 08/06/19 16:00 99 08/06/19 12:00 97.7 103 20 127/78 (94) 98 08/06/19 12:00 105 08/06/19 09:00 Room Air 08/06/19 08:42 120/86 6/28/20 08:41 101 08/06/19 08:41 120/86 08/06/19 08:00 97.5 101 20 120/86 (97) 100 08/06/19 08:00 99 08/06/19 04:00 102 08/06/19 00:00 108 08/06/19 00:00 97.9 113 21 105/61 (76) 99 Intake and Output 08/05/19 08/06/19 19:00 07:00 Intake Total 720 ml 900 ml Output Total 1400 ml Balance 720 ml -500 ml Intake Oral 720 ml 900 ml Output Urine Total 1400 ml # Voids 3 4 Height (Feet): 6 Height (Inches): 1.00 Weight (Pounds): 160 Kye Henriquez MD Aug 06, 2019 21:01
[2019-08-07] VITALS: BP 110/66
--- NOTE | 2019-08-07 07:07 | NUR ---
HAND-OFF: Report given to VIBHA Womack. Patient is on bed, asleep with no complaints made at this time. RN made aware on Dr. Florez's order to transfer to Med-Surg floor. Will continue plan of care.
--- NOTE | 2019-08-07 07:50 | NUR ---
NURSE NOTES: Pt in bed with HOB in fowlers position, bed low position, call light next to patient, pt eat breakfast, pt denies pain, pt calm and cooperative, Ox4 baseline, ambulates with steady gait, troponin levels still slightly high, pt is resistive care at times, currently pt denies SOB and and any other distress and also not noted.
[2019-08-07 08:15] VITALS: BP 111/68
[2019-08-07] MEDS: Docusate 100mg cap ORAL SCH ×2 (08:58→17:13)
[2019-08-07] MEDS: Magnesium Oxide 400mg tab ORAL SCH ×3 (08:58→17:12)
[2019-08-07] MEDS: HydrALAZINE 25mg tab ORAL SCH ×2 (09:00→17:14)
--- NOTE | 2019-08-07 10:27 | Pulmonology Progress Note ---
Subjective ROS Limited/Unobtainable: Yes Interval Events: no distress Constitutional: Reports: no symptoms HEENT: Repors: no symptoms Respiratory: Reports: no symptoms Cardiovascular: Reports: no symptoms Gastrointestinal/Abdominal: Reports: no symptoms Genitourinary: Reports: no symptoms Allergies: Coded Allergies: NO KNOWN ALLERGIES (Verified Allergy, Unknown, 04/08/19) All Systems: reviewed and negative except above Objective Last 24 Hour Vital Signs Date Time Temp Pulse Resp B/P (MAP) Pulse Ox O2 Delivery O2 Flow Rate FiO2 08/07/19 09:00 111/68 08/07/19 08:58 111/68 08/07/19 08:15 98.0 109 18 111/68 (82) 100 08/07/19 08:09 Room Air 08/07/19 07:33 111 08/07/19 04:00 102 08/07/19 00:00 104 08/07/19 00:00 98.6 101 17 110/66 (81) 97 08/06/19 21:00 Room Air 08/06/19 20:00 109 08/06/19 20:00 98.6 105 18 107/68 (81) 98 08/06/19 17:42 128/67 08/06/19 17:41 128/67 08/06/19 16:00 98.1 61 18 128/67 (87) 97 08/06/19 16:00 99 08/06/19 12:00 97.7 103 20 127/78 (94) 98 08/06/19 12:00 105 Intake and Output 08/06/19 08/07/19 19:00 07:00 Intake Total 380 ml 900 ml Output Total 1400 ml 1600 ml Balance -1020 ml -700 ml Intake Oral 380 ml 900 ml Output Urine Total 1400 ml 1600 ml # Voids 4 5 General Appearance: no acute distress HEENT: normocephalic Respiratory: chest wall non-tender, decreased breath sounds Cardiovascular: normal peripheral pulses, normal rate, regular rhythm, gallop/ S3 Abdomen: normal bowel sounds, soft, non tender Extremities: no cyanosis, no clubbing, no edema Current Medications Medications (Trade) Dose Ordered Sig/Ariel Route PRN Reason Start Time Stop Time Status Last Admin Dose Admin Allopurinol (allopurinoL) 300 mg DAILY ORAL 08/03/19 09:45 09/02/19 09:44 08/07/19 08:59 Docusate Sodium (Colace) 100 mg TWICE A DAY ORAL 08/02/19 18:00 09/01/19 17:59 08/07/19 08:58 Furosemide (Lasix) 80 mg EVERY 12 HOURS IV 08/02/19 21:00 09/01/19 20:59 08/07/19 09:03 Hydralazine HCl (Apresoline) 25 mg BID ORAL 08/02/19 18:00 10/31/19 17:59 08/06/19 17:42 Isosorbide Dinitrate (Isordil) 10 mg BID ORAL 08/02/19 18:00 09/01/19 17:59 08/07/19 08:58 Magnesium Oxide (Mag-Ox 400mg) 400 mg THREE TIMES A DAY ORAL 08/05/19 18:00 09/04/19 17:59 08/07/19 08:58 Pantoprazole (Protonix) 40 mg BID ORAL 08/02/19 18:00 09/01/19 17:59 08/07/19 08:58 Tamsulosin HCl (Flomax) 0.4 mg BEDTIME ORAL 08/03/19 21:00 09/02/19 20:59 08/06/19 20:14 Assessment/Plan Assessment/Plan ASSESSMENT AND PLAN: 1. Exacerbation of congestive heart failure in a patient with EF of 15 to 20%. Continue heart failure therapy. 2. Chronic troponin elevation same as March, April, and May. likely due to renal failure. 3. Hypertension. Continue maximizing his heart failure therapy. 4. Polysubstance abuse with cocaine. 5. Seizure disorder. 6. History of noncompliance. Patient signed out AMA on previous admission in April of 2019. 7. Ordered Oxygen and pulmonary hygiene; currently on room air Ghulam Mensah M.D. Ghulam Mensah MD Aug 07, 2019 10:26
--- NOTE | 2019-08-07 10:38 | Nephrology Progress Note ---
Assessment/Plan Problem List: (1) MANOLO (acute kidney injury) (2) Anemia (3) CHF (congestive heart failure) (4) Cocaine substance abuse (5) Hyperkalemia (6) Elevated troponin Assessment (1) Cardiac LV ejection fraction 10-20% (2) Renal insufficiency (3) CHF (4) Anemia (5) Elevated troponin (6) polysubstance abuse (7) history of seizure disorder Plan August 06: Waiting for today's lab results. Continue optimizing cardiac status. Monitor renal parameters. August 05: Status quo. No blood drawn today. Medication reviewed. 1 dose of digoxin given. Will check lab tomorrow. Continue per consultants. Magnesium supplement orally Serum creatinine lowering. Been stable at 1.8 1 more dose oral digoxin Isordil , hydralazine optimize cardiac status. Afterload reduction. Gentle diuresis. As needed Keep the BP in check. Monitor renal parameters. Per orders. Subjective ROS Limited/Unobtainable: No Constitutional: Reports: malaise Objective Objective Last 24 Hour Vital Signs Date Time Temp Pulse Resp B/P (MAP) Pulse Ox O2 Delivery O2 Flow Rate FiO2 08/07/19 09:00 111/68 08/07/19 08:58 111/68 08/07/19 08:15 98.0 109 18 111/68 (82) 100 08/07/19 08:09 Room Air 08/07/19 07:33 111 08/07/19 04:00 102 08/07/19 00:00 104 08/07/19 00:00 98.6 101 17 110/66 (81) 97 08/06/19 21:00 Room Air 08/06/19 20:00 109 08/06/19 20:00 98.6 105 18 107/68 (81) 98 08/06/19 17:42 128/67 08/06/19 17:41 128/67 08/06/19 16:00 98.1 61 18 128/67 (87) 97 08/06/19 16:00 99 08/06/19 12:00 97.7 103 20 127/78 (94) 98 08/06/19 12:00 105 Intake and Output 08/06/19 08/07/19 19:00 07:00 Intake Total 380 ml 900 ml Output Total 1400 ml 1600 ml Balance -1020 ml -700 ml Intake Oral 380 ml 900 ml Output Urine Total 1400 ml 1600 ml # Voids 4 5 Today's labs not drawn yet Height (Feet): 6 Height (Inches): 1.00 Weight (Pounds): 160 General Appearance: no apparent distress Cardiovascular: tachycardia Respiratory/Chest: decreased breath sounds Abdomen: distended Lester Mesa MD Aug 07, 2019 10:38
--- NOTE | 2019-08-07 10:58 | NUR ---
RD ASSESSMENT & RECOMMENDATIONS SEE CARE ACTIVITY FOR COMPLETE ASSESSMENT DAILY ESTIMATED NEEDS: Needs based on Cardiac, pulmonary, wt loss 74.7kg 25-35 kcals/kg 1592-0406 total kcals 1-1.5 g protein/kg 75-112 g total protein Fluid per MD, on lasix NUTRITION DIAGNOSIS: Decreased sodium needs r/t cardiac history as evidenced by elev BNP (1184), on lasix. (CURRENT DIET: Cardiac) PO DIET RECOMMENDATIONS: Liberalized LOW NA DIET / soft easy chew ADDITIONAL RECOMMENDATIONS: 1) OBTAIN A STANDING WEIGHT + daily wts while on lasix Now w/ suspected 9lbs wt loss x3 months 2) Add B-complex daily on lasix 3) Snacks in b/w meals 4) Check lytes daily on lasix, replete as needed 5) Add Ensure Enlive qdaily (350 kcal/day)
[2019-08-07 11:18] LABS: BASOPHILS % (AUTO) 1.8 % (0.0-2.0); EOSINOPHILS % (AUTO) 6.2 % (0.0-3.0); HEMATOCRIT 41.3 % (42.0-52.0); HEMOGLOBIN 11.7 G/DL (14.2-18.0); LYMPHOCYTES % (AUTO) 18.9 % (20.0-45.0); MEAN CORPUSCULAR VOLUME 95 FL (80-99); NEUTROPHILS % (AUTO) 57.1 % (45.0-75.0); PLATELET COUNT 273 K/UL (150-450); RED BLOOD COUNT 4.33 M/UL (4.70-6.10); RED CELL DISTRIBUTION WIDTH 16.1 % (11.6-14.8); WHITE BLOOD COUNT 6.4 K/UL (4.8-10.8)
--- NOTE | 2019-08-07 11:30 | NUR ---
INSURANCE REVIEWS AND CLINICALS FAXED TO [employer] F: [phone] AUTH # [id number] AND [facility] F: [phone] AND [phone] PENDING AUTH# [id number]
--- NOTE | 2019-08-07 11:35 | Cardiac Electrophysiology PN ---
Assessment/Plan Assessment/Plan 1. Chronic troponin elevation. Even in prior hospitalization in March, April and May of 2019 The levels are flat. Likely due to renal failure. Refused nuclear stress test 2. Severe cardiomyopathy with EF of only 20%. Off beta-shahram for active cocaine use. Decrease Lasix to 80 po daily, hydralazine, nitrate 3. Hypertension. Continue current medical regimen. 4. Acute renal failure. SHAN Mesa 4. History of seizure disorder. 5. Polysubstance abuse with cocaine and marijuana . 6. Noncompliance. Signed out AMA prior admission in 04/2019 7. High bilirubin DW Dr. Mesa and RN Subjective Subjective Noncompliant with Lasix and PT. No more VT overnight Objective Last 24 Hour Vital Signs Date Time Temp Pulse Resp B/P (MAP) Pulse Ox O2 Delivery O2 Flow Rate FiO2 08/07/19 09:00 111/68 08/07/19 08:58 111/68 08/07/19 08:15 98.0 109 18 111/68 (82) 100 08/07/19 08:09 Room Air 08/07/19 07:33 111 08/07/19 04:00 102 08/07/19 00:00 104 08/07/19 00:00 98.6 101 17 110/66 (81) 97 08/06/19 21:00 Room Air 08/06/19 20:00 109 08/06/19 20:00 98.6 105 18 107/68 (81) 98 08/06/19 17:42 128/67 08/06/19 17:41 128/67 08/06/19 16:00 98.1 61 18 128/67 (87) 97 08/06/19 16:00 99 08/06/19 12:00 97.7 103 20 127/78 (94) 98 08/06/19 12:00 105 Intake and Output 08/06/19 08/07/19 19:00 07:00 Intake Total 380 ml 900 ml Output Total 1400 ml 1600 ml Balance -1020 ml -700 ml Intake Oral 380 ml 900 ml Output Urine Total 1400 ml 1600 ml # Voids 4 5 Laboratory Tests Test 08/07/19 11:00 White Blood Count 6.4 K/UL (4.8-10.8) Red Blood Count 4.33 M/UL (4.70-6.10) L Hemoglobin 11.7 G/DL (14.2-18.0) L Hematocrit 41.3 % (42.0-52.0) L Mean Corpuscular Volume 95 FL (80-99) Mean Corpuscular Hemoglobin 26.9 PG (27.0-31.0) L Mean Corpuscular Hemoglobin Concent 28.2 G/DL (32.0-36.0) L Red Cell Distribution Width 16.1 % (11.6-14.8) H Platelet Count 273 K/UL (150-450) Mean Platelet Volume 7.7 FL (6.5-10.1) Neutrophils (%) (Auto) 57.1 % (45.0-75.0) Lymphocytes (%) (Auto) 18.9 % (20.0-45.0) L Monocytes (%) (Auto) 16.0 % (1.0-10.0) H Eosinophils (%) (Auto) 6.2 % (0.0-3.0) H Basophils (%) (Auto) 1.8 % (0.0-2.0) Sodium Level Pending Potassium Level Pending Chloride Level Pending Carbon Dioxide Level Pending Blood Urea Nitrogen Pending Creatinine Pending Estimat Glomerular Filtration Rate Pending Glucose Level Pending Uric Acid Pending Calcium Level Pending Phosphorus Level Pending Magnesium Level Pending Total Bilirubin Pending Aspartate Amino Transf (AST/SGOT) Pending Alanine Aminotransferase (ALT/SGPT) Pending Alkaline Phosphatase Pending C-Reactive Protein, Quantitative Pending Pro-B-Type Natriuretic Peptide Pending Total Protein Pending Albumin Pending Globulin Pending Digoxin Level Pending Objective HEAD AND NECK: Shows positive JVD to angle of the jaw. LUNGS: Decreased breath sounds. Basilar rales. CARDIOVASCULAR: Shows regular S1 and S2 with S3 gallop. ABDOMEN: Soft. EXTREMITIES: 3+ pitting edema as well as scrotal and penile edema. Danie Florez MD Aug 07, 2019 11:35
[2019-08-07 11:48] LABS: ALANINE AMINOTRANSFERASE 25 U/L (12-78); ALBUMIN 3.1 G/DL (3.4-5.0); ALBUMIN/GLOBULIN RATIO 0.8 (1.0-2.7); ALKALINE PHOSPHATASE 103 U/L (46-116); ANION GAP 7 mmol/L (5-15); ASPARTATE AMINO TRANSFERASE 28 U/L (15-37); BILIRUBIN,TOTAL 1.6 MG/DL (0.2-1.0); BLOOD UREA NITROGEN 40 mg/dL (7-18); CALCIUM 8.9 MG/DL (8.5-10.1); CARBON DIOXIDE 31 MMOL/L (21-32); CHLORIDE 97 MMOL/L (98-107); CREATININE 1.7 MG/DL (0.55-1.30); PHOSPHORUS 3.2 MG/DL (2.5-4.9); POTASSIUM 3.6 MMOL/L (3.5-5.1); SODIUM 135 MMOL/L (136-145)
[2019-08-07 11:49] LABS: BILIRUBIN,DIRECT 0.6 MG/DL (0.0-0.3)
[2019-08-07 12:03] VITALS: BP 115/65
--- NOTE | 2019-08-07 12:16 | NUR ---
CASE MANAGEMENT:REVIEW 08/07/19 SI: CHF EXACERBATION W/EF 20-25% POLYSUBSTANCE ABUSE ~ COCAINE AND THC 98.0 109 18 111/68 100% ON RA H/H-11.7/41.3 BUN+40 CR+1.7 TBILI+1.6 DBILI+0.6 IS: LASIX PO QD MAG OXIDE PO TID FLOMAX PO QHS ALLOPURINOL PO QD IV LASIX Q12 PROTONIX PO BID HYDRALAZINE PO BID ISORDIL PO BID : TELEMETRY STATUS DCP: FROM HOME PLAN: PT EVAL ~ AMBULATING 100FT
--- NOTE | 2019-08-07 12:19 | NUR ---
DISCHARGE PLANNING MESSAGE LEFT FOR DR SMITH AND DR JOYNER REGARDING DISCHARGE
--- NOTE | 2019-08-07 14:13 | NUR ---
NURSE NOTES: Transferring patient to [facility] [id number] gave report to in 4E nurse.
--- NOTE | 2019-08-07 14:45 | NUR ---
NURSE NOTES: RECEIVED REPORT FROM VIBHA SANDRA. PATIENT IS AAOX4 TRANSFERRED FROM TELEMETRY, AMBULATORY WITH YELLOW SOCKS, ON CARDIAC DIET. VS STABLE AT 125/80, HR 79, RR 18, SPO2 97. BELONGING AT BEDSIDE, PATIENT REFUSED TO HAVE BELONGINGS CHECKED. IV PATENT AND INTACT. NO CHEST PAIN NOTED AT THIS TIME. RN INSTRUCTED PATIENT TO USE CALL LIGHT IF FELT DIZZY BEFORE AMBULATING. SAFETY MEASURES ARE IN PLACED. BED LOCKED AND PLACED IN LOWEST POSITION WITH BED ALARM ON. CALL LIGHT WITHIN REACH. WILL CONTINUE TO MONITOR.
[2019-08-07 16:00] VITALS: BP 118/80
--- NOTE | 2019-08-07 19:22 | NUR ---
HAND-OFF: Report given to VIBHA Underwood.
--- NOTE | 2019-08-07 19:49 | NUR ---
NURSE NOTES: Received patient awake in bed, declines assessment at this time yelling "Close my door! I dont need to see anyone today!". Addendum: 08/07/19 at 2054 by Sheela Underwood RN Refused 1999 vital signs. RICKY tried twice.
[2019-08-07] MEDS ORDERED: Tamsulosin 0.4mg cap ORAL SCH (21:00)
--- NOTE | 2019-08-07 21:41 | General Progress Note ---
Assessment/Plan Problem List: (1) Renal insufficiency ICD Codes: N28.9 - Disorder of kidney and ureter, unspecified SNOMED: 421899698, 798064968 (2) Cardiac LV ejection fraction 10-20% ICD Codes: R09.89 - Other specified symptoms and signs involving the circulatory and respiratory systems SNOMED: 86510824, 385834613 (3) Chest pain ICD Codes: R07.9 - Chest pain, unspecified SNOMED: 45442231 (4) Cocaine substance abuse ICD Codes: F14.10 - Cocaine abuse, uncomplicated SNOMED: 86125050 (5) Hyperkalemia ICD Codes: E87.5 - Hyperkalemia SNOMED: 38651330, 5619929 (6) Elevated troponin ICD Codes: R79.89 - Other specified abnormal findings of blood chemistry SNOMED: 704986696, 971032910, 027234497 (7) Anemia ICD Codes: D64.9 - Anemia, unspecified SNOMED: 299399008 (8) CHF (congestive heart failure) ICD Codes: I50.9 - Heart failure, unspecified SNOMED: 97191412 (9) SOB (shortness of breath) ICD Codes: R06.02 - Shortness of breath SNOMED: 621283467 (10) Malnutrition ICD Codes: E46 - Unspecified protein-calorie malnutrition SNOMED: 47620126 (11) CHF exacerbation ICD Codes: I50.9 - Heart failure, unspecified SNOMED: 481764390, 39165220960856 Status: progressing, unchanged Assessment/Plan: azotemia no sob not hypoxic chf exacerbation supportive therapy Subjective ROS Limited/Unobtainable: Yes Allergies: Coded Allergies: NO KNOWN ALLERGIES (Verified Allergy, Unknown, 04/08/19) Objective Last 24 Hour Vital Signs Date Time Temp Pulse Resp B/P (MAP) Pulse Ox O2 Delivery O2 Flow Rate FiO2 08/07/19 20:32 Room Air 08/07/19 17:14 118/80 08/07/19 17:13 118/80 08/07/19 16:00 97.3 105 20 118/80 (93) 98 08/07/19 14:35 Room Air 08/07/19 12:03 98.4 110 18 115/65 (82) 08/07/19 11:43 96 08/07/19 09:00 111/68 08/07/19 08:58 111/68 08/07/19 08:15 98.0 109 18 111/68 (82) 100 08/07/19 08:09 Room Air 08/07/19 07:33 111 08/07/19 04:00 102 08/07/19 00:00 104 08/07/19 00:00 98.6 101 17 110/66 (81) 97 Intake and Output 08/06/19 08/07/19 19:00 07:00 Intake Total 380 ml 900 ml Output Total 1400 ml 1600 ml Balance -1020 ml -700 ml Intake Oral 380 ml 900 ml Output Urine Total 1400 ml 1600 ml # Voids 4 5 Laboratory Tests 08/07/19 11:00: White Blood Count 6.4, Red Blood Count 4.33L, Hemoglobin 11.7L, Hematocrit 41.3L , Mean Corpuscular Volume 95, Mean Corpuscular Hemoglobin 26.9L, Mean Corpuscular Hemoglobin Concent 28.2L, Red Cell Distribution Width 16.1H, Platelet Count 273, Mean Platelet Volume 7.7, Neutrophils (%) (Auto) 57.1, Lymphocytes (%) (Auto) 18.9L, Monocytes (%) (Auto) 16.0H, Eosinophils (%) (Auto ) 6.2H, Basophils (%) (Auto) 1.8, Sodium Level 135L, Potassium Level 3.6, Chloride Level 97L, Carbon Dioxide Level 31, Anion Gap 7, Blood Urea Nitrogen 40H, Creatinine 1.7H, Estimat Glomerular Filtration Rate 50.3, Glucose Level 85 , Uric Acid 6.1, Calcium Level 8.9, Phosphorus Level 3.2, Magnesium Level 1.9, Total Bilirubin 1.6H, Direct Bilirubin 0.6H, Aspartate Amino Transf (AST/SGOT) 28, Alanine Aminotransferase (ALT/SGPT) 25, Alkaline Phosphatase 103, C- Reactive Protein, Quantitative 0.6, Pro-B-Type Natriuretic Peptide 659H, Total Protein 7.2, Albumin 3.1L, Globulin 4.1, Albumin/Globulin Ratio 0.8L, Digoxin Level 0.6 Height (Feet): 6 Height (Inches): 1.00 Weight (Pounds): 160 Kye Henriquez MD Aug 07, 2019 21:41
[2019-08-08] VITALS: BP 115/51
[2019-08-08 04:00] VITALS: BP 126/63
--- NOTE | 2019-08-08 07:25 | NUR ---
HAND-OFF: Report given to VIBHA Hernández. Patient ambulating in [facility].
[2019-08-08 08:00] VITALS: BP 123/66
--- NOTE | 2019-08-08 08:05 | NUR ---
NURSE NOTES: received report from VIBHA Mclaughlin. patient in bed. a&Ox4, verbally responsive. aggressive. angry about no jelly and milk for breakfast. no respiratory distress noted. no pain at this time. IV on RH saline lock. refused to flush. ambulatory. bed in the lowest position and locked. call light within reach. will continue to provide plan of care.
[2019-08-08] MEDS ORDERED: Furosemide 80mg tab ORAL SCH ×2 (09:00)
[2019-08-08] MEDS: Magnesium Oxide 400mg tab ORAL SCH (09:52)
[2019-08-08 09:53] VITALS: BP 123/66
[2019-08-08] MEDS: HydrALAZINE 25mg tab ORAL SCH (09:53)
[2019-08-08] MEDS: Docusate 100mg cap ORAL SCH (09:53)
--- NOTE | 2019-08-08 10:22 | NUR ---
DISCHARGE PLANNING MESSAGE SENT TO DR JOYNER. WAITING CALL BACK.
--- NOTE | 2019-08-08 10:29 | Pulmonology Progress Note ---
Subjective ROS Limited/Unobtainable: Yes Interval Events: no distress Constitutional: Reports: no symptoms HEENT: Repors: no symptoms Respiratory: Reports: no symptoms Cardiovascular: Reports: no symptoms Gastrointestinal/Abdominal: Reports: no symptoms Genitourinary: Reports: no symptoms Allergies: Coded Allergies: NO KNOWN ALLERGIES (Verified Allergy, Unknown, 04/08/19) All Systems: reviewed and negative except above Objective Last 24 Hour Vital Signs Date Time Temp Pulse Resp B/P (MAP) Pulse Ox O2 Delivery O2 Flow Rate FiO2 08/08/19 09:53 123/66 08/08/19 09:52 123/66 08/08/19 09:00 Room Air 08/08/19 08:00 98.0 103 21 123/66 (85) 98 08/08/19 04:00 98.1 101 22 126/63 (84) 98 08/08/19 00:00 97.7 103 20 115/51 (72) 98 08/07/19 20:32 Room Air 08/07/19 17:14 118/80 08/07/19 17:13 118/80 08/07/19 16:00 97.3 105 20 118/80 (93) 98 08/07/19 14:35 Room Air 08/07/19 12:03 98.4 110 18 115/65 (82) 08/07/19 11:43 96 Intake and Output 08/07/19 08/08/19 18:59 06:59 Intake Total 400 ml 1200 ml Balance 400 ml 1200 ml Intake Oral 400 ml Other 1200 ml # Voids 1 4 General Appearance: no acute distress HEENT: normocephalic Respiratory: chest wall non-tender, decreased breath sounds Cardiovascular: normal peripheral pulses, normal rate, regular rhythm, gallop/ S3 Abdomen: normal bowel sounds, soft, non tender Extremities: no cyanosis, no clubbing, no edema Laboratory Tests 08/07/19 11:00: White Blood Count 6.4, Red Blood Count 4.33L, Hemoglobin 11.7L, Hematocrit 41.3L , Mean Corpuscular Volume 95, Mean Corpuscular Hemoglobin 26.9L, Mean Corpuscular Hemoglobin Concent 28.2L, Red Cell Distribution Width 16.1H, Platelet Count 273, Mean Platelet Volume 7.7, Neutrophils (%) (Auto) 57.1, Lymphocytes (%) (Auto) 18.9L, Monocytes (%) (Auto) 16.0H, Eosinophils (%) (Auto ) 6.2H, Basophils (%) (Auto) 1.8, Sodium Level 135L, Potassium Level 3.6, Chloride Level 97L, Carbon Dioxide Level 31, Anion Gap 7, Blood Urea Nitrogen 40H, Creatinine 1.7H, Estimat Glomerular Filtration Rate 50.3, Glucose Level 85 , Uric Acid 6.1, Calcium Level 8.9, Phosphorus Level 3.2, Magnesium Level 1.9, Total Bilirubin 1.6H, Direct Bilirubin 0.6H, Aspartate Amino Transf (AST/SGOT) 28, Alanine Aminotransferase (ALT/SGPT) 25, Alkaline Phosphatase 103, C- Reactive Protein, Quantitative 0.6, Pro-B-Type Natriuretic Peptide 659H, Total Protein 7.2, Albumin 3.1L, Globulin 4.1, Albumin/Globulin Ratio 0.8L, Digoxin Level 0.6 Current Medications Medications (Trade) Dose Ordered Sig/Ariel Route PRN Reason Start Time Stop Time Status Last Admin Dose Admin Allopurinol (allopurinoL) 300 mg DAILY ORAL 08/08/19 09:00 09/02/19 09:44 08/08/19 09:52 Docusate Sodium (Colace) 100 mg TWICE A DAY ORAL 08/07/19 18:00 09/01/19 17:59 08/08/19 09:53 Furosemide (Lasix) 80 mg DAILY ORAL 08/08/19 09:00 09/07/19 08:59 08/08/19 09:53 Hydralazine HCl (Apresoline) 25 mg BID ORAL 08/07/19 18:00 10/31/19 17:59 08/08/19 09:53 Isosorbide Dinitrate (Isordil) 10 mg BID ORAL 08/07/19 18:00 09/01/19 17:59 08/08/19 09:52 Magnesium Oxide (Mag-Ox 400mg) 400 mg THREE TIMES A DAY ORAL 08/07/19 18:00 09/04/19 17:59 08/08/19 09:52 Pantoprazole (Protonix) 40 mg BID ORAL 08/07/19 18:00 09/01/19 17:59 08/08/19 09:53 Tamsulosin HCl (Flomax) 0.4 mg BEDTIME ORAL 08/07/19 21:00 09/02/19 20:59 08/07/19 21:15 Assessment/Plan Assessment/Plan ASSESSMENT AND PLAN: 1. Exacerbation of congestive heart failure in a patient with EF of 15 to 20%. Continue heart failure therapy. 2. Chronic troponin elevation same as March, April, and May. likely due to renal failure. 3. Hypertension. Continue maximizing his heart failure therapy. 4. Polysubstance abuse with cocaine. 5. Seizure disorder. 6. History of noncompliance. Patient signed out AMA on previous admission in April of 2019. 7. Ordered Oxygen and pulmonary hygiene; currently on room air Myrna Mackay Omar Syed MD Aug 08, 2019 10:29
--- NOTE | 2019-08-08 10:32 | NUR ---
CASE MANAGEMENT:REVIEW SI;AC/CHR CHF W/EF @ 20%. RENAL INSUFFICIENCY. POLYSUBSTANCE ABUSE ~ COCAINE AND THC 98.1 103 22 136/63 98% ON RA IS;LASIX PO QD FLOMAX PO HS HYDRALAZINE PO BID MAG-OX PO TID PROTONIX PO BID MED SURG STATUS DCP;PATIENT IS HOMELESS
--- NOTE | 2019-08-08 10:50 | Cardiac Electrophysiology PN ---
Assessment/Plan Assessment/Plan 1. Chronic troponin elevation. Even in prior hospitalization in March, April and May of 2019 The levels are flat. Likely due to renal failure. Refused nuclear stress test 2. Severe cardiomyopathy with EF of only 20%. Off beta-shahram for active cocaine use. On Lasix to 80 po daily, hydralazine, nitrate 3. Hypertension. Continue current medical regimen. 4. Acute renal failure. SHAN Mesa 4. History of seizure disorder. 5. Polysubstance abuse with cocaine and marijuana . 6. Noncompliance. Signed out AMA prior admission in 04/2019 7. High bilirubin DW RN Subjective Subjective Noncompliant.Transferred to [facility]. Objective Last 24 Hour Vital Signs Date Time Temp Pulse Resp B/P (MAP) Pulse Ox O2 Delivery O2 Flow Rate FiO2 08/08/19 09:53 123/66 08/08/19 09:52 123/66 08/08/19 09:00 Room Air 08/08/19 08:00 98.0 103 21 123/66 (85) 98 08/08/19 04:00 98.1 101 22 126/63 (84) 98 08/08/19 00:00 97.7 103 20 115/51 (72) 98 08/07/19 20:32 Room Air 08/07/19 17:14 118/80 08/07/19 17:13 118/80 08/07/19 16:00 97.3 105 20 118/80 (93) 98 08/07/19 14:35 Room Air 08/07/19 12:03 98.4 110 18 115/65 (82) 08/07/19 11:43 96 Intake and Output 08/07/19 08/08/19 19:00 07:00 Intake Total 400 ml 1200 ml Balance 400 ml 1200 ml Intake Oral 400 ml Other 1200 ml # Voids 1 4 Laboratory Tests Test 08/07/19 11:00 White Blood Count 6.4 K/UL (4.8-10.8) Red Blood Count 4.33 M/UL (4.70-6.10) L Hemoglobin 11.7 G/DL (14.2-18.0) L Hematocrit 41.3 % (42.0-52.0) L Mean Corpuscular Volume 95 FL (80-99) Mean Corpuscular Hemoglobin 26.9 PG (27.0-31.0) L Mean Corpuscular Hemoglobin Concent 28.2 G/DL (32.0-36.0) L Red Cell Distribution Width 16.1 % (11.6-14.8) H Platelet Count 273 K/UL (150-450) Mean Platelet Volume 7.7 FL (6.5-10.1) Neutrophils (%) (Auto) 57.1 % (45.0-75.0) Lymphocytes (%) (Auto) 18.9 % (20.0-45.0) L Monocytes (%) (Auto) 16.0 % (1.0-10.0) H Eosinophils (%) (Auto) 6.2 % (0.0-3.0) H Basophils (%) (Auto) 1.8 % (0.0-2.0) Sodium Level 135 MMOL/L (136-145) L Potassium Level 3.6 MMOL/L (3.5-5.1) Chloride Level 97 MMOL/L (98-107) L Carbon Dioxide Level 31 MMOL/L (21-32) Anion Gap 7 mmol/L (5-15) Blood Urea Nitrogen 40 mg/dL (7-18) H Creatinine 1.7 MG/DL (0.55-1.30) H Estimat Glomerular Filtration Rate 50.3 mL/min (>60) Glucose Level 85 MG/DL (74-106) Uric Acid 6.1 MG/DL (2.6-7.2) Calcium Level 8.9 MG/DL (8.5-10.1) Phosphorus Level 3.2 MG/DL (2.5-4.9) Magnesium Level 1.9 MG/DL (1.8-2.4) Total Bilirubin 1.6 MG/DL (0.2-1.0) H Direct Bilirubin 0.6 MG/DL (0.0-0.3) H Aspartate Amino Transf (AST/SGOT) 28 U/L (15-37) Alanine Aminotransferase (ALT/SGPT) 25 U/L (12-78) Alkaline Phosphatase 103 U/L (46-116) C-Reactive Protein, Quantitative 0.6 mg/dL (0.00-0.90) Pro-B-Type Natriuretic Peptide 659 pg/mL (0-125) H Total Protein 7.2 G/DL (6.4-8.2) Albumin 3.1 G/DL (3.4-5.0) L Globulin 4.1 g/dL Albumin/Globulin Ratio 0.8 (1.0-2.7) L Digoxin Level 0.6 NG/ML (0.5-2.0) Objective HEAD AND NECK: Positive JVD LUNGS: Decreased breath sounds. Basilar rales. CARDIOVASCULAR: Regular S1 and S2 with S3 gallop. ABDOMEN: Soft. EXTREMITIES: 3+ pitting edema as well as scrotal and penile edema. Danie Florez MD Aug 08, 2019 10:50
--- NOTE | 2019-08-08 11:11 | NUR ---
NURSE NOTES: received order from . Discharge to safe place. VS WNL, LAB WNL, no IV meds.
--- NOTE | 2019-08-08 11:28 | NUR ---
ROOM SERVICE SUPERVISOR NOTE JOJO and weigher and charger met w/ pt and discussed DC planning. Pt reports he will go his own without informing us the exact location. SW offered a placement assistance but pt refused w/o providing any reason. Pt also declined to receive a community resource packet. Pt has a pair of shoes w/ him. SW provided a long sleeve hoodie. Pt will be discharged to his preferred location. A bus pass will be provided.
--- NOTE | 2019-08-08 11:31 | Nephrology Progress Note ---
Assessment/Plan Problem List: (1) MANOLO (acute kidney injury) (2) Anemia (3) CHF (congestive heart failure) (4) Cocaine substance abuse (5) Hyperkalemia (6) Elevated troponin Assessment (1) Cardiac LV ejection fraction 10-20% (2) Renal insufficiency (3) CHF (4) Anemia (5) Elevated troponin (6) polysubstance abuse (7) history of seizure disorder Plan August 07: Yesterday's labs reviewed. Serum creatinine down to 1.7. CHF symptoms appears to be more stable. Continue per consultants. Continue afterload and preload reduction and monitor renal parameters. August 06: Waiting for today's lab results. Continue optimizing cardiac status. Monitor renal parameters. August 05: Status quo. No blood drawn today. Medication reviewed. 1 dose of digoxin given. Will check lab tomorrow. Continue per consultants. Magnesium supplement orally Serum creatinine lowering. Been stable at 1.8 1 more dose oral digoxin Isordil , hydralazine optimize cardiac status. Afterload reduction. Gentle diuresis. As needed Keep the BP in check. Monitor renal parameters. Per orders. Subjective ROS Limited/Unobtainable: No Constitutional: Reports: malaise Objective Objective Last 24 Hour Vital Signs Date Time Temp Pulse Resp B/P (MAP) Pulse Ox O2 Delivery O2 Flow Rate FiO2 08/08/19 09:53 123/66 08/08/19 09:52 123/66 08/08/19 09:00 Room Air 08/08/19 08:00 98.0 103 21 123/66 (85) 98 08/08/19 04:00 98.1 101 22 126/63 (84) 98 08/08/19 00:00 97.7 103 20 115/51 (72) 98 08/07/19 20:32 Room Air 08/07/19 17:14 118/80 08/07/19 17:13 118/80 08/07/19 16:00 97.3 105 20 118/80 (93) 98 08/07/19 14:35 Room Air 08/07/19 12:03 98.4 110 18 115/65 (82) 08/07/19 11:43 96 Intake and Output 08/07/19 08/08/19 19:00 07:00 Intake Total 400 ml 1200 ml Balance 400 ml 1200 ml Intake Oral 400 ml Other 1200 ml # Voids 1 4 No labs drawn today Height (Feet): 6 Height (Inches): 1.00 Weight (Pounds): 160 General Appearance: no apparent distress, lethargic Cardiovascular: tachycardia Respiratory/Chest: decreased breath sounds Abdomen: distended Lester Mesa MD Aug 08, 2019 11:31
--- NOTE | 2019-08-08 12:21 | NUR ---
NURSE NOTES: patient was discharged to home located in [facility]. homeless checklist done. signed. SW offered senior care but patient refused. A&Ox4, independent ADL. Tap card provided. checked and counted belongings with patient. removed IV and ID band. Daryl,Charge nurse assisted patient to the lobby. patient left hospital safely.
--- NOTE | 2019-08-08 13:37 | NUR ---
*-* INSURANCE *-* UPDATED CLINICALS AND REVIEWS HAVE BEEN FAXED TO: [employer] F: [phone] AUTH # [id number] AND [facility] F: [phone] AND [phone] PENDING AUTH# [id number]
--- NOTE | 2019-08-09 13:38 | NUR ---
*-* NO DISCHARGE SUMMARY IN THE SYSTEM UNABLE TO FAXED TO [employer] *-*
--- NOTE | 2019-08-10 12:28 | NUR ---
*-* NO DISCHARGE SUMMARY IN THE SYSTEM UNABLE TO FAXED TO [employer] *-*
--- NOTE | 2019-08-10 12:32 | Discharge Summary ---
Discharge Summary Discharge Summary _ DATE OF ADMISSION: 08/02/2019 DATE OF DISCHARGE: 08/08/2019 DISCHARGED BY: Dr. Hoang REASON FOR ADMISSION: 59 years old male with past medical history of congestive heart failure, severe cardiomyopathy, hypertension, presented for evaluation due to shortness of breath. Patient reported progressively worsened swelling of the lower extremity over the past 2 days as well as worsened shortness of breath. He denied chest pain. He ran out of Lasix for 2 days. Patient homeless and keeps his medications usually at his sister house , but had not been at her house for the last 2 days. Last echocardiogram was performed in April 2019 and showed severe global left ventricular hypokinesis with ejection fraction 25 to 30% as well as moderate mitral regurgitation and moderate to severe tricuspid regurgitation. Upon evaluation vital signs were stable. Patient had no fever . Pulse oximetry was stable on room air. Laboratory work-up revealed no leukocytosis ,hemoglobin 11.2, hematocrit 38.4. Sodium 134, potassium 5.6. BUN 48, creatinine 2.4. Glucose 103. AST 45, ALT 28. Troponin 0.116, pro BNP 3014. EKG revealed sinus rhythm with T wave flattening and nonspecific changes. Albumin 3.3. Chest x-ray revealed bilateral pulmonary congestion , but no acute cardiopulmonary pathology. Urine toxicology screen was positive for cocaine and marijuana. Urinalysis revealed no evidence of urinary tract infection , +1 protein. In emergency department patient received Lasix , hyperkalemia was treated. Patient was admitted for further management . CONSULTANTS: industrial machine assembler Dr. Ochoa pulmonary Dr. Mensah cloth dyer Dr. [place]a HOSPITAL COURSE: Patient admitted to telemetry floor. Echocardiogram demonstrated severe global left ventricular hypokinesis with ejection fraction estimated to be 20 to 25%. No left ventricular hypertrophy. Moderate to severe mitral regurgitation, severe tricuspid regurgitation. Right ventricular systolic pressure of 43 , consistent with mild pulmonary hypertension. Moderately elevated left atrial pressure grade 2. Patient was on diuresis , and volumes were closely monitored. Guideline directed medical therapy for congestive heart failure provided with diuretic, hydralazine, nitrate and Digoxin. No role of beta-shahram in this situation, given active cocaine use. Troponin levels remained minimally elevated. Next troponin 0.122. Per industrial machine assembler ,on prior admission patient also had elevated troponin level Levels were flat and likely due to renal failure. Patient declined nuclear stress test while in the hospital. Blood pressure was managed with current antihypertensive regimen , including hydralazine Isordil and Lasix Blood pressure remained stable. Pulse oximetry remained stable on room air. Venous duplex bilateral lower extremity revealed no evidence of acute DVT. GI prophylaxis provided. Cardiac status was further optimized. Volumes and cardiorenal parameters were closely monitored. ProBNP trended down to 659 prior to discharge Lipid panel was stable. Renal parameters and electrolytes were closely monitored, electrolytes corrected as needed. Creatinine from 2.4 down to 1.7. Potassium 3.6 upon discharge. Supportive care provided. Patient was encouraged compliance with medication regimen. Hemoglobin and hematocrit were closely monitored with goal to keep hemoglobin above 7, prior to discharge hemoglobin 11.7, hematocrit 41.3. mechanical maintenance worker met with patient and offered assistance with placement and community resources , but patient declined both. The treating physician and consultants assessed and agreed that patient was medically stable for discharge to an outpatient disposition. FINAL DIAGNOSES: Severe cardiomyopathy ejection fraction 20% CHF exacerbation Acute kidney injury Hyperkalemia Hypertension Chronic troponin elevation Seizure disorder Polysubstance abuse with cocaine and marijuana Noncompliance Anemia DISCHARGE MEDICATIONS: List of medication was sent with patient DISCHARGE INSTRUCTIONS: Patient was discharged home. Follow-up with a primary care provider in 1 week. I have been assigned to dictate discharge summary for this account. I was not involved in the patient's management. Blaire Ortega NP Aug 10, 2019 12:32
--- NOTE | 2019-08-11 08:51 | NUR ---
*-* INSURANCE *-* DISCHARGE SUMMARY HAS BEEN FAXED TO: [employer] F: [phone] AUTH # [id number] AND [facility] F: [phone] AND [phone] PENDING AUTH# [id number]
== END 2019-08-08 12:18 | disposition home or self-care (01) | DRG 194 ==
LOC: EDBD 09:44 → EMR 10:17 → EDBEDREQ 10:52 → 2E 12:14 → EDBEDREQ 14:10 → 4E 08-07 14:17
DX: I11.0 Hypertensive heart disease with heart failure (principal); N17.9 Acute kidney failure, unspecified; I50.23 Acute on chronic systolic (congestive) heart failure; E87.5 Hyperkalemia; G40.909 Epilepsy, unspecified, not intractable, without status epilepticus; I42.9 Cardiomyopathy, unspecified; D63.8 Anemia in other chronic diseases classified elsewhere; D64.9 Anemia, unspecified; E46 Unspecified protein-calorie malnutrition; Z59.0 Homelessness; I34.0 Nonrheumatic mitral (valve) insufficiency; I36.1 Nonrheumatic tricuspid (valve) insufficiency; F14.10 Cocaine abuse, uncomplicated; F19.10 Other psychoactive substance abuse, uncomplicated; Z91.19 Patient's noncompliance with other medical treatment and regimen
CPT/HCPCS: 36415; 71045; 80048; 80053; 80061; 80076; 80162; 80307; 81003; 82248; 82550; 82728; 82977; 83036; 83605; 83615; 83735; 83880; 84100; 84443; 84484; 84550; 85025; 86140; 87081; 93005; 93306; 93970; 96374; 96375; 99291

== ENCOUNTER 2019-12-02 12:03 | Inpatient (IN) | payer MEDICAID ==
[~2019-12-02] VITALS: Ht 185.4 cm; Wt 76.4 kg
[~2019-12-02 12:03] MED LIST changes: +ASPIRIN81 MG ORAL
--- NOTE | 2019-12-02 12:05 | NUR ---
ED Nurse Note: pt GINGER GALLO [address] multiple complaints. pt reports dry cough, SOB and generalized body pain for a "few days" pt is noted to be satting at 100% on RA. also c/o dairrhea for unk amount of time.
[2019-12-02 12:06] VITALS: BP 143/99
--- NOTE | 2019-12-02 12:06 | NUR ---
ED Nurse Note: pt is noted to have edema to bilat lower extremities, states he has a history of CHF and that he has not taken his meds but also that the meds "don't work any way"
--- NOTE | 2019-12-02 12:07 | Emergency Room Report ---
History of Present Illness General Chief Complaint: General Complaint Source: Patient Present Illness HPI Disclaimer: Please note that this report is being documented using DRAGON technology. This can lead to erroneous entry secondary to incorrect interpretation by the dictating instrument. HPI: 59-year-old male presents by EMS for evaluation of shortness of breath. He has a history of heart failure with severely reduced ejection fraction of 20%, past history of cocaine abuse, anemia, seizure disorder. Patient is homeless and states his sister manages his medications. He has been without his Lasix for 4 days as he says his sister is out of town. He reports bilateral pitting edema, exertional dyspnea, orthopnea and nonproductive cough. Symptoms worse over the past 24 hours. Denies fever or chills. Denies chest pain. Also reporting diffuse myalgias. Denies recent drug use. PMH: CHF, hypertension PSH: Reviewed Allergies: Denies Social Hx: Denies drug, alcohol or tobacco use recently Allergies: Coded Allergies: NO KNOWN ALLERGIES (Verified Allergy, Unknown, 04/08/19) COVID-19 Screening Contact w/high risk pt: No Recent Travel to affected area: No Experienced COVID-19 symptoms?: Yes COVID-19 symptoms experienced: Shortness of Breath, Cough, Runny Nose, Flu-Like Symptoms COVID-19 Testing performed RAIL MAINTENANCE WORKER: No Nursing Documentation-PMH Hx Cardiac Problems: Yes - chf Hx Hypertension: Yes Hx Cancer: No Hx Gastrointestinal Problems: No Hx Neurological Problems: Yes Hx Seizures: Yes Hx Weakness: Yes Review of Systems All Other Systems: negative except mentioned in HPI Physical Exam Vital Signs Date Time Temp Pulse Resp B/P (MAP) Pulse Ox O2 Delivery O2 Flow Rate FiO2 12/02/19 12:01 98.4 105 19 143/99 (114) 97 Room Air General: Awake and alert, no acute distress HEENT: NC/AT. EOMI. Cardiovascular: RRR. Resp: Normal work of breathing. Bilateral crackles at the bases. No obvious wheezing. No cough. Abdomen: Abdomen is soft, nondistended. Nontender Skin: Intact. No abrasions, laceration or rash over the exposed skin MSK: Normal tone and bulk. Moving all extremities. No obvious deformity. 3+ lower extremity pitting edema Neuro: Awake and alert. Mentating appropriately. Procedures Critical Care Time Critical Care Time Total critical care time: Approximately 45 minutes Due to a high probability of clinically significant, life threatening deterioration, the patient required the highest level of preparedness to intervene emergently and I personally spent this critical care time directly and personally managing the patient. This critical care time included obtaining a history, examining the patient, pulse oximetry, ordering and reviewing studies, ordering treatments, evaluating response to treatment and updating management plan as needed, frequent reassessment and discussion with other providers as well as arranging for ultimate disposition. This critical to care time was performed to assess and manage the high probability of life-threatening deterioration that could result in multiorgan failure. This critical care time is separate from the separately billable procedures and treating other patients. Medical Decision Making Diagnostic Impression: Primary Impression: Elevated troponin Additional Impression: Acute exacerbation of CHF (congestive heart failure) ER Course 59-year-old male history of reduced ejection fraction heart failure presents for evaluation of shortness of breath after missing medication dose for the past 4 days. He arrives in no respiratory distress no significant lower extremity edema. EKG shows sinus rhythm without ischemic changes. Patient was treated with nitroglycerin, Lasix. Patient is tachycardic though remainder vital signs within normal limits. Troponin returned elevated which it has been in the past. He was treated with aspirin. Peptide elevated. Chest x-ray shows severe cardiomegaly without evidence of infiltrate. He is unable to ambulate though is diuresing after receiving IV Lasix. So far approximately 500 cc output. Creatinine is at baseline. Toxicology screen is pending. Patient require admission. Dr. Hoang previously admitted the patient and has accepted him onto the service again. Laboratory Tests Test 12/02/19 12:30 12/02/19 13:15 12/02/19 21:00 White Blood Count 5.6 K/UL (4.8-10.8) Red Blood Count 4.17 M/UL (4.70-6.10) L Hemoglobin 11.6 G/DL (14.2-18.0) L Hematocrit 39.3 % (42.0-52.0) L Mean Corpuscular Volume 94 FL (80-99) Mean Corpuscular Hemoglobin 27.7 PG (27.0-31.0) Mean Corpuscular Hemoglobin Concent 29.4 G/DL (32.0-36.0) L Red Cell Distribution Width 17.7 % (11.6-14.8) H Platelet Count 195 K/UL (150-450) Mean Platelet Volume 8.7 FL (6.5-10.1) Neutrophils (%) (Auto) 71.6 % (45.0-75.0) Lymphocytes (%) (Auto) 12.4 % (20.0-45.0) L Monocytes (%) (Auto) 11.3 % (1.0-10.0) H Eosinophils (%) (Auto) 2.7 % (0.0-3.0) Basophils (%) (Auto) 2.0 % (0.0-2.0) Prothrombin Time 14.4 SEC (9.30-11.50) H Prothrombin Time INR 1.3 (0.9-1.1) H Activated Partial Thromboplast Time 34 SEC (23-33) H Sodium Level 136 MMOL/L (136-145) Potassium Level 4.7 MMOL/L (3.5-5.1) Chloride Level 104 MMOL/L (98-107) Carbon Dioxide Level 20 MMOL/L (21-32) L Blood Urea Nitrogen 31 mg/dL (7-18) H Creatinine 1.8 MG/DL (0.55-1.30) H Estimated Glomerular Filtration Rate 47.0 mL/min (>60) Glucose Level 91 MG/DL (74-106) Calcium Level 8.7 MG/DL (8.5-10.1) Total Bilirubin 1.9 MG/DL (0.2-1.0) H Direct Bilirubin 0.9 MG/DL (0.0-0.3) H Aspartate Amino Transferase (AST) 28 U/L (15-37) Alanine Aminotransferase (ALT) 21 U/L (12-78) Alkaline Phosphatase 100 U/L (46-116) Troponin I 0.104 ng/mL (0.000-0.056) 0.090 ng/mL (0.000-0.056) Pro-B-Type Natriuretic Peptide 7065 pg/mL (0-125) H Total Protein 7.1 G/DL (6.4-8.2) Albumin 3.5 G/DL (3.4-5.0) Globulin 3.6 g/dL Albumin/Globulin Ratio 1.0 (1.0-2.7) Lipase 390 U/L (73-393) Urine Color Yellow Urine Appearance Clear Urine pH 5 (4.5-8.0) Urine Specific [place] 1.015 (1.005-1.035) Urine Protein 2+ (NEGATIVE) H Urine Glucose (UA) Negative (NEGATIVE) Urine Ketones Negative (NEGATIVE) Urine Blood Negative (NEGATIVE) Urine Nitrite Negative (NEGATIVE) Urine Bilirubin Negative (NEGATIVE) Urine Urobilinogen Normal MG/DL (0.0-1.0) Urine Leukocyte Esterase Negative (NEGATIVE) Urine RBC 0 /HPF (0 - 0) Urine WBC 0 /HPF (0 - 0) Urine Squamous Epithelial Cells Occasional /LPF Urine Bacteria Occasional /HPF (NONE) Urine Opiates Screen Negative (NEGATIVE) Urine Barbiturates Screen Negative (NEGATIVE) Phencyclidine (PCP) Screen Negative (NEGATIVE) Urine Amphetamines Screen Negative (NEGATIVE) Urine Benzodiazepines Screen Negative (NEGATIVE) Urine Cocaine Screen Positive (NEGATIVE) H Urine Marijuana (THC) Screen Positive (NEGATIVE) H EKG Diagnostic Results Troponin ordered: Yes When was troponin ordered?: Dec 02, 2019 EKG Time: 12:11 Rate: tachycardiac Rhythm: NSR ST Segments: no acute changes Other Impression Sinus tachycardia, normal axis, normal intervals, no ST segment changes. Rhythm Strip Diag. Results Rhythm Strip Time: 12:11 EP Interpretation: yes Rate: 106 Rhythm: NSR, no PVC's, no ectopy Chest X-Ray Diagnostic Results Chest X-Ray Diagnostic Results : Chest X-Ray Ordered: Yes # of Views/Limited/Complete: 1 View Indication: Shortness of Breath EP Interpretation: Yes Interpretation: no effusion, no pneumothorax, other - Cardiomegaly unchanged from previous exam Impression: Other - Cardiomegaly unchanged from previous Electronically Signed by: Electronically signed by Dr. Tuan Bach Disposition: ADMITTED INPATIENT Condition: Serious Tuan Bach MD Dec 02, 2019 12:07
[2019-12-02] MEDS ORDERED: Nitroglycerin 2% oint pkt TOPIC ONE (12:30)
[2019-12-02] MEDS ORDERED: Nitroglycerin Subl 0.4mg tab SL PRN ×2 (12:30→17:15)
--- NOTE | 2019-12-02 12:37 | NUR ---
ED Nurse Note: Iv inserted and blood sent to lab
--- NOTE | 2019-12-02 12:40 | NUR ---
ED Nurse Note: pt aware of need for urine sample. urinal provided
[2019-12-02 12:42] LABS: EOSINOPHILS % (AUTO) 2.7 % (0.0-3.0); HEMATOCRIT 39.3 % (42.0-52.0); HEMOGLOBIN 11.6 G/DL (14.2-18.0); LYMPHOCYTES % (AUTO) 12.4 % (20.0-45.0); MEAN CORPUSCULAR VOLUME 94 FL (80-99); MONOCYTES % (AUTO) 11.3 % (1.0-10.0); NEUTROPHILS % (AUTO) 71.6 % (45.0-75.0); PLATELET COUNT 195 K/UL (150-450); RED BLOOD COUNT 4.17 M/UL (4.70-6.10); RED CELL DISTRIBUTION WIDTH 17.7 % (11.6-14.8); WHITE BLOOD COUNT 5.6 K/UL (4.8-10.8)
--- NOTE | 2019-12-02 12:45 | Diagnostic Imaging Report ---
EXAM: XR Chest, 1 View CLINICAL HISTORY: Shortness of breath TECHNIQUE: Frontal view of the chest. COMPARISON: Chest x-ray dated 10/24/19 FINDINGS: Lungs: The lungs appear clear. Pleural space: Unremarkable. The costophrenic angles are sharp. No visible pneumothorax. Heart: No significant change in severe cardiomegaly. Mediastinum: Unremarkable. Bones/joints: Unremarkable. Tubes, lines and devices: Telemetry leads overlie the thorax. IMPRESSION: 1. No significant change in severe cardiomegaly. Cannot exclude pericardial effusion. 2. The lungs appear clear.
[2019-12-02 12:50] LABS: INR 1.3 (0.9-1.1)
[2019-12-02 13:03] LABS: ALANINE AMINOTRANSFERASE 21 U/L (12-78); ALBUMIN 3.5 G/DL (3.4-5.0); ALKALINE PHOSPHATASE 100 U/L (46-116); ASPARTATE AMINO TRANSFERASE 28 U/L (15-37); BILIRUBIN,TOTAL 1.9 MG/DL (0.2-1.0); BLOOD UREA NITROGEN 31 mg/dL (7-18); CALCIUM 8.7 MG/DL (8.5-10.1); CARBON DIOXIDE 20 MMOL/L (21-32); CHLORIDE 104 MMOL/L (98-107); CREATININE 1.8 MG/DL (0.55-1.30); POTASSIUM 4.7 MMOL/L (3.5-5.1); SODIUM 136 MMOL/L (136-145)
[2019-12-02 13:13] LABS: BILIRUBIN,DIRECT 0.9 MG/DL (0.0-0.3)
[2019-12-02] MEDS ORDERED: Aspirin Baby 81mg ORAL ONE (13:15)
--- NOTE | 2019-12-02 13:31 | NUR ---
ED Nurse Note: pt reports he is unable to walk due to swollen legs
[2019-12-02 13:41] LABS: APPEARANCE,URINE CLEAR; BILIRUBIN, URINE NEGATIVE (NEGATIVE); GLUCOSE, URINE (UA) NEGATIVE (NEGATIVE); KETONES,URINE NEGATIVE (NEGATIVE); LEUKOCYTE ESTERASE ,URINE NEGATIVE (NEGATIVE); NITRITE,URINE NEGATIVE (NEGATIVE); PH,URINE 5 (4.5-8.0); PROTEIN,URINE 2+ (NEGATIVE); UROBILINOGEN,URINE NORMAL MG/DL (0.0-1.0)
[2019-12-02 13:50] LABS: COLOR,URINE YELLOW
[2019-12-02 14:00] VITALS: BP 148/93
--- NOTE | 2019-12-02 15:19 | NUR ---
ED Nurse Note: Report given to Luciana RN on 2E
--- NOTE | 2019-12-02 15:25 | NUR ---
ED Nurse Note: pt transferred safely to 2E on the monitor. Belongings list verified.
[2019-12-02] MEDS ORDERED: Morphine Sulfate 2mg/ml Inj(IV/IM USE ONLY) IVP PRN ×2 (16:30→17:15)
[2019-12-02] MEDS ORDERED: Albuterol/Ipratropium 3ml neb HHN PRN (16:30)
--- NOTE | 2019-12-02 17:05 | Cardiac Electrophysiology PN ---
Subjective Subjective 1. Chronic troponin elevation. Even in prior hospitalization in March, April, May and oct The levels are flat. Likely due to renal failure. Refused nuclear stress test 2. Severe cardiomyopathy with EF of only 20%. Off beta-shahram for active cocaine use. Increase Lasix to 40 iv bid, hydralazine, nitrate 3. Hypertension. Continue current medical regimen. 4. CHD C4 1.8 4. History of seizure disorder. 5. Polysubstance abuse with cocaine and marijuana . 6. Noncompliance. Signed out AMA prior admission in 04/2019 7. High bilirubin Objective Last 24 Hour Vital Signs Date Time Temp Pulse Resp B/P (MAP) Pulse Ox O2 Delivery O2 Flow Rate FiO2 12/02/19 16:04 Room Air 12/02/19 15:25 98.6 82 20 137/91 96 Room Air 12/02/19 14:00 98.2 89 20 148/93 95 Room Air 12/02/19 12:32 135/92 12/02/19 12:06 105 19 Room Air 12/02/19 12:06 98.4 105 19 143/99 97 Room Air 12/02/19 12:01 98.4 105 19 143/99 (114) 97 Room Air Laboratory Tests Test 12/02/19 12:30 12/02/19 13:15 White Blood Count 5.6 K/UL (4.8-10.8) Red Blood Count 4.17 M/UL (4.70-6.10) L Hemoglobin 11.6 G/DL (14.2-18.0) L Hematocrit 39.3 % (42.0-52.0) L Mean Corpuscular Volume 94 FL (80-99) Mean Corpuscular Hemoglobin 27.7 PG (27.0-31.0) Mean Corpuscular Hemoglobin Concent 29.4 G/DL (32.0-36.0) L Red Cell Distribution Width 17.7 % (11.6-14.8) H Platelet Count 195 K/UL (150-450) Mean Platelet Volume 8.7 FL (6.5-10.1) Neutrophils (%) (Auto) 71.6 % (45.0-75.0) Lymphocytes (%) (Auto) 12.4 % (20.0-45.0) L Monocytes (%) (Auto) 11.3 % (1.0-10.0) H Eosinophils (%) (Auto) 2.7 % (0.0-3.0) Basophils (%) (Auto) 2.0 % (0.0-2.0) Prothrombin Time 14.4 SEC (9.30-11.50) H Prothromb Time International Ratio 1.3 (0.9-1.1) H Activated Partial Thromboplast Time 34 SEC (23-33) H Sodium Level 136 MMOL/L (136-145) Potassium Level 4.7 MMOL/L (3.5-5.1) Chloride Level 104 MMOL/L (98-107) Carbon Dioxide Level 20 MMOL/L (21-32) L Blood Urea Nitrogen 31 mg/dL (7-18) H Creatinine 1.8 MG/DL (0.55-1.30) H Estimat Glomerular Filtration Rate 47.0 mL/min (>60) Glucose Level 91 MG/DL (74-106) Calcium Level 8.7 MG/DL (8.5-10.1) Total Bilirubin 1.9 MG/DL (0.2-1.0) H Direct Bilirubin 0.9 MG/DL (0.0-0.3) H Aspartate Amino Transf (AST/SGOT) 28 U/L (15-37) Alanine Aminotransferase (ALT/SGPT) 21 U/L (12-78) Alkaline Phosphatase 100 U/L (46-116) Troponin I 0.104 ng/mL (0.000-0.056) Pro-B-Type Natriuretic Peptide 7065 pg/mL (0-125) H Total Protein 7.1 G/DL (6.4-8.2) Albumin 3.5 G/DL (3.4-5.0) Globulin 3.6 g/dL Albumin/Globulin Ratio 1.0 (1.0-2.7) Lipase 390 U/L (73-393) Urine Color Yellow Urine Appearance Clear Urine pH 5 (4.5-8.0) Urine Specific [place] 1.015 (1.005-1.035) Urine Protein 2+ (NEGATIVE) H Urine Glucose (UA) Negative (NEGATIVE) Urine Ketones Negative (NEGATIVE) Urine Blood Negative (NEGATIVE) Urine Nitrite Negative (NEGATIVE) Urine Bilirubin Negative (NEGATIVE) Urine Urobilinogen Normal MG/DL (0.0-1.0) Urine Leukocyte Esterase Negative (NEGATIVE) Urine RBC 0 /HPF (0 - 0) Urine WBC 0 /HPF (0 - 0) Urine Squamous Epithelial Cells Occasional /LPF Urine Bacteria Occasional /HPF (NONE) Urine Opiates Screen Negative (NEGATIVE) Urine Barbiturates Screen Negative (NEGATIVE) Phencyclidine (PCP) Screen Negative (NEGATIVE) Urine Amphetamines Screen Negative (NEGATIVE) Urine Benzodiazepines Screen Negative (NEGATIVE) Urine Cocaine Screen Positive (NEGATIVE) H Urine Marijuana (THC) Screen Positive (NEGATIVE) H Microbiology Date/Time Source Procedure Growth Status 12/02/19 15:15 Rectum Received Danie Florez MD Dec 02, 2019 17:05
[2019-12-02] MEDS ORDERED: Mylanta II UD 30ml ORAL PRN (17:15)
[2019-12-02] MEDS ORDERED: LORazepam Inj 2mg/ml 1ml IV PRN (17:15)
[2019-12-02] MEDS ORDERED: Promethazine/Codeine 5ml UD ORAL PRN (17:15)
[2019-12-02] MEDS ORDERED: Miralax 17gm pkt ORAL PRN (17:15)
[2019-12-02] MEDS: HydrALAZINE 25mg tab ORAL SCH (18:11)
--- NOTE | 2019-12-02 19:27 | NUR ---
NURSE HAND-OFF REPORT: Important Events on Shift:admission Patient Status: alert Diet: low NA Pending Orders: Pending Results/Labs: Pending MD notification: Latest Vital Signs: Temperature 98.6 , Pulse 82 , B/P 161 /80 , Respiratory Rate 20 , O2 SAT 96 , Room Air, O2 Flow Rate . Vital Sign Comment: EKG Rhythm: Sinus Rhythm Rhythm change?: MD Notified?: - MD Response: Latest Trejo Fall Score: 20 Fall Risk: Low Risk Safety Measures: Call light Within Reach, Bed Alarm , Side Rails Side Rails x2, Bed position . Fall Precautions: Report given to Ho DUNNE.
--- NOTE | 2019-12-02 19:28 | NUR ---
NURSE NOTES: Report received from VIBHA Chowdhury. Patient is asleep on bed, alert and oriented x 4. youth nutritional monitor is in place, shows sinus rhythm. On room air, sating 98%. On low sodium diet, instructed and amenable. Patient is ambulatory. IV site is on left forearm g-10 saline lock that is patent and intact. Safety measures are in place, bed in lowest and locked position, side rails up x 2. Call light button and bedside table within reach, instructed to call for any assistance needed. Will continue plan of care.
[2019-12-02 20:00] VITALS: BP 112/79
--- NOTE | 2019-12-02 20:30 | Consultation ---
DATE OF CONSULTATION: 12/02/2019 CARDIOLOGY CONSULTATION REFERRING PHYSICIAN: Dr. Nilay Hoang. REASON FOR CONSULTATION: Management of hypertension, congestive heart failure, and elevated troponin. The patient with cocaine use. HISTORY OF PRESENT ILLNESS: The patient is a 59-year-old gentleman with multiple previous hospitalization including just last month. I have seen him also in March, April, and May and he signed out against medical advice. The patient has history of severe dilated cardiomyopathy, ejection fraction of only 20% as well as hypertension, chronic kidney disease, seizure disorder, status post substance abuse with cocaine and marijuana. The patient came to the emergency room with increasing shortness of breath and lower extremity edema. The patient is homeless and was admitted and a Cardiology consultation was obtained for further evaluation. The patient stated he has been off of Lasix for 4 days as his sister is out of town and his bilateral lower extremity edema since got worse in the last 24 hours. REVIEW OF SYSTEMS: Negative other than what is mentioned in the history of present illness. PAST MEDICAL HISTORY: As mentioned above. FAMILY HISTORY: Noncontributory. SOCIAL HISTORY: He is homeless. Has history of cocaine and alcohol use. PHYSICAL EXAMINATION: VITAL SIGNS: Show blood pressure of 137/91, pulse 82, respirations 20, temperature 98.6. HEAD AND NECK: Positive JVD. LUNGS: Decreased breath sounds. CARDIOVASCULAR: Regular S1 and S2 with no gallop or murmur. ABDOMEN: Soft. EXTREMITIES: 2+ pitting edema. LABORATORY AND DIAGNOSTIC DATA: Sodium 136, potassium is 4.7, BUN of 31, creatinine 1.8, and glucose of 91. Troponin is 0.104. BNP 7000. White count 5.6, hemoglobin 11.6, hematocrit 39, and platelet count is 195. Urine toxicology is positive for cocaine and marijuana. ASSESSMENT AND PLAN: 1. Exacerbation of congestive heart failure in this patient with active cocaine and marijuana use. His ejection fraction was 20% in the past. Repeat echocardiogram. Increase Lasix 40 mg IV b.i.d. Continue hydralazine 10 mg 3 times daily as well as hydralazine 25 mg b.i.d. Avoid PINEDA inhibitors in view of the patient's renal failure. 2. Hypertension. Maximize his heart failure therapy. 3. Polysubstance abuse with marijuana and cocaine. We will avoid beta-shahram. 4. Noncompliance. 5. History of seizure disorder. 6. renal failure, creatinine of 1.8. Thank you very much for allowing me to participate in the care of this patient. Please do not hesitate to contact me for any questions regarding my evaluation. Danie Florez M.D. DR: JESICA JOB#: [id number] CC:
[2019-12-02] MEDS: Heparin 5000 units/ml inj SUBQ SCH (20:52)
[2019-12-03] VITALS: BP 110/77
[2019-12-03 04:00] VITALS: BP 106/72
--- NOTE | 2019-12-03 05:01 | NUR ---
NURSE NOTES: 12L EKG done and attached to chart, shows sinus tachycardia with HR of 103, no complains of pain at this time, no chest pain, SOB not other discomfort. Will continue to monitor.
--- NOTE | 2019-12-03 07:08 | NUR ---
NURSE HAND-OFF REPORT: Important Events on Shift: Patient has been responding well to Lasix IV, next due is 9 a.m. Still with bilateral foot edema. Patient Status: Patient is awake on bed, no complaints made at this time, plan of care endorsed. Diet: Low sodium diet Pending Orders: 2D ECHO and troponin @ 1400 Pending Results/Labs:Lab results that was done this morning Pending MD notification:none Latest Vital Signs: Temperature 97.9 , Pulse 103 , B/P 110 /68 , Respiratory Rate 19 , O2 SAT 98 , Room Air, O2 Flow Rate . Vital Sign Comment: stable EKG Rhythm: Sinus Tachycardia Rhythm change?: Y MD Notified?: N - MD Response: Latest Trejo Fall Score: 45 Fall Risk: High Risk Safety Measures: Call light Within Reach, Bed Alarm , Side Rails Side Rails x2, Bed position Low and Locked. Fall Precautions: Yellow Socks Door Sign Report given to VIBHA Eugene.
--- NOTE | 2019-12-03 07:10 | NUR ---
NURSE NOTES: Received hand-off report from Jessie Hollingsworth RN. Patient resting in bed, high-fowlers, patient alert and oriented x4, able to follow commands, pleasant demeanor. Patient breathing on room air, breathing unlabored and even, spO2 95%, breath sounds diminshed, no signs of respiratory distress at this time. Left forearm IV 20g saline locked, no leaking, no redness, no infiltration, no bruising noted, skin is clean dry and intact. Yellow socks on, patient is eating, no aspiration noted. monitoring specialist in place, educated regarding respiratory distress and the cough related to his heart failure and to notify me if there are any concerns or changes in condition via call light. Bed in lowest and locked position, call light within reach.
[2019-12-03 07:47] LABS: EOSINOPHILS % (AUTO) 5.5 % (0.0-3.0); HEMATOCRIT 34.3 % (42.0-52.0); HEMOGLOBIN 10.1 G/DL (14.2-18.0); LYMPHOCYTES % (AUTO) 21.5 % (20.0-45.0); MEAN CORPUSCULAR VOLUME 93 FL (80-99); MONOCYTES % (AUTO) 7.1 % (1.0-10.0); NEUTROPHILS % (AUTO) 64.9 % (45.0-75.0); PLATELET COUNT 196 K/UL (150-450); RED CELL DISTRIBUTION WIDTH 17.2 % (11.6-14.8); WHITE BLOOD COUNT 5.4 K/UL (4.8-10.8)
[2019-12-03 08:00] VITALS: BP 110/68
[2019-12-03 08:14] LABS: ALBUMIN 2.8 G/DL (3.4-5.0); ALBUMIN/GLOBULIN RATIO 0.9 (1.0-2.7); BILIRUBIN,TOTAL 1.5 MG/DL (0.2-1.0); CALCIUM 8.1 MG/DL (8.5-10.1); CREATININE 1.8 MG/DL (0.55-1.30); POTASSIUM 3.9 MMOL/L (3.5-5.1)
[2019-12-03 08:15] LABS: CHOLESTEROL 142 MG/DL (< 200); FERRITIN 74 NG/ML (8-388); HDL CHOLESTEROL 52 MG/DL (40-60); TRIGLYCERIDES 33 MG/DL (30-150)
[2019-12-03 08:16] LABS: BILIRUBIN,DIRECT 0.7 MG/DL (0.0-0.3)
--- NOTE | 2019-12-03 08:32 | Diagnostic Imaging Report ---
EXAM: XR Chest, 1 View CLINICAL HISTORY: DYSPNEA TECHNIQUE: Frontal view of the chest. COMPARISON: Chest x-ray dated 12/02/19 FINDINGS: Lungs: Increased pulmonary vascular congestion compared to the prior exam. No new focal consolidation seen. Pleural space: Unremarkable. The costophrenic angles are sharp. No visible pneumothorax. Heart: No significant change in the severe cardiomegaly. Mediastinum: Unremarkable. Bones/joints: Unremarkable. Tubes, lines and devices: Telemetry leads overlie the thorax. IMPRESSION: 1. Increased pulmonary vascular congestion compared to the prior exam. No focal consolidation. 2. No significant change in the severe cardiomegaly.
--- NOTE | 2019-12-03 08:41 | NUR ---
NURSE NOTES: Notified Dr. Florez and left a message regarding troponin level 0.093. Awaiting response / potential orders.
[2019-12-03 08:44] LABS: GAMMA GLUTAMYL TRANSPEPTIDASE 107 U/L (5-85); PHOSPHORUS 2.9 MG/DL (2.5-4.9)
[2019-12-03] MEDS: Aspirin Baby 81mg ORAL SCH (08:46)
[2019-12-03] MEDS: Heparin 5000 units/ml inj SUBQ SCH (08:49)
[2019-12-03 08:51] LABS: % IRON SATURATION 12 % (15-50); IRON 31 ug/dL (50-175); TOTAL IRON BINDING CAPACITY 269 ug/dL (250-450)
[2019-12-03] MEDS: HydrALAZINE 25mg tab ORAL SCH ×2 (09:00→18:00)
[2019-12-03] MEDS ORDERED: Furosemide 40mg tab ORAL SCH (09:00)
[2019-12-03 09:04] LABS: AMMONIA 35 umol/L (11-32)
--- NOTE | 2019-12-03 09:08 | NUR ---
CASE MANAGEMENT:REVIEW 59 YR OLD MALE BIBA FROM STREET CC; SOB, GENERALIZED PAIN AND DIARRHEA. UNABLE TO WALK D/T SWOLLEN LEGS SI: CHF EXACERBATION. ELEVATED TROPONIN 98.5 105 19 143/99 97% ON RA BUN+31 CR+1.8 TBILI+1.9 DBILI+0.9 TROPONIN(+)0.104 BNP+7065 URINE(+) COCAINE AND THC IS: IV LASIX NITRO 2" TO CW ASA PO CXR : TO TELEMETRY IS: IV LASIX Q12
--- NOTE | 2019-12-03 10:15 | History and Physical Report ---
DATE OF ADMISSION: 12/02/2019 APPROXIMATE TIME: 9 a.m. CONSULTANTS: 1. Robby Chavarria MD. 2. Lester Mesa MD. 3. Danie Florez MD. CHIEF COMPLAINT: Shortness of breath, exacerbation of CHF, edema, cardiomyopathy. BRIEF HISTORY: The patient is a 59-year-old homeless man who presented to [facility] yesterday with above-mentioned diagnoses, admitted to [facility], currently sleeping in bed, slight short of breath, refusing to answer questions. REVIEW OF SYSTEMS: Unavailable. PAST MEDICAL HISTORY: Includes CHF, shortness of breath, lower extremity edema, cardiomyopathy, hypertension, seizure, drug abuse. PAST SURGICAL HISTORY: Unknown. MEDICATIONS: Aspirin, furosemide, heparin, clonidine, albuterol, famotidine, hydralazine, isosorbide, Phenergan, Zofran, loperamide, morphine. ALLERGIES: Denies. SOCIAL HISTORY: From chart is positive for cocaine, marijuana. OBJECTIVE: GENERAL: Lethargic sleeping in bed, refusing to answer questions. VITAL SIGNS: Temperature 97, pulse 98, respiratory rate 18, blood pressure 110/68. CARDIOVASCULAR: No murmur. LUNGS: Poor exchange. ABDOMEN: Bowel sounds distant. EXTREMITIES: No cyanosis, clubbing, 1+ edema . NEUROLOGIC: The patient moves all extremities, slightly weak. LABORATORY AND DIAGNOSTIC DATA: Labs at this time show hemoglobin and hematocrit 10 and 34, otherwise CBC is normal. BMP shows sodium 135, BUN and creatinine 27 and 1.8. Magnesium 1.6. Iron 31. Alkaline phosphatase 35. Troponin 0.09 and then 0.093. Albumin 2.8. INR is 1.3, PTT 34. Urine tox positive for cocaine, marijuana. Urinalysis 2+ protein. ASSESSMENT: 1. Shortness of breath. 2. Exacerbation of CHF. 3. Anemia. 4. Lower extremity edema. 5. Renal insufficiency. 6. Cardiomyopathy. 7. Hypertension. 8. Seizure. 9. Drug abuse. PLAN: 1. Blood pressure, seizure, and pain control. 2. Dietary followup. 3. O2 and pulmonary treatment as needed. 4. Cardiology followup. 5. CBC and BMP in the morning. 6. PT and dietary evaluation. Nilay Hoang D.O. DR: Tony JOB#: [id number] CC:
--- NOTE | 2019-12-03 10:21 | NUR ---
NURSE NOTES: Patient refused BP medication in the morning. Notified Dr. Florez.
--- NOTE | 2019-12-03 10:24 | NUR ---
NURSE NOTES: Notified Dr. Florez regarding refusal for the 2Decho this morning.
--- NOTE | 2019-12-03 11:04 | NUR ---
NURSE NOTES: Patient refused PT evaluation and being noncompliant and non-cooperative.
--- NOTE | 2019-12-03 11:10 | NUR ---
PT EVALUATION NOTE Patient seen for initial evaluation and treatment initiated. Patient able to transfer with supervision. Patient able to ambulate 40 ft with CGA/min assist. Recommend FWW for ambulation however patient declined to use FWW for ambulation, states his family bought him an electric wheelchair. Patient required hand hold assist and reaches for railing in hallway. Patient will benefit from skilled inpatient PT intervention to increase LE strength and postural stability for improved level of functional mobility and safety. Addendum: 12/03/19 at 1234 by MIGUELITO PISANO PT Amended: Links added.
[2019-12-03 12:00] VITALS: BP 134/58
--- NOTE | 2019-12-03 12:11 | Consultation ---
Consult Note Consult Note I am asked to evaluate the patient at the request of Dr. Verduzco for renal failure and fluid and electrolyte management Chief Complaint: General Complaint HPI: 59-year-old male presents by EMS for evaluation of shortness of breath. He has a history of heart failure with severely reduced ejection fraction of 20%, past history of cocaine abuse, anemia, seizure disorder. Patient is homeless and states his sister manages his medications. He has been without his Lasix for 4 days as he says his sister is out of town. He reports bilateral pitting edema, exertional dyspnea, orthopnea and nonproductive cough. Symptoms worse over the past 24 hours. Denies fever or chills. Denies chest pain. Also reporting diffuse myalgias. Denies recent drug use. PMH: CHF, hypertension PSH: Reviewed Social Hx: Denies drug, alcohol or tobacco use recently Allergies: NO KNOWN ALLERGIES (Verified Allergy, Unknown, 04/08/19) COVID-19 Screening Contact w/high risk pt: No Recent Travel to affected area: No Experienced COVID-19 symptoms?: Yes COVID-19 symptoms experienced: Shortness of Breath, Cough, Runny Nose, Flu-Like Symptoms COVID-19 Testing performed TRAUMA PROGRAM MANAGER: No Hx Cardiac Problems: Yes - chf Hx Hypertension: Yes Hx Neurological Problems: Yes Hx Seizures: Yes Hx Weakness: Yes SOCIAL HISTORY: He is homeless. Has history of cocaine and alcohol use. Vital Signs Date Time Temp Pulse Resp B/P (MAP) Pulse Ox O2 Delivery O2 Flow Rate FiO2 12/02/19 12:01 98.4 105 19 143/99 (114) 97 Room Air PHYSICAL EXAMINATION: VITAL SIGNS: Show blood pressure of 137/91, pulse 82, respirations 20, temperature 98.6. HEAD AND NECK: Positive JVD. LUNGS: Decreased breath sounds. CARDIOVASCULAR: Regular S1 and S2 with no gallop or murmur. ABDOMEN: Soft. EXTREMITIES: 2+ pitting edema. LABORATORY AND DIAGNOSTIC DATA: Sodium 136, potassium is 4.7, BUN of 31, creatinine 1.8, and glucose of 91. Troponin is 0.104. BNP 7000. White count 5.6, hemoglobin 11.6, hematocrit 39, and platelet count is 195. Urine toxicology is positive for cocaine and marijuana. . Assessment/Plan Acute on chronic renal failure Acute exacerbation of CHF, history of cardiomyopathy with low ejection fraction Elevated troponin Anemia Seizure disorder Cocaine and polysubstance abuse Optimize cardiac status Afterload reduction. Gentle diuresis. As needed Keep the BP in check. Avoid nephrotoxic's Monitor renal parameters and electrolytes Per orders Lester Mesa MD Dec 03, 2019 12:11
--- NOTE | 2019-12-03 12:40 | NUR ---
NURSE HAND-OFF REPORT: Important Events on Shift: Patient uncooperative and refusing everything. Upon answering call light to see what the patient needs he stated, "Get out. I do not like you." prior to any engagement or verbal communication with the patient. Patient Status: stable condition, full code, alert and orientedx4 Diet: low sodium Pending Orders: [] Pending Results/Labs:[] Pending MD notification:[] Latest Vital Signs: Temperature 97.5 , Pulse 102 , B/P 110 /68 , Respiratory Rate 18 , O2 SAT 99 , Room Air, O2 Flow Rate . Vital Sign Comment: [] EKG Rhythm: Sinus Tachycardia Rhythm change?: N MD Notified?: N - MD Response: Latest Trejo Fall Score: 45 Fall Risk: High Risk Safety Measures: Call light Within Reach, Bed Alarm , Side Rails Side Rails x2, Bed position Low and Locked. Fall Precautions: Yellow Socks Door Sign Patient Fall Education Report given to Dyllan Espinoza RN.
--- NOTE | 2019-12-03 13:28 | NUR ---
NURSE NOTES: Reported result of echocardiogram (2Decho) to Dr. Danie Florez, left ventricular ejection fraction to be 10-15%, and cannot rule out thrombus in left ventricular apex. No new orders received. Addendum: 12/03/19 at 1335 by MAXIMILIAN PERRY RN Error: Correction, left ventricular ejection fraction estimated to be 10-15%.
--- NOTE | 2019-12-03 14:49 | NUR ---
CASE MANAGEMENT: Faxed CM review and clinical info (face sheet /H&P / ER MD notes / lab and imaging reports inc vs/ progress notes ) to [facility] @ [phone].
[2019-12-03 16:00] VITALS: BP 105/70
--- NOTE | 2019-12-03 18:13 | Cardiac Electrophysiology PN ---
Subjective Subjective 1. Chronic troponin elevation. Even in prior hospitalization in March, April, May and oct The levels are flat. Likely due to renal failure. Refused nuclear stress test 2. Severe cardiomyopathy with EF of only 10-20%. Off beta-shahram for active cocaine use. On Lasix 40 iv bid, hydralazine, nitrate 3. Hypertension. Continue current medical regimen. 4. CKD C4 1.8 5. LV clot on echo. Start Coumadin and heparin per pharmacy 6. Noncompliance. Signed out AMA prior admission in 04/2019 7. High bilirubin 8. Seizure disorder. 9. Polysubstance abuse with cocaine and marijuana. Objective Last 24 Hour Vital Signs Date Time Temp Pulse Resp B/P (MAP) Pulse Ox O2 Delivery O2 Flow Rate FiO2 12/03/19 16:00 107 12/03/19 16:00 99.8 102 18 105/70 (82) 98 12/03/19 13:18 134/58 12/03/19 13:17 101 18 99 Room Air 21 12/03/19 13:17 101 18 99 Room Air 21 12/03/19 12:00 103 12/03/19 12:00 97.7 103 18 134/58 (83) 99 12/03/19 09:00 110/68 12/03/19 09:00 Room Air 12/03/19 08:00 97.5 102 18 110/68 (82) 99 12/03/19 08:00 102 12/03/19 06:55 98 18 99 Room Air 12/03/19 06:55 98 18 99 Room Air 21 12/03/19 05:57 110/68 12/03/19 04:00 97.9 103 19 106/72 (83) 98 12/03/19 04:00 101 12/03/19 01:17 Room Air 21 12/03/19 01:17 Room Air 21 12/03/19 00:21 110/77 12/03/19 00:00 98 12/03/19 00:00 98.6 95 20 110/77 (88) 99 12/02/19 21:00 Room Air 12/02/19 20:00 102 12/02/19 20:00 97.9 105 21 112/79 (90) 98 12/02/19 19:40 Room Air 21 12/02/19 19:40 Room Air 21 12/02/19 18:12 161/80 12/02/19 18:11 161/80 Intake and Output 12/02/19 12/03/19 19:00 07:00 Intake Total 800 ml Output Total 1000 ml 1600 ml Balance -1000 ml -800 ml Intake Oral 800 ml Output Urine Total 1000 ml 1600 ml # Voids 6 Laboratory Tests Test 12/02/19 21:00 12/03/19 06:10 Troponin I 0.090 ng/mL (0.000-0.056) 0.093 ng/mL (0.000-0.056) White Blood Count 5.4 K/UL (4.8-10.8) Red Blood Count 3.70 M/UL (4.70-6.10) L Hemoglobin 10.1 G/DL (14.2-18.0) L Hematocrit 34.3 % (42.0-52.0) L Mean Corpuscular Volume 93 FL (80-99) Mean Corpuscular Hemoglobin 27.2 PG (27.0-31.0) Mean Corpuscular Hemoglobin Concent 29.4 G/DL (32.0-36.0) L Red Cell Distribution Width 17.2 % (11.6-14.8) H Platelet Count 196 K/UL (150-450) Mean Platelet Volume 8.5 FL (6.5-10.1) Neutrophils (%) (Auto) 64.9 % (45.0-75.0) Lymphocytes (%) (Auto) 21.5 % (20.0-45.0) Monocytes (%) (Auto) 7.1 % (1.0-10.0) Eosinophils (%) (Auto) 5.5 % (0.0-3.0) H Basophils (%) (Auto) 1.0 % (0.0-2.0) Sodium Level 135 MMOL/L (136-145) L Potassium Level 3.9 MMOL/L (3.5-5.1) Chloride Level 102 MMOL/L (98-107) Carbon Dioxide Level 22 MMOL/L (21-32) Anion Gap 11 mmol/L (5-15) Blood Urea Nitrogen 27 mg/dL (7-18) H Creatinine 1.8 MG/DL (0.55-1.30) H Estimat Glomerular Filtration Rate 47.0 mL/min (>60) Glucose Level 88 MG/DL (74-106) Hemoglobin A1c 5.3 % (4.3-6.0) Uric Acid 7.1 MG/DL (2.6-7.2) Calcium Level 8.1 MG/DL (8.5-10.1) L Phosphorus Level 2.9 MG/DL (2.5-4.9) Magnesium Level 1.6 MG/DL (1.8-2.4) L Iron Level 31 ug/dL (50-175) L Total Iron Binding Capacity 269 ug/dL (250-450) Percent Iron Saturation 12 % (15-50) L Unsaturated Iron Binding 238 ug/dL (112-346) Ferritin 74 NG/ML (8-388) Total Bilirubin 1.5 MG/DL (0.2-1.0) H Direct Bilirubin 0.7 MG/DL (0.0-0.3) H Gamma Glutamyl Transpeptidase 107 U/L (5-85) H Aspartate Amino Transf (AST/SGOT) 23 U/L (15-37) Alanine Aminotransferase (ALT/SGPT) 14 U/L (12-78) Alkaline Phosphatase 82 U/L (46-116) Ammonia 35 umol/L (11-32) H C-Reactive Protein, Quantitative 1.3 mg/dL (0.00-0.90) H Pro-B-Type Natriuretic Peptide 5225 pg/mL (0-125) H Total Protein 5.8 G/DL (6.4-8.2) L Albumin 2.8 G/DL (3.4-5.0) L Globulin 3.0 g/dL Albumin/Globulin Ratio 0.9 (1.0-2.7) L Triglycerides Level 33 MG/DL (30-150) Cholesterol Level 142 MG/DL (< 200) LDL Cholesterol 81 mg/dL (<100) HDL Cholesterol 52 MG/DL (40-60) Cholesterol/HDL Ratio 2.7 (3.3-4.4) L Vitamin B12 Level 823 PG/ML (193-986) Folate 17.2 NG/ML (8.6-58.9) Thyroid Stimulating Hormone (TSH) 3.160 uiU/mL (0.358-3.740) Microbiology Date/Time Source Procedure Growth Status 12/02/19 15:15 Rectum Received Danie Florez MD Dec 03, 2019 18:13
--- NOTE | 2019-12-03 18:42 | NUR ---
NURSE HAND-OFF REPORT: Important Events on Shift: Patient refused blood pressure medications, received new parameters to hold isosorbid dinitrate and hydralazine if systolic Blood pressure <100. Patient 2DEcho could not rule out thrombus in left ventricle, starting on Coumadin and Heparin per pharmacy. Patient Status: Patient is stable, hypotensive 105/70, patient refused 1800 blood pressure medications. Diet: Low sodium Pending Orders: a.m. labs and coumadin and heparin per pharmacy as available. Pending Results/Labs:N/A Pending MD notification:N/A Latest Vital Signs: Temperature 99.8 , Pulse 107 , B/P 105 /70 , Respiratory Rate 18 , O2 SAT 98 , Room Air, O2 Flow Rate . Vital Sign Comment: Hypotensive, asymptomatic, eating dessert and watching television. EKG Rhythm: Sinus Tachycardia Rhythm change?: Y MD Notified?: N - MD Response: Latest Trejo Fall Score: 45 Fall Risk: High Risk Safety Measures: Call light Within Reach, Bed Alarm , Side Rails Side Rails x2, Bed position Low and Locked. Fall Precautions: Yellow Socks Door Sign Patient Fall Education Report will be given to Jessie Hollingsworth RN upon arrival. Addendum: 12/03/19 at 1903 by MAXIMILIAN PERRY RN Report given to Jessie Hollingsworth RN.
--- NOTE | 2019-12-03 19:15 | NUR ---
NURSE NOTES: Endorsing heparin per pharmacy order to Jessie Hollingsworth RN.
--- NOTE | 2019-12-03 19:25 | NUR ---
NURSE NOTES: Report received from VIBHA Mijares. Patient is on bed, alert and oriented x 4. On low sodium diet, instructed and amenable. threat monitoring analyst is in place, shows sinus rhythm with no chest pain nor SOB reported. On room air, sating 96-98%. IV site is on left forearm g-20 saline lock that is patent and intact. Safety measures are in place, bed in lowest and locked position, side rails up x 2, call light button and bedside table within reach, instructed ton call for any assistance needed. Will continue plan of care.
--- NOTE | 2019-12-03 19:32 | NUR ---
NURSE NOTES: Texted Dr. snell and clarify if he wants heparin bolus first before starting heparin drip, and he says "no". Will order heparin drip per protocol and inform pharmacy.
--- NOTE | 2019-12-03 19:37 | NUR ---
NURSE NOTES: Called pharmacy and spoke with "hermilo" regarding heparin drip. Will await for blood drawn of PTT and INR
[2019-12-03 20:00] VITALS: BP 113/68
[2019-12-03] MEDS: Heparin 25,000u/D5W 500ml 500 ML IV SCH (20:59)
--- NOTE | 2019-12-03 21:00 | NUR ---
NURSE NOTES: Heparin drip started, 27.54 ml/hour, 18 units/kg/hour, verified the rate and medication with VIBHA Bennett. Ordered timed PTT at 0300 12/03. Will follow up.
[2019-12-03 21:08] LABS: INR 1.2 (0.9-1.1)
[2019-12-03] MEDS ORDERED: Warfarin Sodium 5mg ORAL ONE (22:00)
[2019-12-04] VITALS: BP 108/69
[2019-12-04 04:00] VITALS: BP 115/72
[2019-12-04 05:00] LABS: BASOPHILS % (AUTO) 1.7 % (0.0-2.0); EOSINOPHILS % (AUTO) 5.1 % (0.0-3.0); HEMATOCRIT 36.2 % (42.0-52.0); HEMOGLOBIN 10.9 G/DL (14.2-18.0); LYMPHOCYTES % (AUTO) 17.6 % (20.0-45.0); MEAN CORPUSCULAR VOLUME 92 FL (80-99); MONOCYTES % (AUTO) 12.4 % (1.0-10.0); NEUTROPHILS % (AUTO) 63.3 % (45.0-75.0); PLATELET COUNT 214 K/UL (150-450); RED BLOOD COUNT 3.94 M/UL (4.70-6.10); RED CELL DISTRIBUTION WIDTH 16.8 % (11.6-14.8); WHITE BLOOD COUNT 7.1 K/UL (4.8-10.8)
[2019-12-04 05:14] LABS: INR 1.2 (0.9-1.1)
[2019-12-04 05:38] LABS: CALCIUM 8.3 MG/DL (8.5-10.1); CREATININE 1.9 MG/DL (0.55-1.30); POTASSIUM 3.5 MMOL/L (3.5-5.1)
--- NOTE | 2019-12-04 05:45 | NUR ---
NURSE NOTES: PTT result came back and it's 127. Hold heparin drip for 30 minutes and decrease to 15 unit/kg/hour. Will restart at 0615 and order timed PTT for 1215.
[2019-12-04 05:52] LABS: PHOSPHORUS 3.5 MG/DL (2.5-4.9)
--- NOTE | 2019-12-04 06:15 | NUR ---
NURSE NOTES: PTT ordered for 12:15. Will endorse to morning RN.
[2019-12-04] MEDS: Heparin 25,000u/D5W 500ml 500 ML IV SCH ×2 (06:16→16:44)
--- NOTE | 2019-12-04 07:33 | NUR ---
NURSE HAND-OFF REPORT: Important Events on Shift: 2DECHO result was echogenic material noted in LV apex. Cannot rule out thrombus. Dr. Florez ordered to start coumadin and heparin drip without bolus. Patient Status: Patiemnt is awake on bed, in stable condition, with no complaints made at this time. Plan of care endorsed. Diet: Low sodium diet Pending Orders: PTT @ 1215 Pending Results/Labs: lab result that was done this morning. Pending MD notification:none Latest Vital Signs: Temperature 98.1 , Pulse 107 , B/P 115 /72 , Respiratory Rate 21 , O2 SAT 95 , Room Air, O2 Flow Rate . Vital Sign Comment: stable EKG Rhythm: Sinus Tachycardia Rhythm change?: N MD Notified?: N - MD Response: Latest Trejo Fall Score: 45 Fall Risk: High Risk Safety Measures: Call light Within Reach, Bed Alarm , Side Rails Side Rails x2, Bed position Low and Locked. Fall Precautions: Yellow Socks Door Sign Report given to VIBHA Mclaughlin.
[2019-12-04 08:00] VITALS: BP 128/76
--- NOTE | 2019-12-04 08:02 | NUR ---
NURSE NOTES: received report from VIBHA Roman. Pt A/O x4. No s/s of acute distress. Currently on room air. Heparin drip running on left FA, asymptomatic, patent and intact. Bed in low position, side rails up x2 and call light within reach, Will continue to monitor.
[2019-12-04] MEDS: Aspirin Baby 81mg ORAL SCH (09:12)
[2019-12-04] MEDS: HydrALAZINE 25mg tab ORAL SCH ×2 (09:12→22:11)
--- NOTE | 2019-12-04 10:00 | General Progress Note ---
Subjective Constitutional: Reports: weakness Allergies: Coded Allergies: NO KNOWN ALLERGIES (Verified Allergy, Unknown, 04/08/19) All Systems: reviewed and negative except above Subjective sl anxious in bed Objective Last 24 Hour Vital Signs Date Time Temp Pulse Resp B/P (MAP) Pulse Ox O2 Delivery O2 Flow Rate FiO2 12/04/19 09:12 128/76 12/04/19 08:00 96.9 107 18 128/76 (93) 96 12/04/19 07:30 94 20 96 Room Air 21 12/04/19 07:30 94 20 96 Room Air 21 12/04/19 05:49 115/72 12/04/19 04:00 98.1 107 21 115/72 (86) 95 12/04/19 04:00 103 12/04/19 01:37 Room Air 21 12/04/19 01:37 Room Air 21 12/04/19 00:54 113/68 12/04/19 00:00 99.5 109 20 108/69 (82) 96 12/04/19 00:00 107 12/03/19 21:00 Room Air 12/03/19 20:00 103 12/03/19 20:00 98.6 106 19 113/68 (83) 95 12/03/19 18:48 97 20 95 Room Air 21 12/03/19 18:48 95 20 96 Room Air 21 12/03/19 18:00 105/70 12/03/19 18:00 105/70 12/03/19 16:00 107 12/03/19 16:00 99.8 102 18 105/70 (82) 98 12/03/19 13:18 134/58 12/03/19 13:17 101 18 99 Room Air 21 12/03/19 13:17 101 18 99 Room Air 21 12/03/19 12:00 103 12/03/19 12:00 97.7 103 18 134/58 (83) 99 Intake and Output 12/03/19 12/04/19 19:00 07:00 Intake Total 700 ml 1247.86 ml Output Total 400 ml 1200 ml Balance 300 ml 47.86 ml Intake Oral 700 ml 1000 ml IV Total 247.86 ml Output Urine Total 400 ml 1200 ml # Voids 4 Laboratory Tests 12/03/19 20:50: Prothrombin Time 13.3H, Prothromb Time International Ratio 1.2H, Activated Partial Thromboplast Time 33 12/04/19 04:38: Prothrombin Time 13.2H, Prothromb Time International Ratio 1.2H, Activated Partial Thromboplast Time 127H, White Blood Count 7.1, Red Blood Count 3.94L, Hemoglobin 10.9L, Hematocrit 36.2L, Mean Corpuscular Volume 92, Mean Corpuscular Hemoglobin 27.8, Mean Corpuscular Hemoglobin Concent 30.2L, Red Cell Distribution Width 16.8H, Platelet Count 214, Mean Platelet Volume 8.9, Neutrophils (%) (Auto) 63.3, Lymphocytes (%) (Auto) 17.6L, Monocytes (%) (Auto) 12.4H, Eosinophils (%) (Auto) 5.1H, Basophils (%) (Auto) 1.7, Sodium Level 135L, Potassium Level 3.5, Chloride Level 101, Carbon Dioxide Level 26, Anion Gap 8, Blood Urea Nitrogen 26H, Creatinine 1.9H, Estimat Glomerular Filtration Rate 44.2, Glucose Level 108H, Uric Acid 7.5H, Calcium Level 8.3L, Phosphorus Level 3.5, Magnesium Level 1.9, C-Reactive Protein, Quantitative 1.2H, Pro-B-Type Natriuretic Peptide 3675H Height (Feet): 6 Height (Inches): 1.00 Weight (Pounds): 185 General Appearance: lethargic EENT: normal ENT inspection Neck: normal alignment Cardiovascular: normal peripheral pulses, normal rate, regular rhythm Respiratory/Chest: chest wall non-tender, lungs clear, normal breath sounds Abdomen: normal bowel sounds, non tender, soft Extremities: normal inspection Edema: 1+ Arm (L), 1+ Arm (R), 1+ Leg (L), 1+ Leg (R), 1+ Pedal (L), 1+ Pedal (R), 1+ Generalized Edema: trace edema Neurologic: motor weakness Skin: normal pigmentation, warm/dry Assessment/Plan Problem List: (1) Anemia ICD Codes: D64.9 - Anemia, unspecified SNOMED: 899860442 (2) Edema ICD Codes: R60.9 - Edema, unspecified SNOMED: 658603894, 314406428 (3) HTN (hypertension) ICD Codes: I10 - Essential (primary) hypertension SNOMED: 93563725 (4) Seizure ICD Codes: R56.9 - Unspecified convulsions SNOMED: 13853375 (5) Renal insufficiency ICD Codes: N28.9 - Disorder of kidney and ureter, unspecified SNOMED: 378194901, 294835745 (6) SOB (shortness of breath) ICD Codes: R06.02 - Shortness of breath SNOMED: 795645722 (7) CHF (congestive heart failure) ICD Codes: I50.9 - Heart failure, unspecified SNOMED: 70675083 Status: unchanged Assessment/Plan: o2 pulm tx pt diet cardio neph eval cbc bmp am Nilay Hoang DO Dec 04, 2019 10:00
--- NOTE | 2019-12-04 10:22 | Cardiac Electrophysiology PN ---
Assessment/Plan Assessment/Plan 1. Chronic troponin elevation. Even in prior hospitalization in March, April, May and oct The levels are flat. Likely due to renal failure. Refused nuclear stress test 2. Severe cardiomyopathy with EF of only 10-20%. Off beta-shahram for active cocaine use. On Lasix 40 iv bid, hydralazine, nitrate 3. Hypertension. Continue current medical regimen. 4. CKD C4 1.8 5. LV clot on echo. Started Coumadin and heparin per pharmacy 6. Noncompliance. Signed out AMA prior admission in 04/2019 7. High bilirubin 8. Seizure disorder. 9. Polysubstance abuse with cocaine and marijuana. 10. Constipation and rectal bleed. FU GI. Could be due to opiate use. FU GI DW RN Subjective Subjective Complains of arthritis pain, constipation and rectal bleeding! On heparin and Coumadin for LV Clot Objective Last 24 Hour Vital Signs Date Time Temp Pulse Resp B/P (MAP) Pulse Ox O2 Delivery O2 Flow Rate FiO2 12/04/19 09:12 128/76 12/04/19 08:00 96.9 107 18 128/76 (93) 96 12/04/19 07:30 94 20 96 Room Air 21 12/04/19 07:30 94 20 96 Room Air 21 12/04/19 05:49 115/72 12/04/19 04:00 98.1 107 21 115/72 (86) 95 12/04/19 04:00 103 12/04/19 01:37 Room Air 21 12/04/19 01:37 Room Air 21 12/04/19 00:54 113/68 12/04/19 00:00 99.5 109 20 108/69 (82) 96 12/04/19 00:00 107 12/03/19 21:00 Room Air 12/03/19 20:00 103 12/03/19 20:00 98.6 106 19 113/68 (83) 95 12/03/19 18:48 97 20 95 Room Air 21 12/03/19 18:48 95 20 96 Room Air 21 12/03/19 18:00 105/70 12/03/19 18:00 105/70 12/03/19 16:00 107 12/03/19 16:00 99.8 102 18 105/70 (82) 98 12/03/19 13:18 134/58 12/03/19 13:17 101 18 99 Room Air 21 12/03/19 13:17 101 18 99 Room Air 21 12/03/19 12:00 103 12/03/19 12:00 97.7 103 18 134/58 (83) 99 Intake and Output 12/03/19 12/04/19 19:00 07:00 Intake Total 700 ml 1247.86 ml Output Total 400 ml 1200 ml Balance 300 ml 47.86 ml Intake Oral 700 ml 1000 ml IV Total 247.86 ml Output Urine Total 400 ml 1200 ml # Voids 4 Laboratory Tests Test 12/03/19 20:50 12/04/19 04:38 Prothrombin Time 13.3 SEC (9.30-11.50) H 13.2 SEC (9.30-11.50) H Prothromb Time International Ratio 1.2 (0.9-1.1) H 1.2 (0.9-1.1) H Activated Partial Thromboplast Time 33 SEC (23-33) 127 SEC (23-33) H White Blood Count 7.1 K/UL (4.8-10.8) Red Blood Count 3.94 M/UL (4.70-6.10) L Hemoglobin 10.9 G/DL (14.2-18.0) L Hematocrit 36.2 % (42.0-52.0) L Mean Corpuscular Volume 92 FL (80-99) Mean Corpuscular Hemoglobin 27.8 PG (27.0-31.0) Mean Corpuscular Hemoglobin Concent 30.2 G/DL (32.0-36.0) L Red Cell Distribution Width 16.8 % (11.6-14.8) H Platelet Count 214 K/UL (150-450) Mean Platelet Volume 8.9 FL (6.5-10.1) Neutrophils (%) (Auto) 63.3 % (45.0-75.0) Lymphocytes (%) (Auto) 17.6 % (20.0-45.0) L Monocytes (%) (Auto) 12.4 % (1.0-10.0) H Eosinophils (%) (Auto) 5.1 % (0.0-3.0) H Basophils (%) (Auto) 1.7 % (0.0-2.0) Sodium Level 135 MMOL/L (136-145) L Potassium Level 3.5 MMOL/L (3.5-5.1) Chloride Level 101 MMOL/L (98-107) Carbon Dioxide Level 26 MMOL/L (21-32) Anion Gap 8 mmol/L (5-15) Blood Urea Nitrogen 26 mg/dL (7-18) H Creatinine 1.9 MG/DL (0.55-1.30) H Estimat Glomerular Filtration Rate 44.2 mL/min (>60) Glucose Level 108 MG/DL (74-106) H Uric Acid 7.5 MG/DL (2.6-7.2) H Calcium Level 8.3 MG/DL (8.5-10.1) L Phosphorus Level 3.5 MG/DL (2.5-4.9) Magnesium Level 1.9 MG/DL (1.8-2.4) C-Reactive Protein, Quantitative 1.2 mg/dL (0.00-0.90) H Pro-B-Type Natriuretic Peptide 3675 pg/mL (0-125) H Microbiology Date/Time Source Procedure Growth Status 12/02/19 15:15 Rectum Received Objective HEAD AND NECK: Positive JVD. LUNGS: Decreased breath sounds. CARDIOVASCULAR: Regular S1 and S2 with no gallop or murmur. ABDOMEN: Soft. EXTREMITIES: 2+ pitting edema. Danie Florez MD Dec 04, 2019 10:22
--- NOTE | 2019-12-04 11:08 | NUR ---
Social Work This Sw received a consult due to homelessness, substance abuse. Patient is known to this SW from previous multiple admissions, who is typically non-complaint, uncooperative. This SW met with patient who appears pleasant and cooperative with this SW conversation, laughing and making jokes. Patient explains he lives with his sister and plans to discharge to home with her. Patient also explains he cannot walk, stating, "I have an electric wheelchair at my sisters home." Patient denied any substance abuse, while he is currently positive for cocaine abuse. Patient refused going to SNF, stating he plans to discharge to "[facility]." Pending progress with P.T here. Patient unable to recall address or phone number of his sister, "Miles Brito." Patient stating he has nineteen brothers and sisters, lives in sister's home with a ramp ("my bed is on the main level"). Patient believes his sister will visit him here (nursing to obtain address and phone number as able). However, this SW questioning whether patient is a reliable source of information at this time. Clothing and personal hygiene unclean/unkept, patient appears that he has not bathed for quite sometime. SW to follow.
--- NOTE | 2019-12-04 11:23 | NUR ---
P.T Note Pt declined to participate in P.T due to c/o not feeling well. Will reattempt.
[2019-12-04 12:00] VITALS: BP 111/75
--- NOTE | 2019-12-04 14:01 | Nephrology Progress Note ---
Assessment/Plan Problem List: (1) Renal failure (ARF), acute on chronic (2) Acute exacerbation of CHF (congestive heart failure) (3) Cocaine abuse (4) Anemia Assessment Acute on chronic renal failure Acute exacerbation of CHF, history of cardiomyopathy with low ejection fraction Elevated troponin Anemia Seizure disorder Cocaine and polysubstance abuse Plan December 03: 1 dose of digoxin p.o. increase hydralazine dose. Add allopurinol. Serum creatinine higher to 1.9. Continue to optimize cardiac status. Optimize cardiac status Afterload reduction. Gentle diuresis. As needed Keep the BP in check. Avoid nephrotoxic's Monitor renal parameters and electrolytes Per orders Subjective ROS Limited/Unobtainable: No Constitutional: Reports: malaise, weakness Objective Objective Last 24 Hour Vital Signs Date Time Temp Pulse Resp B/P (MAP) Pulse Ox O2 Delivery O2 Flow Rate FiO2 12/04/19 12:00 98.1 110 20 111/75 (87) 97 12/04/19 11:14 111/75 12/04/19 09:12 128/76 12/04/19 09:00 Room Air 12/04/19 08:00 107 12/04/19 08:00 96.9 107 18 128/76 (93) 96 12/04/19 07:30 94 20 96 Room Air 21 12/04/19 07:30 94 20 96 Room Air 21 12/04/19 05:49 115/72 12/04/19 04:00 98.1 107 21 115/72 (86) 95 12/04/19 04:00 103 12/04/19 01:37 Room Air 21 12/04/19 01:37 Room Air 21 12/04/19 00:54 113/68 12/04/19 00:00 99.5 109 20 108/69 (82) 96 12/04/19 00:00 107 12/03/19 21:00 Room Air 12/03/19 20:00 103 12/03/19 20:00 98.6 106 19 113/68 (83) 95 12/03/19 18:48 97 20 95 Room Air 21 12/03/19 18:48 95 20 96 Room Air 21 12/03/19 18:00 105/70 12/03/19 18:00 105/70 12/03/19 16:00 107 12/03/19 16:00 99.8 102 18 105/70 (82) 98 Intake and Output 12/03/19 12/04/19 19:00 07:00 Intake Total 700 ml 1247.86 ml Output Total 400 ml 1200 ml Balance 300 ml 47.86 ml Intake Oral 700 ml 1000 ml IV Total 247.86 ml Output Urine Total 400 ml 1200 ml # Voids 4 Laboratory Tests 12/03/19 20:50: Prothrombin Time 13.3H, Prothromb Time International Ratio 1.2H, Activated Partial Thromboplast Time 33 12/04/19 04:38: Prothrombin Time 13.2H, Prothromb Time International Ratio 1.2H, Activated Partial Thromboplast Time 127H, White Blood Count 7.1, Red Blood Count 3.94L, Hemoglobin 10.9L, Hematocrit 36.2L, Mean Corpuscular Volume 92, Mean Corpuscular Hemoglobin 27.8, Mean Corpuscular Hemoglobin Concent 30.2L, Red Cell Distribution Width 16.8H, Platelet Count 214, Mean Platelet Volume 8.9, Neutrophils (%) (Auto) 63.3, Lymphocytes (%) (Auto) 17.6L, Monocytes (%) (Auto) 12.4H, Eosinophils (%) (Auto) 5.1H, Basophils (%) (Auto) 1.7, Sodium Level 135L, Potassium Level 3.5, Chloride Level 101, Carbon Dioxide Level 26, Anion Gap 8, Blood Urea Nitrogen 26H, Creatinine 1.9H, Estimat Glomerular Filtration Rate 44.2, Glucose Level 108H, Uric Acid 7.5H, Calcium Level 8.3L, Phosphorus Level 3.5, Magnesium Level 1.9, C-Reactive Protein, Quantitative 1.2H, Pro-B-Type Natriuretic Peptide 3675H 12/04/19 12:15: Activated Partial Thromboplast Time 95H Height (Feet): 6 Height (Inches): 1.00 Weight (Pounds): 185 General Appearance: no apparent distress Cardiovascular: tachycardia Respiratory/Chest: decreased breath sounds Abdomen: distended Lester Mesa MD Dec 04, 2019 14:01
--- NOTE | 2019-12-04 15:46 | NUR ---
CASE MANAGEMENT:REVIEW 12/04/19 SI: CHF EXACERBATION. EF 10-20% LV THROMBUS. ELEVATED TROPONIN. POLYSUBSTANCE ABUSE 98.1 110 20 111/75 97% ON RA H/H-10.9/36.2 BUN+26 CR+1.9 IS: HEPARIN GTT HYDRALAZINE PO Q8HRS COUMADIN 5MG PO X1 ASA PO QD IV LASIX Q12 ISORDIL PO Q6HRS : TELEMETRY STATUS
[2019-12-04 16:00] VITALS: BP 104/65
[2019-12-04] MEDS ORDERED: Warfarin Sodium 5mg ORAL SCH (17:00)
--- NOTE | 2019-12-04 19:10 | NUR ---
NURSE HAND-OFF REPORT: Important Events on Shift:[] Patient Status: [] Diet: [] Pending Orders: [] Pending Results/Labs:[] Pending MD notification:[] Latest Vital Signs: Temperature 96.6 , Pulse 109 , B/P 104 /65 , Respiratory Rate 18 , O2 SAT 98 , Room Air, O2 Flow Rate . Vital Sign Comment: [] EKG Rhythm: Sinus Tachycardia Rhythm change?: N MD Notified?: N - MD Response: Latest Trejo Fall Score: 45 Fall Risk: High Risk Safety Measures: Call light Within Reach, Bed Alarm , Side Rails Side Rails x2, Bed position Low and Locked. Fall Precautions: Yellow Socks Door Sign Report given to [VIBHA Sanchez].
--- NOTE | 2019-12-04 19:25 | NUR ---
NURSE NOTES: RECEIVED REPORT FROM VIBHA RILEY. PATIENT AWAKE, AOX4, VERBALLY RESPONSIVE AND ABLE TO MAKE NEEDS KNOWN. NO COMPLAINTS OF PAIN OR DISCOMFORT NOTED AT THIS TIME. BREATHING IS EVEN AND UNLABORED ON ROOM AIR, NO S/SX OF DISTRESS NOTED. IV SITE ON LFA PATENT, INTACT, ASYMPTOMATIC WITH HEPARIN DRIP RUNNING AT RATE OF 22.95 ML/HR (15 UNITS/KG/HR). FALL AND SEIZURE PRECAUTIONS IN PLACE. BED LOCKED AND IN LOWEST POSITION, SIDERAILS UP X 2. CALL LIGHT, URINAL WITHIN REACH- REMINDED PATIENT TO CALL FOR ASSISTANCE PRIOR TO GETTING OOB. WILL CONTINUE TO MONITOR PER POC.
[2019-12-04 20:00] VITALS: BP 128/72
[2019-12-05] VITALS: BP 121/77
[2019-12-05 04:00] VITALS: BP 117/70
--- NOTE | 2019-12-05 04:29 | NUR ---
NURSE NOTES: PATIENT REFUSED BLOOD DRAW AT 0400. PATIENT NOTED TO BE USING EXPLETIVES AT [employer]. INFORMED PATIENT THIS BLOOD DRAW IS NECESSARY TO CALCULATE APPROPRIATE HEP DRIP RATE- PATIENT STILL REFUSED. PATIENT IS REQUESTING BLOOD BE DRAWN AFTER BREAKFAST BECAUSE HE WANTS TO SLEEP. MESSAGED PHARMACY REGARDING ISSUE; PER ENMANUEL, PHARMACIST, OKAY TO CONTINUE AT CURRENT RATE UNTIL BLOOD IS DRAWN AFTER BREAKFAST (~0700).
[2019-12-05] MEDS: HydrALAZINE 25mg tab ORAL SCH ×3 (06:00→21:16)
--- NOTE | 2019-12-05 06:03 | NUR ---
NURSE NOTES: PATIENT REFUSED TO HAVE BLOOD PRESSURE TAKEN FOR AM MEDICATIONS. PATIENT YELLED EXPLETIVES AT NURSE, STATING "DON'T YOU SEE I'M FJAMES SLEEPING? LEAVE ME ALONE BH!". INFORMED PATIENT MEDICATIONS CANNOT BE ADMINISTERED WITHOUT BP VALUE, PATIENT STILL REFUSED.
--- NOTE | 2019-12-05 06:47 | NUR ---
NURSE NOTES: PATIENT HAD SMALL BM THIS MORNING- NO BLEEDING NOTED.
--- NOTE | 2019-12-05 07:14 | NUR ---
NURSE NOTES: Received report from VIBHA Sanchez. Pt A/O x4 and verbally responsive. No SOB or acute distress. No pain noted at this time. Heparin drip running on left FA, asymptomatic, patent and intact. Pt refused timed PTT labs which will be drawn @ 0730. Bed in low position, side rails up x2 and call light within reach, Will continue to monitor.
--- NOTE | 2019-12-05 07:15 | NUR ---
NURSE HAND-OFF REPORT: Important Events on Shift: REFUSAL OF CARE (PTT DRAW 0400, AM LABS), NONCOMPLIANCE WITH PRESCRIBED DIET Patient Status: STABLE Diet: LOW SODIUM DIET Pending Orders: N/A Pending Results/Labs: AM LABS, TIMED PTT 0730 Pending MD notification: N/A Latest Vital Signs: Temperature 97.0 , Pulse 99 , B/P 117 /70 , Respiratory Rate 18 , O2 SAT 99 , Room Air, O2 Flow Rate . Vital Sign Comment: STABLE EKG Rhythm: Sinus Rhythm Rhythm change?: N MD Notified?: N - MD Response: Latest Trejo Fall Score: 45 Fall Risk: High Risk Safety Measures: Call light Within Reach, Bed Alarm , Side Rails Side Rails x2, Bed position Low and Locked. Fall Precautions: Yellow Socks Door Sign Report given to VIBHA LOVELL.
[2019-12-05 08:00] VITALS: BP 128/89
[2019-12-05 08:54] LABS: BASOPHILS % (AUTO) 0.7 % (0.0-2.0); EOSINOPHILS % (AUTO) 5.1 % (0.0-3.0); HEMATOCRIT 37.5 % (42.0-52.0); HEMOGLOBIN 11.2 G/DL (14.2-18.0); LYMPHOCYTES % (AUTO) 20.9 % (20.0-45.0); MEAN CORPUSCULAR VOLUME 92 FL (80-99); NEUTROPHILS % (AUTO) 61.3 % (45.0-75.0); PLATELET COUNT 243 K/UL (150-450); RED BLOOD COUNT 4.08 M/UL (4.70-6.10); RED CELL DISTRIBUTION WIDTH 17.4 % (11.6-14.8); WHITE BLOOD COUNT 6.4 K/UL (4.8-10.8)
[2019-12-05 09:03] LABS: INR 1.2 (0.9-1.1)
[2019-12-05] MEDS: Aspirin Baby 81mg ORAL SCH (09:06)
[2019-12-05 09:12] LABS: PHOSPHORUS 3.1 MG/DL (2.5-4.9)
[2019-12-05 09:29] LABS: CALCIUM 8.1 MG/DL (8.5-10.1); CREATININE 1.5 MG/DL (0.55-1.30); POTASSIUM 3.4 MMOL/L (3.5-5.1)
[2019-12-05 09:39] LABS: ALBUMIN 2.8 G/DL (3.4-5.0); ALBUMIN/GLOBULIN RATIO 0.7 (1.0-2.7); BILIRUBIN,TOTAL 1.6 MG/DL (0.2-1.0)
[2019-12-05 09:41] LABS: BILIRUBIN,DIRECT 0.6 MG/DL (0.0-0.3)
--- NOTE | 2019-12-05 10:05 | Nephrology Progress Note ---
Assessment/Plan Problem List: (1) Renal failure (ARF), acute on chronic (2) Acute exacerbation of CHF (congestive heart failure) (3) Cocaine abuse (4) Anemia Assessment Acute on chronic renal failure Acute exacerbation of CHF, history of cardiomyopathy with low ejection fraction Elevated troponin Anemia Seizure disorder Cocaine and polysubstance abuse Plan December 04: more dose of digoxin p.o. given. Potassium supplement given. Magnesium supplement given. Renal parameters stable. Continue per cardiology. December 03: dose of digoxin p.o. increase hydralazine dose. Add allopurinol. Serum creatinine higher to 1.9. Continue to optimize cardiac status. Optimize cardiac status Afterload reduction. Gentle diuresis. As needed Keep the BP in check. Avoid nephrotoxic's Monitor renal parameters and electrolytes Per orders Subjective ROS Limited/Unobtainable: No Constitutional: Reports: malaise Objective Objective Last 24 Hour Vital Signs Date Time Temp Pulse Resp B/P (MAP) Pulse Ox O2 Delivery O2 Flow Rate FiO2 12/05/19 07:50 100 18 97 Room Air 21 12/05/19 07:50 100 18 97 Room Air 21 12/05/19 04:00 97.0 99 18 117/70 (86) 99 12/05/19 04:00 96 12/05/19 00:00 97.1 99 18 121/77 (92) 99 12/05/19 00:00 104 12/04/19 23:47 Room Air 21 12/04/19 23:46 Room Air 21 12/04/19 23:13 121/77 12/04/19 22:11 116/75 12/04/19 21:00 Room Air 12/04/19 20:00 108 12/04/19 20:00 97.0 103 18 128/72 (90) 99 12/04/19 19:52 104 18 98 Room Air 21 12/04/19 19:51 104 18 98 Room Air 21 12/04/19 17:20 104/65 12/04/19 16:00 96.6 110 18 104/65 (78) 98 12/04/19 16:00 96.6 110 18 104/65 (78) 98 12/04/19 16:00 109 12/04/19 14:27 108 12/04/19 12:00 108 12/04/19 12:00 98.1 110 20 111/75 (87) 97 12/04/19 11:14 111/75 Intake and Output 12/04/19 12/05/19 19:00 07:00 Intake Total 1212.45 ml 949.50 ml Output Total 1500 ml Balance 1212.45 ml -550.50 ml Intake Oral 960 ml 720 ml IV Total 252.45 ml 229.50 ml Output Urine Total 1500 ml # Voids 3 Current Medications Medications (Trade) Dose Ordered Sig/Ariel Route PRN Reason Start Time Stop Time Status Last Admin Dose Admin Acetaminophen (Tylenol) 650 mg Q4H PRN ORAL Temp >100.5 12/02/19 17:15 01/01/20 17:14 Albuterol/ Ipratropium (Albuterol/ Ipratropium) 3 ml Q6HRT PRN HHN Shortness of Breath 12/02/19 16:30 12/07/19 16:29 Albuterol/ Ipratropium (Combivent Respimat) 1 puff Q6HR INH 12/02/19 18:00 01/01/20 17:59 12/05/19 07:48 Allopurinol (allopurinoL) 300 mg DAILY ORAL 12/04/19 14:00 01/03/20 13:59 12/05/19 09:06 Aspirin (ASA) 81 mg DAILY ORAL 12/03/19 09:00 01/17/20 08:59 12/05/19 09:06 Clonidine HCl (Catapres Tab) 0.1 mg Q4H PRN ORAL bp over 160 syst 12/02/19 18:30 03/01/20 18:29 Diphenhydramine HCl (Benadryl) 25 mg Q6H PRN ORAL Itching/Pruritis 12/02/19 17:15 01/01/20 17:14 Famotidine (Pepcid) 20 mg BID ORAL 12/02/19 18:00 03/01/20 17:59 12/05/19 09:06 Furosemide (Lasix) 40 mg EVERY 12 HOURS IV 12/02/19 21:00 01/01/20 20:59 12/05/19 09:06 Heparin Sodium/ Dextrose 500 ml @ 22.95 mls/ hr ADJUST PER PROTOCOL IV 12/03/19 21:00 01/02/20 20:59 12/04/19 16:44 Hydralazine HCl (Apresoline) 25 mg Q8HR ORAL 12/04/19 22:00 03/01/20 17:59 12/04/19 22:11 Isosorbide Dinitrate (Isordil) 10 mg Q6HR ORAL 12/02/19 18:00 01/01/20 17:59 12/04/19 23:13 Loperamide HCl (Imodium) 4 mg Q4H PRN ORAL Diarrhea 12/02/19 17:15 01/01/20 17:14 Lorazepam (Ativan 2mg/ml 1ml) 0.5 mg Q4H PRN IV For Anxiety 12/02/19 17:15 12/09/19 17:14 Morphine Sulfate (Morphine Sulfate) 2 mg Q4H PRN IVP For Pain 12/02/19 16:30 12/09/19 16:29 Morphine Sulfate (Morphine Sulfate) 2 mg Q6H PRN IVP Moderate Pain (Pain Scale 4-6) 12/02/19 17:15 12/09/19 17:14 Nitroglycerin (Ntg) 0.4 mg Q5M PRN SL Prn Chest Pain 12/02/19 17:15 01/01/20 17:14 Ondansetron HCl (Zofran) 4 mg Q6H PRN IVP Nausea & Vomiting 12/02/19 17:15 01/01/20 17:14 Polyethylene Glycol (Miralax) 17 gm DAILYPRN PRN ORAL Constipation 12/02/19 17:15 01/01/20 17:14 Promethazine HCl/ Codeine (Phenergan with Codeine) 5 ml Q4H PRN ORAL For Cough 12/02/19 17:15 01/01/20 17:14 Temazepam (Restoril) 15 mg HSPRN PRN ORAL Insomnia 12/02/19 17:15 12/09/19 17:14 Warfarin Sodium (Coumadin per pharmacy) 1 ea DAILY PRN MISC Per rx protocol 12/03/19 19:15 01/02/20 19:14 Warfarin Sodium (Coumadin) 7.5 mg COUMADIN ORAL 12/05/19 17:00 12/05/19 18:00 Laboratory Tests 12/04/19 12:15: Activated Partial Thromboplast Time 95H 12/05/19 07:45: Activated Partial Thromboplast Time 85H, White Blood Count 6.4, Red Blood Count 4.08L, Hemoglobin 11.2L, Hematocrit 37.5L, Mean Corpuscular Volume 92, Mean Corpuscular Hemoglobin 27.5, Mean Corpuscular Hemoglobin Concent 30.0L, Red Cell Distribution Width 17.4H, Platelet Count 243, Mean Platelet Volume 8.3, Neutrophils (%) (Auto) 61.3, Lymphocytes (%) (Auto) 20.9, Monocytes (%) (Auto) 12.0H, Eosinophils (%) (Auto) 5.1H, Basophils (%) (Auto) 0.7, Prothrombin Time 13.5H, Prothromb Time International Ratio 1.2H, Sodium Level 136, Potassium Level 3.4L, Chloride Level 102, Carbon Dioxide Level 25, Anion Gap 9, Blood Urea Nitrogen 21H, Creatinine 1.5H, Estimat Glomerular Filtration Rate 58.1, Glucose Level 129H, Calcium Level 8.1L, Total Bilirubin 1.6H, Direct Bilirubin 0.6H, Aspartate Amino Transf (AST/SGOT) 26, Alanine Aminotransferase (ALT/SGPT) 23, Alkaline Phosphatase 81, Total Protein 6.7, Albumin 2.8L, Globulin 3.9, Albumin/Globulin Ratio 0.7L 12/05/19 07:46: Uric Acid 7.1, Phosphorus Level 3.1, Magnesium Level 1.6L, C-Reactive Protein, Quantitative 0.9, Digoxin Level < 0.2L Height (Feet): 6 Height (Inches): 1.00 Weight (Pounds): 185 General Appearance: no apparent distress Cardiovascular: tachycardia Respiratory/Chest: decreased breath sounds Abdomen: distended Lester Mesa MD Dec 05, 2019 10:05
--- NOTE | 2019-12-05 11:58 | Cardiac Electrophysiology PN ---
Assessment/Plan Assessment/Plan 1. Chronic troponin elevation. Even in prior hospitalization in March, April, May and oct The levels are flat. Likely due to renal failure. Refused nuclear stress test 2. Severe cardiomyopathy with EF of only 10-20%. Off beta-shahram for active cocaine use. On Lasix 40 iv bid, hydralazine, nitrate 3. Hypertension. Continue current medical regimen. 4. CKD C4 1.8 5. LV clot on echo. On Coumadin and heparin per pharmacy 6. Noncompliance. Signed out AMA prior admission in 04/2019 7. High bilirubin 8. Seizure disorder. 9. Polysubstance abuse with cocaine and marijuana. 10. Constipation and ? rectal bleed. FU GI. Could be due to opiate use. FU GI DW RN Subjective Subjective Complains of arthritis pain, constipation and rectal bleeding even though RN has not witnessed any. On heparin and Coumadin per Rx for LV Clot Objective Last 24 Hour Vital Signs Date Time Temp Pulse Resp B/P (MAP) Pulse Ox O2 Delivery O2 Flow Rate FiO2 12/05/19 11:02 112 12/05/19 09:00 Room Air 12/05/19 08:00 112 12/05/19 08:00 97.4 112 20 128/89 (102) 99 12/05/19 07:50 100 18 97 Room Air 21 12/05/19 07:50 100 18 97 Room Air 21 12/05/19 04:00 97.0 99 18 117/70 (86) 99 12/05/19 04:00 96 12/05/19 00:00 97.1 99 18 121/77 (92) 99 12/05/19 00:00 104 12/04/19 23:47 Room Air 21 12/04/19 23:46 Room Air 21 12/04/19 23:13 121/77 12/04/19 22:11 116/75 12/04/19 21:00 Room Air 12/04/19 20:00 108 12/04/19 20:00 97.0 103 18 128/72 (90) 99 12/04/19 19:52 104 18 98 Room Air 21 12/04/19 19:51 104 18 98 Room Air 21 12/04/19 17:20 104/65 12/04/19 16:00 96.6 110 18 104/65 (78) 98 12/04/19 16:00 96.6 110 18 104/65 (78) 98 12/04/19 16:00 109 12/04/19 14:27 108 12/04/19 12:00 108 12/04/19 12:00 98.1 110 20 111/75 (87) 97 Intake and Output 12/04/19 12/05/19 19:00 07:00 Intake Total 1212.45 ml 949.50 ml Output Total 1500 ml Balance 1212.45 ml -550.50 ml Intake Oral 960 ml 720 ml IV Total 252.45 ml 229.50 ml Output Urine Total 1500 ml # Voids 3 Laboratory Tests Test 12/04/19 12:15 12/05/19 07:45 12/05/19 07:46 Activated Partial Thromboplast Time 95 SEC (23-33) H 85 SEC (23-33) H White Blood Count 6.4 K/UL (4.8-10.8) Red Blood Count 4.08 M/UL (4.70-6.10) L Hemoglobin 11.2 G/DL (14.2-18.0) L Hematocrit 37.5 % (42.0-52.0) L Mean Corpuscular Volume 92 FL (80-99) Mean Corpuscular Hemoglobin 27.5 PG (27.0-31.0) Mean Corpuscular Hemoglobin Concent 30.0 G/DL (32.0-36.0) L Red Cell Distribution Width 17.4 % (11.6-14.8) H Platelet Count 243 K/UL (150-450) Mean Platelet Volume 8.3 FL (6.5-10.1) Neutrophils (%) (Auto) 61.3 % (45.0-75.0) Lymphocytes (%) (Auto) 20.9 % (20.0-45.0) Monocytes (%) (Auto) 12.0 % (1.0-10.0) H Eosinophils (%) (Auto) 5.1 % (0.0-3.0) H Basophils (%) (Auto) 0.7 % (0.0-2.0) Prothrombin Time 13.5 SEC (9.30-11.50) H Prothromb Time International Ratio 1.2 (0.9-1.1) H Sodium Level 136 MMOL/L (136-145) Potassium Level 3.4 MMOL/L (3.5-5.1) L Chloride Level 102 MMOL/L (98-107) Carbon Dioxide Level 25 MMOL/L (21-32) Anion Gap 9 mmol/L (5-15) Blood Urea Nitrogen 21 mg/dL (7-18) H Creatinine 1.5 MG/DL (0.55-1.30) H Estimat Glomerular Filtration Rate 58.1 mL/min (>60) Glucose Level 129 MG/DL (74-106) H Calcium Level 8.1 MG/DL (8.5-10.1) L Total Bilirubin 1.6 MG/DL (0.2-1.0) H Direct Bilirubin 0.6 MG/DL (0.0-0.3) H Aspartate Amino Transf (AST/SGOT) 26 U/L (15-37) Alanine Aminotransferase (ALT/SGPT) 23 U/L (12-78) Alkaline Phosphatase 81 U/L (46-116) Total Protein 6.7 G/DL (6.4-8.2) Albumin 2.8 G/DL (3.4-5.0) L Globulin 3.9 g/dL Albumin/Globulin Ratio 0.7 (1.0-2.7) L Uric Acid 7.1 MG/DL (2.6-7.2) Phosphorus Level 3.1 MG/DL (2.5-4.9) Magnesium Level 1.6 MG/DL (1.8-2.4) L C-Reactive Protein, Quantitative 0.9 mg/dL (0.00-0.90) Digoxin Level < 0.2 NG/ML (0.5-2.0) L Microbiology Date/Time Source Procedure Growth Status 12/02/19 15:15 Rectum - Final NO CARBAPENEM-RESISTANT ENTEROBACTERI... Complete 12/02/19 15:15 Rectum VRE Culture - Final NO VANCOMYCIN RESISTANT ENTEROCOCCUS ... Complete Objective HEAD AND NECK: Positive JVD. LUNGS: Decreased breath sounds. CARDIOVASCULAR: Regular S1 and S2 with no gallop or murmur. ABDOMEN: Soft. EXTREMITIES: 2+ pitting edema. Danie Florez MD Dec 05, 2019 11:58
[2019-12-05 12:00] VITALS: BP 126/90
--- NOTE | 2019-12-05 12:26 | NUR ---
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 97.4 HR 112 RR 20 B/P 128/84 RA 98% BUN 21 CR. 1.5 PT 135 INR 1.2 PTT 85 IS: HEPARIN GTT COUMADIN PO TELE STATUS
--- NOTE | 2019-12-05 12:31 | NUR ---
[employer] NOTES CLINICALS REVIEWED AND FAXED.
[2019-12-05] MEDS: Magnesium Oxide 400mg tab ORAL SCH ×2 (12:50→17:02)
--- NOTE | 2019-12-05 13:21 | General Progress Note ---
Subjective Constitutional: Reports: weakness Allergies: Coded Allergies: NO KNOWN ALLERGIES (Verified Allergy, Unknown, 04/08/19) All Systems: reviewed and negative except above Subjective sl anxious in bed Objective Last 24 Hour Vital Signs Date Time Temp Pulse Resp B/P (MAP) Pulse Ox O2 Delivery O2 Flow Rate FiO2 12/05/19 12:50 126/90 12/05/19 12:00 97.4 112 20 126/90 (102) 99 12/05/19 12:00 100 12/05/19 11:02 112 12/05/19 09:00 Room Air 12/05/19 08:00 112 12/05/19 08:00 97.4 112 20 128/89 (102) 99 12/05/19 07:50 100 18 97 Room Air 21 12/05/19 07:50 100 18 97 Room Air 21 12/05/19 04:00 97.0 99 18 117/70 (86) 99 12/05/19 04:00 96 12/05/19 00:00 97.1 99 18 121/77 (92) 99 12/05/19 00:00 104 12/04/19 23:47 Room Air 21 12/04/19 23:46 Room Air 21 12/04/19 23:13 121/77 12/04/19 22:11 116/75 12/04/19 21:00 Room Air 12/04/19 20:00 108 12/04/19 20:00 97.0 103 18 128/72 (90) 99 12/04/19 19:52 104 18 98 Room Air 21 12/04/19 19:51 104 18 98 Room Air 21 12/04/19 17:20 104/65 12/04/19 16:00 96.6 110 18 104/65 (78) 98 12/04/19 16:00 96.6 110 18 104/65 (78) 98 12/04/19 16:00 109 12/04/19 14:27 108 Intake and Output 12/04/19 12/05/19 19:00 07:00 Intake Total 1212.45 ml 949.50 ml Output Total 1500 ml Balance 1212.45 ml -550.50 ml Intake Oral 960 ml 720 ml IV Total 252.45 ml 229.50 ml Output Urine Total 1500 ml # Voids 3 Laboratory Tests 12/05/19 07:45: White Blood Count 6.4, Red Blood Count 4.08L, Hemoglobin 11.2L, Hematocrit 37.5L , Mean Corpuscular Volume 92, Mean Corpuscular Hemoglobin 27.5, Mean Corpuscular Hemoglobin Concent 30.0L, Red Cell Distribution Width 17.4H, Platelet Count 243, Mean Platelet Volume 8.3, Neutrophils (%) (Auto) 61.3, Lymphocytes (%) (Auto) 20.9, Monocytes (%) (Auto) 12.0H, Eosinophils (%) (Auto) 5.1H, Basophils (%) (Auto) 0.7, Prothrombin Time 13.5H, Prothromb Time International Ratio 1.2H, Activated Partial Thromboplast Time 85H, Sodium Level 136, Potassium Level 3.4L, Chloride Level 102, Carbon Dioxide Level 25, Anion Gap 9, Blood Urea Nitrogen 21H, Creatinine 1.5H, Estimat Glomerular Filtration Rate 58.1, Glucose Level 129H, Calcium Level 8.1L, Total Bilirubin 1.6H, Direct Bilirubin 0.6H, Aspartate Amino Transf (AST/SGOT) 26, Alanine Aminotransferase (ALT/SGPT) 23, Alkaline Phosphatase 81, Total Protein 6.7, Albumin 2.8L, Globulin 3.9, Albumin/Globulin Ratio 0.7L 12/05/19 07:46: Uric Acid 7.1, Phosphorus Level 3.1, Magnesium Level 1.6L, C-Reactive Protein, Quantitative 0.9, Digoxin Level < 0.2L Height (Feet): 6 Height (Inches): 1.00 Weight (Pounds): 185 General Appearance: lethargic EENT: normal ENT inspection Neck: normal alignment Cardiovascular: normal peripheral pulses, normal rate, regular rhythm Respiratory/Chest: chest wall non-tender, lungs clear, normal breath sounds Abdomen: normal bowel sounds, non tender, soft Extremities: normal inspection Edema: no edema noted Arm (L), no edema noted Arm (R), no edema noted Leg (L), no edema noted Leg (R), no edema noted Pedal (L), no edema noted Pedal (R), no edema noted Generalized Neurologic: motor weakness Skin: normal pigmentation, warm/dry Assessment/Plan Problem List: (1) Anemia ICD Codes: D64.9 - Anemia, unspecified SNOMED: 843116775 (2) Edema ICD Codes: R60.9 - Edema, unspecified SNOMED: 780871532, 144432409 (3) HTN (hypertension) ICD Codes: I10 - Essential (primary) hypertension SNOMED: 57544318 (4) Seizure ICD Codes: R56.9 - Unspecified convulsions SNOMED: 91242415 (5) Renal insufficiency ICD Codes: N28.9 - Disorder of kidney and ureter, unspecified SNOMED: 728749018, 803399256 (6) SOB (shortness of breath) ICD Codes: R06.02 - Shortness of breath SNOMED: 544457506 (7) CHF (congestive heart failure) ICD Codes: I50.9 - Heart failure, unspecified SNOMED: 79324098 Status: unchanged Assessment/Plan: o2 pulm tx pt diet cardio neph eval cbc bmp am dc plan snf HoangRobertNilayrupesh Carter DO Dec 05, 2019 13:21
[2019-12-05 16:00] VITALS: BP 125/90
--- NOTE | 2019-12-05 16:40 | NUR ---
NURSES NOTES: Went to pt room and found IV pump open with heparin drip completed. Asked pt what happened and he stated that it started beeping and he pushed the button to make it stop. Educated him on the importance of calling the nurse if it was beeping because the IV he is on is very important and could make him bleed. He stated "he was at [facility] for 18 years and was not stupid." Continued to educate him to please let us know if anything is beeping and to not touch the IV. Informed the pharmacist and she advised me to order a 2100 timed PTT if it was stopped at any point.
[2019-12-05] MEDS ORDERED: Warfarin Sod 5 MG, Warfarin Sod 2.5 MG ORAL SCH ×2 (17:00)
--- NOTE | 2019-12-05 19:50 | NUR ---
NURSE NOTES: Received report from Nena DUNNE.The patient is alert and oriented x4 was lying on the bed with Resp even and unlabored.He is running a heparin drip with time PT noted at 9pm.The patient has a LFA 22g that is patent and asymptomatic.The bed in low and locked level and call light within easy reach. Siderails up x3 padded due to seizure precaution.Will continue to monitor as indicated.
[2019-12-05 20:00] VITALS: BP 119/71
--- NOTE | 2019-12-05 20:04 | NUR ---
NURSE HAND-OFF REPORT: Important Events on Shift: Pt turned off IV pump with heparin drip. Notified pharmacy and new PTT order for 2100. Patient Status: Stable Diet: Low Sodium but non compliant Pending Orders: Pending Results/Labs: Pending MD notification: Latest Vital Signs: Temperature 97.0 , Pulse 82 , B/P 125 /90 , Respiratory Rate 18 , O2 SAT 98 , Room Air, O2 Flow Rate . Vital Sign Comment: EKG Rhythm: Sinus Rhythm Rhythm change?: N MD Notified?: N - MD Response: Latest Trejo Fall Score: 45 Fall Risk: High Risk Safety Measures: Call light Within Reach, Bed Alarm , Side Rails Side Rails x2, Bed position Low and Locked. Fall Precautions: Yellow Socks Door Sign Report given to Natalie.
--- NOTE | 2019-12-05 22:33 | NUR ---
NURSE NOTES: PTT is at 71H which is No change per protocol ordered PTT at 0400 as indicated.The patient is alert and stable with no evidence of bleeding noted at this time.
[2019-12-05] MEDS: Heparin 25,000u/D5W 500ml 500 ML IV SCH (23:06)
[2019-12-06] VITALS: BP 116/72
--- NOTE | 2019-12-06 00:58 | NUR ---
NURSE NOTES: The patient is off Rhythm Strip but refused to let the RN re-connect the strips. He is presently alert and stable and doesn't appear to be in any distress at this time.Will continue to monitor as indicated
[2019-12-06 04:00] VITALS: BP 119/61
[2019-12-06] MEDS: HydrALAZINE 25mg tab ORAL SCH ×3 (06:28→21:10)
--- NOTE | 2019-12-06 06:51 | NUR ---
NURSE NOTES: The laboratory was called for the blood drawn for PTT and was told someone will be coming soon for the blood drawn.
--- NOTE | 2019-12-06 07:06 | NUR ---
HAND-OFF: Report given to Nena DUNNE.
--- NOTE | 2019-12-06 07:15 | NUR ---
NURSE NOTES: Received report from VIBHA Talbert. Pt A/O x4 and verbally responsive. No SOB or acute distress. No pain noted at this time. Heparin drip running on left FA @ 15units, asymptomatic, patent and intact. Bed in low position, side rails up x2 and call light within reach, Will continue to monitor.
--- NOTE | 2019-12-06 07:41 | NUR ---
NURSE HAND-OFF REPORT: Important Events on Shift: Patient Status: Diet: Pending Orders: Pending Results/Labs: Pending MD notification: Latest Vital Signs: Temperature 97.8 , Pulse 91 , B/P 119 /61 , Respiratory Rate 20 , O2 SAT 99 , Room Air, O2 Flow Rate . Vital Sign Comment: EKG Rhythm: Sinus Rhythm Rhythm change?: N MD Notified?: N - MD Response: Latest Trejo Fall Score: 45 Fall Risk: High Risk Safety Measures: Call light Within Reach, Bed Alarm , Side Rails Side Rails x2, Bed position Low and Locked. Fall Precautions: Yellow Socks Door Sign Report given to .
[2019-12-06 08:00] VITALS: BP 115/71
--- NOTE | 2019-12-06 08:53 | Cardiac Electrophysiology PN ---
Assessment/Plan Assessment/Plan 1. Chronic troponin elevation. Even in prior hospitalization in March, April, May and oct The levels are flat. Likely due to renal failure. Refused nuclear stress test 2. Severe cardiomyopathy with EF of only 10-20%. Off beta-shahram for active cocaine use. On Lasix 40 iv bid, hydralazine, nitrate 3. Hypertension. Continue current medical regimen. 4. CKD C4 1.8 5. LV clot on echo. On Coumadin and heparin per pharmacy. INR still 1.2 6. Noncompliance. Signed out AMA prior admission in 04/2019 7. High bilirubin 8. Seizure disorder. 9. Polysubstance abuse with cocaine and marijuana. 10. Constipation and ? rectal bleed. FU GI. Could be due to opiate use. FU GI DW RN Subjective Subjective Has arthritis pain, constipation and rectal bleeding even though RN has not witnessed any. On heparin and Coumadin per Rx for LV Clot. In SR. No VT Objective Last 24 Hour Vital Signs Date Time Temp Pulse Resp B/P (MAP) Pulse Ox O2 Delivery O2 Flow Rate FiO2 12/06/19 08:23 99 18 98 Room Air 12/06/19 08:23 Room Air 21 12/06/19 06:28 119/61 12/06/19 06:27 119/61 12/06/19 04:00 92 12/06/19 04:00 97.8 91 20 119/61 (80) 99 12/06/19 01:08 Room Air 21 12/06/19 01:08 Room Air 12/06/19 00:36 116/72 12/06/19 00:00 92 12/06/19 00:00 97.6 92 18 116/72 (87) 97 12/05/19 21:16 119/71 12/05/19 21:00 Room Air 12/05/19 20:00 97.7 97 20 119/71 (87) 98 12/05/19 20:00 97 12/05/19 19:13 82 18 98 Room Air 21 12/05/19 19:12 82 18 98 Room Air 21 12/05/19 17:02 125/90 12/05/19 16:00 97.0 99 20 125/90 (102) 95 12/05/19 16:00 101 12/05/19 13:43 126/90 12/05/19 13:30 78 18 97 Room Air 21 12/05/19 13:29 78 18 97 Room Air 21 12/05/19 12:50 126/90 12/05/19 12:00 97.4 112 20 126/90 (102) 99 12/05/19 12:00 100 12/05/19 11:02 112 12/05/19 09:00 Room Air Intake and Output 12/05/19 12/06/19 19:00 07:00 Intake Total 982.95 ml 743.60 ml Output Total 1400 ml 1200 ml Balance -417.05 ml -456.40 ml Intake Oral 960 ml 560 ml IV Total 22.95 ml 183.60 ml Output Urine Total 1400 ml 1200 ml # Voids 4 Laboratory Tests Test 12/05/19 21:40 Activated Partial Thromboplast Time 70 SEC (23-33) H Objective HEAD AND NECK: Positive JVD. LUNGS: Decreased breath sounds. CARDIOVASCULAR: Regular S1 and S2 with no gallop or murmur. ABDOMEN: Soft. EXTREMITIES: 2+ pitting edema. Danie Florez MD Dec 06, 2019 08:53
--- NOTE | 2019-12-06 09:16 | General Progress Note ---
Subjective Constitutional: Reports: weakness Allergies: Coded Allergies: NO KNOWN ALLERGIES (Verified Allergy, Unknown, 04/08/19) All Systems: reviewed and negative except above Subjective sleepy calm Objective Last 24 Hour Vital Signs Date Time Temp Pulse Resp B/P (MAP) Pulse Ox O2 Delivery O2 Flow Rate FiO2 12/06/19 08:23 99 18 98 Room Air 21 12/06/19 08:23 Room Air 21 12/06/19 06:28 119/61 12/06/19 06:27 119/61 12/06/19 04:00 92 12/06/19 04:00 97.8 91 20 119/61 (80) 99 12/06/19 01:08 Room Air 21 12/06/19 01:08 Room Air 21 12/06/19 00:36 116/72 12/06/19 00:00 92 12/06/19 00:00 97.6 92 18 116/72 (87) 97 12/05/19 21:16 119/71 12/05/19 21:00 Room Air 12/05/19 20:00 97.7 97 20 119/71 (87) 98 12/05/19 20:00 97 12/05/19 19:13 82 18 98 Room Air 21 12/05/19 19:12 82 18 98 Room Air 21 12/05/19 17:02 125/90 12/05/19 16:00 97.0 99 20 125/90 (102) 95 12/05/19 16:00 101 12/05/19 13:43 126/90 12/05/19 13:30 78 18 97 Room Air 21 12/05/19 13:29 78 18 97 Room Air 21 12/05/19 12:50 126/90 12/05/19 12:00 97.4 112 20 126/90 (102) 99 12/05/19 12:00 100 12/05/19 11:02 112 Intake and Output 12/05/19 12/06/19 19:00 07:00 Intake Total 982.95 ml 743.60 ml Output Total 1400 ml 1200 ml Balance -417.05 ml -456.40 ml Intake Oral 960 ml 560 ml IV Total 22.95 ml 183.60 ml Output Urine Total 1400 ml 1200 ml # Voids 4 Laboratory Tests 12/05/19 21:40: Activated Partial Thromboplast Time 70H Height (Feet): 6 Height (Inches): 1.00 Weight (Pounds): 185 General Appearance: lethargic EENT: normal ENT inspection Neck: normal alignment Cardiovascular: normal peripheral pulses, normal rate, regular rhythm Respiratory/Chest: chest wall non-tender, lungs clear, normal breath sounds Abdomen: normal bowel sounds, non tender, soft Extremities: normal inspection Edema: 1+ Arm (L), 1+ Arm (R), 1+ Leg (L), 1+ Leg (R), 1+ Pedal (L), 1+ Pedal (R), 1+ Generalized Edema: trace edema Neurologic: motor weakness Skin: normal pigmentation, warm/dry Assessment/Plan Problem List: (1) Anemia ICD Codes: D64.9 - Anemia, unspecified SNOMED: 055396379 (2) Edema ICD Codes: R60.9 - Edema, unspecified SNOMED: 703521932, 352699708 (3) HTN (hypertension) ICD Codes: I10 - Essential (primary) hypertension SNOMED: 25420766 (4) Seizure ICD Codes: R56.9 - Unspecified convulsions SNOMED: 43132090 (5) Renal insufficiency ICD Codes: N28.9 - Disorder of kidney and ureter, unspecified SNOMED: 211710039, 833601820 (6) SOB (shortness of breath) ICD Codes: R06.02 - Shortness of breath SNOMED: 458247541 (7) CHF (congestive heart failure) ICD Codes: I50.9 - Heart failure, unspecified SNOMED: 75562524 Status: unchanged Assessment/Plan: o2 pulm tx pt diet cardio neph eval cbc bmp am dc plan snf Nilay Hoang DO Dec 06, 2019 09:16
[2019-12-06] MEDS: Aspirin Baby 81mg ORAL SCH (09:33)
[2019-12-06] MEDS: Magnesium Oxide 400mg tab ORAL SCH ×3 (09:34→17:18)
[2019-12-06 10:09] LABS: BASOPHILS % (AUTO) 1.3 % (0.0-2.0); EOSINOPHILS % (AUTO) 6.7 % (0.0-3.0); HEMATOCRIT 37.4 % (42.0-52.0); HEMOGLOBIN 11.3 G/DL (14.2-18.0); LYMPHOCYTES % (AUTO) 21.3 % (20.0-45.0); MEAN CORPUSCULAR VOLUME 93 FL (80-99); MONOCYTES % (AUTO) 9.9 % (1.0-10.0); NEUTROPHILS % (AUTO) 60.8 % (45.0-75.0); PLATELET COUNT 234 K/UL (150-450); RED BLOOD COUNT 4.04 M/UL (4.70-6.10); RED CELL DISTRIBUTION WIDTH 17.1 % (11.6-14.8); WHITE BLOOD COUNT 6.6 K/UL (4.8-10.8)
--- NOTE | 2019-12-06 10:10 | Pulmonology Progress Note ---
Subjective ROS Limited/Unobtainable: No Interval Events: c/o palpitaiton Allergies: Coded Allergies: NO KNOWN ALLERGIES (Verified Allergy, Unknown, 04/08/19) All Systems: reviewed and negative except above Objective Last 24 Hour Vital Signs Date Time Temp Pulse Resp B/P (MAP) Pulse Ox O2 Delivery O2 Flow Rate FiO2 12/06/19 08:23 99 18 98 Room Air 21 12/06/19 08:23 Room Air 21 12/06/19 06:28 119/61 12/06/19 06:27 119/61 12/06/19 04:00 92 12/06/19 04:00 97.8 91 20 119/61 (80) 99 12/06/19 01:08 Room Air 21 12/06/19 01:08 Room Air 21 12/06/19 00:36 116/72 12/06/19 00:00 92 12/06/19 00:00 97.6 92 18 116/72 (87) 97 12/05/19 21:16 119/71 12/05/19 21:00 Room Air 12/05/19 20:00 97.7 97 20 119/71 (87) 98 12/05/19 20:00 97 12/05/19 19:13 82 18 98 Room Air 21 12/05/19 19:12 82 18 98 Room Air 21 12/05/19 17:02 125/90 12/05/19 16:00 97.0 99 20 125/90 (102) 95 12/05/19 16:00 101 12/05/19 13:43 126/90 12/05/19 13:30 78 18 97 Room Air 21 12/05/19 13:29 78 18 97 Room Air 21 12/05/19 12:50 126/90 12/05/19 12:00 97.4 112 20 126/90 (102) 99 12/05/19 12:00 100 12/05/19 11:02 112 Intake and Output 12/05/19 12/06/19 19:00 07:00 Intake Total 982.95 ml 743.60 ml Output Total 1400 ml 1200 ml Balance -417.05 ml -456.40 ml Intake Oral 960 ml 560 ml IV Total 22.95 ml 183.60 ml Output Urine Total 1400 ml 1200 ml # Voids 4 General Appearance: cachetic HEENT: normocephalic, atraumatic Respiratory: chest wall non-tender, rhonchi - left, rhonchi - right Cardiovascular: normal peripheral pulses, normal rate Abdomen: normal bowel sounds, no organomegaly Laboratory Tests 12/05/19 21:40: Activated Partial Thromboplast Time 70H Current Medications Medications (Trade) Dose Ordered Sig/Ariel Route PRN Reason Start Time Stop Time Status Last Admin Dose Admin Acetaminophen (Tylenol) 650 mg Q4H PRN ORAL Temp >100.5 12/02/19 17:15 01/01/20 17:14 Albuterol/ Ipratropium (Albuterol/ Ipratropium) 3 ml Q6HRT PRN HHN Shortness of Breath 12/02/19 16:30 12/07/19 16:29 Albuterol/ Ipratropium (Combivent Respimat) 1 puff Q6HR INH 12/02/19 18:00 01/01/20 17:59 12/05/19 19:11 Allopurinol (allopurinoL) 300 mg DAILY ORAL 12/04/19 14:00 01/03/20 13:59 12/06/19 09:34 Aspirin (ASA) 81 mg DAILY ORAL 12/03/19 09:00 01/17/20 08:59 12/06/19 09:33 Clonidine HCl (Catapres Tab) 0.1 mg Q4H PRN ORAL bp over 160 syst 12/02/19 18:30 03/01/20 18:29 Diphenhydramine HCl (Benadryl) 25 mg Q6H PRN ORAL Itching/Pruritis 12/02/19 17:15 01/01/20 17:14 Famotidine (Pepcid) 20 mg BID ORAL 12/02/19 18:00 03/01/20 17:59 12/06/19 09:34 Furosemide (Lasix) 40 mg EVERY 12 HOURS IV 12/02/19 21:00 01/01/20 20:59 12/06/19 09:33 Heparin Sodium/ Dextrose 500 ml @ 23.16 mls/ hr ADJUST PER PROTOCOL IV 12/03/19 21:00 01/02/20 20:59 12/05/19 23:06 Hydralazine HCl (Apresoline) 25 mg Q8HR ORAL 12/04/19 22:00 03/01/20 17:59 12/06/19 06:28 Isosorbide Dinitrate (Isordil) 10 mg Q6HR ORAL 12/02/19 18:00 01/01/20 17:59 12/06/19 06:27 Loperamide HCl (Imodium) 4 mg Q4H PRN ORAL Diarrhea 12/02/19 17:15 01/01/20 17:14 Lorazepam (Ativan 2mg/ml 1ml) 0.5 mg Q4H PRN IV For Anxiety 12/02/19 17:15 12/09/19 17:14 Magnesium Oxide (Mag-Ox 400mg) 400 mg THREE TIMES A DAY ORAL 12/05/19 13:00 01/04/20 12:59 12/06/19 09:34 Morphine Sulfate (Morphine Sulfate) 2 mg Q4H PRN IVP For Pain 12/02/19 16:30 12/09/19 16:29 Morphine Sulfate (Morphine Sulfate) 2 mg Q6H PRN IVP Moderate Pain (Pain Scale 4-6) 12/02/19 17:15 12/09/19 17:14 Nitroglycerin (Ntg) 0.4 mg Q5M PRN SL Prn Chest Pain 12/02/19 17:15 01/01/20 17:14 Ondansetron HCl (Zofran) 4 mg Q6H PRN IVP Nausea & Vomiting 12/02/19 17:15 01/01/20 17:14 Polyethylene Glycol (Miralax) 17 gm DAILYPRN PRN ORAL Constipation 12/02/19 17:15 01/01/20 17:14 Potassium Chloride (K-Dur) 40 meq TWICE A DAY ORAL 12/05/19 10:15 03/04/20 10:14 12/06/19 09:33 Promethazine HCl/ Codeine (Phenergan with Codeine) 5 ml Q4H PRN ORAL For Cough 12/02/19 17:15 01/01/20 17:14 Temazepam (Restoril) 15 mg HSPRN PRN ORAL Insomnia 12/02/19 17:15 12/09/19 17:14 Warfarin Sodium (Coumadin per pharmacy) 1 ea DAILY PRN MISC Per rx protocol 12/03/19 19:15 01/02/20 19:14 Assessment/Plan Problems: (1) Acute exacerbation of CHF (congestive heart failure) (2) LV (left ventricular) mural thrombus (3) Cardiac LV ejection fraction 10-20% (4) Cocaine abuse (5) HTN (hypertension) (6) Homelessness Assessment/Plan diuresing well on Lasix 40 BID on Heparin drip for LV thrombus titrate fio2 to sat of 92 titrate cardiac meds symptomatic treatment check electrolytes Pt can not to back to street, since he needs close monitoring of INR and close supervision of medication intake. Robby Chavarria MD Dec 06, 2019 10:10
[2019-12-06 10:25] LABS: INR 1.2 (0.9-1.1)
[2019-12-06 10:44] LABS: ALANINE AMINOTRANSFERASE 22 U/L (12-78); ALBUMIN 2.7 G/DL (3.4-5.0); ALBUMIN/GLOBULIN RATIO 0.7 (1.0-2.7); ALKALINE PHOSPHATASE 82 U/L (46-116); ANION GAP 8 mmol/L (5-15); ASPARTATE AMINO TRANSFERASE 26 U/L (15-37); BILIRUBIN,TOTAL 1.3 MG/DL (0.2-1.0); BLOOD UREA NITROGEN 25 mg/dL (7-18); CALCIUM 8.4 MG/DL (8.5-10.1); CARBON DIOXIDE 27 MMOL/L (21-32); CHLORIDE 101 MMOL/L (98-107); CREATININE 1.6 MG/DL (0.55-1.30); PHOSPHORUS 2.6 MG/DL (2.5-4.9); POTASSIUM 3.9 MMOL/L (3.5-5.1); SODIUM 136 MMOL/L (136-145)
--- NOTE | 2019-12-06 11:16 | Nephrology Progress Note ---
Assessment/Plan Problem List: (1) Renal failure (ARF), acute on chronic (2) Acute exacerbation of CHF (congestive heart failure) (3) Cocaine abuse (4) Anemia Assessment Acute on chronic renal failure Acute exacerbation of CHF, history of cardiomyopathy with low ejection fraction Elevated troponin Anemia Seizure disorder Cocaine and polysubstance abuse Plan December 05 labs reviewed. Low magnesium replaced. Serum creatinine 1.6. Overall stable from renal standpoint of view. December 04: more dose of digoxin p.o. given. Potassium supplement given. Magnesium supplement given. Renal parameters stable. Continue per cardiology. December 03: dose of digoxin p.o. increase hydralazine dose. Add allopurinol. Serum creatinine higher to 1.9. Continue to optimize cardiac status. Optimize cardiac status Afterload reduction. Gentle diuresis. As needed Keep the BP in check. Avoid nephrotoxic's Monitor renal parameters and electrolytes Per orders Subjective ROS Limited/Unobtainable: No Constitutional: Reports: malaise Objective Objective Last 24 Hour Vital Signs Date Time Temp Pulse Resp B/P (MAP) Pulse Ox O2 Delivery O2 Flow Rate FiO2 12/06/19 09:00 Room Air 12/06/19 08:23 99 18 98 Room Air 12/06/19 08:23 Room Air 12/06/19 08:00 100 12/06/19 08:00 97.9 102 20 115/71 (86) 97 12/06/19 06:28 119/61 12/06/19 06:27 119/61 12/06/19 04:00 92 12/06/19 04:00 97.8 91 20 119/61 (80) 99 12/06/19 01:08 Room Air 12/06/19 01:08 Room Air 12/06/19 00:36 116/72 12/06/19 00:00 92 12/06/19 00:00 97.6 92 18 116/72 (87) 97 12/05/19 21:16 119/71 12/05/19 21:00 Room Air 12/05/19 20:00 97.7 97 20 119/71 (87) 98 12/05/19 20:00 97 12/05/19 19:13 82 18 98 Room Air 12/05/19 19:12 82 18 98 Room Air 12/05/19 17:02 125/90 12/05/19 16:00 97.0 99 20 125/90 (102) 95 12/05/19 16:00 101 12/05/19 13:43 126/90 12/05/19 13:30 78 18 97 Room Air 21 12/05/19 13:29 78 18 97 Room Air 21 12/05/19 12:50 126/90 12/05/19 12:00 97.4 112 20 126/90 (102) 99 12/05/19 12:00 100 Intake and Output 12/05/19 12/06/19 19:00 07:00 Intake Total 982.95 ml 743.60 ml Output Total 1400 ml 1200 ml Balance -417.05 ml -456.40 ml Intake Oral 960 ml 560 ml IV Total 22.95 ml 183.60 ml Output Urine Total 1400 ml 1200 ml # Voids 4 Current Medications Medications (Trade) Dose Ordered Sig/Ariel Route PRN Reason Start Time Stop Time Status Last Admin Dose Admin Acetaminophen (Tylenol) 650 mg Q4H PRN ORAL Temp >100.5 12/02/19 17:15 01/01/20 17:14 Albuterol/ Ipratropium (Albuterol/ Ipratropium) 3 ml Q6HRT PRN HHN Shortness of Breath 12/02/19 16:30 12/07/19 16:29 Albuterol/ Ipratropium (Combivent Respimat) 1 puff Q6HR INH 12/02/19 18:00 01/01/20 17:59 12/05/19 19:11 Allopurinol (allopurinoL) 300 mg DAILY ORAL 12/04/19 14:00 01/03/20 13:59 12/06/19 09:34 Aspirin (ASA) 81 mg DAILY ORAL 12/03/19 09:00 01/17/20 08:59 12/06/19 09:33 Clonidine HCl (Catapres Tab) 0.1 mg Q4H PRN ORAL bp over 160 syst 12/02/19 18:30 03/01/20 18:29 Diphenhydramine HCl (Benadryl) 25 mg Q6H PRN ORAL Itching/Pruritis 12/02/19 17:15 01/01/20 17:14 Famotidine (Pepcid) 20 mg BID ORAL 12/02/19 18:00 03/01/20 17:59 12/06/19 09:34 Furosemide (Lasix) 40 mg EVERY 12 HOURS IV 12/02/19 21:00 01/01/20 20:59 12/06/19 09:33 Heparin Sodium/ Dextrose 500 ml @ 23.16 mls/ hr ADJUST PER PROTOCOL IV 12/03/19 21:00 01/02/20 20:59 12/05/19 23:06 Hydralazine HCl (Apresoline) 25 mg Q8HR ORAL 12/04/19 22:00 03/01/20 17:59 12/06/19 06:28 Isosorbide Dinitrate (Isordil) 10 mg Q6HR ORAL 12/02/19 18:00 01/01/20 17:59 12/06/19 06:27 Loperamide HCl (Imodium) 4 mg Q4H PRN ORAL Diarrhea 12/02/19 17:15 01/01/20 17:14 Lorazepam (Ativan 2mg/ml 1ml) 0.5 mg Q4H PRN IV For Anxiety 12/02/19 17:15 12/09/19 17:14 Magnesium Oxide (Mag-Ox 400mg) 400 mg THREE TIMES A DAY ORAL 12/05/19 13:00 01/04/20 12:59 12/06/19 09:34 Magnesium Sulfate 100 ml @ 100 mls/hr Q1H IVPB 12/06/19 11:15 12/06/19 15:14 UNV Morphine Sulfate (Morphine Sulfate) 2 mg Q4H PRN IVP For Pain 12/02/19 16:30 12/09/19 16:29 Morphine Sulfate (Morphine Sulfate) 2 mg Q6H PRN IVP Moderate Pain (Pain Scale 4-6) 12/02/19 17:15 12/09/19 17:14 Nitroglycerin (Ntg) 0.4 mg Q5M PRN SL Prn Chest Pain 12/02/19 17:15 01/01/20 17:14 Ondansetron HCl (Zofran) 4 mg Q6H PRN IVP Nausea & Vomiting 12/02/19 17:15 01/01/20 17:14 Polyethylene Glycol (Miralax) 17 gm DAILYPRN PRN ORAL Constipation 12/02/19 17:15 01/01/20 17:14 Potassium Chloride (K-Dur) 40 meq TWICE A DAY ORAL 12/05/19 10:15 03/04/20 10:14 12/06/19 09:33 Promethazine HCl/ Codeine (Phenergan with Codeine) 5 ml Q4H PRN ORAL For Cough 12/02/19 17:15 01/01/20 17:14 Temazepam (Restoril) 15 mg HSPRN PRN ORAL Insomnia 12/02/19 17:15 12/09/19 17:14 Warfarin Sodium (Coumadin per pharmacy) 1 ea DAILY PRN MISC Per rx protocol 12/03/19 19:15 01/02/20 19:14 Warfarin Sodium (Coumadin) 7.5 mg COUMADIN ORAL 12/06/19 17:00 12/06/19 19:00 Laboratory Tests 12/05/19 21:40: Activated Partial Thromboplast Time 70H 12/06/19 09:30: Activated Partial Thromboplast Time 82H, White Blood Count 6.6, Red Blood Count 4.04L, Hemoglobin 11.3L, Hematocrit 37.4L, Mean Corpuscular Volume 93, Mean Corpuscular Hemoglobin 27.9, Mean Corpuscular Hemoglobin Concent 30.2L, Red Cell Distribution Width 17.1H, Platelet Count 234, Mean Platelet Volume 7.2, Neutrophils (%) (Auto) 60.8, Lymphocytes (%) (Auto) 21.3, Monocytes (%) (Auto) 9.9, Eosinophils (%) (Auto) 6.7H, Basophils (%) (Auto) 1.3, Prothrombin Time 13.1H, Prothromb Time International Ratio 1.2H, Sodium Level 136, Potassium Level 3.9, Chloride Level 101, Carbon Dioxide Level 27, Anion Gap 8, Blood Urea Nitrogen 25H, Creatinine 1.6H, Estimat Glomerular Filtration Rate 53.9, Glucose Level 104, Uric Acid 6.6, Calcium Level 8.4L, Phosphorus Level 2.6, Magnesium Level 1.5L, Total Bilirubin 1.3H, Direct Bilirubin [Pending], Aspartate Amino Transf (AST/SGOT) 26, Alanine Aminotransferase (ALT/SGPT) 22, Alkaline Phosphatase 82, C-Reactive Protein, Quantitative 0.8, Pro-B-Type Natriuretic Peptide 2188H, Total Protein 6.5, Albumin 2.7L, Globulin 3.8, Albumin/Globulin Ratio 0.7L, Digoxin Level [Pending] Height (Feet): 6 Height (Inches): 1.00 Weight (Pounds): 185 General Appearance: no apparent distress Cardiovascular: tachycardia Respiratory/Chest: decreased breath sounds Abdomen: soft, distended Lester Mesa MD Dec 06, 2019 11:16
[2019-12-06 11:43] LABS: BILIRUBIN,DIRECT 0.5 MG/DL (0.0-0.3)
--- NOTE | 2019-12-06 11:45 | NUR ---
NURSES NOTES: Was in pt room changed his linens when pt began to cry and upon crying pt began to bleed from his nose. Notified Dr. Florez and Dr. Hoang of bleeding awaiting response.
--- NOTE | 2019-12-06 11:51 | NUR ---
NURSES NOTES: Dr. Florez answered regarding the active bleeding and ordered to Dc the heparin drip and continue with the coumadin order that was started yesterday. Carried out.
[2019-12-06 12:00] VITALS: BP 116/78
--- NOTE | 2019-12-06 12:49 | NUR ---
RD ASSESSMENT & RECOMMENDATIONS SEE CARE ACTIVITY FOR COMPLETE ASSESSMENT DAILY ESTIMATED NEEDS: Needs based on Cardiac, pulmonary 77.3kg 25-30 kcals/kg 2193-1717 total kcals 1-1.5 g protein/kg 77-116 g total protein Fluid per MD, on lasix NUTRITION DIAGNOSIS: Decreased sodium needs r/t cardiac history as evidenced by elev BNP (2188), on lasix. CURRENT DIET:Low Na PO DIET RECOMMENDATIONS: Liberalized LOW NA DIET / soft easy chew ADDITIONAL RECOMMENDATIONS: 1) OBTAIN A STANDING WEIGHT + daily wts while on lasix 2) Add B-complex daily on lasix 3) Snacks in b/w meals 4) Check lytes daily on lasix, replete as needed 5) Add Ensure Enlive qdaily (350 kcal/day)
[2019-12-06] MEDS ORDERED: Albuterol/Ipratropium 3ml neb HHN PRN (13:15)
--- NOTE | 2019-12-06 15:04 | NUR ---
CASE MANAGEMENT:REVIEW 12/06/19 SI: LEFT VENTRICULAR THROMBUS CHF W/EF 10-15% SOB AND LE EDEMA IMPROVING 97.9 90 20 116/78 97% ON RA H/H-11.3/37.4 BUN+25 CR+1.6 MAG-1.5 BNP+2188 PT+13.1 INR-1.2 APTT+82 IS: COUMADIN 7.5MG PO X1 DIGOXIN PO X1 IV MAG SULFATE Q1HRS X4 MAG OXIDE PO TID K-DUR PO BID HYDRALAZINE PO Q8HRS IV LASIX Q12 DUONEB INH Q6HRS ISORDIL PO Q6HRS : TELEMETRY STATUS
[2019-12-06 16:00] VITALS: BP 118/74
[2019-12-06] MEDS ORDERED: Warfarin Sod 5 MG, Warfarin Sod 2.5 MG ORAL SCH ×2 (17:00)
--- NOTE | 2019-12-06 19:13 | NUR ---
NURSE HAND-OFF REPORT: Important Events on Shift: Heparin Drip stopped and Coumadin continues because of active bleeding. Patient Status: Stable Diet: Low Sodium but non compliant Pending Orders: Pending Results/Labs: Pending MD notification: Latest Vital Signs: Temperature 97.8 , Pulse 93 , B/P 116 /78 , Respiratory Rate 20 , O2 SAT 98 , Room Air, O2 Flow Rate . Vital Sign Comment: EKG Rhythm: Sinus Rhythm Rhythm change?: N MD Notified?: N - MD Response: Latest Trejo Fall Score: 45 Fall Risk: High Risk Safety Measures: Call light Within Reach, Bed Alarm , Side Rails Side Rails x2, Bed position Low and Locked. Fall Precautions: Yellow Socks Door Sign Report given to VIBHA Roth.
--- NOTE | 2019-12-06 19:20 | NUR ---
NURSE NOTES: Received patient from Nena DUNNE. Patient awake and alert A/O X4, able to make needs known. No acute distress noted. No pain reported at this time. IV site in left forearm 22G s/l as ordered. Patent and flushed. No bleeding or erythema noted. Patient was educated to report any bleeding. Bed in low position and locked, Call light within reach. Educted and encouraged to use call light when needed. Will continue to monitor.
[2019-12-06 20:00] VITALS: BP 106/59
[2019-12-07] VITALS: BP 116/77
--- NOTE | 2019-12-07 01:10 | NUR ---
NURSE NOTES: Patient refused Combivent Respimat at this time as he would like to sleep.
[2019-12-07 04:00] VITALS: BP 112/74
[2019-12-07] MEDS: HydrALAZINE 25mg tab ORAL SCH ×3 (05:46→21:38)
--- NOTE | 2019-12-07 07:20 | NUR ---
NURSE HAND-OFF REPORT: Important Events on Shift:N/A Patient Status: No acute distress Diet: Low Na+ thin liquids whole pills Pending Orders: Pending Results/Labs: Pending MD notification: Latest Vital Signs: Temperature 97.7 , Pulse 90 , B/P 112 /74 , Respiratory Rate 22 , O2 SAT 100 , Room Air, O2 Flow Rate . Vital Sign Comment: EKG Rhythm: Sinus Rhythm Rhythm change?: N MD Notified?: N - MD Response: Latest Trejo Fall Score: 45 Fall Risk: High Risk Safety Measures: Call light Within Reach, Bed Alarm , Side Rails Side Rails x2, Bed position Low and Locked. Fall Precautions: Yellow Socks Door Sign Report given to Diego DUNNE.
--- NOTE | 2019-12-07 07:27 | NUR ---
NURSE NOTES: Received patient in bed. Awake, A/O x4. IV in the Left forearm, site intact. On room air. Patient denies pain.Patient is a high fall risk d/t Trejo fall score of 45. Yellow gown on, yellow socks on, bed at the lowest position, bed alarm on high sensitivity, side rails up x2. Call light within reach with return demonstration. CN and PUBLIC SERVICE REPRESENTATIVE made aware.
[2019-12-07 08:00] VITALS: BP 108/65
[2019-12-07] MEDS: Magnesium Oxide 400mg tab ORAL SCH ×3 (08:54→17:41)
[2019-12-07] MEDS: Aspirin Baby 81mg ORAL SCH (08:54)
[2019-12-07 09:58] LABS: BASOPHILS % (AUTO) 3.6 % (0.0-2.0); EOSINOPHILS % (AUTO) 7.5 % (0.0-3.0); HEMATOCRIT 36.5 % (42.0-52.0); LYMPHOCYTES % (AUTO) 16.3 % (20.0-45.0); MEAN CORPUSCULAR VOLUME 94 FL (80-99); MONOCYTES % (AUTO) 13.3 % (1.0-10.0); NEUTROPHILS % (AUTO) 59.3 % (45.0-75.0); PLATELET COUNT 225 K/UL (150-450); RED BLOOD COUNT 3.88 M/UL (4.70-6.10); RED CELL DISTRIBUTION WIDTH 17.6 % (11.6-14.8); WHITE BLOOD COUNT 6.2 K/UL (4.8-10.8)
[2019-12-07 10:03] LABS: INR 1.2 (0.9-1.1)
[2019-12-07 10:08] LABS: PHOSPHORUS 3.4 MG/DL (2.5-4.9)
[2019-12-07 10:42] LABS: ALBUMIN 2.8 G/DL (3.4-5.0); ALBUMIN/GLOBULIN RATIO 0.8 (1.0-2.7); BILIRUBIN,TOTAL 1.2 MG/DL (0.2-1.0); CALCIUM 8.7 MG/DL (8.5-10.1); CREATININE 1.6 MG/DL (0.55-1.30); POTASSIUM 4.2 MMOL/L (3.5-5.1)
[2019-12-07 10:56] LABS: BILIRUBIN,DIRECT 0.5 MG/DL (0.0-0.3)
--- NOTE | 2019-12-07 11:15 | Nephrology Progress Note ---
Assessment/Plan Problem List: (1) Renal failure (ARF), acute on chronic (2) Acute exacerbation of CHF (congestive heart failure) (3) Cocaine abuse (4) Anemia Assessment Acute on chronic renal failure Acute exacerbation of CHF, history of cardiomyopathy with low ejection fraction Elevated troponin Anemia Seizure disorder Cocaine and polysubstance abuse Plan December 06: Lab reviewed. Serum creatinine 1.6 stable. Digoxin level 0.5. More digoxin given today. Stable from renal standpoint of view. Continue per cardiology. December 05: Labs reviewed. Low magnesium replaced. Serum creatinine 1.6. Overall stable from renal standpoint of view. December 04: more dose of digoxin p.o. given. Potassium supplement given. Magnesium supplement given. Renal parameters stable. Continue per cardiology. December 03: dose of digoxin p.o. increase hydralazine dose. Add allopurinol. Serum creatinine higher to 1.9. Continue to optimize cardiac status. Optimize cardiac status Afterload reduction. Gentle diuresis. As needed Keep the BP in check. Avoid nephrotoxic's Monitor renal parameters and electrolytes Per orders Subjective ROS Limited/Unobtainable: No Constitutional: Reports: malaise Objective Objective Last 24 Hour Vital Signs Date Time Temp Pulse Resp B/P (MAP) Pulse Ox O2 Delivery O2 Flow Rate FiO2 12/07/19 08:09 Room Air 12/07/19 08:00 97.7 92 20 108/65 (79) 95 12/07/19 07:59 79 18 97 Room Air 21 12/07/19 07:55 79 18 97 Room Air 21 12/07/19 05:46 112/74 12/07/19 05:46 112/74 12/07/19 04:00 87 12/07/19 04:00 97.7 90 22 112/74 (87) 100 12/07/19 01:11 Room Air 21 12/07/19 01:11 Room Air 21 12/07/19 00:30 116/77 12/07/19 00:00 94 12/07/19 00:00 98.1 96 20 116/77 (90) 99 12/06/19 21:10 112/69 12/06/19 21:00 Room Air 12/06/19 20:00 98.6 94 20 106/59 (75) 98 12/06/19 20:00 90 12/06/19 19:35 87 17 96 Room Air 21 12/06/19 19:33 87 17 96 Room Air 21 12/06/19 17:18 116/78 12/06/19 16:00 93 12/06/19 16:00 97.8 94 20 118/74 (89) 98 12/06/19 14:24 97 16 98 Room Air 21 12/06/19 14:24 94 16 98 Room Air 21 12/06/19 13:57 116/78 12/06/19 12:54 99 12/06/19 12:00 97.9 90 20 116/78 (91) 97 12/06/19 12:00 96 12/06/19 11:35 115/71 Intake and Output 12/06/19 12/07/19 19:00 07:00 Intake Total 620 ml Output Total 3200 ml 1200 ml Balance -2580 ml -1200 ml Intake Oral 620 ml Output Urine Total 3200 ml 1200 ml # Voids 3 # Bowel Movements 1 Current Medications Medications (Trade) Dose Ordered Sig/Ariel Route PRN Reason Start Time Stop Time Status Last Admin Dose Admin Acetaminophen (Tylenol) 650 mg Q4H PRN ORAL Temp >100.5 12/02/19 17:15 01/01/20 17:14 Albuterol/ Ipratropium (Albuterol/ Ipratropium) 3 ml Q6H PRN HHN Shortness of Breath 12/06/19 13:15 12/11/19 13:14 Albuterol/ Ipratropium (Combivent Respimat) 1 puff Q6HR INH 12/02/19 18:00 01/01/20 17:59 12/07/19 07:52 Allopurinol (allopurinoL) 300 mg DAILY ORAL 12/04/19 14:00 01/03/20 13:59 12/07/19 08:54 Aspirin (ASA) 81 mg DAILY ORAL 12/03/19 09:00 01/17/20 08:59 12/07/19 08:54 Clonidine HCl (Catapres Tab) 0.1 mg Q4H PRN ORAL bp over 160 syst 12/02/19 18:30 03/01/20 18:29 Diphenhydramine HCl (Benadryl) 25 mg Q6H PRN ORAL Itching/Pruritis 12/02/19 17:15 01/01/20 17:14 Famotidine (Pepcid) 20 mg BID ORAL 12/02/19 18:00 03/01/20 17:59 12/07/19 08:54 Furosemide (Lasix) 40 mg EVERY 12 HOURS IV 12/02/19 21:00 01/01/20 20:59 12/07/19 08:54 Hydralazine HCl (Apresoline) 25 mg Q8HR ORAL 12/04/19 22:00 03/01/20 17:59 12/07/19 05:46 Isosorbide Dinitrate (Isordil) 10 mg Q6HR ORAL 12/02/19 18:00 01/01/20 17:59 12/07/19 05:46 Loperamide HCl (Imodium) 4 mg Q4H PRN ORAL Diarrhea 12/02/19 17:15 01/01/20 17:14 Lorazepam (Ativan 2mg/ml 1ml) 0.5 mg Q4H PRN IV For Anxiety 12/02/19 17:15 12/09/19 17:14 Magnesium Oxide (Mag-Ox 400mg) 400 mg THREE TIMES A DAY ORAL 12/05/19 13:00 01/04/20 12:59 12/07/19 08:54 Morphine Sulfate (Morphine Sulfate) 2 mg Q4H PRN IVP For Pain 12/02/19 16:30 12/09/19 16:29 Morphine Sulfate (Morphine Sulfate) 2 mg Q6H PRN IVP Moderate Pain (Pain Scale 4-6) 12/02/19 17:15 12/09/19 17:14 Nitroglycerin (Ntg) 0.4 mg Q5M PRN SL Prn Chest Pain 12/02/19 17:15 01/01/20 17:14 Ondansetron HCl (Zofran) 4 mg Q6H PRN IVP Nausea & Vomiting 12/02/19 17:15 01/01/20 17:14 Polyethylene Glycol (Miralax) 17 gm DAILYPRN PRN ORAL Constipation 12/02/19 17:15 01/01/20 17:14 Potassium Chloride (K-Dur) 40 meq TWICE A DAY ORAL 12/05/19 10:15 03/04/20 10:14 12/07/19 08:54 Promethazine HCl/ Codeine (Phenergan with Codeine) 5 ml Q4H PRN ORAL For Cough 12/02/19 17:15 01/01/20 17:14 Temazepam (Restoril) 15 mg HSPRN PRN ORAL Insomnia 12/02/19 17:15 12/09/19 17:14 Warfarin Sodium (Coumadin per pharmacy) 1 ea DAILY PRN MISC Per rx protocol 12/03/19 19:15 01/02/20 19:14 Warfarin Sodium (Coumadin) 8 mg ONCE ORAL 12/07/19 17:00 12/07/19 19:00 Laboratory Tests 12/07/19 09:40: White Blood Count 6.2, Red Blood Count 3.88L, Hemoglobin 11.0L, Hematocrit 36.5L , Mean Corpuscular Volume 94, Mean Corpuscular Hemoglobin 28.3, Mean Corpuscular Hemoglobin Concent 30.1L, Red Cell Distribution Width 17.6H, Platelet Count 225, Mean Platelet Volume 7.8, Neutrophils (%) (Auto) 59.3, Lymphocytes (%) (Auto) 16.3L, Monocytes (%) (Auto) 13.3H, Eosinophils (%) (Auto) 7.5H, Basophils (%) (Auto) 3.6H, Prothrombin Time 12.7H, Prothromb Time International Ratio 1.2H, Sodium Level 134L, Potassium Level 4.2, Chloride Level 100, Carbon Dioxide Level 31, Anion Gap 3L, Blood Urea Nitrogen 28H, Creatinine 1.6H, Estimat Glomerular Filtration Rate 53.9, Glucose Level 114H, Uric Acid 5.9, Calcium Level 8.7, Phosphorus Level 3.4, Magnesium Level 1.9, Total Bilirubin 1.2H, Direct Bilirubin 0.5H, Aspartate Amino Transf (AST/SGOT) 26, Alanine Aminotransferase (ALT/SGPT) 18, Alkaline Phosphatase 86, Total Protein 6.2L, Albumin 2.8L, Globulin 3.4, Albumin/Globulin Ratio 0.8L, Digoxin Level 0.5 Height (Feet): 6 Height (Inches): 1.00 Weight (Pounds): 185 General Appearance: no apparent distress Cardiovascular: tachycardia Respiratory/Chest: decreased breath sounds Abdomen: soft Lester Mesa MD Dec 07, 2019 11:15
--- NOTE | 2019-12-07 11:59 | Pulmonology Progress Note ---
Subjective ROS Limited/Unobtainable: No Interval Events: c/o palpitaiton Allergies: Coded Allergies: NO KNOWN ALLERGIES (Verified Allergy, Unknown, 04/08/19) All Systems: reviewed and negative except above Objective Last 24 Hour Vital Signs Date Time Temp Pulse Resp B/P (MAP) Pulse Ox O2 Delivery O2 Flow Rate FiO2 12/07/19 11:37 92 12/07/19 11:36 119/67 12/07/19 08:09 Room Air 12/07/19 08:00 97.7 92 20 108/65 (79) 95 12/07/19 07:59 79 18 97 Room Air 21 12/07/19 07:55 79 18 97 Room Air 21 12/07/19 05:46 112/74 12/07/19 05:46 112/74 12/07/19 04:00 87 12/07/19 04:00 97.7 90 22 112/74 (87) 100 12/07/19 01:11 Room Air 21 12/07/19 01:11 Room Air 21 12/07/19 00:30 116/77 12/07/19 00:00 94 12/07/19 00:00 98.1 96 20 116/77 (90) 99 12/06/19 21:10 112/69 12/06/19 21:00 Room Air 12/06/19 20:00 98.6 94 20 106/59 (75) 98 12/06/19 20:00 90 12/06/19 19:35 87 17 96 Room Air 21 12/06/19 19:33 87 17 96 Room Air 21 12/06/19 17:18 116/78 12/06/19 16:00 93 12/06/19 16:00 97.8 94 20 118/74 (89) 98 12/06/19 14:24 97 16 98 Room Air 21 12/06/19 14:24 94 16 98 Room Air 21 12/06/19 13:57 116/78 12/06/19 12:54 99 12/06/19 12:00 97.9 90 20 116/78 (91) 97 12/06/19 12:00 96 Intake and Output 12/06/19 12/07/19 19:00 07:00 Intake Total 620 ml Output Total 3200 ml 1200 ml Balance -2580 ml -1200 ml Intake Oral 620 ml Output Urine Total 3200 ml 1200 ml # Voids 3 # Bowel Movements 1 Objective episode of nose bleeding, off heparin drip General Appearance: cachetic HEENT: normocephalic, atraumatic Respiratory: chest wall non-tender, rhonchi - left, rhonchi - right Cardiovascular: normal peripheral pulses, normal rate Abdomen: normal bowel sounds, no organomegaly Laboratory Tests 12/07/19 09:40: White Blood Count 6.2, Red Blood Count 3.88L, Hemoglobin 11.0L, Hematocrit 36.5L , Mean Corpuscular Volume 94, Mean Corpuscular Hemoglobin 28.3, Mean Corpuscular Hemoglobin Concent 30.1L, Red Cell Distribution Width 17.6H, Platelet Count 225, Mean Platelet Volume 7.8, Neutrophils (%) (Auto) 59.3, Lymphocytes (%) (Auto) 16.3L, Monocytes (%) (Auto) 13.3H, Eosinophils (%) (Auto) 7.5H, Basophils (%) (Auto) 3.6H, Prothrombin Time 12.7H, Prothromb Time International Ratio 1.2H, Sodium Level 134L, Potassium Level 4.2, Chloride Level 100, Carbon Dioxide Level 31, Anion Gap 3L, Blood Urea Nitrogen 28H, Creatinine 1.6H, Estimat Glomerular Filtration Rate 53.9, Glucose Level 114H, Uric Acid 5.9, Calcium Level 8.7, P hosphorus Level 3.4, Magnesium Level 1.9, Total Bilirubin 1.2H, Direct Bilirubin 0.5H, Aspartate Amino Transf (AST/SGOT) 26, Alanine Aminotransferase (ALT/SGPT) 18, Alkaline Phosphatase 86, Total Protein 6.2L, Albumin 2.8L, Globulin 3.4, Albumin/Globulin Ratio 0.8L, Digoxin Level 0.5 Current Medications Medications (Trade) Dose Ordered Sig/Ariel Route PRN Reason Start Time Stop Time Status Last Admin Dose Admin Acetaminophen (Tylenol) 650 mg Q4H PRN ORAL Temp >100.5 12/02/19 17:15 01/01/20 17:14 Albuterol/ Ipratropium (Albuterol/ Ipratropium) 3 ml Q6H PRN HHN Shortness of Breath 12/06/19 13:15 12/11/19 13:14 Albuterol/ Ipratropium (Combivent Respimat) 1 puff Q6HR INH 12/02/19 18:00 01/01/20 17:59 12/07/19 07:52 Allopurinol (allopurinoL) 300 mg DAILY ORAL 12/04/19 14:00 01/03/20 13:59 12/07/19 08:54 Aspirin (ASA) 81 mg DAILY ORAL 12/03/19 09:00 01/17/20 08:59 12/07/19 08:54 Clonidine HCl (Catapres Tab) 0.1 mg Q4H PRN ORAL bp over 160 syst 12/02/19 18:30 03/01/20 18:29 Digoxin (Lanoxin) 0.25 mg ONCE ORAL 12/07/19 11:15 12/07/19 13:30 12/07/19 11:37 Diphenhydramine HCl (Benadryl) 25 mg Q6H PRN ORAL Itching/Pruritis 12/02/19 17:15 01/01/20 17:14 Famotidine (Pepcid) 20 mg BID ORAL 12/02/19 18:00 03/01/20 17:59 12/07/19 08:54 Furosemide (Lasix) 40 mg EVERY 12 HOURS IV 12/02/19 21:00 01/01/20 20:59 12/07/19 08:54 Hydralazine HCl (Apresoline) 25 mg Q8HR ORAL 12/04/19 22:00 03/01/20 17:59 12/07/19 05:46 Isosorbide Dinitrate (Isordil) 10 mg Q6HR ORAL 12/02/19 18:00 01/01/20 17:59 12/07/19 11:36 Loperamide HCl (Imodium) 4 mg Q4H PRN ORAL Diarrhea 12/02/19 17:15 01/01/20 17:14 Lorazepam (Ativan 2mg/ml 1ml) 0.5 mg Q4H PRN IV For Anxiety 12/02/19 17:15 12/09/19 17:14 Magnesium Oxide (Mag-Ox 400mg) 400 mg THREE TIMES A DAY ORAL 12/05/19 13:00 01/04/20 12:59 12/07/19 08:54 Morphine Sulfate (Morphine Sulfate) 2 mg Q4H PRN IVP For Pain 12/02/19 16:30 12/09/19 16:29 Morphine Sulfate (Morphine Sulfate) 2 mg Q6H PRN IVP Moderate Pain (Pain Scale 4-6) 12/02/19 17:15 12/09/19 17:14 Nitroglycerin (Ntg) 0.4 mg Q5M PRN SL Prn Chest Pain 12/02/19 17:15 01/01/20 17:14 Ondansetron HCl (Zofran) 4 mg Q6H PRN IVP Nausea & Vomiting 12/02/19 17:15 01/01/20 17:14 Polyethylene Glycol (Miralax) 17 gm DAILYPRN PRN ORAL Constipation 12/02/19 17:15 01/01/20 17:14 Potassium Chloride (K-Dur) 40 meq TWICE A DAY ORAL 12/05/19 10:15 03/04/20 10:14 12/07/19 08:54 Promethazine HCl/ Codeine (Phenergan with Codeine) 5 ml Q4H PRN ORAL For Cough 12/02/19 17:15 01/01/20 17:14 Temazepam (Restoril) 15 mg HSPRN PRN ORAL Insomnia 12/02/19 17:15 12/09/19 17:14 Warfarin Sodium (Coumadin per pharmacy) 1 ea DAILY PRN MISC Per rx protocol 12/03/19 19:15 01/02/20 19:14 Warfarin Sodium (Coumadin) 8 mg ONCE ORAL 12/07/19 17:00 12/07/19 19:00 Assessment/Plan Problems: (1) Acute exacerbation of CHF (congestive heart failure) (2) LV (left ventricular) mural thrombus (3) Cardiac LV ejection fraction 10-20% (4) Cocaine abuse (5) HTN (hypertension) (6) Homelessness Assessment/Plan diuresing well on Lasix 40 BID on Coumadin for LV thrombus titrate fio2 to sat of 92 titrate cardiac meds symptomatic treatment check electrolytes Pt can not to back to street, since he needs close monitoring of INR and close supervision of medication intake. Robby Chavarria MD Dec 07, 2019 11:59
[2019-12-07 12:00] VITALS: BP 119/74
--- NOTE | 2019-12-07 13:40 | General Progress Note ---
Subjective Constitutional: Reports: weakness Allergies: Coded Allergies: NO KNOWN ALLERGIES (Verified Allergy, Unknown, 04/08/19) All Systems: reviewed and negative except above Subjective sleepy calm Objective Last 24 Hour Vital Signs Date Time Temp Pulse Resp B/P (MAP) Pulse Ox O2 Delivery O2 Flow Rate FiO2 12/07/19 12:02 82 16 96 Room Air 21 12/07/19 12:00 97.7 92 20 119/74 (89) 97 12/07/19 11:59 82 16 96 Room Air 21 12/07/19 11:37 92 12/07/19 11:36 119/67 12/07/19 08:09 Room Air 12/07/19 08:00 97.7 92 20 108/65 (79) 95 12/07/19 08:00 85 12/07/19 07:59 79 18 97 Room Air 21 12/07/19 07:55 79 18 97 Room Air 21 12/07/19 05:46 112/74 12/07/19 05:46 112/74 12/07/19 04:00 87 12/07/19 04:00 97.7 90 22 112/74 (87) 100 12/07/19 01:11 Room Air 21 12/07/19 01:11 Room Air 12/07/19 00:30 116/77 12/07/19 00:00 94 12/07/19 00:00 98.1 96 20 116/77 (90) 99 12/06/19 21:10 112/69 12/06/19 21:00 Room Air 12/06/19 20:00 98.6 94 20 106/59 (75) 98 12/06/19 20:00 90 12/06/19 19:35 87 17 96 Room Air 21 12/06/19 19:33 87 17 96 Room Air 21 12/06/19 17:18 116/78 12/06/19 16:00 93 12/06/19 16:00 97.8 94 20 118/74 (89) 98 12/06/19 14:24 97 16 98 Room Air 21 12/06/19 14:24 94 16 98 Room Air 21 12/06/19 13:57 116/78 Intake and Output 12/06/19 12/07/19 19:00 07:00 Intake Total 620 ml Output Total 3200 ml 1200 ml Balance -2580 ml -1200 ml Intake Oral 620 ml Output Urine Total 3200 ml 1200 ml # Voids 3 # Bowel Movements 1 Laboratory Tests 12/07/19 09:40: White Blood Count 6.2, Red Blood Count 3.88L, Hemoglobin 11.0L, Hematocrit 36.5L , Mean Corpuscular Volume 94, Mean Corpuscular Hemoglobin 28.3, Mean Corpuscular Hemoglobin Concent 30.1L, Red Cell Distribution Width 17.6H, Platelet Count 225, Mean Platelet Volume 7.8, Neutrophils (%) (Auto) 59.3, Lymphocytes (%) (Auto) 16.3L, Monocytes (%) (Auto) 13.3H, Eosinophils (%) (Auto) 7.5H, Basophils (%) (Auto) 3.6H, Prothrombin Time 12.7H, Prothromb Time International Ratio 1.2H, Sodium Level 134L, Potassium Level 4.2, Chloride Level 100, Carbon Dioxide Level 31, Anion Gap 3L, Blood Urea Nitrogen 28H, Creatinine 1.6H, Estimat Glomerular Filtration Rate 53.9, Glucose Level 114H, Uric Acid 5.9, Calcium Level 8.7, Phosphorus Level 3.4, Magnesium Level 1.9, Total Bilirubin 1.2H, Direct Biliru bin 0.5H, Aspartate Amino Transf (AST/SGOT) 26, Alanine Aminotransferase (ALT/SGPT) 18, Alkaline Phosphatase 86, Total Protein 6.2L, Albumin 2.8L, Globulin 3.4, Albumin/Globulin Ratio 0.8L, Digoxin Level 0.5 Height (Feet): 6 Height (Inches): 1.00 Weight (Pounds): 185 General Appearance: lethargic EENT: normal ENT inspection Neck: normal alignment Cardiovascular: normal peripheral pulses, normal rate, regular rhythm Respiratory/Chest: chest wall non-tender, lungs clear, normal breath sounds Abdomen: normal bowel sounds, non tender, soft Extremities: normal inspection Edema: 1+ Arm (L), 1+ Arm (R), 1+ Leg (L), 1+ Leg (R), 1+ Pedal (L), 1+ Pedal (R), 1+ Generalized Neurologic: motor weakness Skin: normal pigmentation, warm/dry Assessment/Plan Problem List: (1) Anemia ICD Codes: D64.9 - Anemia, unspecified SNOMED: 025643965 (2) HTN (hypertension) ICD Codes: I10 - Essential (primary) hypertension SNOMED: 00123978 (3) Seizure ICD Codes: R56.9 - Unspecified convulsions SNOMED: 15965763 Status: stable, progressing Assessment/Plan: o2 pulm tx pt diet cardio neph eval cbc bmp am heme and psyc eval dc plan snf Nilay Hoang DO Dec 07, 2019 13:40
--- NOTE | 2019-12-07 13:46 | NUR ---
CASE MANAGEMENT:REVIEW 12/07/19 SI: LEFT VENTRICULAR THROMBUS CHF W/EF 10-15% 97.7 92 20 119/74 97% ON RA H/H-11.0/36.5 BUN+28 CR+1.6 TBILI+1.2 DBILI+0.5 INR-1.2 IS: COUMADIN 8 MG PO X1 DIGOXIN PO X1 (AGAIN TODAY) IV MAG SULFATE Q1HRS X4 MAG OXIDE PO TID K-DUR PO BID HYDRALAZINE PO Q8HRS IV LASIX Q12 DUONEB INH Q6HRS ISORDIL PO Q6HRS : TELEMETRY STATUS DCP: FROM HOME PLAN: INR GOAL 2.0 - 2.5
--- NOTE | 2019-12-07 14:00 | NUR ---
NURSE NOTES: Patient reports bloody stool and nosebleed all night. Dr Hoang made aware, doctor to contact Dr. Kaba.
--- NOTE | 2019-12-07 14:49 | Cardiac Electrophysiology PN ---
Assessment/Plan Assessment/Plan 1. Chronic troponin elevation. Even in prior hospitalization in March, April, May and oct The levels are flat. Likely due to renal failure. Refused nuclear stress test 2. Severe cardiomyopathy with EF of only 10-20%. Off beta-shahram for active cocaine use. On Lasix 40 iv bid, hydralazine, nitrate 3. Hypertension. Continue current medical regimen. 4. CKD C4 1.8 5. LV clot on echo. On Coumadin per pharmacy. INR still 1.2 6. Noncompliance. Signed out AMA prior admission in 04/2019 7. High bilirubin 8. Seizure disorder. 9. Polysubstance abuse with cocaine and marijuana. 10. Constipation and ? rectal bleed. FU GI. Could be due to opiate use. FU GI DW RN Subjective Subjective Off heparin drip for rectal bleeding and nose bleed last night. On Coumadin per Rx for LV Clot. In SR. No VT Objective Last 24 Hour Vital Signs Date Time Temp Pulse Resp B/P (MAP) Pulse Ox O2 Delivery O2 Flow Rate FiO2 12/07/19 13:34 119/74 12/07/19 12:02 82 16 96 Room Air 21 12/07/19 12:00 97.7 92 20 119/74 (89) 97 12/07/19 12:00 80 12/07/19 11:59 82 16 96 Room Air 12/07/19 11:37 92 12/07/19 11:36 119/67 12/07/19 08:09 Room Air 12/07/19 08:00 97.7 92 20 108/65 (79) 95 12/07/19 08:00 85 12/07/19 07:59 79 18 97 Room Air 12/07/19 07:55 79 18 97 Room Air 12/07/19 05:46 112/74 12/07/19 05:46 112/74 12/07/19 04:00 87 12/07/19 04:00 97.7 90 22 112/74 (87) 100 12/07/19 01:11 Room Air 12/07/19 01:11 Room Air 21 12/07/19 00:30 116/77 12/07/19 00:00 94 12/07/19 00:00 98.1 96 20 116/77 (90) 99 12/06/19 21:10 112/69 12/06/19 21:00 Room Air 12/06/19 20:00 98.6 94 20 106/59 (75) 98 12/06/19 20:00 90 12/06/19 19:35 87 17 96 Room Air 21 12/06/19 19:33 87 17 96 Room Air 21 12/06/19 17:18 116/78 12/06/19 16:00 93 12/06/19 16:00 97.8 94 20 118/74 (89) 98 Intake and Output 12/06/19 12/07/19 19:00 07:00 Intake Total 620 ml Output Total 3200 ml 1200 ml Balance -2580 ml -1200 ml Intake Oral 620 ml Output Urine Total 3200 ml 1200 ml # Voids 3 # Bowel Movements 1 Laboratory Tests Test 12/07/19 09:40 White Blood Count 6.2 K/UL (4.8-10.8) Red Blood Count 3.88 M/UL (4.70-6.10) L Hemoglobin 11.0 G/DL (14.2-18.0) L Hematocrit 36.5 % (42.0-52.0) L Mean Corpuscular Volume 94 FL (80-99) Mean Corpuscular Hemoglobin 28.3 PG (27.0-31.0) Mean Corpuscular Hemoglobin Concent 30.1 G/DL (32.0-36.0) L Red Cell Distribution Width 17.6 % (11.6-14.8) H Platelet Count 225 K/UL (150-450) Mean Platelet Volume 7.8 FL (6.5-10.1) Neutrophils (%) (Auto) 59.3 % (45.0-75.0) Lymphocytes (%) (Auto) 16.3 % (20.0-45.0) L Monocytes (%) (Auto) 13.3 % (1.0-10.0) H Eosinophils (%) (Auto) 7.5 % (0.0-3.0) H Basophils (%) (Auto) 3.6 % (0.0-2.0) H Prothrombin Time 12.7 SEC (9.30-11.50) H Prothromb Time International Ratio 1.2 (0.9-1.1) H Sodium Level 134 MMOL/L (136-145) L Potassium Level 4.2 MMOL/L (3.5-5.1) Chloride Level 100 MMOL/L (98-107) Carbon Dioxide Level 31 MMOL/L (21-32) Anion Gap 3 mmol/L (5-15) L Blood Urea Nitrogen 28 mg/dL (7-18) H Creatinine 1.6 MG/DL (0.55-1.30) H Estimat Glomerular Filtration Rate 53.9 mL/min (>60) Glucose Level 114 MG/DL (74-106) H Uric Acid 5.9 MG/DL (2.6-7.2) Calcium Level 8.7 MG/DL (8.5-10.1) Phosphorus Level 3.4 MG/DL (2.5-4.9) Magnesium Level 1.9 MG/DL (1.8-2.4) Total Bilirubin 1.2 MG/DL (0.2-1.0) H Direct Bilirubin 0.5 MG/DL (0.0-0.3) H Aspartate Amino Transf (AST/SGOT) 26 U/L (15-37) Alanine Aminotransferase (ALT/SGPT) 18 U/L (12-78) Alkaline Phosphatase 86 U/L (46-116) Total Protein 6.2 G/DL (6.4-8.2) L Albumin 2.8 G/DL (3.4-5.0) L Globulin 3.4 g/dL Albumin/Globulin Ratio 0.8 (1.0-2.7) L Digoxin Level 0.5 NG/ML (0.5-2.0) Objective HEAD AND NECK: Positive JVD. LUNGS: Decreased breath sounds. CARDIOVASCULAR: Regular S1 and S2 with no gallop or murmur. ABDOMEN: Soft. EXTREMITIES: 2+ pitting edema. Danie Florez MD Dec 07, 2019 14:49
[2019-12-07 16:00] VITALS: BP 108/65
[2019-12-07] MEDS ORDERED: Warfarin Sodium 4mg ORAL SCH (17:00)
--- NOTE | 2019-12-07 18:37 | NUR ---
NURSE NOTES: No rectal bleeding noted during this shift. Patient instructed to not flush toilet after bloody stool.
--- NOTE | 2019-12-07 19:06 | NUR ---
NURSE HAND-OFF REPORT: Important Events on Shift:[no bloody stool] Patient Status: [FULL CODE] Diet: [low sodium] Pending Orders: [] Pending Results/Labs:[] Pending MD notification:[] Latest Vital Signs: Temperature 97.7 , Pulse 91 , B/P 108 /65 , Respiratory Rate 20 , O2 SAT 98 , Room Air, O2 Flow Rate . Vital Sign Comment: [] EKG Rhythm: Sinus Rhythm Rhythm change?: N MD Notified?: N - MD Response: Latest Trejo Fall Score: 45 Fall Risk: High Risk Safety Measures: Call light Within Reach, Bed Alarm , Side Rails Side Rails x2, Bed position Low and Locked. Fall Precautions: Yellow Socks Door Sign Report given to [Clay DUNNE].
--- NOTE | 2019-12-07 19:10 | NUR ---
NURSE NOTES: Patient received from Diego DUNNE. Patient in stable condition. Comfortable in bed. Alert and oriented x4. Saturating well on room air. No s/s of distress and no c/o pain. IV site on Left FA 22G patent and intact SL. Bed in lowest position and locked. Call light and bedside table within reach. Will continue plan of care.
[2019-12-07 20:00] VITALS: BP 105/56
[2019-12-08] VITALS: BP 111/61
--- NOTE | 2019-12-08 00:30 | Consultation ---
DATE OF CONSULTATION: 12/07/2019 CONSULTING PHYSICIAN: Herson Leone MD HISTORY OF PRESENT ILLNESS: This is a 59-year-old male with a history of CHF, edema, cardiomyopathy who has been admitted to the hospital for medical stabilization. and at times refuses medication. The patient complained of depressed mood, anxiety. He has a history of cocaine and other drug use. In addition, he has insomnia and low appetite. PAST PSYCHIATRIC HISTORY: Depression, anxiety. Denies any psychiatric hospitalization. PAST MEDICAL HISTORY: As above. ALLERGIES: No known drug allergies. SUBSTANCE ABUSE HISTORY: Significant for cocaine. His urine toxicology is positive for THC and cocaine. MENTAL STATUS EXAMINATION: Patient is alert, oriented times self, place, situation. Cooperative. Mood is depressed. Affect is blunted, congruent with mood. Thought process is linear and goal oriented. Thought content, no suicidal or homicidal ideation. Cognition is intact. Insight and judgment is fair. ASSESSMENT: [place] I Substance use disorder. Depressive disorder. [place] II Deferred. [place] III As above. [place] IV Homelessness. [place] V 50. PLAN: 1. Patient is able to understand, process, communicate rationally. He understands the risks versus benefits of remaining compliant. He is able to make decisions for himself including medical decision. 2. Patient is not an imminent danger to self or others. 3. Patient will be discharged when medically cleared. 4. Does not meet the criteria for 5150. 5. low dose. Herson Leone M.D. DR: LIBBY JOB#: [id number] CC:
[2019-12-08 04:00] VITALS: BP 96/63
[2019-12-08] MEDS: HydrALAZINE 25mg tab ORAL SCH (05:56)
--- NOTE | 2019-12-08 07:54 | NUR ---
NURSE HAND-OFF REPORT: Important Events on Shift:[None] Patient Status: [] Diet: [Low NA Diet] Pending Orders: [] Pending Results/Labs:[] Pending MD notification:[] Latest Vital Signs: Temperature 98.1 , Pulse 86 , B/P 117 /83 , Respiratory Rate 20 , O2 SAT 95 , Room Air, O2 Flow Rate . Vital Sign Comment: [] EKG Rhythm: Sinus Rhythm Rhythm change?: N MD Notified?: N - MD Response: Latest Trejo Fall Score: 45 Fall Risk: High Risk Safety Measures: Call light Within Reach, Bed Alarm , Side Rails Side Rails x2, Bed position Low and Locked. Fall Precautions: Yellow Socks Door Sign Report given to [Blank DUNNE].
--- NOTE | 2019-12-08 07:57 | NUR ---
NURSE NOTES: Received report from Leann/RN. Pt in bed lying semi-fowlers. Alert and oriented, able to make needs know. On room air, no distress or SOB noted. IV on left FA, SL, patent and clean. Bed in lowest position and locked, call light within reach, encouraged to use it when need it. Side rails up X2. Will continue plan of care.
[2019-12-08 08:00] VITALS: BP 141/91
[2019-12-08 08:03] LABS: BASOPHILS % (AUTO) 2.4 % (0.0-2.0); EOSINOPHILS % (AUTO) 7.4 % (0.0-3.0); HEMATOCRIT 36.9 % (42.0-52.0); HEMOGLOBIN 11.3 G/DL (14.2-18.0); LYMPHOCYTES % (AUTO) 20.4 % (20.0-45.0); MEAN CORPUSCULAR VOLUME 93 FL (80-99); MONOCYTES % (AUTO) 15.5 % (1.0-10.0); NEUTROPHILS % (AUTO) 54.2 % (45.0-75.0); PLATELET COUNT 249 K/UL (150-450); RED BLOOD COUNT 3.95 M/UL (4.70-6.10); RED CELL DISTRIBUTION WIDTH 17.1 % (11.6-14.8); WHITE BLOOD COUNT 6.8 K/UL (4.8-10.8)
[2019-12-08 08:10] LABS: CALCIUM 8.7 MG/DL (8.5-10.1); CREATININE 1.6 MG/DL (0.55-1.30); POTASSIUM 4.8 MMOL/L (3.5-5.1)
[2019-12-08 08:12] LABS: INR 1.2 (0.9-1.1)
[2019-12-08] MEDS: Magnesium Oxide 400mg tab ORAL SCH (09:00)
[2019-12-08] MEDS ORDERED: NS 275ml ONE (09:29)
[2019-12-08] MEDS ORDERED: Tubing IV Secondary IV ONE (09:29)
--- NOTE | 2019-12-08 09:37 | NUR ---
NURSE NOTES: Called Dr Hoang to let him know Pt sign out of the hospital AMA.
--- NOTE | 2019-12-08 10:29 | Nephrology Progress Note ---
Assessment/Plan Problem List: (1) Renal failure (ARF), acute on chronic (2) Acute exacerbation of CHF (congestive heart failure) (3) Cocaine abuse (4) Anemia Assessment Acute on chronic renal failure Acute exacerbation of CHF, history of cardiomyopathy with low ejection fraction Elevated troponin Anemia Seizure disorder Cocaine and polysubstance abuse Plan December 07: Status quo. Patient is signing AMA. This is a pattern with the patient that at the end of the month signs AMA !!! Serum creatinine 1.6 stable December 06: Lab reviewed. Serum creatinine 1.6 stable. Digoxin level 0.5. More digoxin given today. Stable from renal standpoint of view. Continue per cardiology. December 05: Labs reviewed. Low magnesium replaced. Serum creatinine 1.6. Overall stable from renal standpoint of view. December 04: more dose of digoxin p.o. given. Potassium supplement given. Magnesium supplement given. Renal parameters stable. Continue per cardiology. December 03: 1 dose of digoxin p.o. increase hydralazine dose. Add allopurinol. Serum creatinine higher to 1.9. Continue to optimize cardiac status. Optimize cardiac status Afterload reduction. Gentle diuresis. As needed Keep the BP in check. Avoid nephrotoxic's Monitor renal parameters and electrolytes Per orders Subjective ROS Limited/Unobtainable: No Constitutional: Reports: malaise Objective Objective Last 24 Hour Vital Signs Date Time Temp Pulse Resp B/P (MAP) Pulse Ox O2 Delivery O2 Flow Rate FiO2 12/08/19 08:00 98.8 60 20 141/91 (108) 98 12/08/19 08:00 87 16 96 Room Air 21 12/08/19 07:59 87 16 96 Room Air 21 12/08/19 05:57 117/83 12/08/19 05:56 117/83 12/08/19 04:00 86 12/08/19 04:00 98.1 87 20 96/63 (74) 95 12/08/19 01:32 Room Air 21 12/08/19 01:32 Room Air 21 12/08/19 00:00 98.2 88 20 111/61 (78) 95 12/08/19 00:00 111/61 12/08/19 00:00 89 12/07/19 21:38 105/60 12/07/19 21:00 Room Air 10/29/20 20:00 97 12/07/19 20:00 100.0 97 24 105/56 (72) 98 12/07/19 19:43 86 17 97 Room Air 21 12/07/19 19:43 86 17 97 Room Air 21 12/07/19 17:40 108/65 12/07/19 16:00 93 12/07/19 16:00 97.7 91 20 108/65 (79) 98 12/07/19 13:34 119/74 12/07/19 12:02 82 16 96 Room Air 21 12/07/19 12:00 97.7 92 20 119/74 (89) 97 12/07/19 12:00 80 12/07/19 11:59 82 16 96 Room Air 21 12/07/19 11:37 92 12/07/19 11:36 119/67 Intake and Output 12/07/19 12/08/19 19:00 07:00 Intake Total 900 ml Output Total 2500 ml Balance -1600 ml Intake Oral 900 ml Output Urine Total 2500 ml # Voids 4 3 Laboratory Tests 12/08/19 07:10: White Blood Count 6.8, Red Blood Count 3.95L, Hemoglobin 11.3L, Hematocrit 36.9L , Mean Corpuscular Volume 93, Mean Corpuscular Hemoglobin 28.6, Mean Corpuscular Hemoglobin Concent 30.6L, Red Cell Distribution Width 17.1H, Platelet Count 249, Mean Platelet Volume 8.7, Neutrophils (%) (Auto) 54.2, Lymphocytes (%) (Auto) 20.4, Monocytes (%) (Auto) 15.5H, Eosinophils (%) (Auto) 7.4H, Basophils (%) (Auto) 2.4H, Prothrombin Time 13.4H, Prothromb Time International Ratio 1.2H, So dium Level 134L, Potassium Level 4.8, Chloride Level 100, Carbon Dioxide Level 29, Anion Gap 5, Blood Urea Nitrogen 31H, Creatinine 1.6H, Estimat Glomerular Filtration Rate 53.9, Glucose Level 74, Calcium Level 8.7 Height (Feet): 6 Height (Inches): 1.00 Weight (Pounds): 185 General Appearance: no apparent distress Lester Mesa MD Dec 08, 2019 10:29
--- NOTE | 2019-12-09 23:34 | Psychiatric Progress Note ---
Psychiatry Progress Note Psychiatry Progress Note Subjective 12/07 Neurological/Psychiatric: Reports: anxiety, depressed, emotional problems Allergies: Coded Allergies: NO KNOWN ALLERGIES (Verified Allergy, Unknown, 04/08/19) Objective Data Height (Feet): 6 Height (Inches): 1.00 Weight (Pounds): 185 General Appearance: no apparent distress Additional Comments: alert, oriented times self, place, situation. Cooperative. Mood is depressed. Affect is blunted, congruent with mood. Thought process is linear and goal oriented. Thought content, no suicidal or homicidal ideation. Cognition is intact. Insight and judgment is fair. ASSESSMENT: [place] I Substance use disorder. Depressive disorder. [place] II Deferred. [place] III As above. [place] IV Homelessness. [place] V 50. PLAN: 1. Patient is able to understand, process, communicate rationally. He understands the risks versus benefits of remaining compliant. He is able to make decisions for himself including medical decision. 2. Patient is not an imminent danger to self or others. 3. Patient will be discharged when medically cleared. 4. Does not meet the criteria for 5150. Assessment/Plan Status: stable, progressing Herson Leone MD Dec 09, 2019 23:34
--- NOTE | 2019-12-10 11:07 | Discharge Summary ---
Discharge Summary Discharge Summary _ DATE OF ADMISSION: 12/02/2019 DATE OF DISCHARGE: 12/08/2019 DISCHARGED BY: Dr. Nilay Hoang CONSULTANTS: Dr. Herson Chavarria [facility] HOSPITAL COURSE: The patient is a 59-year-old homeless male, who presented to ED due to shortness of breath. Patient has history of heart failure with reduced ejection fraction of 20%, past history of cocaine abuse, anemia, and seizure disorder. Patient has been off Lasix for 4 days. He reported bilateral pitting edema, exertional dyspnea, orthopnea and nonproductive cough. Upon evaluation at ED, he was saturating well on room air. Blood pressure was slightly elevated to 143/99, heart rate 105. He was afebrile. Blood work did not show any leukocytosis. Hemoglobin 12 and hematocrit 40. Platelet count 195. Electrolytes were normal. BUN was 31 and creatinine 1.8. Troponin was 0.104. proBNP 7065. Urine toxicology was positive for cocaine and marijuana. EKG showed sinus tachycardia with normal axis, normal intervals, no ST segment changes. Chest x-ray showed cardiomegaly, unchanged from previous. He was admitted due to CHF exacerbation. He was admitted to monitored floor. He was given IV Lasix twice daily. He was continued on hydralazine 10 mg 3 times daily and nitrites. Unable to use PINEDA inhibitor due to renal failure. Patient had chronic elevated troponin. He had prior hospitalizations with elevated troponin levels, likely due to renal failure. He refused nuclear stress test. Patient has severe cardiomyopathy with EF of only 10 to 20%. He is off beta-shahram due to active cocaine use. Echocardiogram showed an LV clot. He was given Heparin and started on Coumadin. He complained of constipation and rectal bleed. Patient has been refusing his medication. He complained of depressed mood and anxiety. Psychiatrist was consulted. Patient was assessed to have ability to understand, process and communicate rationally. Able to make decisions for himself including medical decisions. Patient was not an imminent danger to self or others patient did not meet criteria for 5150. Full treatment was not carried out as patient left AGAINST MEDICAL ADVICE. FINAL DIAGNOSES: Acute on chronic CHF with low ejection fraction and severe cardiomyopathy Chronic elevated troponin due to renal failure Acute on chronic renal failure CKD stage IV Anemia Seizure disorder Polysubstance abuse Depressive disorder Constipation Questionable rectal bleed Noncompliance signed out on previous admission as well DISPOSITION: Patient left AMA. I have been assigned to complete a discharge summary on this account, I was not involved with the patient's management.--LOGAN Lovett Jacqueline Robles NP Dec 10, 2019 11:07
--- NOTE | 2019-12-10 12:03 | NUR ---
CASE MANAGEMENT: Faxed clinical info (face sheet /DC summary/ progress notes) to [employer] @ [phone] and ELIJAH @ [phone]
--- NOTE | 2019-12-13 04:09 | Cardiology Report ---
APPROVED REPORT EKG Measurement Heart [id number] <Conclusion> Sinus tachycardia Possible Left atrial enlargement Nonspecific T wave abnormality Abnormal ECG
--- NOTE | 2019-12-13 04:15 | Cardiology Report ---
APPROVED REPORT EXAM: Two-dimensional and M-mode echocardiogram with Doppler and color Doppler. INDICATION Congestive Heart Failure M-Mode DIMENSIONS IVSd0.8 (0.7-1.1cm)Left Atrium (MM)3.7 (1.6-4.0cm) LVDd6.6 (3.5-5.6cm)Aortic Root3.6 (2.0-3.7cm) PWd0.7 (0.7-1.1cm)Aortic Cusp Exc.2.3 (1.5-2.0cm) IVSs1.3 cmEPSS1.4 (>1.0cm) LVDs4.9 (2.5-4.0cm) PWs1.2 cm <Conclusion> Limited study due to aggressive patient. Study quality precludes accurate assessment of regional wall motion. Echogenic material noted in left ventricular apex. Cannot rule out thrombus. All four chambers are dilated. Severe global left ventricular hypokinesis. Cannot rule out ischemic cardiomyopathy. Left ventricular ejection fraction estimated to be 10-15 %. No evidence of left ventricular hypertrophy. Small circumferential pericardial effusion. Focal aortic valve sclerosis with adequate cusp excursion. Thickened mitral valve leaflets with normal excursion. Mitral annulus and aortic root calcification. Pulmonic valve not well visualized. Normal tricuspid valve structure. Subcostal views not obtained. A color flow and spectral Doppler study was performed and revealed: Mild aortic regurgitation. Severe mitral regurgitation. Increased E point-interventricular septal separation c/w left ventricular dysfunction. Mitral inflow indicates increased left atrial pressure, suggestive restrictive pattern (Grade III). Severe tricuspid regurgitation. Tricuspid systolic velocities suggests peak right ventricular systolic pressure of 51mmHg, consistent with moderate pulmonary hypertension. Moderate pulmonic regurgitation present. VIBHA Mijares contacted Dr. Florez on 12/03/2019.
--- NOTE | 2019-12-13 04:19 | Cardiology Report ---
APPROVED REPORT EKG Measurement Heart [id number] <Conclusion> Sinus tachycardia Nonspecific T wave abnormality Abnormal ECG
--- NOTE | 2019-12-13 04:19 | Cardiology Report ---
APPROVED REPORT EKG Measurement Heart [id number] [id number] <Conclusion> Sinus tachycardia Nonspecific T wave abnormality Abnormal ECG
--- NOTE | 2019-12-13 20:44 | Coder Physician Query ---
Clarification is required for compliance, coding accuracy, and to reflect severity of illness for this patient Dear Dr. Hoang Date:12/13/19 Professor Of Art/CDS Name:Maria Fernanda, MARISOL "Heart Failure / CHF" proBNP [id number] He was admitted to monitored floor. He was given IV Lasix twice daily Patient has severe cardiomyopathy with EF of only 10 to 20%. EKG showed sinus tachycardia with normal axis, normal intervals, no ST segment changes. Chest x-ray showed cardiomegaly FINAL DIAGNOSES: Acute on chronic CHF with low ejection fraction and severe cardiomyopathy Please Clarify the Congestive heart failure: Type: [] Systolic [] Diastolic [] Systolic & Diastolic (Combined) [] Other: Physician signature Date Please also document in your Progress Notes and/or Discharge Summary and indicate if the condition was present on admission. FRANCISCO JD
== END 2019-12-08 09:30 | disposition left against medical advice (07) | DRG 194 ==
LOC: EDBD 12:03 → EMR 12:35 → EDBEDREQ 15:24 → 2E 15:42
DX: I13.0 Hypertensive heart and chronic kidney disease with heart failure and stage 1 through stage 4 chronic kidney disease, or unspecified chronic kidney disease (principal); I50.9 Heart failure, unspecified; N18.4 Chronic kidney disease, stage 4 (severe); N17.9 Acute kidney failure, unspecified; I51.3 Intracardiac thrombosis, not elsewhere classified; I42.9 Cardiomyopathy, unspecified; Z59.0 Homelessness; Z79.82 Long term (current) use of aspirin; F14.10 Cocaine abuse, uncomplicated; F12.10 Cannabis abuse, uncomplicated; D64.9 Anemia, unspecified; F32.9 Major depressive disorder, single episode, unspecified; K59.00 Constipation, unspecified; K62.5 Hemorrhage of anus and rectum; R56.9 Unspecified convulsions; Z91.14 Patient's other noncompliance with medication regimen; Z79.01 Long term (current) use of anticoagulants
CPT/HCPCS: 36415; 71045; 80048; 80053; 80061; 80162; 80307; 81003; 82140; 82248; 82607; 82728; 82746; 82977; 83036; 83540; 83550; 83690; 83735; 83880; 84100; 84443; 84484; 84550; 85025; 85610; 85730; 86140; 87081; 93005; 93306; 94640; 96374; 99291; J8499